=== PATIENT | male | born 1950 | race Caucasian/White ===

== ENCOUNTER 2019-02-22 19:27 | Inpatient (IN) | payer MEDICARE, OTHER ==
[~2019-02-22] VITALS: Ht 167.6 cm; Wt 60.1 kg
[2019-02-22] MEDS ORDERED: ASPIRIN 81 MG CHEW (CHILDREN'S ASA) PO ONE (20:00)
--- NOTE | 2019-02-22 20:14 | ED Chest Pain ---
General Chief Complaint: Chest Pain Stated Complaint: CHEST PAIN; SOB; NUMBNESS IN HANDS History of Present Illness Date Seen by Provider: Feb 22, 2019 Time Seen by Provider: 19:52 Initial Comments Patient is a 68 year old male who presents to the ED via niece with complaints of chest pain, cough and shortness of breath, varying in severity since last . He describes his chest pain as a deep pressure, as if, "someone is laying on my chest". Patient has history of "6-7 stents" and states that this pain feels similar to his last heart attack approximately 2 years prior. Patient has taken 2 nitroglycerin tablets in the past 24 hours. Last dose was during the ride to the ER. At its worst, he rates his pain at a 6. Following nitroglycerin, he continues to rate his pain at 6. His symptoms are exacerbated with exertion (lifting at work), deep inspiration, and when lying flat. He notes tenderness of the chest wall, most pronounced over the sternum, but denies a history of trauma to the area. Cough has been producing sputum, describes as thick and whitish in appearance. Patient is prescribed an albuterol inhaler, which provides little improvement in his symptoms. He denies a history of asthma and COPD. He denies bloody sputum, fever/chills, lightheadedness, diarrhea/constipation, dysuria/hematuria. He endorses some nausea due to pain and cough, but denies emesis. Patient states that he is prescribed medications for "blood pressure, blood thinners, and aspirin". He later states that he takes Lasix 40mg PO daily , and has an albuterol inhaler as mentioned previously. He endorses smoking 1 pack of cigarettes daily. (ISHMAEL MEJIA MEDICAL STUDENT) Allergies and Home Medications Allergies Coded Allergies: No Known Drug Allergies (Unverified , 02/22/19) Patient Home Medication List Home Medication List Reviewed: Yes (DAGOBERTO BERRY MD) Review of Systems Review of Systems Constitutional: see HPI Respiratory: See HPI Cardiovascular: See HPI Gastrointestinal: See HPI Genitourinary: See HPI Skin: No change in color, No lesions, No rash (ISHMAEL MEJIA MEDICAL STUDENT) Past Dasrpjt-Yrmfcq-Hprnid Hx Patient Social History Smoking Status: Current Everyday Smoker (1 ppd) Type Used: Cigarettes Recent Foreign Travel: No Contact w/Someone Who Travel: No (ISHMAEL MEJIA MEDICAL STUDENT) Past Medical History Cardiac: Yes Heart Attack (ISHMAEL MEJIA MEDICAL STUDENT) Physical Exam Vital Signs Vital Signs - First Documented 02/22/19 02/22/19 19:28 19:30 Temp 98.6 Pulse 80 Resp 24 B/P (MAP) 110/55 (73) Pulse Ox 93 O2 Delivery Nasal Cannula O2 Flow Rate 3.0 (DAGOBERTO BERRY MD) Vital Signs Capillary Refill : (ISHMAEL MEJIA MEDICAL STUDENT) Height, Weight, BMI Height: '" Weight: lbs. oz. kg; BMI Method: General Appearance: No Apparent Distress Neck: Full Range of Motion Respiratory: No Chest Non Tender (Anterior chest wall tender to palpation, most prominent over the sternum); No Accessory Muscle Use, Wheezing Cardiovascular: Regular Rate, Rhythm, No Murmur Gastrointestinal: Normal Bowel Sounds, Soft; No Distended Extremity: No Calf Tenderness Neurologic/Psychiatric: Alert (Alert/Grossly oriented) Skin: Normal Color, Warm/Dry (ISHMAEL MEJIA MEDICAL STUDENT) Progress/Results/Core Measures Results/Orders Lab Results Laboratory Tests Test 02/22/19 19:50 Range/Units White Blood Count 8.0 4.3-11.0 10^3/uL Red Blood Count 4.39 4.35-5.85 10^6/uL Hemoglobin 12.6 L 13.3-17.7 G/DL Hematocrit 39 L 40-54 % Mean Corpuscular Volume 90 80-99 FL Mean Corpuscular Hemoglobin 29 25-34 PG Mean Corpuscular Hemoglobin Concent 32 32-36 G/DL Red Cell Distribution Width 13.3 10.0-14.5 % Platelet Count 293 130-400 10^3/uL Mean Platelet Volume 11.2 H 7.4-10.4 FL Neutrophils (%) (Auto) 66 42-75 % Lymphocytes (%) (Auto) 24 12-44 % Monocytes (%) (Auto) 7 0-12 % Eosinophils (%) (Auto) 2 0-10 % Basophils (%) (Auto) 1 0-10 % Neutrophils # (Auto) 5.4 1.8-7.8 X 10^3 Lymphocytes # (Auto) 1.9 1.0-4.0 X 10^3 Monocytes # (Auto) 0.5 0.0-1.0 X 10^3 Eosinophils # (Auto) 0.1 0.0-0.3 10^3/uL Basophils # (Auto) 0.1 0.0-0.1 10^3/uL Prothrombin Time 13.4 12.2-14.7 SEC INR Comment 1.0 0.8-1.4 Activated Partial Thromboplast Time 32 24-35 SEC Sodium Level 142 135-145 MMOL/L Potassium Level 4.4 3.6-5.0 MMOL/L Chloride Level 102 98-107 MMOL/L Carbon Dioxide Level 26 21-32 MMOL/L Anion Gap 14 5-14 MMOL/L Blood Urea Nitrogen 14 7-18 MG/DL Creatinine 1.05 0.60-1.30 MG/DL Estimat Glomerular Filtration Rate > 60 BUN/Creatinine Ratio 13 Glucose Level 104 70-105 MG/DL Calcium Level 9.4 8.5-10.1 MG/DL Corrected Calcium 9.4 8.5-10.1 MG/DL Magnesium Level 1.9 1.8-2.4 MG/DL Total Bilirubin 0.4 0.1-1.0 MG/DL Aspartate Amino Transf (AST/SGOT) 16 5-34 U/L Alanine Aminotransferase (ALT/SGPT) 11 0-55 U/L Alkaline Phosphatase 78 40-136 U/L Myoglobin 35.0 10.0-92.0 NG/ML Pro-B-Type Natriuretic Peptide 4303.0 H <75.0 PG/ML Total Protein 7.0 6.4-8.2 GM/DL Albumin 4.0 3.2-4.5 GM/DL (DAGOBERTO BERRY MD) My Orders Orders - DAGOBERTO BERRY MD Cbc With Automated Diff (02/22/19:) Magnesium (02/22/19:) Ekg Tracing (02/22/19) Comprehensive Metabolic Panel (02/22/19) Myoglobin Serum (02/22/19) Protime With Inr (02/22/19) Partial Thromboplastin Time (02/22/19:) O2 (02/22/19:) Monitor-Rhythm Ecg Trace Only (02/22/19) Ed Iv/Invasive Line Start (4/10/19 19:52) Chest Pa/Lat (2 View) (02/22/19 19:54) Probnp Fs (02/22/19 19:54) Aspirin Chewable Tablet (Baby Aspirin Ch (02/22/19 20:00) Hs C Reactive Protein (02/22/19 20:01) Albuterol/Ipra Inhalation Soln (Duoneb I (02/22/19 20:15) Svn Small Volume Nebulizer (02/22/19 20:14) Furosemide Injection (Lasix Injection) (02/22/19 21:30) Methylprednisolone Sod Succ (Solu-Medrol (02/22/19 21:45) (DAGOBERTO BERRY MD) Medications Given in ED Current Medications Medications Dose Ordered Sig/Erick Route Start Time Stop Time Status Last Admin Dose Admin Albuterol/ Ipratropium 3 ml ONCE ONCE INH 02/22/19 20:15 02/22/19 20:16 DC 02/22/19 20:26 3 ML Aspirin 324 mg ONCE ONCE PO 02/22/19 20:00 02/22/19 20:01 DC 02/22/19 20:02 324 MG Furosemide 80 mg ONCE ONCE IVP 02/22/19 21:30 02/22/19 21:31 DC 02/22/19 21:35 80 MG (DAGOBERTO BERRY MD) Vital Signs/I&O 02/22/19 02/22/19 02/22/19 19:28 19:30 19:58 Temp 98.6 Pulse 80 Resp 24 B/P (MAP) 110/55 (73) Pulse Ox 93 96 O2 Delivery Nasal Cannula Nasal Cannula Nasal Cannula O2 Flow Rate 3.0 3.00 3.00 (DAGOBERTO BERRY MD) Progress Progress Note : Progress Note Patient was interviewed, seen, and examined along with Ishmael Mejia, 4. I agree with his history, exam, assessment, and plan. My exam is as follows: Gen.: Alert, oriented, no acute distress HEENT: Normocephalic and atraumatic, mucous membranes moist Heart: Regular rate and rhythm without murmur Lungs: Clear to auscultation but diminished in the bases, mild tachypnea Abdomen: Soft, nontender Extremities: Normal to inspection, no edema Skin: Warm and dry, no rashes Patient's BNP was significantly elevated. X-ray would suggest pulmonary edema and congestion that correlates well with the BNP. Case was discussed with Dr. Neumann who suggested a Lasix 80 mg IV now and admission. An echocardiogram is to be done in the morning. The Lasix dose was given in the ER. Patient did receive aspirin as part of the chest pain workup. Patient also received a DuoNeb treatment which very modestly improved his chest tightness and shortness of breath. I discussed CODE STATUS with the patient and he asserts a DO NOT RESUSCITATE status. Patient's primary care provider is Dr. Gilmore and his cardiology care is at [facility]. (DAGOBERTO BERRY MD) Initial ECG Impression Date: Feb 22, 2019 Initial ECG Impression Time: 19:28 Initial ECG Rate: 83 Initial ECG Rhythm: Normal Sinus Comment Normal sinus rhythm with no ischemic ST elevation or depression. Repolarization abnormality prominent in V3. Nonspecific ST changes. No abnormal intervals or axis deviation. PVC present. (DAGOBERTO BERRY MD) Diagnostic Imaging Diagonstic Imaging: Xray Plain Films/CT/US/NM/MRI: chest Comments Chest x-ray viewed by me and report reviewed. See report below: NAME: ISHMAEL DUDLEY [facility] REC#: [id number] PT STATUS: REG ER : 1950 PHYSICIAN: DAGOBERTO BERRY MD ADMIT DATE: 02/22/19/ER FS Signed Date of Exam: 02/22/19 CHEST PA/LAT (2 VIEW) INDICATION: Chest pain started last , it was worse today, left arm pain as well, took two nitroglycerin at home. FINDINGS: Frontal and lateral views of the chest demonstrate cardiomegaly. Timoteo B-lines are present with prominent interstitial markings. No effusions are present. IMPRESSION: There is cardiomegaly with pulmonary edema. Dictated by: Dictated on workstation # [id number] Dict: 02/22/192017 Trans: 02/22/192034 Interpreted by: TITO GAGE MD Electronically signed by: TITO GAGE MD 02/22/192034 (DAGOBERTO BERRY MD) Departure Communication (Admissions) Time/Spoke to Admitting Phy: 21:35 Dr. Shields Time/Spoke to Consulting Phy: 21:25 Dr. Neumann (DAGOBERTO BERRY MD) Impression Primary Impression: Chest pain Qualified Codes: R07.9 - Chest pain, unspecified Additional Impressions: CHF (congestive heart failure) Qualified Codes: I50.9 - Heart failure, unspecified COPD exacerbation Coronary artery disease Qualified Codes: I25.10 - Atherosclerotic heart disease of [place] coronary artery without angina pectoris Disposition: ADMITTED INPATIENT Condition: Improved Admissions Decision to Admit Reason: Admit from ER (General) Decision to Admit/Date: Feb 22, 2019 Time/Decision to Admit Time: 21:25 (DAGOBERTO BERRY MD) Departure-Patient Inst. Referrals: KATHERIN GILMORE MD (PCP) Primary Care Physician Copy Copies To 1: KATHERIN GILMORE MD, WILLIAM MEDICAL STUDENT Feb 22, 2019 20:14 DAGOBERTO BERRY MD Feb 22, 2019 21:56
[2019-02-22] MEDS ORDERED: RT-ALBUTEROL/IPRATROPIUM 3 ML (DUONEB) VIAL INH ONE (20:15)
[2019-02-22 20:20] LABS: BASOPHILS % (AUTO) 1 % (0-10); EOSINOPHILS % (AUTO) 2 % (0-10); HEMATOCRIT 39 % (40-54); HEMOGLOBIN 12.6 G/DL (13.3-17.7); LYMPHOCYTES % (AUTO) 24 % (12-44); MEAN CORPUSCULAR HEMOGLOBIN 29 PG (25-34); MEAN CORPUSCULAR HGB CONC 32 G/DL (32-36); MEAN CORPUSCULAR VOLUME 90 FL (80-99); MEAN PLATELET VOLUME 11.2 FL (7.4-10.4); MONOCYTES % (AUTO) 7 % (0-12); PLATELET COUNT 293 10^3/uL (130-400); RED CELL DISTRIBUTION WIDTH 13.3 % (10.0-14.5)
[2019-02-22 20:21] LABS: BASOPHILS # (AUTO) 0.1 10^3/uL (0.0-0.1); EOSINOPHILS # (AUTO) 0.1 10^3/uL (0.0-0.3); LYMPHOCYTES # (AUTO) 1.9 X 10^3 (1.0-4.0); MONOCYTES # (AUTO) 0.5 X 10^3 (0.0-1.0); NEUTROPHILS # (AUTO) 5.4 X 10^3 (1.8-7.8); NEUTROPHILS % (AUTO) 66 % (42-75)
[2019-02-22 20:22] LABS: PROTHROMBIN TIME PATIENT 13.4 SEC (12.2-14.7)
--- NOTE | 2019-02-22 20:23 | Diagnostic Imaging Report ---
INDICATION: Chest pain started last , it was worse today, left arm pain as well, took two nitroglycerin at home. FINDINGS: Frontal and lateral views of the chest demonstrate cardiomegaly. Timoteo B-lines are present with prominent interstitial markings. No effusions are present. IMPRESSION: There is cardiomegaly with pulmonary edema. Dictated by: Dictated on workstation # [id number]
[2019-02-22 20:32] LABS: BUN/CREATININE RATIO 13; CARBON DIOXIDE 26 MMOL/L (21-32); CHLORIDE 102 MMOL/L (98-107); CREATININE SERUM 1.05 MG/DL (0.60-1.30); GFR ESTIMATED > 60; POTASSIUM 4.4 MMOL/L (3.6-5.0); SODIUM 142 MMOL/L (135-145)
[2019-02-22 20:33] LABS: ALANINE AMINOTRANSFERASE 11 U/L (0-55); ALKALINE PHOSPHATASE 78 U/L (40-136); BILIRUBIN,TOTAL 0.4 MG/DL (0.1-1.0); CALCIUM 9.4 MG/DL (8.5-10.1); GLUCOSE 104 MG/DL (70-105); MAGNESIUM 1.9 MG/DL (1.8-2.4)
[2019-02-22] MEDS ORDERED: FUROSEMIDE 40 MG/4 ML INJ (LASIX) IVP ONE (21:30)
[2019-02-22] MEDS ORDERED: methylPREDNISolone 40 MG/ML (Solu-MEDROL) VIAL IV ONE (21:45)
[2019-02-22 23:55] VITALS: BP 130/65
[2019-02-23] VITALS (13 sets, daily range): BP systolic 104–133; BP diastolic 45–97
[2019-02-23] MEDS ORDERED: RT-ALBUTEROL SULF 2.5 MG/3 ML PRE-MIX VIAL IH PRN (01:30)
[2019-02-23 02:25] LABS: CREATINE KINASE 128 U/L (30-200)
[2019-02-23] MEDS: FUROSEMIDE 40 MG/4 ML INJ (LASIX) IVP SCH ×2 (06:00→15:42)
[2019-02-23 06:02] LABS: BASOPHILS % (AUTO) 0 % (0-10); EOSINOPHILS % (AUTO) 0 % (0-10); HEMATOCRIT 44 % (40-54); HEMOGLOBIN 14.5 G/DL (13.3-17.7); LYMPHOCYTES # (AUTO) 0.9 X 10^3 (1.0-4.0); LYMPHOCYTES % (AUTO) 12 % (12-44); MEAN CORPUSCULAR HEMOGLOBIN 29 PG (25-34); MEAN CORPUSCULAR HGB CONC 33 G/DL (32-36); MEAN CORPUSCULAR VOLUME 88 FL (80-99); MEAN PLATELET VOLUME 11.5 FL (7.4-10.4); MONOCYTES # (AUTO) 0.1 X 10^3 (0.0-1.0); MONOCYTES % (AUTO) 2 % (0-12); NEUTROPHILS # (AUTO) 6.1 X 10^3 (1.8-7.8); NEUTROPHILS % (AUTO) 86 % (42-75); PLATELET COUNT 295 10^3/uL (130-400); RED CELL DISTRIBUTION WIDTH 13.9 % (10.0-14.5); WHITE BLOOD COUNT 7.2 10^3/uL (4.3-11.0)
[2019-02-23 06:24] LABS: ALANINE AMINOTRANSFERASE 15 U/L (0-55); ALBUMIN 4.2 GM/DL (3.2-4.5); ALKALINE PHOSPHATASE 88 U/L (40-136); BILIRUBIN,TOTAL 0.6 MG/DL (0.1-1.0); BUN/CREATININE RATIO 17; CALCIUM 10.1 MG/DL (8.5-10.1); CARBON DIOXIDE 21 MMOL/L (21-32); CHLORIDE 101 MMOL/L (98-107); CHOLESTEROL 224 MG/DL (< 200); CREATININE SERUM 0.99 MG/DL (0.60-1.30); GFR ESTIMATED > 60; GLUCOSE 110 MG/DL (70-105); HDL CHOLESTEROL 52 MG/DL (40-60); POTASSIUM 4.5 MMOL/L (3.6-5.0); SODIUM 137 MMOL/L (135-145); TOTAL PROTEIN 7.8 GM/DL (6.4-8.2); TRIGLYCERIDES 79 MG/DL (<150); VLDL CHOLESTEROL 16 MG/DL (5-40)
[2019-02-23 06:26] LABS: BAND NEUTROPHILS 0 %; BASOPHILS % (MANUAL) 0 %; ELLIPT/OVALOCYTES SLIGHT; EOSINOPHILS % (MANUAL) 0 %; LYMPHOCYTES % (MANUAL) 11 %; MONOCYTES % (MANUAL) 2 %; NEUTROPHILS % (MANUAL) 85 %; PLATELET CLUMPS SLIGHT; REACTIVE LYMPHOCYTES 2 %; ROULEAUX SLIGHT
[2019-02-23] MEDS ORDERED: FUROSEMIDE 40 MG (LASIX) TAB PO SCH (07:00)
--- NOTE | 2019-02-23 07:29 | Consultation-Cardiology ---
HPI-Cardiology Cardiology Consultation Date of Consultation 02/23/19 Date of Admission Time Seen by Provider: 07:24 Indication: chest pain and shortness of breath HPI 68 years old gentleman with history of coronary artery disease and congestive heart failure, was following with a hairspring studder in [place], did not see any hairspring studder for over a year. Has been having some increasing shortness of breath for the past 2 weeks which has been worsening, reporting worsening orthopnea, cough, had some chest tightness. Denied any palpitation. Denied any syncope or near syncopal episode. Was given IV Lasix and reported some improvement, currently laying down in bed, still having some dyspnea at rest Home Medications & Allergies Allergies: Coded Allergies: No Known Drug Allergies (Unverified , 02/22/19) Home Medication List Reviewed: Yes HVV-Imuwrd-Sjmrls Hx Patient Social History Marital Status: Employed/Student: retired Smoking Status: Current Everyday Smoker (1 ppd) Type Used: Cigarettes Recent Foreign Travel: No Recent Infectious Disease Expo: No Immunizations Up To Date Date of Pneumonia Vaccine: Dec 26, 2018 Past Medical History past medical history as discussed below Family Medical History Family Medical Hx family history of heart disease and hypertension Review of Systems Constitutional: see HPI, malaise EENTM: see HPI, no symptoms reported Respiratory: see HPI, cough, dyspnea on exertion, orthopnea, phlegm Cardiovascular: see HPI, chest pain, edema; No Hx of Intervention, No palpitations, No syncope, No vascular heart diseas, No other Gastrointestinal: no symptoms reported, see HPI Genitourinary: no symptoms reported, see HPI Musculoskeletal: see HPI, joint pain Skin: no symptoms reported, see HPI Psychiatric/Neurological: No Symptoms Reported, See HPI Reviewed Test Results Reviewed Test Results Lab Laboratory Tests Test 02/22/19 19:50 02/23/19 02:00 02/23/19 05:15 Range/Units White Blood Count 8.0 7.2 4.3-11.0 10^3/uL Red Blood Count 4.39 5.00 4.35-5.85 10^6/uL Hemoglobin 12.6 L 14.5 13.3-17.7 G/DL Hematocrit 39 L 44 40-54 % Mean Corpuscular Volume 90 88 80-99 FL Mean Corpuscular Hemoglobin 29 29 25-34 PG Mean Corpuscular Hemoglobin Concent 32 33 32-36 G/DL Red Cell Distribution Width 13.3 13.9 10.0-14.5 % Platelet Count 293 295 130-400 10^3/uL Mean Platelet Volume 11.2 H 11.5 H 7.4-10.4 FL Neutrophils (%) (Auto) 66 86 H 42-75 % Lymphocytes (%) (Auto) 24 12 12-44 % Monocytes (%) (Auto) 7 2 0-12 % Eosinophils (%) (Auto) 2 0 0-10 % Basophils (%) (Auto) 1 0 0-10 % Neutrophils # (Auto) 5.4 6.1 1.8-7.8 X 10^3 Lymphocytes # (Auto) 1.9 0.9 L 1.0-4.0 X 10^3 Monocytes # (Auto) 0.5 0.1 0.0-1.0 X 10^3 Eosinophils # (Auto) 0.1 0.0 0.0-0.3 10^3/uL Basophils # (Auto) 0.1 0.0 0.0-0.1 10^3/uL Prothrombin Time 13.4 12.2-14.7 SEC INR Comment 1.0 0.8-1.4 Activated Partial Thromboplast Time 32 24-35 SEC Sodium Level 142 137 135-145 MMOL/L Potassium Level 4.4 4.5 3.6-5.0 MMOL/L Chloride Level 102 101 98-107 MMOL/L Carbon Dioxide Level 26 21 21-32 MMOL/L Anion Gap 14 15 H 5-14 MMOL/L Blood Urea Nitrogen 14 17 7-18 MG/DL Creatinine 1.05 0.99 0.60-1.30 MG/DL Estimat Glomerular Filtration Rate > 60 > 60 BUN/Creatinine Ratio 13 17 Glucose Level 104 110 H 70-105 MG/DL Calcium Level 9.4 10.1 8.5-10.1 MG/DL Corrected Calcium 9.4 9.9 8.5-10.1 MG/DL Magnesium Level 1.9 1.8-2.4 MG/DL Total Bilirubin 0.4 0.6 0.1-1.0 MG/DL Aspartate Amino Transf (AST/SGOT) 16 21 5-34 U/L Alanine Aminotransferase (ALT/SGPT) 11 15 0-55 U/L Alkaline Phosphatase 78 88 40-136 U/L Myoglobin 35.0 10.0-92.0 NG/ML Pro-B-Type Natriuretic Peptide 4303.0 H <75.0 PG/ML Total Protein 7.0 7.8 6.4-8.2 GM/DL Albumin 4.0 4.2 3.2-4.5 GM/DL Total Creatine Kinase 128 30-200 U/L Troponin I < 0.028 < 0.028 <0.028 NG/ML Neutrophils % (Manual) 85 % Lymphocytes % (Manual) 11 % Monocytes % (Manual) 2 % Eosinophils % (Manual) 0 % Basophils % (Manual) 0 % Band Neutrophils 0 % Reactive Lymphocytes 2 % Clumped Platelets SLIGHT Elliptocytes SLIGHT Rouleau SLIGHT Triglycerides Level 79 <150 MG/DL Cholesterol Level 224 H < 200 MG/DL LDL Cholesterol Direct 161 H 1-129 MG/DL VLDL Cholesterol 16 5-40 MG/DL HDL Cholesterol 52 40-60 MG/DL Physical Exam Vital Signs Vital Signs - First Documented 02/22/19 02/22/19 19:28 19:30 Temp 98.6 Pulse 80 Resp 24 B/P (MAP) 110/55 (73) Pulse Ox 93 O2 Delivery Nasal Cannula O2 Flow Rate 3.0 Capillary Refill : Less Than 3 Seconds Height, Weight, BMI Height: 5'6.00" Weight: 130lbs. 2.4oz. 59.937769sq; 21.0 BMI Method:Stated General Appearance: WD/WN, Mild Distress Eyes: Bilateral Eye Normal Inspection, Bilateral Eye PERRL, Bilateral Eye EOMI HEENT: PERRL/EOMI, TMs Normal, Normal ENT Inspection, Pharynx Normal Neck: Full Range of Motion, Normal Inspection, Non Tender, Supple, Carotid Bruit Respiratory: Chest Non Tender, Normal Breath Sounds, No Accessory Muscle Use, No Respiratory Distress, Crackles Cardiovascular: Regular Rate, Rhythm, No Edema, No Gallop, No JVD, Normal Peripheral Pulses, Systolic Murmur Gastrointestinal: Normal Bowel Sounds, No Organomegaly, No Pulsatile Mass, Non Tender, Soft Back: Normal Inspection, No CVA Tenderness, No Vertebral Tenderness Extremity: Normal Capillary Refill, Normal Inspection, Normal Range of Motion, Non Tender, No Calf Tenderness, No Pedal Edema Neurologic/Psychiatric: Alert, Oriented x3, No Motor/Sensory Deficits, Normal Mood/Affect Skin: Normal Color, Warm/Dry Lymphatic: No Adenopathy A/P-Cardiology Admission Diagnosis Chest pain Shortness of breath Coronary artery disease Congestive heart failure, acute on chronic left ventricular systolic dysfunction Assessment/Plan Chest pain nonspecific etiology, extensive cardiac history, no recent cardiac workup, EKG did not show any acute abnormality, cardiac enzymes were negative. Currently chest pain is better, planning to proceed with stress test Congestive heart failure, acute on chronic left ventricular systolic dysfunction , start on aggressive diuresis, continue on diuretics and monitor, planning to evaluate 2-D echocardiogram Coronary artery disease, history of total of 5 stents in the past, last stress test was done about a year and a half ago. Planning to repeat stress test Hypertension, restart home medication monitor blood pressure Hyperlipidemia, evaluate lipid profile. Family history of heart disease. Clinical Quality Measures AMI/AHF: ASA po Prior to arrival: No DVT/VTE Risk/Contraindication: Risk Factor Score Per Nursin RFS Level Per Nursing on Admit: 4+=Very High FRANKLIN FLORES MD Feb 23, 2019 07:29
[2019-02-23] MEDS ORDERED: REGADENOSON 0.4 MG/5 ML SYR (LEXISCAN) IV ONE (07:30)
[2019-02-23] MEDS: ASPIRIN E.C. 81 MG (ECOTRIN) TAB PO SCH (07:51)
[2019-02-23] MEDS ORDERED: CLOP75TA28 PO (09:35)
[2019-02-23] MEDS ORDERED: FURO40TA4 PO (09:35)
[2019-02-23] MEDS ORDERED: TRAM50TA2 PO (09:35)
[2019-02-23] MEDS ORDERED: ASPI325T32 PO (09:35)
[2019-02-23] MEDS ORDERED: LEVO50TA6 PO (09:35)
[2019-02-23] MEDS ORDERED: RT-ALBUINH INH (09:35)
[2019-02-23] MEDS ORDERED: CARV12.53 PO (09:35)
[2019-02-23] MEDS ORDERED: NITR0.4T42 SL (09:35)
--- NOTE | 2019-02-23 09:37 | NUR ---
WENT OVER THE EXT MED HX WITH THE PATIENT AND HE VERIFIED HOW HE TAKES THEM. HE ALSO TAKES ASPIRIN 325MG DAILY OTC.
--- NOTE | 2019-02-23 10:22 | History & Physical-Hospitalist ---
History of Present Illness HPI/Chief Complaint Chief complaint: Shortness of breath HPI: This is a 68yoWM clinic pt of Dr. Myers who presented with chest pain and SOB found to have exacerbation of COPD and he uses oxygen at night and continues to smoke one pack per day. He works at [employer]. He lives alone but his sister is involved in his care. Pt reports shortness of breath is about the same, but tolerating nebulizer treatments and IV steroids. Dr. Walker did initiate diuresis which has helped. Source: patient, family, RN/MD Exam Limitations: no limitations Date Seen 02/23/19 Time Seen by a Provider: 09:45 Attending Physician Lo Ivey DO PCP Bradley Myers MD Referring Physician Date of Admission Feb 22, 2019 at 21:43 Home Medications & Allergies Home Medications Reviewed patient Home Medication Reconciliation performed by pharmacy medication reconciliations gi technician and/or nursing. Patients Allergies have been reviewed. Allergies Allergies Coded Allergies No Known Drug Allergies (Unverified02/22/19) Past Zqpaijk-Tvhhls-Iuuszc Hx Past Med/Social Hx: Reviewed Nursing Past Med/Soc Hx, Reviewed and Corrections made Patient Social History Marrital Status: Employed/Student: employed ([employer]) Smoking Status: Current Everyday Smoker (1 ppd) Type Used: Cigarettes Recent Foreign Travel: No Contact w/other who traveled: No Recent Infectious Disease Expo: No Immunizations Up To Date Date of Pneumonia Vaccine: Dec 26, 2018 Past Medical History Respiratory: COPD Cardiac: Coronary Artery Disease, Heart Attack, High Cholesterol, Hypertension Review of Systems Constitutional: see HPI EENTM: no symptoms reported Respiratory: dyspnea on exertion, short of breath, wheezing Cardiovascular: chest pain Gastrointestinal: no symptoms reported Genitourinary: no symptoms reported Musculoskeletal: no symptoms reported Skin: no symptoms reported Psychiatric/Neurological: No Symptoms Reported All Other Systems Reviewed Negative Unless Noted: Yes Physical Exam Physical Exam Vital Signs Vital Signs - First Documented 02/22/19 02/22/19 19:28 19:30 Temp 98.6 Pulse 80 Resp 24 B/P (MAP) 110/55 (73) Pulse Ox 93 O2 Delivery Nasal Cannula O2 Flow Rate 3.0 Capillary Refill : Less Than 3 Seconds Height, Weight, BMI Height: 5'6.00" Weight: 130lbs. 2.4oz. 59.162012au; 21.0 BMI Method:Stated General Appearance: WD/WN, Chronically ill, Mild Distress, Thin Eyes: Right Eye Normal Inspection, Right Eye PERRL HEENT: PERRL/EOMI, TMs Normal, Normal ENT Inspection, Pharynx Normal, Moist Mucous Membranes Neck: Full Range of Motion, Normal Inspection, Non Tender Respiratory: Chest Non Tender, No Accessory Muscle Use, No Respiratory Distress , Decreased Breath Sounds, Wheezing Cardiovascular: Regular Rate, Rhythm, No Edema, No Gallop, No JVD, No Murmur, Normal Peripheral Pulses Gastrointestinal: Normal Bowel Sounds, No Organomegaly, No Pulsatile Mass, Non Tender, Soft Back: Normal Inspection, No CVA Tenderness, No Vertebral Tenderness Extremity: Normal Capillary Refill, Normal Inspection, Normal Range of Motion, Non Tender, No Calf Tenderness, No Pedal Edema Neurologic/Psychiatric: Alert, Oriented x3, No Motor/Sensory Deficits, Normal Mood/Affect Skin: Normal Color, Warm/Dry Lymphatic: No Adenopathy Results Results/Procedures Labs Laboratory Tests 02/22/19 19:50 02/23/19 05:15 Patient resulted labs reviewed. Assessment/Plan Admission Diagnosis Assessment: AECHF Pulmonary edema Elevated BNP CAD Smoker AECOPD Plan: IV Lasix Cardiology consultation O2 Nebs Admission Status: Inpatient Order (span 2 midnights) Reason for Inpatient Admission: AECHF will require 3 days since new onset Diagnosis/Problems Diagnosis/Problems (1) Chest pain Status: Acute Qualifiers: Chest pain type: unspecified Qualified Codes: R07.9 - Chest pain, unspecified (2) Elevated brain natriuretic peptide (BNP) level Status: Acute (3) Smoker Status: Chronic (4) PVD (peripheral vascular disease) Status: Chronic (5) Oxygen dependent Status: Chronic (6) CHF (congestive heart failure) Status: Acute Qualifiers: Heart failure type: unspecified Heart failure chronicity: unspecified Qualified Codes: I50.9 - Heart failure, unspecified (7) Coronary artery disease Status: Acute Qualifiers: Coronary Disease-Associated Artery/Lesion type: [place] artery [place] vs. transplanted heart: [place] heart Associated angina: angina presence unspecified Qualified Codes: I25.10 - Atherosclerotic heart disease of [place] coronary artery without angina pectoris (8) COPD exacerbation Status: Acute Clinical Quality Measures AMI/AHF: ASA po Prior to arrival: No DVT/VTE Risk/Contraindication: Risk Factor Score Per Nursin RFS Level Per Nursing on Admit: 4+=Very High LO IVEY DO Feb 23, 2019 10:22
[2019-02-23] MEDS: methylPREDNISolone 40 MG/ML (Solu-MEDROL) VIAL IV SCH (12:45)
[2019-02-24] VITALS (8 sets, daily range): BP systolic 109–144; BP diastolic 51–71
[2019-02-24] MEDS: methylPREDNISolone 40 MG/ML (Solu-MEDROL) VIAL IV SCH ×2 (00:22→11:22)
[2019-02-24 06:05] LABS: HEMOGLOBIN 13.9 G/DL (13.3-17.7); MEAN PLATELET VOLUME 11.5 FL (7.4-10.4); RED CELL DISTRIBUTION WIDTH 13.8 % (10.0-14.5); WHITE BLOOD COUNT 13.9 10^3/uL (4.3-11.0)
[2019-02-24 06:29] LABS: BUN/CREATININE RATIO 28; CALCIUM 9.7 MG/DL (8.5-10.1); CARBON DIOXIDE 21 MMOL/L (21-32); CHLORIDE 101 MMOL/L (98-107); CREATININE SERUM 0.96 MG/DL (0.60-1.30); GFR ESTIMATED > 60; GLUCOSE 111 MG/DL (70-105); MAGNESIUM 2.3 MG/DL (1.8-2.4); POTASSIUM 4.9 MMOL/L (3.6-5.0); SODIUM 137 MMOL/L (135-145)
[2019-02-24] MEDS: FUROSEMIDE 40 MG/4 ML INJ (LASIX) IVP SCH ×2 (06:35→16:47)
[2019-02-24] MEDS: LEVOTHYROXINE 50 MCG (LEVOTHROID) TAB PO SCH (06:35)
[2019-02-24] MEDS ORDERED: REGADENOSON 0.4 MG/5 ML SYR (LEXISCAN) IV ONE (08:15)
--- NOTE | 2019-02-24 09:12 | Progress Note-Hospitalist ---
Subjective HPI/CC On Admission Date Seen by Provider: Feb 24, 2019 Time Seen by Provider: 09:30 Chief complaint: Shortness of breath HPI: This is a 68yoWM clinic pt of Dr. Myers who presented with chest pain and SOB found to have exacerbation of COPD and he uses oxygen at night and continues to smoke one pack per day. He works at [employer]. He lives alone but his sister is involved in his care. Pt reports shortness of breath is about the same, but tolerating nebulizer treatments and IV steroids. Dr. Walker did initiate diuresis which has helped. Subjective/Events-last exam Patient feels much better Breathing better Stress test revealed an echo revealed ejection fraction 20 percent needs LifeVest Smoking cessation counseled Needs bowel movement Diuresis is helping a lot Updated patient and sister Review of Systems Pulmonary: Dyspnea Objective Exam Vital Signs Vital Signs Date Time Temp Pulse Resp B/P (MAP) Pulse Ox O2 Delivery O2 Flow Rate FiO2 02/24/19 12:57 88 02/24/19 12:00 97.2 20 144/70 (94) 98 Nasal Cannula 3.00 Capillary Refill : Less Than 3 Seconds General Appearance: WD/WN, Chronically ill, Mild Distress, Thin HEENT: PERRL/EOMI, TMs Normal, Normal ENT Inspection, Pharynx Normal, Moist Mucous Membranes Neck: Full Range of Motion, Normal Inspection, Non Tender Respiratory: Chest Non Tender, No Accessory Muscle Use, No Respiratory Distress , Decreased Breath Sounds, Wheezing Cardiovascular: Regular Rate, Rhythm, No Edema, No Gallop, No JVD, No Murmur, Normal Peripheral Pulses Gastrointestinal: Normal Bowel Sounds, No Organomegaly, No Pulsatile Mass, Non Tender, Soft Back: Normal Inspection, No CVA Tenderness, No Vertebral Tenderness Extremity: Normal Capillary Refill, Normal Inspection, Normal Range of Motion, Non Tender, No Calf Tenderness, No Pedal Edema Neurologic/Psychiatric: Alert, Oriented x3, No Motor/Sensory Deficits, Normal Mood/Affect Skin: Normal Color, Warm/Dry Lymphatic: No Adenopathy Results/Procedures Lab Laboratory Tests 02/24/19 05:40 Patient resulted labs reviewed. Assessment/Plan Assessment and Plan Assess & Plan/Chief Complaint Assessment: AECHF due to ischemic cardiomyopathy confirmed on EST Pulmonary edema responding to diuresis Elevated BNP CAD Smoker AECOPD Plan: IV Lasix Cardiology consultation is appreciated O2 Nebs Lifevest Diagnosis/Problems Diagnosis/Problems (1) Chest pain Status: Acute Qualifiers: Chest pain type: unspecified Qualified Codes: R07.9 - Chest pain, unspecified (2) Elevated brain natriuretic peptide (BNP) level Status: Acute (3) Smoker Status: Chronic (4) PVD (peripheral vascular disease) Status: Chronic (5) Oxygen dependent Status: Chronic (6) CHF (congestive heart failure) Status: Acute Qualifiers: Heart failure type: unspecified Heart failure chronicity: unspecified Qualified Codes: I50.9 - Heart failure, unspecified (7) Coronary artery disease Status: Acute Qualifiers: Coronary Disease-Associated Artery/Lesion type: [place] artery [place] vs. transplanted heart: [place] heart Associated angina: angina presence unspecified Qualified Codes: I25.10 - Atherosclerotic heart disease of [place] coronary artery without angina pectoris (8) COPD exacerbation Status: Acute (9) Ischemic cardiomyopathy Status: Acute Clinical Quality Measures AMI/AHF: ASA po Prior to arrival: No DVT/VTE Risk/Contraindication: Risk Factor Score Per Nursin RFS Level Per Nursing on Admit: 4+=Very High WENDY IVEY DO Feb 24, 2019 09:12
[2019-02-24] MEDS: CLOPIDOGREL 75 MG (PLAVIX) TABLET PO SCH (11:15)
[2019-02-24] MEDS: ASPIRIN E.C. 81 MG (ECOTRIN) TAB PO SCH (11:15)
--- NOTE | 2019-02-24 11:20 | Cardiology Progress Note ---
Subjective Date Seen by Provider: Feb 24, 2019 Time Seen by Provider: 11:15 Subjective/Events-last exam Patient is in bed, feeling better, no chest pain. Review of Systems General: No Chills, No Night Sweats, No Fatigue, No Malaise, No Appetite, No Other HEENT: No Head Aches, No Visual Changes, No Eye Pain, No Ear Pain, No Dysphasia , No Sinus Congestion, No Post Nasal Drip, No Sore Throat, No Other Pulmonary: Dyspnea; No Cough, No Pleuritic Chest Pain, No Other Cardiovascular: No: Chest Pain, Palpitations, Orthopnea, Paroxysmal Noc. Dyspnea, Edema, Lt Headedness, Other Objective-Cardiology Exam Last Set of Vital Signs Vital Signs 02/24/19 09:54 Temp 96.5 Pulse 70 Resp 20 B/P (MAP) 144/70 (94) Pulse Ox 99 O2 Delivery Nasal Cannula O2 Flow Rate 3.00 Capillary Refill : Less Than 3 Seconds I&O Intake and Output 02/23/19 23:59 Intake Total 1520 ml Output Total 1550 ml Balance -30 ml Intake Oral 1520 ml Output Urine Total 1550 ml # Bowel Movements 2 General: Alert, Oriented X3, Cooperative HEENT: Atraumatic, PERRLA Neck: Supple, No JVD, No Thyromegaly Lungs: Clear to Auscultation, Normal Air Movement Heart: Normal S1, Normal S2, No Murmurs, Other (S3 is present) Abdomen: Normal Bowel Sounds, Soft, No Tenderness, No Hepatosplenomegaly, No Masses Extremities: No Clubbing, No Cyanosis, No Edema, Normal Pulses, No Tenderness/ Swelling Skin: No Rashes, No Breakdown, No Significant Lesion Neuro: Normal Gait, Normal Speech, Strength at 5/5 X4 Ext, Normal Tone, Sensation Intact Psych/Mental Status: Mental Status NL, Mood NL Results Lab Laboratory Tests 02/24/19 05:40 A/P-Cardiology Admission Diagnosis Chest pain Shortness of breath Coronary artery disease Congestive heart failure, acute on chronic left ventricular systolic dysfunction Assessment/Plan Chest pain nonspecific etiology, extensive cardiac history, coronary artery disease. Congestive heart failure, acute on chronic left ventricular systolic dysfunction , ejection fraction 25 percent, planning to proceed with LifeVest, stress test showed total infarction of the true apex and anteroapical and inferior apical, anteroseptal and inferoseptal segment with no reversibility, will consider viability study as an outpatient. I will start on Entresto and coreg and monitor tolerance and response. Continue on Lasix Increased risk of sudden , will start on LifeVest Coronary artery disease, history of total of 5 stents in the past, last stress test was done about a year and a half ago. Planning to evaluate viability study as an outpatient Hypertension, monitor blood pressure response Hyperlipidemia, evaluate lipid profile. Family history of heart disease. Clinical Quality Measures AMI/AHF: ASA po Prior to arrival: No DVT/VTE Risk/Contraindication: Risk Factor Score Per Nursin RFS Level Per Nursing on Admit: 4+=Very High FRANKLIN FLORES MD Feb 24, 2019 11:20
--- NOTE | 2019-02-24 12:54 | STRESS TEST ---
DATE OF SERVICE: 02/24/2019 LEXISCAN MYOVIEW STRESS TEST REPORT REFERRING PHYSICIANS: Dr. Bradley Myers and Dr. Lo Shields. Baseline heart rate is 80 and baseline blood pressure 115/70. Baseline EKG is sinus rhythm with left bundle branch block. In summary, the patient was injected with 10.76 mCi of technetium-99 Myoview and the resting images were obtained. Then, the patient received 0.4 mg of Lexiscan followed by 30.4 mCi of technetium-99 Myoview. Throughout the test, there were no EKG changes. The resting and stress images were reviewed and compared in the short axis, horizontal long axis and vertical long axis views. Review of the images showed total infarction of the mid to apical anterior wall true apex, inferoapical segment, inferoseptum and anteroseptum with no significant reversibility. SSS is 32, SDS 2 and TID value 1.14. On the gated images, the left ventricle is dilated with severe diffuse left ventricular hypokinesia, akinesia of the apex and inferoapical segment, calculated ejection fraction is 21%. CONCLUSION: 1. The patient tolerated the Lexiscan well. 2. Extensive infarction involving the true apex, anteroapical, inferoapical inferoseptum and anteroseptum with no significant reversibility. 3. Dilated left ventricle with diffuse left ventricular hypokinesia with the akinesia of the apex. Calculated ejection fraction is 21%. Job ID: [id number] DocumentID: [id number] Dictated Date: 02/24/2019 10:34:51 Photographic Equipment Inspector Date: 02/24/2019 12:54:28 Dictated By: FRANKLIN FLORES MD
[2019-02-24] MEDS: SENNA W/DOCUSATE (SENOKOT S) TABLET PO SCH ×2 (13:01→21:29)
[2019-02-24] MEDS: LACTULOSE SYRUP 10GM/15ML (ENULOSE) 30ML UDC PO SCH ×2 (13:03→20:00)
--- NOTE | 2019-02-24 15:00 | NUR ---
Pastoral care visit.
[2019-02-24] MEDS: CARVEDILOL 3.125 MG (COREG) TABLET PO SCH (21:28)
[2019-02-24] MEDS: SACUBITRIL/VALSARTAN 24/26 MG (ENTRESTO) TABLET PO SCH (21:29)
[2019-02-25] MEDS: methylPREDNISolone 40 MG/ML (Solu-MEDROL) VIAL IV SCH (00:36)
[2019-02-25 04:00] VITALS: BP 107/44
[2019-02-25 06:11] LABS: HEMOGLOBIN 13.9 G/DL (13.3-17.7); MEAN PLATELET VOLUME 11.3 FL (7.4-10.4); RED CELL DISTRIBUTION WIDTH 13.7 % (10.0-14.5); WHITE BLOOD COUNT 13.6 10^3/uL (4.3-11.0)
[2019-02-25] MEDS: FUROSEMIDE 40 MG/4 ML INJ (LASIX) IVP SCH (06:28)
[2019-02-25] MEDS: LEVOTHYROXINE 50 MCG (LEVOTHROID) TAB PO SCH (06:28)
[2019-02-25 06:31] LABS: BUN/CREATININE RATIO 41; CALCIUM 9.5 MG/DL (8.5-10.1); CARBON DIOXIDE 24 MMOL/L (21-32); CHLORIDE 99 MMOL/L (98-107); CREATININE SERUM 0.99 MG/DL (0.60-1.30); GFR ESTIMATED > 60; GLUCOSE 117 MG/DL (70-105); MAGNESIUM 2.4 MG/DL (1.8-2.4); POTASSIUM 4.4 MMOL/L (3.6-5.0); SODIUM 135 MMOL/L (135-145)
[2019-02-25 07:37] VITALS: BP 112/56
[2019-02-25] MEDS: CLOPIDOGREL 75 MG (PLAVIX) TABLET PO SCH (08:24)
[2019-02-25] MEDS: ASPIRIN E.C. 81 MG (ECOTRIN) TAB PO SCH (08:24)
[2019-02-25] MEDS: CARVEDILOL 3.125 MG (COREG) TABLET PO SCH (08:24)
[2019-02-25] MEDS: SACUBITRIL/VALSARTAN 24/26 MG (ENTRESTO) TABLET PO SCH (08:24)
[2019-02-25] MEDS: LACTULOSE SYRUP 10GM/15ML (ENULOSE) 30ML UDC PO SCH (08:24)
[2019-02-25] MEDS: SENNA W/DOCUSATE (SENOKOT S) TABLET PO SCH (08:24)
--- NOTE | 2019-02-25 10:15 | Cardiology Progress Note ---
Subjective Date Seen by Provider: Feb 25, 2019 Time Seen by Provider: 10:14 Subjective/Events-last exam patient is feeling better, denied any chest pain. No palpitation. Breathing better Review of Systems General: No Chills, No Night Sweats, No Fatigue, No Malaise, No Appetite, No Other HEENT: No Head Aches, No Visual Changes, No Eye Pain, No Ear Pain, No Dysphasia , No Sinus Congestion, No Post Nasal Drip, No Sore Throat, No Other Pulmonary: No Dyspnea, No Cough, No Pleuritic Chest Pain, No Other Cardiovascular: No: Chest Pain, Palpitations, Orthopnea, Paroxysmal Noc. Dyspnea, Edema, Lt Headedness, Other Objective-Cardiology Exam Last Set of Vital Signs Vital Signs 02/25/19 02/25/19 07:37 07:57 Temp 97.6 Pulse 77 Resp 20 B/P (MAP) 112/56 (74) Pulse Ox 96 O2 Delivery Nasal Cannula O2 Flow Rate 3.00 Capillary Refill : Less Than 3 Seconds I&O Intake and Output 02/25/19 00:00 Intake Total 1490 ml Output Total 1000 ml Balance 490 ml Intake Oral 1490 ml Output Urine Total 1000 ml # Voids 6 # Bowel Movements 1 General: Alert, Oriented X3, Cooperative HEENT: Atraumatic, PERRLA Neck: Supple, No JVD, No Thyromegaly Lungs: Clear to Auscultation, Normal Air Movement Heart: Normal S1, Normal S2, No Murmurs, Other (S3 is present) Abdomen: Normal Bowel Sounds, Soft, No Tenderness, No Hepatosplenomegaly, No Masses Extremities: No Clubbing, No Cyanosis, No Edema, Normal Pulses, No Tenderness/ Swelling Skin: No Rashes, No Breakdown, No Significant Lesion Neuro: Normal Gait, Normal Speech, Strength at 5/5 X4 Ext, Normal Tone, Sensation Intact Psych/Mental Status: Mental Status NL, Mood NL Results Lab Laboratory Tests 02/25/19 05:49 A/P-Cardiology Admission Diagnosis Chest pain Shortness of breath Coronary artery disease Congestive heart failure, acute on chronic left ventricular systolic dysfunction Assessment/Plan Chest pain nonspecific etiology, extensive cardiac history, coronary artery disease. Congestive heart failure, acute on chronic left ventricular systolic dysfunction , ejection fraction 25 percent, stress test showed total infarction of the true apex and anteroapical and inferior apical, anteroseptal and inferoseptal segment with no reversibility, I will evaluate resting and redistribution study as an outpatient, arranged for LifeVest and will follow-up as an outpatient Increased risk of sudden , will start on LifeVest Coronary artery disease, history of total of 5 stents in the past, last stress test was done about a year and a half ago. Planning to evaluate viability study as an outpatient Hypertension, monitor blood pressure response Hyperlipidemia, evaluate lipid profile. Family history of heart disease. Clinical Quality Measures AMI/AHF: ASA po Prior to arrival: No DVT/VTE Risk/Contraindication: Risk Factor Score Per Nursin RFS Level Per Nursing on Admit: 4+=Very High FRANKLIN FLORES MD Feb 25, 2019 10:15
[2019-02-25] MEDS ORDERED: SACU1TAB PO (10:19)
[2019-02-25] MEDS ORDERED: ASPI-983 PO (10:19)
[2019-02-25] MEDS ORDERED: POTA20TA8 PO (10:23)
[2019-02-25] MEDS ORDERED: CARV3.12 PO (10:23)
[2019-02-25] MEDS ORDERED: predniSONE 20 MG TAB PO SCH (11:00)
[2019-02-25 11:44] VITALS: BP 102/54
--- NOTE | 2019-02-25 12:03 | Progress Note-Hospitalist ---
Progress Note Progress Notes/Assess & Plan Date Seen 02/25/19 Time Seen by Provider: 12:03 Assessment & Plan The patient is a 68-year-old white male who had presented in congestive heart failure. He had not been seen by cardiology in a year or more. He has responded to diuretics and a repeat echocardiogram showed an ejection fraction of 20 percent. He was recommended for defibrillator relative to risk for ventricular tachycardia. He has received his life vest today and it has been placed. Dr. Neumann has cleared him for discharge. He reports he is feeling better and is eager to leave. Physical exam: The patient is a slender white male in no apparent distress. Lungs are clear to auscultation. CV shows a grade 2 systolic murmur heard best at the left lower sternal border. Abdomen is soft. Ankles show no pedal edema. Impression: 1.congestive heart failure. 2.arteriosclerotic heart disease with multiple previous interventions. 3.systolic heart failure, ejection fraction 20 percent. Plan: Discharge. See discharge sequence for medications and routines. MONICA BRYANT MD Feb 25, 2019 12:03
--- NOTE | 2019-02-25 12:12 | Discharge Inst-Simple/Standard ---
Discharge Inst-Standard Patient Instructions/Follow Up Plan of Care/Instructions/FU: Medications as listed on the discharge sequence. Appointment with Dr. Neumann in one week. Activity as tolerated. Activity as Tolerated: Yes Discharge Diet: No Restrictions Return to The Hospital For: Recurring/increasing symptoms MONICA BRYANT MD Feb 25, 2019 12:12
[2019-02-25] MEDS ORDERED: PRD20T PO (12:41)
[2019-02-26] MEDS ORDERED: KCL 20 MEQ TAB (K-DUR) PO SCH (07:00)
[2019-02-26] MEDS ORDERED: FUROSEMIDE 40 MG (LASIX) TAB PO SCH (09:00)
== END 2019-02-25 14:40 | disposition home or self-care (01) | DRG 292 ==
LOC: EDUNIT# 19:27 → ER FS 19:29 → 4TH 21:43
PROVIDERS: ADMIT Internal Medicine; ATTEND Internal Medicine
DX: I11.0 Hypertensive heart disease with heart failure (principal); I50.23 Acute on chronic systolic (congestive) heart failure; J44.1 Chronic obstructive pulmonary disease with (acute) exacerbation; I25.5 Ischemic cardiomyopathy; I25.10 Atherosclerotic heart disease of native coronary artery without angina pectoris; I25.2 Old myocardial infarction; I49.3 Ventricular premature depolarization; Z66 Do not resuscitate; E78.5 Hyperlipidemia, unspecified; E78.00 Pure hypercholesterolemia, unspecified; F17.210 Nicotine dependence, cigarettes, uncomplicated; R20.0 Anesthesia of skin; I73.9 Peripheral vascular disease, unspecified; Z95.5 Presence of coronary angioplasty implant and graft; Z79.01 Long term (current) use of anticoagulants; Z79.82 Long term (current) use of aspirin; Z99.81 Dependence on supplemental oxygen; Z82.49 Family history of ischemic heart disease and other diseases of the circulatory system
CPT/HCPCS: 36415; 71046; 78452; 80048; 80053; 80061; 82550; 83735; 83874; 83880; 84484; 85007; 85025; 85027; 85610; 85730; 86141; 93017; 93041; 93306; 96374; 96375

== ENCOUNTER → 2019-03-09 | Outpatient (CLI) | payer MEDICARE ==
[~2019-03-09] MED LIST: ASPI-983 PO; ASPI325T32 PO; CARV12.53 PO; CARV3.12 PO; CATHETER FLUSH 10 ML SYR IV PRN; CLOP75TA28 PO; FURO40TA4 PO; LEVO50TA6 PO; NITR0.4T42 SL; POTA20TA8 PO; PRD20T PO; RT-ALBUINH INH; SACU1TAB PO; TRAM50TA2 PO
== END ==
LOC: CARD 12:43
PROVIDERS: ATTEND Physician Assistant
DX: I50.9 Heart failure, unspecified (principal); R07.89 Other chest pain; J44.9 Chronic obstructive pulmonary disease, unspecified; Z72.0 Tobacco use
CPT/HCPCS: 78452; 93017

== ENCOUNTER 2019-03-15 08:42 | Day surgery (SDC) | payer MEDICARE ==
[2019-03-15] VITALS (11 sets, daily range): BP systolic 108–128; BP diastolic 54–65
[~2019-03-15] VITALS: Ht 167.6 cm; Wt 65.3 kg
[~2019-03-15 08:42] MED LIST changes: -CATHETER FLUSH 10 ML SYR IV PRN
[2019-03-15] MEDS ORDERED: NS IV 1000 ML 1,000 ML ONE (08:47)
[2019-03-15] MEDS ORDERED: LIDOCAINE 1% INJ 20 ML 20 ML VIAL ONE (08:47)
[2019-03-15] MEDS ORDERED: HEParin (CATH LAB) 2,000 ML IV ONE (08:47)
[2019-03-15] MEDS ORDERED: NS IV 1000 ML 1,000 ML IV SCH ×2 (08:52→12:29)
--- NOTE | 2019-03-15 09:22 | Diagnostic Imaging Report ---
INDICATION: Heart disease. Comparison made with prior examination 02/22/2019. FINDINGS: There is cardiomegaly. There is mild venous congestion. There is no pleural effusion, pneumothorax or pneumonia. Mediastinum is unremarkable. IMPRESSION: Cardiomegaly and mild central pulmonary venous congestion. Dictated by: Dictated on workstation # [id number]
[2019-03-15 09:33] LABS: HEMOGLOBIN 13.2 G/DL (13.3-17.7); MEAN PLATELET VOLUME 10.9 FL (7.4-10.4); RED CELL DISTRIBUTION WIDTH 14.9 % (10.0-14.5); WHITE BLOOD COUNT 10.6 10^3/uL (4.3-11.0)
[2019-03-15 09:37] LABS: BILIRUBIN,URINE NEGATIVE (NEGATIVE); CLARITY,URINE CLEAR; COLOR,URINE YELLOW; GLUCOSE, URINE (UA) NEGATIVE (NEGATIVE); KETONES,URINE NEGATIVE (NEGATIVE); LEUKOCYTE ESTERASE ,URINE 1+ (NEGATIVE); NITRITE,URINE NEGATIVE (NEGATIVE); PH,URINE 6.5 (5-9); PROTEIN,URINE 1+ (NEGATIVE); UROBILINOGEN,URINE NORMAL (NORMAL)
[2019-03-15 09:43] LABS: INR 0.9 (0.8-1.4); PROTHROMBIN TIME PATIENT 12.2 SEC (12.2-14.7)
[2019-03-15] MEDS ORDERED: ATOR20TA66 PO (09:47)
[2019-03-15 09:48] LABS: BACTERIA,URINE NEGATIVE /HPF; SQUAMOUS EPITHELIAL CELL,UR RARE /HPF; WBC,URINE RARE /HPF
[2019-03-15 09:52] LABS: ALANINE AMINOTRANSFERASE 14 U/L (0-55); ALBUMIN 3.9 GM/DL (3.2-4.5); ALKALINE PHOSPHATASE 58 U/L (40-136); BILIRUBIN,TOTAL 0.3 MG/DL (0.1-1.0); BUN/CREATININE RATIO 23; CALCIUM 9.4 MG/DL (8.5-10.1); CARBON DIOXIDE 26 MMOL/L (21-32); CHLORIDE 105 MMOL/L (98-107); CHOLESTEROL 189 MG/DL (< 200); GFR ESTIMATED > 60; GLUCOSE 94 MG/DL (70-105); HDL CHOLESTEROL 66 MG/DL (40-60); POTASSIUM 4.4 MMOL/L (3.6-5.0); SODIUM 140 MMOL/L (135-145); TOTAL PROTEIN 6.5 GM/DL (6.4-8.2); TRIGLYCERIDES 73 MG/DL (<150); VLDL CHOLESTEROL 15 MG/DL (5-40)
--- OUTSIDE RECORDS SUMMARY | 2019-03-15 10:04 | XMS REPORT | Continuity of Care Document ---
Author Organization Unknown Address Unknown Allergies Active Description Code Type Severity Reaction Onset Reported/Identified Relationship to Patient Clinical Status Yes No Known Drug Allergies [id number] Drug Allergy Unknown N/A 02/22/2019 Medications There is no data. Problems Date Dx Coded Attending Type Code Diagnosis Diagnosed By 02/23/2019 WENDY IVEY DO Ot E78.5 HYPERLIPIDEMIA, UNSPECIFIED 02/23/2019 LONI ORDONEZ WENDY Ot F17.210 NICOTINE DEPENDENCE, CIGARETTES, UNCOMPL 02/23/2019 LONI ORDONEZ WENDY Ot I11.0 HYPERTENSIVE HEART DISEASE WITH HEART FA 02/23/2019 ELVIE IVEY DOI Ot I25.10 ATHSCL HEART DISEASE OF [place] CORONARY 02/23/2019 WENDY IVEY DO Ot I25.2 OLD MYOCARDIAL INFARCTION 02/23/2019 ELVIE IVEY DOI Ot I49.3 VENTRICULAR PREMATURE DEPOLARIZATION 02/23/2019 ELVIE IVEY DOI Ot I50.23 ACUTE ON CHRONIC SYSTOLIC (CONGESTIVE) H 02/23/2019 ELVIE IVEY DOI Ot J44.1 CHRONIC OBSTRUCTIVE PULMONARY DISEASE W 02/23/2019 ELVIE IVEY DOI Ot R07.9 CHEST PAIN, UNSPECIFIED 02/23/2019 ELVIE IVEY DOI Ot R20.0 ANESTHESIA OF SKIN 02/23/2019 ELVIE IVEY DOI Ot Z66 DO NOT RESUSCITATE 02/23/2019 WENDY IVEY DO Ot Z79.01 DETENTION (CURRENT) USE OF ANTICOAGULANT 02/23/2019 ELVIE IVEY DOI Ot Z79.82 SLIDE DEVELOPER (CURRENT) USE OF ASPIRIN 02/23/2019 ELVIE IVEY DOI Ot Z95.5 PRESENCE OF CORONARY ANGIOPLASTY IMPLANT 02/25/2019 ELVIE IVEY DOI Ot E78.5 HYPERLIPIDEMIA, UNSPECIFIED 02/25/2019 LONI ORDONEZ WENDY Ot F17.210 NICOTINE DEPENDENCE, CIGARETTES, UNCOMPL 02/25/2019 LONI ORDONEZ WENDY Ot I11.0 HYPERTENSIVE HEART DISEASE WITH HEART FA 02/25/2019 IVEY DO WENDY Ot I25.10 ATHSCL HEART DISEASE OF [place] CORONARY 02/25/2019 LONI ORDONEZ WENDY Ot I25.2 OLD MYOCARDIAL INFARCTION 02/25/2019 IVEY DO WENDY Ot I49.3 VENTRICULAR PREMATURE DEPOLARIZATION 02/25/2019 IVEY DO WENDY Ot I50.23 ACUTE ON CHRONIC SYSTOLIC (CONGESTIVE) H 02/25/2019 LONI ORDONEZ WENDY Ot J44.1 CHRONIC OBSTRUCTIVE PULMONARY DISEASE W 02/25/2019 LONI ORDONEZ WENDY Ot R07.9 CHEST PAIN, UNSPECIFIED 02/25/2019 LONI DO WENDY Ot R20.0 ANESTHESIA OF SKIN 02/25/2019 LONI ORDONEZ WENDY Ot Z66 DO NOT RESUSCITATE 02/25/2019 ELVIE IVEY DOI Ot Z79.01 DETENTION (CURRENT) USE OF ANTICOAGULANT 02/25/2019 LONI ORDONEZ WENDY Ot Z79.82 DETENTION (CURRENT) USE OF ASPIRIN 02/25/2019 ELVIE IVEY DOI Ot Z95.5 PRESENCE OF CORONARY ANGIOPLASTY IMPLANT 02/25/2019 LONI ORDONEZ WENDY Ot E78.00 PURE HYPERCHOLESTEROLEMIA, UNSPECIFIED 02/25/2019 LONI ORDONEZ WENDY Ot E78.5 HYPERLIPIDEMIA, UNSPECIFIED 02/25/2019 LONI ORDONEZ WENDY Ot F17.210 NICOTINE DEPENDENCE, CIGARETTES, UNCOMPL 02/25/2019 LONI DO WENDY Ot I11.0 HYPERTENSIVE HEART DISEASE WITH HEART FA 02/25/2019 LONI DO WENDY Ot I25.10 ATHSCL HEART DISEASE OF [place] CORONARY 02/25/2019 LONI ORDONEZ WENDY Ot I25.2 OLD MYOCARDIAL INFARCTION 02/25/2019 LONI DO WENDY Ot I25.5 ISCHEMIC CARDIOMYOPATHY 02/25/2019 LONI ORDONEZ WENDY Ot I49.3 VENTRICULAR PREMATURE DEPOLARIZATION 02/25/2019 LONI ORDONEZ WENDY Ot I50.23 ACUTE ON CHRONIC SYSTOLIC (CONGESTIVE) H 02/25/2019 LONI ORDONEZ WENDY Ot I73.9 PERIPHERAL VASCULAR DISEASE, UNSPECIFIED 02/25/2019 LONI ORDONEZ WENDY Ot J44.1 CHRONIC OBSTRUCTIVE PULMONARY DISEASE W 02/25/2019 LONI ORDONEZ WENDY Ot R20.0 ANESTHESIA OF SKIN 02/25/2019 LONI ORDONEZ WENDY Ot Z66 DO NOT RESUSCITATE 02/25/2019 WENDY IVEY DO Ot Z79.01 DETENTION (CURRENT) USE OF ANTICOAGULANT 02/25/2019 ELVIE IVEY DOI Ot Z79.82 SLIDE DEVELOPER (CURRENT) USE OF ASPIRIN 02/25/2019 LONI ORDONEZ WENDY Ot Z82.49 FAMILY HX OF ISCHEM HEART DIS AND OTH DI 02/25/2019 IVEY WENDY Ot Z95.5 PRESENCE OF CORONARY ANGIOPLASTY IMPLANT 02/25/2019 WENDY IVEY DO Ot Z99.81 DEPENDENCE ON SUPPLEMENTAL OXYGEN 03/10/2019 SAMM JORGENSEN Ot I50.9 HEART FAILURE, UNSPECIFIED 03/10/2019 SAMM JORGENSEN Ot J44.9 CHRONIC OBSTRUCTIVE PULMONARY DISEASE, U 03/10/2019 SAMM JORGENSEN Ot R07.89 OTHER CHEST PAIN 03/10/2019 SAMM JORGENSEN Ot Z72.0 TOBACCO USE Procedures There is no data. Results Test Result Range Complete blood count (CBC) with automated white blood cell (WBC) differential - 02/22/19 19:50 Blood leukocytes automated count (number/volume) 8.0 10*3/uL 4.3-11.0 Blood erythrocytes automated count (number/volume) 4.39 10*6/uL 4.35-5.85 Venous blood hemoglobin measurement (mass/volume) 12.6 g/dL 13.3-17.7 Blood hematocrit (volume fraction) 39 % 40-54 Automated erythrocyte mean corpuscular volume 90 [foz_us] 80-99 Automated erythrocyte mean corpuscular hemoglobin (mass per erythrocyte) 29 pg 25-34 Automated erythrocyte mean corpuscular hemoglobin concentration measurement ( mass/volume) 32 g/dL 32-36 Automated erythrocyte distribution width ratio 13.3 % 10.0-14.5 Automated blood platelet count (count/volume) 293 10*3/uL 130-400 Automated blood platelet mean volume measurement 11.2 [foz_us] 7.4-10.4 Automated blood neutrophils/100 leukocytes 66 % 42-75 Automated blood lymphocytes/100 leukocytes 24 % 12-44 Blood monocytes/100 leukocytes 7 % 0-12 Automated blood eosinophils/100 leukocytes 2 % 0-10 Automated blood basophils/100 leukocytes 1 % 0-10 Blood neutrophils automated count (number/volume) 5.4 10*3 1.8-7.8 Blood lymphocytes automated count (number/volume) 1.9 10*3 1.0-4.0 Blood monocytes automated count (number/volume) 0.5 10*3 0.0-1.0 Automated eosinophil count 0.1 10*3/uL 0.0-0.3 Automated blood basophil count (count/volume) 0.1 10*3/uL 0.0-0.1 PT panel in platelet poor plasma by coagulation assay - 02/22/19 19:50 Prothrombin time (PT) in platelet poor plasma by coagulation assay 13.4 s 12.2-14.7 INR in platelet poor plasma or blood by coagulation assay 1.0 0.8-1.4 Activated partial thromboplastin time (aPTT) in platelet poor plasma bycoagulation assay - 02/22/19 19:50 Activated partial thromboplastin time (aPTT) in platelet poor plasma bycoagulation assay 32 s 24-35 Comprehensive metabolic panel - 02/22/19 19:50 Serum or plasma sodium measurement (moles/volume) 142 mmol/L 135-145 Serum or plasma potassium measurement (moles/volume) 4.4 mmol/L 3.6-5.0 Serum or plasma chloride measurement (moles/volume) 102 mmol/L 98-107 Carbon dioxide 26 mmol/L 21-32 Serum or plasma anion gap determination (moles/volume) 14 mmol/L 5-14 Serum or plasma urea nitrogen measurement (mass/volume) 14 mg/dL 7-18 Serum or plasma creatinine measurement (mass/volume) 1.05 mg/dL 0.60-1.30 Serum or plasma urea nitrogen/creatinine mass ratio 13 NRG Serum or plasma creatinine measurement with calculation of estimated glomerular filtration rate > NRG Serum or plasma glucose measurement (mass/volume) 104 mg/dL 70-105 Serum or plasma calcium measurement (mass/volume) 9.4 mg/dL 8.5-10.1 Serum or plasma total bilirubin measurement (mass/volume) 0.4 mg/dL 0.1-1.0 Serum or plasma alkaline phosphatase measurement (enzymatic activity/volume) 78 U/L 40-136 Serum or plasma aspartate aminotransferase measurement (enzymatic activity/ volume) 16 U/L 5-34 Serum or plasma alanine aminotransferase measurement (enzymatic activity/volume ) 11 U/L 0-55 Serum or plasma protein measurement (mass/volume) 7.0 g/dL 6.4-8.2 Serum or plasma albumin measurement (mass/volume) 4.0 g/dL 3.2-4.5 CALCIUM CORRECTED 9.4 mg/dL 8.5-10.1 Magnesium - 02/22/19 19:50 Magnesium 1.9 mg/dL 1.8-2.4 Myoglobin, serum - 02/22/19 19:50 Myoglobin, serum 35.0 ng/mL 10.0-92.0 PROBNP FS - 02/22/19 19:50 PROBNP FS 4303.0 pg/mL <75.0 Serum or plasma C reactive protein measurement (mass/volume) - 02/22/19 19:50 Serum or plasma C reactive protein measurement (mass/volume) 0.36 mg /dL 0.00-0.50 Serum or plasma creatine kinase measurement (enzymatic activity/volume) - 02/23 02:00 Serum or plasma creatine kinase measurement (enzymatic activity/volume) 128 U/L 30-200 Serum or plasma troponin i.cardiac measurement (mass/volume) - 02/23/19 02:00 Serum or plasma troponin i.cardiac measurement (mass/volume) < ng/ mL <0.028 Complete blood count (CBC) with automated white blood cell (WBC) differential - 02/23/19 05:15 Blood leukocytes automated count (number/volume) 7.2 10*3/uL 4.3-11.0 Blood erythrocytes automated count (number/volume) 5.00 10*6/uL 4.35-5.85 Venous blood hemoglobin measurement (mass/volume) 14.5 g/dL 13.3-17.7 Blood hematocrit (volume fraction) 44 % 40-54 Automated erythrocyte mean corpuscular volume 88 [foz_us] 80-99 Automated erythrocyte mean corpuscular hemoglobin (mass per erythrocyte) 29 pg 25-34 Automated erythrocyte mean corpuscular hemoglobin concentration measurement ( mass/volume) 33 g/dL 32-36 Automated erythrocyte distribution width ratio 13.9 % 10.0-14.5 Automated blood platelet count (count/volume) 295 10*3/uL 130-400 Automated blood platelet mean volume measurement 11.5 [foz_us] 7.4-10.4 Automated blood neutrophils/100 leukocytes 86 % 42-75 Automated blood lymphocytes/100 leukocytes 12 % 12-44 Blood monocytes/100 leukocytes 2 % 0-12 Automated blood eosinophils/100 leukocytes 0 % 0-10 Automated blood basophils/100 leukocytes 0 % 0-10 Blood neutrophils automated count (number/volume) 6.1 10*3 1.8-7.8 Blood lymphocytes automated count (number/volume) 0.9 10*3 1.0-4.0 Blood monocytes automated count (number/volume) 0.1 10*3 0.0-1.0 Automated eosinophil count 0.0 10*3/uL 0.0-0.3 Automated blood basophil count (count/volume) 0.0 10*3/uL 0.0-0.1 Comprehensive metabolic panel - 02/23/19 05:15 Serum or plasma sodium measurement (moles/volume) 137 mmol/L 135-145 Serum or plasma potassium measurement (moles/volume) 4.5 mmol/L 3.6-5.0 Serum or plasma chloride measurement (moles/volume) 101 mmol/L 98-107 Carbon dioxide 21 mmol/L 21-32 Serum or plasma anion gap determination (moles/volume) 15 mmol/L 5-14 Serum or plasma urea nitrogen measurement (mass/volume) 17 mg/dL 7-18 Serum or plasma creatinine measurement (mass/volume) 0.99 mg/dL 0.60-1.30 Serum or plasma urea nitrogen/creatinine mass ratio 17 NRG Serum or plasma creatinine measurement with calculation of estimated glomerular filtration rate > NRG Serum or plasma glucose measurement (mass/volume) 110 mg/dL 70-105 Serum or plasma calcium measurement (mass/volume) 10.1 mg/dL 8.5-10.1 Serum or plasma total bilirubin measurement (mass/volume) 0.6 mg/dL 0.1-1.0 Serum or plasma alkaline phosphatase measurement (enzymatic activity/volume) 88 U/L 40-136 Serum or plasma aspartate aminotransferase measurement (enzymatic activity/ volume) 21 U/L 5-34 Serum or plasma alanine aminotransferase measurement (enzymatic activity/volume ) 15 U/L 0-55 Serum or plasma protein measurement (mass/volume) 7.8 g/dL 6.4-8.2 Serum or plasma albumin measurement (mass/volume) 4.2 g/dL 3.2-4.5 CALCIUM CORRECTED 9.9 mg/dL 8.5-10.1 Serum or plasma troponin i.cardiac measurement (mass/volume) - 02/23/19 05:15 Serum or plasma troponin i.cardiac measurement (mass/volume) < ng/ mL <0.028 Blood manual differential performed detection - 02/23/19 05:15 Blood monocytes/100 leukocytes 2 % NRG Manual blood segmented neutrophils/100 leukocytes 85 % NRG Blood band neutrophils/100 leukocytes 0 % NRG Manual blood lymphocytes/100 leukocytes 11 % NRG Manual eosinophils/100 leukocytes in nose 0 % NRG Manual blood basophils/100 leukocytes 0 % NRG Blood lymphocytes variant/100 leukocytes 2 % NRG Blood ovalocytes detection by light microscopy SLIGHT NRG Blood rouleaux detection by light microscopy SLIGHT NRG Blood platelet clump detection by light microscopy SLIGHT NRG Lipid 1996 panel - 02/23/19 05:15 Serum or plasma triglyceride measurement (mass/volume) 79 mg/dL <150 Serum or plasma cholesterol measurement (mass/volume) 224 mg/dL < 200 Serum or plasma cholesterol in HDL measurement (mass/volume) 52 mg/ dL 40-60 Cholesterol in LDL [mass/volume] in serum or plasma by direct assay 161 mg/dL 1-129 Serum or plasma cholesterol in VLDL measurement (mass/volume) 16 mg/ dL 5-40 Automated blood complete blood count (hemogram) panel - 02/24/19 05:40 Blood leukocytes automated count (number/volume) 13.9 10*3/uL 4.3-11.0 Blood erythrocytes automated count (number/volume) 4.81 10*6/uL 4.35-5.85 Venous blood hemoglobin measurement (mass/volume) 13.9 g/dL 13.3-17.7 Blood hematocrit (volume fraction) 43 % 40-54 Automated erythrocyte mean corpuscular volume 88 [foz_us] 80-99 Automated erythrocyte mean corpuscular hemoglobin (mass per erythrocyte) 29 pg 25-34 Automated erythrocyte mean corpuscular hemoglobin concentration measurement ( mass/volume) 33 g/dL 32-36 Automated erythrocyte distribution width ratio 13.8 % 10.0-14.5 Automated blood platelet count (count/volume) 305 10*3/uL 130-400 Automated blood platelet mean volume measurement 11.5 [foz_us] 7.4-10.4 Whole blood basic metabolic panel - 02/24/19 05:40 Serum or plasma sodium measurement (moles/volume) 137 mmol/L 135-145 Serum or plasma potassium measurement (moles/volume) 4.9 mmol/L 3.6-5.0 Serum or plasma chloride measurement (moles/volume) 101 mmol/L 98-107 Carbon dioxide 21 mmol/L 21-32 Serum or plasma anion gap determination (moles/volume) 15 mmol/L 5-14 Serum or plasma urea nitrogen measurement (mass/volume) 27 mg/dL 7-18 Serum or plasma creatinine measurement (mass/volume) 0.96 mg/dL 0.60-1.30 Serum or plasma urea nitrogen/creatinine mass ratio 28 NRG Serum or plasma creatinine measurement with calculation of estimated glomerular filtration rate > NRG Serum or plasma glucose measurement (mass/volume) 111 mg/dL 70-105 Serum or plasma calcium measurement (mass/volume) 9.7 mg/dL 8.5-10.1 Magnesium - 02/24/19 05:40 Magnesium 2.3 mg/dL 1.8-2.4 Automated blood complete blood count (hemogram) panel - 02/25/19 05:49 Blood leukocytes automated count (number/volume) 13.6 10*3/uL 4.3-11.0 Blood erythrocytes automated count (number/volume) 4.74 10*6/uL 4.35-5.85 Venous blood hemoglobin measurement (mass/volume) 13.9 g/dL 13.3-17.7 Blood hematocrit (volume fraction) 42 % 40-54 Automated erythrocyte mean corpuscular volume 89 [foz_us] 80-99 Automated erythrocyte mean corpuscular hemoglobin (mass per erythrocyte) 29 pg 25-34 Automated erythrocyte mean corpuscular hemoglobin concentration measurement ( mass/volume) 33 g/dL 32-36 Automated erythrocyte distribution width ratio 13.7 % 10.0-14.5 Automated blood platelet count (count/volume) 301 10*3/uL 130-400 Automated blood platelet mean volume measurement 11.3 [foz_us] 7.4-10.4 Whole blood basic metabolic panel - 02/25/19 05:49 Serum or plasma sodium measurement (moles/volume) 135 mmol/L 135-145 Serum or plasma potassium measurement (moles/volume) 4.4 mmol/L 3.6-5.0 Serum or plasma chloride measurement (moles/volume) 99 mmol/L 98-107 Carbon dioxide 24 mmol/L 21-32 Serum or plasma anion gap determination (moles/volume) 12 mmol/L 5-14 Serum or plasma urea nitrogen measurement (mass/volume) 41 mg/dL 7-18 Serum or plasma creatinine measurement (mass/volume) 0.99 mg/dL 0.60-1.30 Serum or plasma urea nitrogen/creatinine mass ratio 41 NRG Serum or plasma creatinine measurement with calculation of estimated glomerular filtration rate > NRG Serum or plasma glucose measurement (mass/volume) 117 mg/dL 70-105 Serum or plasma calcium measurement (mass/volume) 9.5 mg/dL 8.5-10.1 Magnesium - 02/25/19 05:49 Magnesium 2.4 mg/dL 1.8-2.4 Encounters ACCT No. Visit Date/Time Discharge Status Pt. Type Provider Facility Loc./Unit Complaint [id number] 02/27/2019 13:45:00 02/27/2019 23:59:59 CLS Outpatient FRANKLIN FLORES MD [facility] [id number] 03/09/2019 12:43:00 03/09/2019 23:59:59 CLS Outpatient SAMM JORGENSEN [facility] CARD ANTERIOR CHEST WALL PAIN [id number] 02/22/2019 21:43:00 02/25/2019 14:40:00 DIS Inpatient WENDY IVEY DO [facility] 4TH CHEST PAIN; CHF; COPD EXACERBATION [id number] 03/15/2019 11:00:00 PEN Preadmit FRANKLIN FLORES MD [facility] CATH ABN STRESS TEST,CAD,CHF,HTN
--- NOTE | 2019-03-15 11:43 | Cardiac Procedure Note-CS/ASA ---
Pre-Procedure Note Pre-Op Procedure Note H&P Reviewed The H&P was reviewed, patient examined and no changes noted. Date H&P Reviewed: March 15, 2019 Time H&P Reviewed: 11:42 Conscious Sedation Pre-Proced Time 11:42 ASA Score 3 For ASA 3 and 4: Consider anesthesia and medical clearance. Also, for patients with a history of failed moderate sedation consider anesthesia. Airway Lungs Heart ASA score ASA 1: a normal healthy patient ASA 2: a patient with a mild systemic disease (mid diabetes, controlled hypertension, obesity x ASA 3: a patient with a severe systemic disease that limits activity (angina , COPD, prior Myocardial infarction) ASA 4: a patient with an incapacitating disease that is a constant threat to life (CHF, renal failure) ASA 5: a moribund patient not expected to survive 24 hrs. (ruptured aneurysm) ASA 6: a declared brain- patient whose organs are being harvested. For emergent operations, add the letter E after the classification Mallampati Classification Grade 3 Sedation Plan Analgesia, Amnesia, Plan communicated to team members, Discussed options with patient/fam, Discussed risks with patient/fam The patient is an appropriate candidate to undergo the planned procedure, sedation, and anesthesia. The patient immediately re-assessed prior to indication. FRANKLIN FLORES MD March 15, 2019 11:42
[2019-03-15] MEDS ORDERED: fentaNYL INJECTION 100 MCG/2 ML AMP ONE (11:44)
[2019-03-15] MEDS ORDERED: MIDAZOLAM 5 MG/5 ML (VERSED) VIAL ONE (11:44)
[2019-03-15] MEDS ORDERED: PATIENT MAY USE OWN MEDS, ALL PO SCH (12:30)
--- NOTE | 2019-03-15 12:33 | Cardiac Cath Report ---
Cardiac Cath Report Physician (s)/Spray Drier (s) Physician FRANKLIN FLORES MD Pre-Procedure Diagnosis Pre-Procedure Diagnosis: coronary artery disease Post-Procedure Note Procedure Start Date: March 15, 2019 Name of Procedure: left heart catheterization Aortic arch angiogram Findings/Procedure Note PROCEDURE NOTE: After explaining the procedure to the patient, all pros and cons were explained , all questions were answered. The patient signed the consent and then he was placed on the cardiac catheterization laboratory. Groin was prepped SL fashion local anesthesia was used. Sheath placed in the right femoral artery. Saravanan right and left catheter were used to access the coronary system. Pigtail was used to access the left ventricular cavity. Left ventriculogram was done Aortic arch angiogram was done At the end of the procedure the sheath was removed. Closure device was used FINDINGS: Hemodynamics LV 124/23, end-diastolic pressure of 23 Aorta 104/50 mean of 71 ANATOMY: Left Main is free of obstructive disease Left Anterior Descending has patent stent with mild disease distally nonobstructive disease Left Circumflex has mild disease nonobstructive disease Right Coronory Artery has patent stent, dominant artery with mild disease nonobstructive disease LV Gram is dilated with apical aneurysm systolic function is reduced sensory ejection fraction 30 percent Aorta evaluation done with aortic arch angiogram which showed normal aortic arch , no dissection or aneurysm, normal great vessels of the neck including carotid , subclavian and innominate artery CONCLUSION: 1. Patent stent in the LAD and right coronary artery, mild disease in the coronaries nonobstructive disease 2. Congestive heart failure, probably secondary to old apical and anterior wall infarct, aneurysmal apex, systolic function is reduced this ejection fraction 30 percent 3. Normal aortic arch and great vessels of the neck DISCUSSION AND RECOMMENDATION: continue to maximize medical therapy Anesthesia Type: Conscious Sedation Estimated blood loss (mL): 15 ml Contrast Amount: 92 ml Total Radiation Dose: 234 mGy Post-Procedure Diagnosis Post-operative diagnosis: Congestive heart failure, chronic compensated left ventricular systolic dysfunction, ischemic cardiomyopathy Coronary artery disease Hypertension Hyperlipidemia FRANKLIN FLORES MD March 15, 2019 12:33
--- NOTE | 2019-03-15 12:35 | Discharge Inst-Post CATH ---
Discharge Inst-CATH/EP Post Cardiac Cath/EP D/C Inst Follow Up/Plan Appointment with Dr. Neumann's office in 4 weeks <b>CARDIAC CATH/EP PROCEDURE DISCHARGE INSTRUCTIONS</b> Cardiac Rehab Please be expecting a follow up call from Cardiac Rehab within in one week. ACTIVITY * Go Home directly and rest. * Limit activity of the leg (or wrist if it was used) for 7 days including aerobics, swimming, jogging, bicycling, etc. * Restrict stair-climbing for 7 days if possible, if not, climb up with your non -cath leg, then bring together on the same step. * Avoid lifting, pushing, pulling or excessive movement of the affected extremity for 7 days. * Customary sexual activity may be resumed after 2 days-use caution not to use a position that strains or causes pain to the affected extremity. * No driving for 24 hours. * NO SMOKING. * Avoid straining for bowel movements for 7 days. * Gentle walking on level ground is allowed. * Returning to work will depend on the type of procedure and the results. Your doctor will discuss this with you. CALL YOUR DOCTOR FOR ANY OF THE FOLLOWING: *If bleeding from the puncture site occurs- Apply gentle pressure to site with clean cloth and call your doctor or EMS. * If a knot or lump forms under the skin, increases in size, or causes pain. * If bruising appears to be worsening or moving further down your leg instead of disappearing. * Temperature above 101 F. CARE OF YOUR GROIN INCISION; * Bruising or purple discoloration of the skin near the puncture site is common. * You may shower only, no bathtub bathing for 5 days. Be careful to avoid slipping as your leg may feel stiff. * If a closure device was used on your femoral artery, please see the attached guide regarding care of the device and your leg. * Leave dressing on FOR 24 hours. CARE OF YOUR WRIST INCISION; * Bruising or purple discoloration of the skin near the puncture site is common. * You may shower. * DO NOT submerge wrist. * Leave dressing on FOR 24 hours. FRANKLIN NEUMANN MD March 15, 2019 12:35
== END 2019-03-15 17:08 | disposition home or self-care (01) ==
LOC: CATH 08:42 → SDC 12:48 → CATH 17:08
PROVIDERS: ATTEND Internal Medicine Cardiovascular Disease
DX: I25.10 Atherosclerotic heart disease of native coronary artery without angina pectoris (principal); I11.0 Hypertensive heart disease with heart failure; I50.23 Acute on chronic systolic (congestive) heart failure; E78.5 Hyperlipidemia, unspecified; J44.9 Chronic obstructive pulmonary disease, unspecified; I65.29 Occlusion and stenosis of unspecified carotid artery; F17.210 Nicotine dependence, cigarettes, uncomplicated; Z95.5 Presence of coronary angioplasty implant and graft; Z88.1 Allergy status to other antibiotic agents; Z79.899 Other long term (current) drug therapy; Z79.82 Long term (current) use of aspirin; Z79.02 Long term (current) use of antithrombotics/antiplatelets; Z82.49 Family history of ischemic heart disease and other diseases of the circulatory system
CPT/HCPCS: 36221; 36415; 71045; 80053; 80061; 81000; 85027; 85610; 85730; 87081; 93458

== ENCOUNTER → 2019-05-29 | Outpatient (CLI) | payer MEDICARE ==
[~2019-05-29] MED LIST changes: +ATOR20TA66 PO
== END ==
LOC: CARD 09:38
PROVIDERS: ATTEND Internal Medicine Cardiovascular Disease
DX: I08.0 Rheumatic disorders of both mitral and aortic valves (principal); I25.10 Atherosclerotic heart disease of native coronary artery without angina pectoris; I50.9 Heart failure, unspecified; J44.9 Chronic obstructive pulmonary disease, unspecified; Z72.0 Tobacco use
CPT/HCPCS: 93306

== ENCOUNTER 2019-06-28 10:34 | Day surgery (SDC) | payer MEDICARE ==
[~2019-06-28] VITALS: Ht 167.6 cm; Wt 65.3 kg
[2019-06-28] VITALS (10 sets, daily range): BP systolic 98–134; BP diastolic 53–66
[2019-06-28] MEDS ORDERED: NS IV 1000 ML 1,000 ML IV SCH ×2 (11:14→14:29)
[2019-06-28] MEDS ORDERED: HEParin (CATH LAB) 1,000 ML IV ONE (11:15)
[2019-06-28] MEDS ORDERED: LIDOCAINE 1% INJ 20 ML 20 ML VIAL ONE (11:15)
[2019-06-28] MEDS ORDERED: NS IV 1000 ML 1,000 ML ONE (11:15)
[2019-06-28] MEDS ORDERED: BACITRACIN INJECTION 50,000 UNIT, SODIUM CHLORIDE 0.9% IRRIGATIO 500 ML IR ONE ×2 (11:15)
[2019-06-28] MEDS ORDERED: ceFAZolin INJECTION 1,000 MG VIAL IV ONE (11:15)
[2019-06-28] MEDS ORDERED: ceFAZolin INJECTION 1,000 MG in WATER (STERILE) FOR INJECTION 10 ML IV ONE (11:45)
[2019-06-28 12:02] LABS: HEMOGLOBIN 14.6 G/DL (13.3-17.7); MEAN PLATELET VOLUME 11.6 FL (7.4-10.4); WHITE BLOOD COUNT 10.8 10^3/uL (4.3-11.0)
[2019-06-28 12:05] LABS: BILIRUBIN,URINE NEGATIVE (NEGATIVE); CLARITY,URINE CLEAR; COLOR,URINE YELLOW; GLUCOSE, URINE (UA) NEGATIVE (NEGATIVE); KETONES,URINE NEGATIVE (NEGATIVE); LEUKOCYTE ESTERASE ,URINE 1+ (NEGATIVE); NITRITE,URINE NEGATIVE (NEGATIVE); PH,URINE 5 (5-9); PROTEIN,URINE 2+ (NEGATIVE); UROBILINOGEN,URINE NORMAL (NORMAL)
[2019-06-28] MEDS ORDERED: ISOS30TA3 PO (12:15)
[2019-06-28] MEDS ORDERED: VANCOMYCIN INJECTION 1,000 MG in NS (IVPB) 250 ML IV SCH (12:15)
[2019-06-28 12:18] LABS: BACTERIA,URINE TRACE /HPF; HYALINE CASTS, URINE RARE /LPF; SQUAMOUS EPITHELIAL CELL,UR RARE /HPF; WBC,URINE 0-2 /HPF
[2019-06-28 12:18] LABS: ALANINE AMINOTRANSFERASE 14 U/L (0-55); ALBUMIN 4.3 GM/DL (3.2-4.5); ALKALINE PHOSPHATASE 67 U/L (40-136); BILIRUBIN,TOTAL 0.2 MG/DL (0.1-1.0); BUN/CREATININE RATIO 19; CALCIUM 9.4 MG/DL (8.5-10.1); CARBON DIOXIDE 23 MMOL/L (21-32); CHLORIDE 106 MMOL/L (98-107); GFR ESTIMATED > 60; GLUCOSE 99 MG/DL (70-105); POTASSIUM 4.3 MMOL/L (3.6-5.0); SODIUM 139 MMOL/L (135-145); TOTAL PROTEIN 7.4 GM/DL (6.4-8.2)
--- NOTE | 2019-06-28 12:34 | Diagnostic Imaging Report ---
INDICATION: Cardiomyopathy. Frontal chest obtained at 12:08 p.m. and compared to 03/15/2019. FINDINGS: The heart is enlarged. There is mild tortuosity of the aorta. There are chronic appearing increased interstitial markings. There is no pneumothorax or pleural fluid. There is increased density in the right upper lobe in the paratracheal region, this may represent mass or bony artifact. This appears increased in density compared to 03/15/2019. IMPRESSION: Cardiomegaly with chronic appearing increased interstitial markings. No consolidation or pleural fluid. Increased density in right upper lobe medially, this may be due to bony artifact although underlying mass is not excluded. Suggest short-term followup and/or chest CT as clinically warranted. Dictated by: Dictated on workstation # [id number]
[2019-06-28] MEDS ORDERED: MIDAZOLAM 5 MG/5 ML (VERSED) VIAL ONE ×2 (12:47→13:43)
[2019-06-28] MEDS ORDERED: fentaNYL INJECTION 100 MCG/2 ML AMP ONE (12:47)
[2019-06-28 12:54] LABS: INR 0.9 (0.8-1.4); PROTHROMBIN TIME PATIENT 12.7 SEC (12.2-14.7)
--- NOTE | 2019-06-28 13:02 | Cardiac Procedure Note-CS/ASA ---
Pre-Procedure Note Pre-Op Procedure Note H&P Reviewed The H&P was reviewed, patient examined and no changes noted. Date H&P Reviewed: Jun 28, 2019 Time H&P Reviewed: 13:02 Conscious Sedation Pre-Proced Time 13:02 ASA Score 3 For ASA 3 and 4: Consider anesthesia and medical clearance. Also, for patients with a history of failed moderate sedation consider anesthesia. Airway Lungs Heart ASA score ASA 1: a normal healthy patient ASA 2: a patient with a mild systemic disease (mid diabetes, controlled hypertension, obesity x ASA 3: a patient with a severe systemic disease that limits activity (angina, COPD, prior Myocardial infarction) ASA 4: a patient with an incapacitating disease that is a constant threat to life (CHF, renal failure) ASA 5: a moribund patient not expected to survive 24 hrs. (ruptured aneurysm) ASA 6: a declared brain- patient whose organs are being harvested. For emergent operations, add the letter E after the classification Mallampati Classification Grade 3 Sedation Plan Analgesia, Amnesia, Plan communicated to team members, Discussed options with patient/fam, Discussed risks with patient/fam The patient is an appropriate candidate to undergo the planned procedure, sedation, and anesthesia. The patient immediately re-assessed prior to indication. FRANKLIN FLORES MD Jun 28, 2019 13:02
[2019-06-28] MEDS ORDERED: NEO/POLY/BAC (NEOSPORIN) OINT 15 GM TUBE ONE (13:43)
[2019-06-28] MEDS ORDERED: proPOfol 200 MG/20 ML (DIPRIVAN) VIAL IV ONE (13:46)
--- NOTE | 2019-06-28 14:20 | Anesthesia-Procedure Note ---
Procedures/Interventions Procedure Start/Stop/Diagnosis Date of Procedure: Jun 28, 2019 Start Time: 14:00 Stop Time: 14:15 SARAH/Cardioversion Anesthesia Type: MAC ASA Class: 3 Monitors and Equipment: Continuous EKG, End Tidal CO2, IV, Pulse Oximeter, V Lead EKG Additional Procedures Procedures Sedation for defibrilator test LÁZARO MANNING CRNA Jun 28, 2019 14:20
[2019-06-28] MEDS ORDERED: PATIENT MAY USE OWN MEDS, ALL PO SCH (14:30)
[2019-06-28] MEDS ORDERED: RT-ALBUTEROL SULF 2.5 MG/3 ML PRE-MIX VIAL INH PRN (14:45)
[2019-06-28] MEDS ORDERED: NITROGLYCERIN 0.4 MG SL TABS BTL 25'S SL PRN (14:45)
--- NOTE | 2019-06-28 15:10 | ICD Implantation ---
Single Chamber ICD Implant DATE OF SERVICE: 69 male SINGLE CHAMBER ICD IMPLANTATION PRIMARY PHYSICIAN: REFERRING PHYSICIAN: ART EDITOR: Franklin Neumann INDICATION: Primary prevention for severe nonischemic cardiomyopathy PREOPERATIVE DIAGNOSES: severe nonischemic cardiomyopathy POSTOPERATIVE DIAGNOSES: severe nonischemic cardiomyopathy HISTORY: ICD implantation is recommended. PROCEDURE PERFORMED: 1. Single-chamber ICD implantation. 2. Implantable loop recorder explantation. 3. Venogram. 4. DFT testing. COMPLICATIONS: None. ESTIMATED BLOOD LOSS: 20 mL. SPECIMENS: None. ANESTHESIA: Conscious sedation. ORAL ANTICOAGULATION: None. FLUOROSCOPY TIME: 2.08 Sec FLUOROSCOPY DOSE: 8 mGy CONTRAST DOSE: 0 ml PROCEDURE DETAILS: After all the questions were answered, an informed consent was taken. All the risks and complication were explained in detail. The patient was brought to the EP lab. The patient's right and left chest was prepped and draped in the usual sterile fashion. A 2-inch horizontal incision was made 1 cm below the clavicle and dissection carried down to the pectoralis fascia. IV antibiotics were administered prior to first incision. Under fluoroscopic guidance, access was gained in the axillary vein and a regular J-wire was placed. We then introduced a sheath into the axillary vein. A ICD lead was inserted. This is a single- coiled ICD lead. The RV lead was inserted across the tricuspid valve to an apical septal portion of the RV. The lead position was checked in JEFFERY and HURST view. The screw was deployed and lead connected to the server programmer. Good sensing and pacing thresholds were obtained. Diaphragmatic pacing was ruled out. The lead was secured with 2-0 Vicryl nonabsorbable sutures. The lead was secured to the underlying muscle and fascia. We then took an ICD generator and the lead was connected to the device in a hermetic fashion. The device and it was placed in the pocket. Aggressive irrigation with normal saline solution was done. Interrogation of the device revealed good integrity of the leads and connection. The wound was closed using 2 layers. The first layer was an interrupted 2-0 Vicryl. The second layer was an uninterrupted 4-0 Vicryl suture. Half inch Steri-Strips and a small dressing was then applied to the wound. DFT testing was done with anesthesia support. The induction mechanism was a T- shock. T shock was delivered with the patient ventricular fibrillation, patient received single shock at 15 J with impedance of 60 Ohms and charge time 3.1 was successful in terminating ventricular fibrillation DEVICE INFORMATION: [employer] INVENTRA 7 VR DX Serial [id number] RV Lead [id number] INTRAOPERATIVE DEVICE TESTING: good sensing and capture activity Device was able to sense right atrium at 1.4 mV, right ventricle more than 20 mV, impedance 702, threshold 0.7 V at 0.4 ms DEVICE INTERROGATION IMMEDIATELY POSTOP: with sensing and capture activity Device was able to sense right atrium at 26.6 mV. Right ventricle 24.2 mV, impedance 652, threshold 0.6 V at 0.4 ms PLAN: The patient will be observed for 23 hours. We will continue with two more dosages of IV antibiotics. We will check a chest x-ray and interrogate the device in the morning. An EKG will be done as well. If everything checks out, the patient will be discharged tomorrow. CONCLUSION: 1. Successful implantation of single-chamber ICD device [employer] with inability to sense the atrium and sensed and paced the ventricle 2. Successful DFT testing in terminating ventricular fibrillation and 15 J 3. Pacemaker was set at VVI with a rate of 40 with VT 214 bpm, VF 188 bpm FINAL DIAGNOSIS: Congestive heart failure, nonischemic cardiomyopathy, chronic compensated left ventricular systolic dysfunction Hypertension Hyperlipidemia FRANKLIN NEUMANN MD Jun 28, 2019 15:10
--- NOTE | 2019-06-28 15:23 | Diagnostic Imaging Report ---
INDICATION: Arrhythmia Portable chest 2:45 p.m. FINDINGS: There is a left subclavian unipolar pacemaker with AICD. Heart size and pulmonary vascularity are normal. Lungs are clear. There are no effusions or pneumothoraces. IMPRESSION: No acute abnormalities in the chest. Dictated by: Dictated on workstation # [id number]
--- NOTE | 2019-06-28 15:57 | NUR ---
DC ANCEF DUE TO ALLERGY; START [facility] TO DOSE X 24 HR POST PROCEDURE RBTO DR FLORES [id number] 06-28-19
--- NOTE | 2019-06-28 16:59 | NUR ---
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 PT'S INCISION NOTED TO HAVE INCREASED SWELLING AND MODERATE AMOUNT OF SEROSANGUINEOUS DRAINAGE. ORDERS RECEIVED TO HOLD PRESSURE FOR [address] THEN [address] ICE PACK. AREA MARKED AND PRESSURE HELD. FRESH ICE PACK APPLIED. PT RATES PAIN AT 4 AFTER ADMINISTRATION OF ULTRAM. CALL LIGHT AND OTHER PERSONAL ITEMS WITHIN REACH. WILL CONTINUE TO MONITOR.
[2019-06-28] MEDS: SACUBITRIL/VALSARTAN 24/26 MG (ENTRESTO) TABLET PO SCH (20:15)
[2019-06-28] MEDS: CARVEDILOL 3.125 MG (COREG) TABLET PO SCH (20:15)
[2019-06-28] MEDS ORDERED: SACUBITRIL/VALSARTAN 24/26 MG (ENTRESTO) TABLET PO SCH (21:00)
[2019-06-28] MEDS ORDERED: NON-FORMULARY MEDICATION 1 EA EA (Carvedilol (Coreg) 3.125 MG) PO SCH (21:00)
[2019-06-28] MEDS ORDERED: ceFAZolin INJECTION 1,000 MG in WATER (STERILE) FOR INJECTION 10 ML IV SCH (22:00)
[2019-06-28] MEDS ORDERED: VANCOMYCIN 1 GM/NS 250 ML IVPB IV SCH ×2 (23:00)
[2019-06-29] VITALS: BP 113/60
[2019-06-29 01:00] VITALS: BP 115/59
[2019-06-29 02:00] VITALS: BP 114/52
[2019-06-29 03:29] LABS: HEMOGLOBIN 13.4 G/DL (13.3-17.7); RED CELL DISTRIBUTION WIDTH 14.2 % (10.0-14.5); WHITE BLOOD COUNT 12.2 10^3/uL (4.3-11.0)
[2019-06-29 03:52] LABS: ALANINE AMINOTRANSFERASE 14 U/L (0-55); ALBUMIN 3.8 GM/DL (3.2-4.5); ALKALINE PHOSPHATASE 65 U/L (40-136); BILIRUBIN,TOTAL 0.5 MG/DL (0.1-1.0); BUN/CREATININE RATIO 19; CALCIUM 8.7 MG/DL (8.5-10.1); CARBON DIOXIDE 19 MMOL/L (21-32); CHLORIDE 107 MMOL/L (98-107); CREATININE SERUM 0.79 MG/DL (0.60-1.30); GFR ESTIMATED > 60; GLUCOSE 102 MG/DL (70-105); POTASSIUM 4.5 MMOL/L (3.6-5.0); SODIUM 137 MMOL/L (135-145); TOTAL PROTEIN 6.4 GM/DL (6.4-8.2)
[2019-06-29 04:00] VITALS: BP 106/43
--- NOTE | 2019-06-29 06:20 | Cardiology Progress Note ---
Subjective Date Seen by Provider: Jun 29, 2019 Time Seen by Provider: 06:18 Subjective/Events-last exam patient is laying down in bed, feeling better. No new complaint. Mild oozing at the incision site Review of Systems General: No Chills, No Night Sweats, No Fatigue, No Malaise, No Appetite, No Other HEENT: No Head Aches, No Visual Changes, No Eye Pain, No Ear Pain, No Dysphasia, No Sinus Congestion, No Post Nasal Drip, No Sore Throat, No Other Pulmonary: No Dyspnea, No Cough, No Pleuritic Chest Pain, No Other Cardiovascular: No: Chest Pain, Palpitations, Orthopnea, Paroxysmal Noc. Dyspnea, Edema, Lt Headedness, Other Objective-Cardiology Exam Last Set of Vital Signs Vital Signs 06/29/19 06/29/19 00:20 04:00 Temp 97.2 Pulse 60 Resp 9 B/P (MAP) 106/43 (64) Pulse Ox 96 O2 Delivery Nasal Cannula O2 Flow Rate 2.00 Capillary Refill : I&O Intake and Output 06/29/19 00:00 Intake Total 1360 ml Output Total 1 ml Balance 1359 ml Intake Oral 360 ml IV Total 1000 ml Output Stool Total 1 ml # Voids 1 General: Alert, Oriented X3, Cooperative HEENT: Atraumatic, PERRLA Neck: Supple, No JVD, No Thyromegaly Lungs: Clear to Auscultation, Normal Air Movement Heart: Regular Rate, Normal S1, Normal S2, No Murmurs Abdomen: Normal Bowel Sounds, Soft, No Tenderness, No Hepatosplenomegaly, No Masses Extremities: No Clubbing, No Cyanosis, No Edema, Normal Pulses, No Tenderness/Swelling Skin: No Rashes, No Breakdown, No Significant Lesion Neuro: Normal Gait, Normal Speech, Strength at 5/5 X4 Ext, Normal Tone, Sensation Intact Psych/Mental Status: Mental Status NL, Mood NL Results Lab Laboratory Tests 06/28/19 11:53 06/29/19 02:55 A/P-Cardiology Admission Diagnosis Congestive heart failure, chronic compensated left ventricular systolic dysfunction, nonischemic cardiomyopathy Hypertension Hyperlipidemia Permanent pacemaker/ICD Assessment/Plan Congestive heart failure, chronic compensated left ventricular systolic dysfunction, nonischemic cardiomyopathy Status post single-chamber ICD implantation for primary prevention Hypertension, controlled, continue current medication Hyperlipidemia, continue to monitor FRANKLIN FLORES MD Jun 29, 2019 06:19
[2019-06-29] MEDS ORDERED: LEVO500T2 PO (06:21)
[2019-06-29] MEDS ORDERED: LEVOTHYROXINE 50 MCG (LEVOTHROID) TAB PO SCH (06:30)
[2019-06-29] MEDS ORDERED: ISOSORBIDE MONONITRATE 30 MG (IMDUR) TAB PO SCH ×2 (06:30→09:00)
[2019-06-29] MEDS: SACUBITRIL/VALSARTAN 24/26 MG (ENTRESTO) TABLET PO SCH (08:12)
[2019-06-29] MEDS: CARVEDILOL 3.125 MG (COREG) TABLET PO SCH (08:20)
[2019-06-29] MEDS ORDERED: CLOPIDOGREL 75 MG (PLAVIX) TABLET PO SCH ×2 (09:00)
[2019-06-29] MEDS ORDERED: ASPIRIN E.C. 81 MG (ECOTRIN) TAB PO SCH ×2 (09:00)
[2019-06-29] MEDS ORDERED: FUROSEMIDE 40 MG (LASIX) TAB PO SCH ×2 (09:00)
[2019-06-29] MEDS ORDERED: ATORVASTATIN 20 MG (LIPITOR) TABLET PO SCH ×2 (09:00)
[2019-06-29 09:51] VITALS: BP 106/43
== END 2019-06-29 09:45 | disposition home or self-care (01) ==
LOC: CATH 10:34 → ICU 15:15 → CATH 06-29 09:45
PROVIDERS: ATTEND Internal Medicine Cardiovascular Disease
DX: I11.0 Hypertensive heart disease with heart failure (principal); I50.22 Chronic systolic (congestive) heart failure; I42.9 Cardiomyopathy, unspecified; E78.5 Hyperlipidemia, unspecified; Z95.810 Presence of automatic (implantable) cardiac defibrillator; J44.9 Chronic obstructive pulmonary disease, unspecified; I25.10 Atherosclerotic heart disease of native coronary artery without angina pectoris; R07.89 Other chest pain; I65.23 Occlusion and stenosis of bilateral carotid arteries; F17.210 Nicotine dependence, cigarettes, uncomplicated; Z79.899 Other long term (current) drug therapy; Z79.82 Long term (current) use of aspirin; Z95.5 Presence of coronary angioplasty implant and graft; Z82.49 Family history of ischemic heart disease and other diseases of the circulatory system
CPT/HCPCS: 33249; 36415; 71045; 80053; 81000; 85027; 85610; 85730; 87081; 93005; 93641; 94640; 94664; 94760

== ENCOUNTER 2019-08-20 13:53 | Emergency (ER) | payer MEDICARE ==
[~2019-08-20] VITALS: Ht 167.7 cm; Wt 63.6 kg
[~2019-08-20 13:53] MED LIST changes: +ISOS30TA3 PO; +LEVO500T2 PO
--- NOTE | 2019-08-20 14:19 | ED Upper Extremity ---
General Chief Complaint: Upper Extremity Stated Complaint: RT HAND IS SWOLLEN - FALL/POSS W/C Source: patient History of Present Illness Date Seen by Provider: Aug 20, 2019 Time Seen by Provider: 14:15 Initial Comments The patient is a 69-year-old white male. He presents with complaints of pain and swelling in the right hand and wrist. He reports that on Wednesday he fell in [facility] and believes he extended his hands to cushion the blow. Since that time there has been successive swelling and some discoloration to the dorsum of the hand. He does not believe that he passed out but cannot explain why he fel l. Onset: last week Pain/Injury Location: right wrist, right hand Method of Injury: fell Allergies and Home Medications Allergies Coded Allergies: cephalexin (Verified Allergy, Intermediate, Rash, 06/28/19) Home Medications Albuterol Sulfate 1 Puff Puff, 2 PUFF INH Q6H PRN for SHORTNESS OF BREATH, (Reported) Aspirin 81 Mg Tablet.dr, 81 MG PO DAILY Prescribed by: FRANKLIN FLORES on 02/25/19 1019 Atorvastatin Calcium 20 Mg Tablet, 20 MG PO DAILY, (Reported) Carvedilol 3.125 Mg Tablet, 3.125 MG PO BID Prescribed by: FRANKLIN FLORES on 02/25/19 1023 Clopidogrel Bisulfate 75 Mg Tablet, 75 MG PO DAILY, (Reported) Furosemide 40 Mg Tablet, 40 MG PO DAILY, (Reported) Isosorbide Mononitrate 30 Mg Tab.er.24h, 30 MG PO DAILY, (Reported) Levofloxacin 500 Mg Tablet, 500 MG PO DAILY Prescribed by: FRANKLIN FLORES on 06/29/19 0621 Levothyroxine Sodium 50 Mcg Tablet, 50 MCG PO DAILY, (Reported) Nitroglycerin 0.4 Mg Tab.subl, 0.4 MG SL UD PRN for CHEST PAIN, (Reported) Sacubitril/Valsartan 1 Each Tablet, 1 TAB PO BID Prescribed by: FRANKLIN FLORES on 02/25/19 1019 Tramadol HCl 50 Mg Tablet, 50-100 MG PO Q6H PRN for PAIN-MODERATE, (Reported) Patient Home Medication List Home Medication List Reviewed: Yes Review of Systems Constitutional: see HPI EENTM: no symptoms reported Respiratory: no symptoms reported Cardiovascular: no symptoms reported Gastrointestinal: no symptoms reported Genitourinary: no symptoms reported Musculoskeletal: see HPI Skin: no symptoms reported Psychiatric/Neurological: No Symptoms Reported Past Iobnqxa-Jgfeun-Bxefsc Hx Patient Social History Type Used: Cigarettes Recent Hopitalizations: No Immunizations Up To Date Date of Pneumonia Vaccine: Dec 26, 2018 Past Medical History Coronary Stent Respiratory: Yes COPD Currently Using CPAP: No Cardiac: Yes Coronary Artery Disease, Heart Attack, High Cholesterol, Hypertension Neurological: No Genitourinary: No Gastrointestinal: No Cancer: No Blood Disorders: No Physical Exam Vital Signs Vital Signs - First Documented 08/20/19 14:10 Temp 36.2 Pulse 63 Resp 16 B/P (MAP) 134/45 (74) Pulse Ox 100 O2 Delivery Room Air Capillary Refill : Height, Weight, BMI Height: 5'6.00" Weight: 144lbs. 0.0oz. 65.085202ob; 23.2 BMI Method:Stated General Appearance: WD/WN, no apparent distress HEENT: normal ENT inspection Neck: full range of motion Cardiovascular: normal peripheral pulses, regular rate, rhythm, no edema, no gallop, no JVD, no murmur Respiratory: chest non-tender, lungs clear, normal breath sounds, no respiratory distress, no accessory muscle use Back: normal inspection Shoulder: normal inspection Elbow/Forearm: normal inspection Neurologic/Psychiatric: no motor/sensory deficits There is apparent swelling to the right hand both on the palm are aspect and the dorsal aspect. The hands are cool but not cold. The right hand exhibits a pinkish red discoloration. There is no specific point of pain to palpation of the wrist or hand. Progress/Results/Core Measures Results/Orders My Orders Orders - MONICA BRYANT MD Hand 2 View Right (08/20/19 14:12) Wrist 3 View Right (08/20/19 14:12) Vital Signs/I&O 08/20/19 14:10 Temp 36.2 Pulse 63 Resp 16 B/P (MAP) 134/45 (74) Pulse Ox 100 O2 Delivery Room Air Departure Communication (Admissions) 1425 x-rays were reviewed by me and appeared to show no fractures 1455 radiology report available and also reports no fractures. The wrist was examined again radial pulse was able grooming 2-3+. It was noted that there were 2 areas over the thumb which suggested small ecchymoses. Impression Primary Impression: right wrist sprain Disposition: 01 HOME, SELF-CARE Condition: Stable/Unchanged Departure-Patient Inst. Decision time for Depature: 14:57 Referrals: KATHERIN GILMORE MD (PCP/Family) Primary Care Physician Add. Discharge Instructions: All discharge instructions reviewed with patient and/or family. Voiced understanding. Elevate hand above elbow when practical. Expect the swelling to resolve over the next week. MONICA BRYANT MD Aug 20, 2019 14:19
--- NOTE | 2019-08-20 14:42 | Diagnostic Imaging Report ---
INDICATION: Fall. Pain. FINDINGS: There are arthritic changes to the wrist and interphalangeal joints. No erosive component. No fracture or dislocation. No soft tissue gas. No suspicious foreign body. IMPRESSION: No acute appearing bony abnormality. Dictated by: Dictated on workstation # [id number]
--- NOTE | 2019-08-20 14:44 | Diagnostic Imaging Report ---
INDICATION: Fall, pain. FINDINGS: No fracture, dislocation, radiopaque foreign body or acute articular incongruity. There are some old healed deformities to the shaft of the 5th metacarpal. No acute bony abnormality. IMPRESSION: No acute appearing abnormality. Dictated by: Dictated on workstation # [id number]
[2019-08-20 15:16] VITALS: BP 152/78
== END 2019-08-20 15:15 | disposition home or self-care (01) ==
LOC: EDUNIT# 13:53 → ER FS 13:54
DX: S63.501A Unspecified sprain of right wrist, initial encounter (principal); J44.9 Chronic obstructive pulmonary disease, unspecified; I10 Essential (primary) hypertension; E78.00 Pure hypercholesterolemia, unspecified; I25.2 Old myocardial infarction; I25.10 Atherosclerotic heart disease of native coronary artery without angina pectoris; Z95.5 Presence of coronary angioplasty implant and graft; Z88.1 Allergy status to other antibiotic agents; Z79.82 Long term (current) use of aspirin; Z79.02 Long term (current) use of antithrombotics/antiplatelets; W19.XXXA Unspecified fall, initial encounter; Y92.59 Other trade areas as the place of occurrence of the external cause
CPT/HCPCS: 73110; 73120

== ENCOUNTER → 2020-09-16 | Outpatient (CLI) | payer MEDICARE, OTHER ==
[~2020-09-16] VITALS: Ht 167 cm; Wt 63.0 kg
[~2020-09-16] MED LIST changes: +ASPI-1238 PO; -ASPI-983 PO; +CATHETER FLUSH 10 ML SYR IV PRN; +REGADENOSON 0.4 MG/5 ML SYR (LEXISCAN) IV ONE; -SACU1TAB PO; +SACU1TAB2 PO; -TRAM50TA2 PO; +TRM50T PO
[2020-09-16 09:25] VITALS: BP 121/52
[2020-09-16 11:36] LABS: ALANINE AMINOTRANSFERASE 16 U/L (0-55); ALBUMIN 4.1 GM/DL (3.2-4.5); ALKALINE PHOSPHATASE 63 U/L (40-136); BILIRUBIN,TOTAL 0.6 MG/DL (0.1-1.0); BUN/CREATININE RATIO 16; CALCIUM 9.3 MG/DL (8.5-10.1); CARBON DIOXIDE 25 MMOL/L (21-32); CHLORIDE 104 MMOL/L (98-107); CHOLESTEROL 152 MG/DL (< 200); CREATININE SERUM 0.89 MG/DL (0.60-1.30); GFR ESTIMATED > 60; GLUCOSE 80 MG/DL (70-105); HDL CHOLESTEROL 46 MG/DL (40-60); POTASSIUM 4.2 MMOL/L (3.6-5.0); SODIUM 138 MMOL/L (135-145); TRIGLYCERIDES 91 MG/DL (<150); VLDL CHOLESTEROL 18 MG/DL (5-40)
--- NOTE | 2020-09-16 11:51 | Cardiology Stress Test Report ---
Stress Test Report Date of Procedure/Referring: Date of Procedure: Sep 16, 2020 PCP Lita Fu Admitting Physician Bradley Myers MD Indications: Chest pain Baseline Heart Rate: 68 Baseline Blood Pressure: Blood Pressure Systolic: 121 Blood Pressure Diastolic: 52 Baseline Vitals Vital Signs Date Time Temp Pulse Resp B/P (MAP) Pulse Ox O2 Delivery O2 Flow Rate FiO2 09/16/20 09:25 64 18 121/52 (75) 97 Room Air Baseline EKG: Baseline EKG: normal sinus rhythm Summary After explaining the procedure to the patient, he signed a consent and then brought to the stress nuclear laboratory. Patient received 0.4 mg Lexiscan for stress test, ECG, heart rate and blood pressure were monitored continuously. Resting and stress dose of radio tracer were injected, imaging was acquired and reviewed in short axis, horizontal long axis and vertical long axis views. TID: 1.05 SSS: 25 SDS: 0 EF: 27 1. Patient tolerated Lexiscan well 2. Baseline EKG with poor R-wave progression in the anterior leads persisted during test, occasional PVCs with Lexiscan 3. Large area of infarction with no significant reversibility noted involving the mid to apical inferior wall true apex, anteroapical area and the apical portion of the anterior septum and inferoseptum 4. Dilated left ventricle with diffuse hypokinesia, akinesia to dyskinesia of the apex and inferior wall, EF 27 percent FRANKLIN FLORES MD Sep 16, 2020 11:51
== END ==
LOC: CARD 08:15
PROVIDERS: ATTEND Physician Assistant
DX: I25.10 Atherosclerotic heart disease of native coronary artery without angina pectoris (principal); I50.9 Heart failure, unspecified; I51.7 Cardiomegaly; I35.0 Nonrheumatic aortic (valve) stenosis; I35.1 Nonrheumatic aortic (valve) insufficiency; Z72.0 Tobacco use
CPT/HCPCS: 78452; 80053; 80061; 93017; 93306; A9502; 36415

== ENCOUNTER 2021-07-22 23:27 | Emergency (ER) | payer MEDICARE ==
[~2021-07-22] VITALS: Ht 167.7 cm; Wt 59.0 kg
[~2021-07-22 23:27] MED LIST changes: -CATHETER FLUSH 10 ML SYR IV PRN; -ISOS30TA3 PO; +ISOS30TA82 PO; -REGADENOSON 0.4 MG/5 ML SYR (LEXISCAN) IV ONE
--- OUTSIDE RECORDS SUMMARY | 2021-07-22 23:34 | XMS REPORT | Clinical Summary ---
Author Author [facility] Address Unknown Phone Unavailable Care Team Providers Care Cooker Syrup Name Role Phone PCP Unavailable Allergies Not on File Medications Not on file Active Problems Not on file Family History Medical History Relation Name Comments Other Brother Diagnosed with Dysl ipidemia,HTN, Other Brother Diagnosed with HTN, Other Father Diagnosed with HTN, Other Mother Diagnosed with CAD, Other Sister Diagnosed with Dysl ipidemia,HTN, Other Sister Diagnosed with HTN, Relation Name Status Comments Brother Brother Father Cause of was GSW at age 70. (Age 70) Mother Cause of was Breast Cancer at age 83. (Age 83) Sister Sister Social History Date Tobacco Use Types Packs/Day Years Used Never Assessed Sex Assigned at Date Recorded Not on file Last Filed Vital Signs Reading Time Taken Comments Vital Sign 118/76 07/09/2010 2:12 PM CDT Blood Pressure 72 07/09/2010 2:12 PM CDT Pulse - - Temperature - - Respiratory Rate - - Oxygen Saturation - - Inhaled Oxygen Concentration 64.3 kg (141 lb 12.8 oz) 07/09/2010 2:12 PM CDT normal Weight 170.2 cm (5' 7") 07/09/2010 2:12 PM CDT Height 22.21 07/09/2010 2:12 PM CDT Body Mass Index Plan of Treatment Not on file Results Not on filefrom Last 3 Months Advance Directives For more information, please contact: [phone] 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
--- OUTSIDE RECORDS SUMMARY | 2021-07-22 23:34 | XMS REPORT | Clinical Summary ---
Author Author [facility] Organization [facility] Address Unknown Phone Unavailable Care Team Providers Care Revenue Cycle Manager Name Role Phone Gt Baugh MD Unavailable Unavailable Gt Baugh MD Unavailable Bradley Myers MD PCP Source Comments Some departments are not documenting in the electronic medical record. If you d o not see the information that you expected, contact Release of Information in [facility] [employer] Information Management department at [phone] for further assistan ce in locating additional records.[facility] Allergies Comments Active Allergy Reactions Severity Noted Date Cephalexin EDEMA 12/19/2012 Penicillins RASH 12/19/2012 Medications End Date Status Medication Sig Dispensed Refills Start Date Active lithium carbonate 300 mg Take 300 mg 0 capsule by mouth daily. Active rosuvastatin (CRESTOR) 20 Take 20 mg by 0 mg tablet mouth daily. Active albuterol (VENTOLIN HFA, Inhale 2 0 PROAIR HFA) 90 Puffs by mcg/actuation inhaler mouth every 6 hours as needed. Active clopiDOGrel (PLAVIX) 75 Take 75 mg by 0 mg tablet mouth daily. Active buPROPion SR(+) Take 150 mg 0 (WELLBUTRIN-SR) 150 mg by mouth tablet twice daily. Active levothyroxine (SYNTHROID) Take 50 mcg 0 50 mcg tablet by mouth daily. Active traMADol (ULTRAM) 50 mg Take 50 mg by 0 tablet mouth every 6 hours as needed. Active carvedilol (COREG) 6.25 Take 6.25 mg 0 mg tablet by mouth twice daily with meals. Active furosemide (LASIX) 40 mg Take 40 mg by 0 tablet mouth daily. Active benazepril (LOTENSIN) 40 Take 40 mg by 0 mg tablet mouth daily. Active griseofulvin (GRIFULVIN Take 500 mg 0 V) 500 mg tablet by mouth daily. Active fluticasone (FLONASE) 50 Apply 2 0 mcg/actuation nasal spray Sprays to each nostril as directed daily. Active nitroglycerin (NITROSTAT) Place 0.4 mg 0 0.4 mg tablet under tongue every 5 minutes as needed. Active naproxen (NAPROSYN) 500 Take 500 mg 0 mg tablet by mouth twice daily with meals. Active FOLIC ACID/VITAMIN B COMP Take 1 mg by 0 W-C (NEPHRO-COREY PO) mouth daily. Active tadalafil(+) (CIALIS, Take 20 mg by 0 ADCIRCA) 20 mg tablet mouth as Needed. Active amitriptyline (ELAVIL) 25 Take 25 mg by 0 mg tablet mouth at bedtime daily. Active FLAXSEED OIL (OMEGA 3 PO) Take 500 mg 0 by mouth twice daily. Active Potassium 99 mg Tab Take 1 Tab by 0 mouth daily. Active aspirin 325 mg tablet Take 325 mg 0 by mouth daily. 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 No t asked How many drinks containing alcohol do you have on No t asked a typical day when you are drinking? How often do you have six or more drinks on one Not asked occasion? Comment: none in 10 yrs 12/29/2012 Sex Assigned at Date Recorded Not on file Last Filed Vital Signs Reading Time Taken Comments Vital Sign 132/72 01/12/2013 11:48 AM DROP FORGER Blood Pressure 91 01/12/2013 11:48 AM DROP FORGER Pulse 36.7 C (98 F) 01/12/2013 11:48 AM DROP FORGER Temperature 18 01/12/2013 11:48 AM DROP FORGER Respiratory Rate 91% 12/30/2012 11:00 AM DROP FORGER Oxygen Saturation - - Inhaled Oxygen Concentration 67.1 kg (148 lb) 01/12/2013 11:48 AM DROP FORGER Weight 167.6 cm (5' 6") 01/12/2013 11:48 AM DROP FORGER Height 23.89 01/12/2013 11:48 AM DROP FORGER Body Mass Index Plan of Treatment Health Maintenance Due Date Last Done Comments DTAP/TDAP VACCINES (1 - 1967 Tdap) HEPATITIS C SCREENING 1967 PHYSICAL (COMPREHENSIVE) 1967 EXAM COLORECTAL CANCER 1999 SCREENING SHINGLES RECOMBINANT 1999 VACCINE (1 of 2) ABDOMINAL AORTIC ANEURYSM 2014 SCREENING PNEUMONIA (PPSV23) 2014 VACCINE (1 of 1 - PPSV23) INFLUENZA VACCINE 08/15/2021 Results Not on filefrom Last 3 Months
[2021-07-22] MEDS ORDERED: ASPIRIN 81 MG CHEW (CHILDREN'S ASA) PO ONE (23:45)
[2021-07-22] MEDS: NITROGLYCERIN 0.4 MG SL TABS BTL 25'S SL PRN (23:48)
[2021-07-22 23:58] LABS: BASOPHILS # (AUTO) 0.1 10^3/uL (0.0-0.1); BASOPHILS % (AUTO) 1 % (0-10); EOSINOPHILS # (AUTO) 0.1 10^3/uL (0.0-0.3); EOSINOPHILS % (AUTO) 1 % (0-10); HEMATOCRIT 41 % (40-54); HEMOGLOBIN 13.6 g/dL (13.3-17.7); LYMPHOCYTES # (AUTO) 3.1 X 10^3 (1.0-4.0); LYMPHOCYTES % (AUTO) 26 % (12-44); MEAN CORPUSCULAR HEMOGLOBIN 30 pg (25-34); MEAN CORPUSCULAR HGB CONC 33 g/dL (32-36); MEAN CORPUSCULAR VOLUME 90 fL (80-99); MONOCYTES # (AUTO) 0.8 X 10^3 (0.0-1.0); MONOCYTES % (AUTO) 6 % (0-12); NEUTROPHILS # (AUTO) 7.9 X 10^3 (1.8-7.8); NEUTROPHILS % (AUTO) 66 % (42-75); PLATELET COUNT 329 10^3/uL (130-400); WHITE BLOOD COUNT 12.1 10^3/uL (4.3-11.0)
--- NOTE | 2021-07-22 23:59 | Diagnostic Imaging Report ---
CHEST 1 VIEW AP/PA ONLY Indication: Chest pain. Comparison: 06/28/2019 Findings: Stable left pectoral transvenous single-chamber pacemaker/ICD. Tortuous ascending aorta is unchanged. Stable cardiomegaly. No pulmonary consolidation, pneumothorax or pleural effusion. Posterior lower lobes are poorly evaluated by portable radiography. Impression: 1. No acute cardiopulmonary process by portable radiography. Dictated by: Dictated on workstation # [id number]
[2021-07-23 00:21] LABS: ALBUMIN 4.3 GM/DL (3.2-4.5); BILIRUBIN,TOTAL 0.3 MG/DL (0.1-1.0); CALCIUM 9.7 MG/DL (8.5-10.1); CREATININE SERUM 0.98 MG/DL (0.60-1.30); POTASSIUM 4.5 MMOL/L (3.6-5.0); TOTAL PROTEIN 7.7 GM/DL (6.4-8.2)
[2021-07-23] MEDS ORDERED: FUROSEMIDE 40 MG/4 ML INJ (LASIX) IVP ONE (00:30)
--- NOTE | 2021-07-23 00:38 | ED Cardiac General ---
History of Present Illness General Chief Complaint: Chest Pain Stated Complaint: CHEST TIGHTNESS Nursing Triage Note: Pt awake, alert, oriented. Ambulated from waiting room to ER 1 without difficulty. 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 Pain is to the left chest, just below breast. Pain is worse with activity, better with rest. Denies any recent fever or sick contacts. Airway intact. Respirations even et unlabored, but crackles can be heard from across room. Skin warm, dry, pale. Source: patient Exam Limitations: no limitations History of Present Illness Date Seen by Provider: Jul 23, 2021 Time Seen by Provider: 23:30 Initial Comments Patient is a 71-year-old male with history of CAD and cardiomyopathy who presents with shortness of breath and chest tightness starting 20 minutes prior to ED arrival. 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 Chest tightness over left sharp with deep breaths. Pain is worse with activity and better with rest. No aspirin nitroglycerin prior to ED arrival. Patient had similar episode of chest tightness 1 week ago while resting. Denies nausea vomiting, sweats, dizziness lightheadedness or abdominal pain. Denies leg pain or swelling. No other acute symptoms or complaints. Timing/Duration: 1/2 hour Severity: moderate Location: substernal Activities at Onset: other Prior CP/Workup: cardiac cath (aicd), other Modifying Factors: improves with rest, improves with other NTG SL MULTIPLE DRUM SANDER: No ASA po MULTIPLE DRUM SANDER: No Associated Systoms: Shortness of Air Allergies and Home Medications Allergies Coded Allergies: cephalexin (Verified Allergy, Intermediate, Rash, 06/28/19) Patient Home Medication List Home Medication List Reviewed: Yes Albuterol Sulfate (Proair Hfa) 1 Puff Puff, 2 PUFF INH Q6H PRN for SHORTNESS OF BREATH, (Reported) Entered as Reported by: MICA FAIRCHILD on 02/23/19 0935 Aspirin (Aspirin EC) 81 Mg Tablet.dr, 81 MG PO DAILY Prescribed by: FRANKLIN NEUMANN on 02/25/19 1019 Atorvastatin Calcium (Atorvastatin Calcium) 20 Mg Tablet, 20 MG PO DAILY, (Reported) Entered as Reported by: ROB CORBIN on 03/15/19 0947 Carvedilol (Coreg) 3.125 Mg Tablet, 3.125 MG PO BID Prescribed by: FRANKLIN NEUMANN on 02/25/19 1023 Clopidogrel Bisulfate (Clopidogrel) 75 Mg Tablet, 75 MG PO DAILY, (Reported) Entered as Reported by: MICA FAIRCHILD on 02/23/19 0935 Furosemide (Furosemide) 40 Mg Tablet, 40 MG PO DAILY, (Reported) Entered as Reported by: MICA FAIRCHILD on 02/23/19 0935 Isosorbide Mononitrate (Isosorbide Mononitrate ER) 30 Mg Tab.er.24h, 30 MG PO DAILY, (Reported) Entered as Reported by: JAYSON PHOENIX on 06/28/19 1215 Levofloxacin (Levaquin) 500 Mg Tablet, 500 MG PO DAILY Prescribed by: FRANKLIN NEUMANN on 06/29/19 0621 Levothyroxine Sodium (Levothyroxine Sodium) 50 Mcg Tablet, 50 MCG PO DAILY, (Reported) Entered as Reported by: MICA FAIRCHILD on 02/23/19 0935 Nitroglycerin (Nitroglycerin) 0.4 Mg Tab.subl, 0.4 MG SL UD PRN for CHEST PAIN, (Reported) Entered as Reported by: MICA FAIRCHILD on 02/23/19 0935 Sacubitril/Valsartan (Entresto 24 mg-26 mg Tablet) 1 Each Tablet, 1 TAB PO BID Prescribed by: FRANKLIN NEUMANN on 02/25/19 1019 Tramadol HCl (Tramadol HCl) 50 Mg Tablet, 50-100 MG PO Q6H PRN for PAIN- MODERATE, (Reported) Entered as Reported by: MICA FAIRCHILD on 02/23/19 0935 Review of Systems Review of Systems Constitutional: see HPI EENTM: See HPI Respiratory: See HPI Cardiovascular: See HPI Gastrointestinal: See HPI Genitourinary: See HPI Musculoskeletal: see HPI Skin: see HPI Psychiatric/Neurological: See HPI Endocrine: See HPI Hematologic/Lymphatic: See HPI All Other Systems Reviewed Negative Unless Noted: Yes Past Mvktajw-Rqwhbi-Weepvm Hx Patient Social History Tobacco Use?: Yes Tobacco type used: Cigarettes Smoking Status: Current Everyday Smoker Use of E-Cig and/or Vaping dev: No Substance use?: No Alcohol Use?: No Pt feels they are or have been: No Immunizations Up To Date Influenza Vaccine Up-to-Date: Yes; Up-to-Date First/Initial COVID19 Vaccinat: APRIL 08, 2021 Second COVID19 Vaccination Terence: may 06, 2021 COVID19 Vaccine Trade Mark Examiner: [email or web address] Seasonal Allergies Seasonal Allergies: No Past Medical History Surgeries: Yes (HEMORRHOIDS) Coronary Stent, Defibrillator, Pacemaker Respiratory: Yes COPD Currently Using CPAP: No Cardiac: Yes Coronary Artery Disease, Heart Attack, High Cholesterol, Hypertension Neurological: No Genitourinary: No Gastrointestinal: No Musculoskeletal: No Endocrine: Yes Hypothyroidsim HEENT: No Cancer: No Psychosocial: No Integumentary: No Blood Disorders: No Physical Exam Vital Signs Vital Signs - First Documented 07/22/21 23:30 Temp 36.9 Pulse 97 Resp 22 B/P (MAP) 125/59 (81) Pulse Ox 96 O2 Delivery Room Air Capillary Refill : Less Than 3 Seconds Height, Weight, BMI Height: 5'6.00" Weight: 144lbs. 0.0oz. [id number]; 20.00 BMI Method:Stated General Appearance: No Apparent Distress, WD/WN, Anxious HEENT: PERRL/EOMI, Normal ENT Inspection, Pharynx Normal Neck: Full Range of Motion, Normal Inspection, Non Tender, Supple Respiratory: Chest Non Tender, No Respiratory Distress, Decreased Breath Sounds Cardiovascular: Regular Rate, Rhythm, No Edema Gastrointestinal: Normal Bowel Sounds, Non Tender, Soft Neurologic/Psychiatric: Alert, Normal Mood/Affect, silvering applicator II-XII Norm as Tested Skin: Normal Color, Warm/Dry Focused Exam Sepsis Stage: Ruled Out Progress/Results/Core Measures Results/Orders Lab Results Laboratory Tests Test 07/22/21 23:38 07/23/21 01:38 Range/Units White Blood Count 12.1 H 4.3-11.0 10^3/uL Red Blood Count 4.53 4.30-5.52 10^6/uL Hemoglobin 13.6 13.3-17.7 g/dL Hematocrit 41 40-54 % Mean Corpuscular Volume 90 80-99 fL Mean Corpuscular Hemoglobin 30 25-34 pg Mean Corpuscular Hemoglobin Concent 33 32-36 g/dL Red Cell Distribution Width 13.0 10.0-14.5 % Platelet Count 329 130-400 10^3/uL Mean Platelet Volume 11.0 9.0-12.2 fL Immature Granulocyte % (Auto) 0 % Neutrophils (%) (Auto) 66 42-75 % Lymphocytes (%) (Auto) 26 12-44 % Monocytes (%) (Auto) 6 0-12 % Eosinophils (%) (Auto) 1 0-10 % Basophils (%) (Auto) 1 0-10 % Neutrophils # (Auto) 7.9 H 1.8-7.8 X 10^3 Lymphocytes # (Auto) 3.1 1.0-4.0 X 10^3 Monocytes # (Auto) 0.8 0.0-1.0 X 10^3 Eosinophils # (Auto) 0.1 0.0-0.3 10^3/uL Basophils # (Auto) 0.1 0.0-0.1 10^3/uL Immature Granulocyte # (Auto) 0.1 0.0-0.1 10^3/uL Sodium Level 136 135-145 MMOL/L Potassium Level 4.5 3.6-5.0 MMOL/L Chloride Level 99 98-107 MMOL/L Carbon Dioxide Level 25 21-32 MMOL/L Anion Gap 12 5-14 MMOL/L Blood Urea Nitrogen 17 7-18 MG/DL Creatinine 0.98 0.60-1.30 MG/DL Estimat Glomerular Filtration Rate 75 BUN/Creatinine Ratio 17 Glucose Level 104 70-105 MG/DL Calcium Level 9.7 8.5-10.1 MG/DL Corrected Calcium 9.5 8.5-10.1 MG/DL Total Bilirubin 0.3 0.1-1.0 MG/DL Aspartate Amino Transf (AST/SGOT) 18 5-34 U/L Alanine Aminotransferase (ALT/SGPT) 11 0-55 U/L Alkaline Phosphatase 101 40-136 U/L Troponin I 0.30 0.30 <0.30 NG/ML Pro-B-Type Natriuretic Peptide 3317.0 H <75.0 PG/ML Total Protein 7.7 6.4-8.2 GM/DL Albumin 4.3 3.2-4.5 GM/DL My Orders Orders - DHARA GRACE DO Cbc With Automated Diff (07/22/21 23:39) Comprehensive Metabolic Panel (07/22/21 23:39) Troponin I Fs (07/22/21 23:39) Ekg-Prn For Chest Pain Or Rhyt (07/22/21 23:39) Chest 1 View Ap/Pa Only (07/22/21 23:39) Probnp Fs (07/22/21 23:42) Nitroglycerin 0.4 Mg Btl 25's (Nitrostat (07/22/21 23:45) Aspirin Chewable Tablet (Baby Aspirin Ch (07/22/21 23:45) Furosemide Injection (Lasix Injection) (07/23/21 00:30) Troponin I Fs (07/23/21 01:27) Medications Given in ED Current Medications Medications Dose Ordered Sig/Erick Route Start Time Stop Time Status Last Admin Dose Admin Aspirin 324 mg ONCE ONCE PO 07/22/21 23:45 07/22/21 23:46 DC 07/22/21 23:47 324 MG Furosemide 40 mg ONCE ONCE IVP 07/23/21 00:30 07/23/21 00:31 DC 07/23/21 00:29 40 MG Nitroglycerin 1 TAB Q 5 MIN X 3 NEEDED PRN SL 07/22/21 23:45 07/23/21 02:04 0.4 MG Vital Signs/I&O 07/22/21 23:30 Temp 36.9 Pulse 97 Resp 22 B/P (MAP) 125/59 (81) Pulse Ox 96 O2 Delivery Room Air Blood Pressure Mean: 81 Departure Communication (Admissions) EKG: Sinus rhythm, rate 93, PVCs, left atrial enlargement, left ventricular hypertrophy, nonspecific T wave abnormalities in lateral leads. Chest x-ray: Cardiomegaly with poisble pulmonary vascular congestion. EKG and repeat troponin nonacute. Patient primarily short of breath with mild chest tightness. Presentation most consistent with angina with component of congestive heart failure. Symptoms resolved with aspirin, nitroglycerin and Lasix. Patient resting breathing comfortably and symptom-free. Admission offered to [facility] for cardiac monitoring and consult. Patient declines transfer states he is feeling better and wishes discharge home. 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 Neumann within the next week. Return precautions reviewed. Patient verbalizes understanding agreement discharge instructions prior to departure. Impression Primary Impression: Congestive heart failure Additional Impression: Angina pectoris syndrome Disposition: HOME, SELF-CARE Condition: Stable Departure-Patient Inst. Decision time for Depature: 02:10 Referrals: KATHERIN GILMORE MD (PCP/Family) Primary Care Physician Patient Instructions: Angina (DC), Heart Failure, Adult Add. Discharge Instructions: You were evaluated in the emergency department for chest tightness and shortnessofbreath. Your symptoms are consistent with an showing with congestive heart failure. Please increase Lasix to 80 mg daily for the next 2 days starting tomorrow and take short acting nitroglycerin as needed. Contact your stamp machine servicer office and schedule a follow-up appointment within the next week. Limit all exertional activities that cause shortness of breath and chest tightness. Return to the ED if new or worsening symptoms. All discharge instructions reviewed with patient and/or family. Voiced understanding. Work/School Note: Work Release Form Date Seen in the Emergency Department: Jul 22, 2021 Return to Work: Jul 24, 2021 DHARA GRACE DO Jul 23, 2021 00:38
[2021-07-23] MEDS: NITROGLYCERIN 0.4 MG SL TABS BTL 25'S SL PRN (02:04)
[2021-07-23 02:25] VITALS: BP 125/59
== END 2021-07-23 02:25 | disposition home or self-care (01) ==
LOC: EDUNIT# 23:27 → ER FS 23:31
DX: I50.9 Heart failure, unspecified (principal); I25.119 Atherosclerotic heart disease of native coronary artery with unspecified angina pectoris; J44.9 Chronic obstructive pulmonary disease, unspecified; I10 Essential (primary) hypertension; I25.2 Old myocardial infarction; I25.10 Atherosclerotic heart disease of native coronary artery without angina pectoris; I42.9 Cardiomyopathy, unspecified; E78.00 Pure hypercholesterolemia, unspecified; E03.9 Hypothyroidism, unspecified; F17.210 Nicotine dependence, cigarettes, uncomplicated; Z95.810 Presence of automatic (implantable) cardiac defibrillator; Z79.82 Long term (current) use of aspirin; Z79.890 Hormone replacement therapy; Z79.899 Other long term (current) drug therapy
CPT/HCPCS: 36415; 71045; 80053; 83880; 84484; 85025; 93005

== ENCOUNTER → 2021-07-28 | Outpatient (CLI) | payer MEDICARE | LOC: CARD 09:01 | PROVIDERS: ATTEND Internal Medicine Cardiovascular Disease | DX: I10 Essential (primary) hypertension (principal); I25.10 Atherosclerotic heart disease of native coronary artery without angina pectoris; R07.2 Precordial pain; I08.2 Rheumatic disorders of both aortic and tricuspid valves | CPT/HCPCS: 93306 ==

== ENCOUNTER → 2021-09-01 | Outpatient (CLI) | payer MEDICARE ==
[~2021-09-01] VITALS: Ht 167 cm; Wt 60.0 kg
[~2021-09-01] MED LIST changes: +CATHETER FLUSH 10 ML SYR IV PRN; +REGADENOSON 0.4 MG/5 ML SYR (LEXISCAN) IV ONE
[2021-09-01 09:15] VITALS: BP 124/54
--- NOTE | 2021-09-03 08:35 | Cardiology Stress Test Report ---
Stress Test Report Date of Procedure/Referring: Date of Procedure: Sep 01, 2021 PCP Melvin Neumann MD Admitting Physician Katherin Myers MD Indications: CAD Baseline Heart Rate: 58 Baseline Blood Pressure: Blood Pressure Systolic: 124 Blood Pressure Diastolic: 54 Baseline Vitals Vital Signs Date Time Temp Pulse Resp B/P (MAP) Pulse Ox O2 Delivery O2 Flow Rate FiO2 09/01/21 09:15 58 124/54 (77) 96 Baseline EKG: Baseline EKG: NSR Summary After explaining the procedure to the patient, he signed a consent and then brought to the stress nuclear laboratory. Patient received 0.4 mg Lexiscan for stress test, ECG, heart rate and blood pressure were monitored continuously. Resting and stress dose of radio tracer were injected, imaging was acquired and reviewed in short axis, horizontal long axis and vertical long axis views. TID: 1.13 SSS: 27 SDS: 0 EF: 31 1. Patient tolerated Lexiscan well 2. Baseline T wave inversion in leads II, 3, aVF, no EKG changes with Lexiscan injection 3. Fixed defect involving the apex, anteroapical and inferoapical segment, no significant reversibility 4. 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
== END ==
LOC: CARD 07:45
PROVIDERS: ATTEND Internal Medicine Cardiovascular Disease
DX: I10 Essential (primary) hypertension (principal); I25.10 Atherosclerotic heart disease of native coronary artery without angina pectoris
CPT/HCPCS: 78452; 93017; A9502

== ENCOUNTER 2021-11-18 13:36 | Emergency (ER) | payer MEDICARE ==
[~2021-11-18] VITALS: Ht 167.7 cm; Wt 60.0 kg
[~2021-11-18 13:36] MED LIST changes: -CATHETER FLUSH 10 ML SYR IV PRN; +POTA-169 PO; -POTA20TA8 PO; -REGADENOSON 0.4 MG/5 ML SYR (LEXISCAN) IV ONE
[2021-11-18] MEDS ORDERED: RT-ALBUTEROL/IPRATROPIUM 3 ML (DUONEB) VIAL INH ONE (14:00)
[2021-11-18] MEDS ORDERED: predniSONE 20 MG TAB PO ONE (14:00)
[2021-11-18] MEDS ORDERED: ASPIRIN 81 MG CHEW (CHILDREN'S ASA) PO ONE (14:00)
--- NOTE | 2021-11-18 14:02 | ED Chest Pain ---
General Stated Complaint: CHEST PAIN; SOB Source: patient Exam Limitations: no limitations History of Present Illness Date Seen by Provider: Nov 18, 2021 Time Seen by Provider: 13:41 Initial Comments 71-year-old male with past medical history of CAD with stenting, COPD (uses O2 at night), pacemaker defibrillator coming in due to chest pain. Is been constan t, moderate, pressure-like pain in the center of his chest with associated dyspnea. Says the last time this happened he was told it was heart failure. He says that he has been taking his water pill and feels like he is actually down on his weight and does not feel like he is holding onto fluid at this time. Does feel like he has been wheezing, and he normally uses his nebulizer daily, but it has been broken for the past week or so. Has has normal chronic cough without change. Denies any fever, abdominal pain, nausea, vomiting, diarrhea, weakness, numbness, or any other concerns. Did take all of his regular medications today including his baby aspirin and Plavix. Allergies and Home Medications Allergies Coded Allergies: cephalexin (Verified Allergy, Intermediate, Rash, 06/28/19) Patient Home Medication List Home Medication List Reviewed: Yes Albuterol Sulfate (Proair Hfa) 1 Puff Puff, 2 PUFF INH Q6H PRN for SHORTNESS OF BREATH, (Reported) Entered as Reported by: MICA FAIRCHILD on 02/23/19 0935 Aspirin (Aspirin EC) 81 Mg Tablet.dr, 81 MG PO DAILY Prescribed by: FRANKLIN FLORES on 02/25/19 1019 Atorvastatin Calcium (Atorvastatin Calcium) 20 Mg Tablet, 20 MG PO DAILY, (Reported) Entered as Reported by: ROB CORBIN on 03/15/19 0947 Carvedilol (Coreg) 3.125 Mg Tablet, 3.125 MG PO BID Prescribed by: FRANKLIN FLORES on 02/25/19 1023 Clopidogrel Bisulfate (Clopidogrel) 75 Mg Tablet, 75 MG PO DAILY, (Reported) Entered as Reported by: MICA FAIRCHILD on 02/23/19 0935 Furosemide (Furosemide) 40 Mg Tablet, 40 MG PO DAILY, (Reported) Entered as Reported by: MICA FAIRCHILD on 02/23/19 0935 Hydrocodone Bit/Acetaminophen (HYDROcodone/APAP 5 MG/325 MG TAB) 1 Tab Tab, 1 TAB PO Q6H Prescribed by: MIL ELY on 11/18/21 1548 Isosorbide Mononitrate (Isosorbide Mononitrate ER) 30 Mg Tab.er.24h, 30 MG PO DA JUDY, (Reported) Entered as Reported by: JAYSON PHOENIX on 06/28/19 1215 Levofloxacin (Levaquin) 500 Mg Tablet, 500 MG PO DAILY Prescribed by: FRANKLIN FLORES on 06/29/19 0621 Levothyroxine Sodium (Levothyroxine Sodium) 50 Mcg Tablet, 50 MCG PO DAILY, (Reported) Entered as Reported by: MICA FAIRCHILD on 02/23/19 0935 Nitroglycerin (Nitroglycerin) 0.4 Mg Tab.subl, 0.4 MG SL UD PRN for CHEST PAIN, (Reported) Entered as Reported by: MICA FAIRCHILD on 02/23/19 0935 Sacubitril/Valsartan (Entresto 24 mg-26 mg Tablet) 1 Each Tablet, 1 TAB PO BID Prescribed by: FRANKLIN FLORES on 02/25/19 1019 Tramadol HCl (Tramadol HCl) 50 Mg Tablet, 50-100 MG PO Q6H PRN for PAIN- MODERATE, (Reported) Entered as Reported by: MICA FAIRCHILD on 02/23/19 0935 Review of Systems Review of Systems Constitutional: No chills, No fever EENTM: No Blurred Vision Respiratory: Cough, SOA at Rest Gastrointestinal: Denies Abdominal Pain Genitourinary: No Symptoms Reported Musculoskeletal: no symptoms reported Psychiatric/Neurological: No Symptoms Reported Endocrine: No Symptoms Reported All Other Systems Reviewed Negative Unless Noted: Yes Past Xsczrtd-Iatiqk-Ckuhow Hx Patient Social History Tobacco Use?: Yes Immunizations Up To Date First/Initial COVID19 Vaccinat: APRIL 08, 2021 Second COVID19 Vaccination Terence: may 06, 2021 Seasonal Allergies Seasonal Allergies: No Past Medical History Surgeries: Yes (HEMORRHOIDS) Coronary Stent, Defibrillator, Pacemaker Respiratory: Yes COPD Currently Using CPAP: No Cardiac: Yes Coronary Artery Disease, Heart Attack, High Cholesterol, Hypertension Neurological: No Genitourinary: No Gastrointestinal: No Musculoskeletal: No Endocrine: Yes Hypothyroidsim HEENT: No Cancer: No Psychosocial: No Integumentary: No Blood Disorders: No Physical Exam Vital Signs Vital Signs - First Documented 1/4/22 13:45 Temp 37.4 Pulse 92 Resp 21 B/P (MAP) 129/51 (77) Pulse Ox 96 O2 Delivery Room Air Capillary Refill : Height, Weight, BMI Height: 5'6.00" Weight: 144lbs. 0.0oz. 65.058753xi; 21.51 BMI Method:Stated General Appearance: No Apparent Distress, WD/WN HEENT: PERRL/EOMI, Normal ENT Inspection, Pharynx Normal Neck: Full Range of Motion, Normal Inspection, Non Tender, Supple Respiratory: Chest Non Tender, Accessory Muscle Use (mild) Cardiovascular: Regular Rate, Rhythm, Normal Peripheral Pulses Gastrointestinal: Normal Bowel Sounds, Non Tender, Soft; No Distended, No Guarding Extremity: Normal Capillary Refill, Normal Inspection, Normal Range of Motion, Non Tender, No Calf Tenderness, No Pedal Edema Neurologic/Psychiatric: Alert, No Motor/Sensory Deficits, Normal Mood/Affect Skin: Normal Color, Warm/Dry Lymphatic: No Adenopathy Progress/Results/Core Measures Results/Orders Lab Results Laboratory Tests Test 11/18/21 13:53 Range/Units White Blood Count 16.0 H 4.3-11.0 10^3/uL Red Blood Count 4.06 L 4.30-5.52 10^6/uL Hemoglobin 12.2 L 13.3-17.7 g/dL Hematocrit 36 L 40-54 % Mean Corpuscular Volume 90 80-99 fL Mean Corpuscular Hemoglobin 30 25-34 pg Mean Corpuscular Hemoglobin Concent 34 32-36 g/dL Red Cell Distribution Width 13.1 10.0-14.5 % Platelet Count 347 130-400 10^3/uL Mean Platelet Volume 10.6 9.0-12.2 fL Immature Granulocyte % (Auto) 0 % Neutrophils (%) (Auto) 79 H 42-75 % Lymphocytes (%) (Auto) 11 L 12-44 % Monocytes (%) (Auto) 9 0-12 % Eosinophils (%) (Auto) 0 0-10 % Basophils (%) (Auto) 0 0-10 % Neutrophils # (Auto) 12.6 H 1.8-7.8 X 10^3 Lymphocytes # (Auto) 1.8 1.0-4.0 X 10^3 Monocytes # (Auto) 1.5 H 0.0-1.0 X 10^3 Eosinophils # (Auto) 0.1 0.0-0.3 10^3/uL Basophils # (Auto) 0.0 0.0-0.1 10^3/uL Immature Granulocyte # (Auto) 0.1 0.0-0.1 10^3/uL Neutrophils % (Manual) 71 % Lymphocytes % (Manual) 19 % Monocytes % (Manual) 9 % Eosinophils % (Manual) 0 % Basophils % (Manual) 0 % Band Neutrophils 1 % Prothrombin Time 13.5 12.2-14.7 SEC INR Comment 1.0 0.8-1.4 Activated Partial Thromboplast Time 36 H 24-35 SEC Sodium Level 136 135-145 MMOL/L Potassium Level 4.2 3.6-5.0 MMOL/L Chloride Level 100 98-107 MMOL/L Carbon Dioxide Level 23 21-32 MMOL/L Anion Gap 13 5-14 MMOL/L Blood Urea Nitrogen 13 7-18 MG/DL Creatinine 0.84 0.60-1.30 MG/DL Estimat Glomerular Filtration Rate 90 BUN/Creatinine Ratio 15 Glucose Level 112 H 70-105 MG/DL Calcium Level 9.2 8.5-10.1 MG/DL Corrected Calcium 9.4 8.5-10.1 MG/DL Total Bilirubin 0.5 0.1-1.0 MG/DL Aspartate Amino Transf (AST/SGOT) 16 5-34 U/L Alanine Aminotransferase (ALT/SGPT) 10 0-55 U/L Alkaline Phosphatase 92 40-136 U/L Troponin I < 0.30 <0.30 NG/ML Pro-B-Type Natriuretic Peptide 3091.0 H <75.0 PG/ML Total Protein 7.2 6.4-8.2 GM/DL Albumin 3.8 3.2-4.5 GM/DL My Orders Orders - MIL ELY MD Cbc With Automated Diff (11/18/21 13:49) Chest 1 View Ap/Pa Only (11/18/21 13:49) Ekg Tracing (11/18/21 13:49) Comprehensive Metabolic Panel (11/18/21 13:49) Protime With Inr (11/18/21 13:49) Partial Thromboplastin Time (11/18/21 13:49) O2 (11/18/21 13:49) Monitor-Rhythm Ecg Trace Only (11/18/21 13:49) Aspirin Chewable Tablet (Baby Aspirin Ch (11/18/21 14:00) Ed Iv/Invasive Line Start (11/18/21 13:49) Troponin I Fs (11/18/21 13:49) Probnp Fs (11/18/21 13:49) Albuterol/Ipra Inhalation Soln (Duoneb I (11/18/21 14:00) Prednisone Tablet (Deltasone Tablet) (11/18/21 14:00) Manual Differential (11/18/21 13:53) Ct Angio Chest W (11/18/21 14:21) Iohexol Injection (Omnipaque 350 Mg/Ml 1 (11/18/21 15:15) Received Contrast (Hold Metformin- Contr (11/18/21 15:15) Ns (Ivpb) (Sodium Chloride 0.9% Ivpb Bag (11/18/21 15:15) Medications Given in ED Current Medications Medications Dose Ordered Sig/Erick Route Start Time Stop Time Status Last Admin Dose Admin Albuterol/ Ipratropium 3 ml ONCE ONCE INH 11/18/21 14:00 11/18/21 14:01 DC 11/18/21 14:03 3 ML Aspirin 243 mg ONCE ONCE PO 11/18/21 14:00 11/18/21 14:01 DC 11/18/21 14:02 243 MG Iohexol 100 ml ONCE ONCE IV 11/18/21 15:15 11/18/21 15:16 DC 11/18/21 15:08 85 ML Prednisone 40 mg ONCE ONCE PO 11/18/21 14:00 11/18/21 14:01 DC 11/18/21 14:03 40 MG Sodium Chloride 100 ml ONCE ONCE IV 11/18/21 15:15 11/18/21 15:16 DC 11/18/21 15:08 100 ML Vital Signs/I&O 11/18/21 11/18/21 13:45 15:55 Temp 37.4 37.4 Pulse 92 88 Resp 21 21 B/P (MAP) 129/51 (77) 131/55 Pulse Ox 96 96 O2 Delivery Room Air Room Air Progress Progress Note : Progress Note 71-year-old male with above history coming in due to chest pain. ABCs were intact and vitals were stable on presentation. Physical exam with wheezing bilaterally, and he has been not able to use his nebulizers at home because the machine is broken. Give him a DuoNeb here with significant improvement in his symptoms and wheezing is now gone. Was also given full dose aspirin. EKG appears similar to prior without any acute ischemic changes. Troponin negative, BNP is the lowest its been here, and creatinine is normal. Chest x-ray unfortunately shows concerns for TANIA lungs. CTA chest with contrast ordered and is negative for PE but does show a likely primary lung cancer with multiple mets to the ribs and spine. Also appears to be mediastinal spread. This likely is accounting for his discomfort he has been feeling. On further questioning after he knew this information, he says a lot of the pain is very positional and more tender to touch which fits his chest pain clinically. I will refer him to oncology. Given his vitals are normal and pain is decently controlled, I believe he is stable for outpatient follow-up. He was sent home with strict r eturn precautions. Initial ECG Impression Date: Nov 18, 2021 Initial ECG Impression Time: 13:44 Initial ECG Rate: 84 Initial ECG Rhythm: Normal Sinus Comment Narrow QRS, normal axis, T wave flattening in the inferior leads, significant motion artifact from his breathing in the anterior leads, lateral leads with T wave flattening and inversions, appears similar to prior EKG Diagnostic Imaging Diagonstic Imaging: CT Plain Films/CT/US/NM/MRI: chest Comments NAME: FARRAH DUDLEY [facility] REC#: [id number] PT STATUS: REG ER : 1950 PHYSICIAN: MIL ELY MD ADMIT DATE: 11/18/21/ER FS Draft Date of Exam:11/18/21 CT ANGIO CHEST W PROCEDURE: CT angiography Chest. TECHNIQUE: After intravenous administration of contrast, thin section axial CT angiography of the chest was performed. 3D MIP reconstructions were made. All CT scans use one or more of the following dose optimizing techniques: Automated exposure control, MA and/or KvP adjustment based on a patient size and exam type, or iterative reconstruction. INDICATION: Chest pain, shortness of breath, and mass seen on radiography. COMPARISON: Portable chest of 11/18/2021. FINDINGS: Vasculature: No pulmonary emboli. No CT evidence of pulmonary hypertension or right ventricular strain. Thoracic aorta is normal in caliber. No aortic dissection or rupture. Moderate atherosclerotic plaquing is present throughout the aorta. Heart and mediastinum: No axillary lymphadenopathy. No enlarged mediastinal lymph nodes by size criteria. Heart is enlarged with left ventricular hypertrophy. Moderate coronary artery calcifications. No pericardial effusion. Pleura: No pleural effusion or pneumothorax. Lungs and airway: There is an infiltrative mass centered in the right infrahilar region and measures 6.6 x 5.7 cm. This encases the right lower lobe pulmonary vasculature and occludes the right lower lobe basilar segmental bronchi. Irregular septal thickening in the right lung base raises the possibility of lymphangitic carcinomatosis. The mass invades the right hilum and broadly abuts the visceral pleura in the right lower hemithorax. Severe emphysema is present. Right upper lobe architectural distortion and band-like atelectasis is likely present. Upper abdomen: A splenule is noted along the medial aspect of the spleen. This exam is limited in assessment for upper abdominal metastatic disease due to the phase of contrast timing. Musculoskeletal: There are multiple destructive metastases within the ribs. The largest is in the posterior left fourth rib and measures approximately 5 x 3 cm. There are also lytic destructive metastases involving the right fourth and seventh ribs. A pathologic fracture is present within the right seventh rib. Scattered lucent lesions are also present throughout the spine and indicative of additional skeletal metastases. IMPRESSION: 1. Imaging features are most compatible with primary lung cancer with an infiltrative mass located in the right lower lobe infrahilar region. 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 2. Skeletal metastatic disease is present with multiple destructive soft tissue masses within the bilateral ribs. The largest is in the posterior aspect of the left fourth rib and accounts for the radiographic abnormality. 3. No pulmonary emboli. Dictated on workstation # [id number] Dict: 11/18/21 1520 Trans: 11/18/21 1535 [id number] Interpreted by: SANTI PEDERSEN MD Electronically signed by: Departure Impression Primary Impression: Chest pain Qualified Codes: R07.9 - Chest pain, unspecified Additional Impressions: Lung mass Bone metastases Disposition: HOME, SELF-CARE Condition: Stable Departure-Patient Inst. Decision time for Depature: 15:50 Referrals: KATHERIN GILMORE MD (PCP/Family) Primary Care Physician DEBI MOELLER Patient Instructions: Lung Cancer Add. Discharge Instructions: You were seen in the emergency department for chest pain. Unfortunately we did a CT of your chest and it does appear that you have a lung cancer with spread to your ribs and spine. I recommend you schedule an appointment with an oncologist either in [place], Dr. Moeller is a good one, or you can find one that you would prefer in a different hospital system. This likely is accounting for a large portion of your pain. Scripts Hydrocodone Bit/Acetaminophen (HYDROcodone/APAP 5 MG/325 MG TAB) 1 Tab Tab 1 TAB PO Q6H for Pain for 5 Days, #20 TAB 0 Refills Prov: MIL ELY MD 11/18/21 MIL ELY MD Nov 18, 2021 14:02
[2021-11-18 14:09] LABS: HEMATOCRIT 36 % (40-54); HEMOGLOBIN 12.2 g/dL (13.3-17.7); LYMPHOCYTES % (AUTO) 11 % (12-44); MEAN CORPUSCULAR HEMOGLOBIN 30 pg (25-34); MEAN CORPUSCULAR HGB CONC 34 g/dL (32-36); MEAN CORPUSCULAR VOLUME 90 fL (80-99); MEAN PLATELET VOLUME 10.6 fL (9.0-12.2); NEUTROPHILS % (AUTO) 79 % (42-75); PLATELET COUNT 347 10^3/uL (130-400)
[2021-11-18 14:10] LABS: BASOPHILS % (AUTO) 0 % (0-10); EOSINOPHILS # (AUTO) 0.1 10^3/uL (0.0-0.3); EOSINOPHILS % (AUTO) 0 % (0-10); LYMPHOCYTES # (AUTO) 1.8 X 10^3 (1.0-4.0); MONOCYTES # (AUTO) 1.5 X 10^3 (0.0-1.0); MONOCYTES % (AUTO) 9 % (0-12); NEUTROPHILS # (AUTO) 12.6 X 10^3 (1.8-7.8)
[2021-11-18 14:13] LABS: PROTHROMBIN TIME PATIENT 13.5 SEC (12.2-14.7)
--- NOTE | 2021-11-18 14:19 | Diagnostic Imaging Report ---
Indication: Chest pain Portable chest 2 4:00 PM There is a single-lead pacemaker. Heart size and pulmonary vascularity are normal. There is fullness of the right paratracheal space of the mediastinum. There is a 5 cm opacity in the left upper lobe posterior to the pacemaker generator. IMPRESSION: Suspected left upper lobe mass with mediastinal lymphadenopathy. Further evaluation with CT chest recommended. Dictated by: Dictated on workstation # [id number]
[2021-11-18 14:29] LABS: ALBUMIN 3.8 GM/DL (3.2-4.5); BILIRUBIN,TOTAL 0.5 MG/DL (0.1-1.0); CALCIUM 9.2 MG/DL (8.5-10.1); CREATININE SERUM 0.84 MG/DL (0.60-1.30); POTASSIUM 4.2 MMOL/L (3.6-5.0); TOTAL PROTEIN 7.2 GM/DL (6.4-8.2)
[2021-11-18 15:03] LABS: BAND NEUTROPHILS 1 %; BASOPHILS % (MANUAL) 0 %; EOSINOPHILS % (MANUAL) 0 %; LYMPHOCYTES % (MANUAL) 19 %; MONOCYTES % (MANUAL) 9 %; NEUTROPHILS % (MANUAL) 71 %
[2021-11-18] MEDS ORDERED: IOHEXOL 350 MG/ML 100 ML (OMNIPAQUE 350) VIAL IV ONE (15:15)
[2021-11-18] MEDS ORDERED: HOLD METFORMIN - RECEIVED CONTRAST 20 ML VIAL IV SCH (15:15)
[2021-11-18] MEDS ORDERED: NS 100 ML (IVPB) BAG IV ONE (15:15)
--- NOTE | 2021-11-18 15:35 | Diagnostic Imaging Report ---
PROCEDURE: CT angiography Chest. TECHNIQUE: After intravenous administration of contrast, thin section axial CT angiography of the chest was performed. 3D MIP reconstructions were made. All CT scans use one or more of the following dose optimizing techniques: Automated exposure control, MA and/or KvP adjustment based on a patient size and exam type, or iterative reconstruction. INDICATION: Chest pain, shortness of breath, and mass seen on radiography. COMPARISON: Portable chest of 11/18/2021. FINDINGS: Vasculature: No pulmonary emboli. No CT evidence of pulmonary hypertension or right ventricular strain. Thoracic aorta is normal in caliber. No aortic dissection or rupture. Moderate atherosclerotic plaquing is present throughout the aorta. Heart and mediastinum: No axillary lymphadenopathy. No enlarged mediastinal lymph nodes by size criteria. Heart is enlarged with left ventricular hypertrophy. Moderate coronary artery calcifications. No pericardial effusion. Pleura: No pleural effusion or pneumothorax. Lungs and airway: There is an infiltrative mass centered in the right infrahilar region and measures 6.6 x 5.7 cm. This encases the right lower lobe pulmonary vasculature and occludes the right lower lobe basilar segmental bronchi. Irregular septal thickening in the right lung base raises the possibility of lymphangitic carcinomatosis. The mass invades the right hilum and broadly abuts the visceral pleura in the right lower hemithorax. Severe emphysema is present. Right upper lobe architectural distortion and band-like atelectasis is likely present. Upper abdomen: A splenule is noted along the medial aspect of the spleen. This exam is limited in assessment for upper abdominal metastatic disease due to the phase of contrast timing. Musculoskeletal: There are multiple destructive metastases within the ribs. The largest is in the posterior left fourth rib and measures approximately 5 x 3 cm. There are also lytic destructive metastases involving the right fourth and seventh ribs. A pathologic fracture is present within the right seventh rib. Scattered lucent lesions are also present throughout the spine and indicative of additional skeletal metastases. IMPRESSION: 1. Imaging features are most compatible with primary lung cancer with an infiltrative mass located in the right lower lobe infrahilar region. 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 2. Skeletal metastatic disease is present with multiple destructive soft tissue masses within the bilateral ribs. The largest is in the posterior aspect of the left fourth rib and accounts for the radiographic abnormality. 3. No pulmonary emboli. Dictated by: Dictated on workstation # [id number]
[2021-11-18] MEDS ORDERED: ACHD5005 PO ×2 (15:47→17:09)
[2021-11-18 15:55] VITALS: BP 131/55
== END 2021-11-18 15:55 | disposition home or self-care (01) ==
LOC: EDUNIT# 13:36 → ER FS 13:38
DX: C79.51 Secondary malignant neoplasm of bone (principal); R91.8 Other nonspecific abnormal finding of lung field; R07.9 Chest pain, unspecified; J44.9 Chronic obstructive pulmonary disease, unspecified; I25.2 Old myocardial infarction; I25.10 Atherosclerotic heart disease of native coronary artery without angina pectoris; E78.00 Pure hypercholesterolemia, unspecified; I10 Essential (primary) hypertension; E03.9 Hypothyroidism, unspecified; Z79.890 Hormone replacement therapy; Z79.899 Other long term (current) drug therapy; Z79.82 Long term (current) use of aspirin; Z79.01 Long term (current) use of anticoagulants
CPT/HCPCS: 36415; 71045; 71275; 80053; 83880; 84484; 85007; 85027; 85610; 85730; 93005; 93041

== ENCOUNTER 2021-12-01 12:56 | Outpatient (RCR) | payer MEDICARE ==
[~2021-12-01 12:56] MED LIST changes: +ACHD5005 PO
[2021-12-01 14:42] LABS: BASOPHILS # (AUTO) 0.1 10^3/uL (0.0-0.1); BASOPHILS % (AUTO) 0 % (0-10); EOSINOPHILS # (AUTO) 0.1 10^3/uL (0.0-0.3); EOSINOPHILS % (AUTO) 1 % (0-10); HEMATOCRIT 36 % (40-54); HEMOGLOBIN 11.4 g/dL (13.3-17.7); LYMPHOCYTES # (AUTO) 2.6 X 10^3 (1.0-4.0); LYMPHOCYTES % (AUTO) 15 % (12-44); MEAN CORPUSCULAR HEMOGLOBIN 29 pg (25-34); MEAN CORPUSCULAR HGB CONC 32 g/dL (32-36); MEAN CORPUSCULAR VOLUME 92 fL (80-99); MEAN PLATELET VOLUME 9.7 fL (9.0-12.2); MONOCYTES # (AUTO) 1.1 X 10^3 (0.0-1.0); MONOCYTES % (AUTO) 6 % (0-12); NEUTROPHILS # (AUTO) 13.4 X 10^3 (1.8-7.8); NEUTROPHILS % (AUTO) 78 % (42-75); PLATELET COUNT 546 10^3/uL (130-400); WHITE BLOOD COUNT 17.3 10^3/uL (4.3-11.0)
[2021-12-01 15:01] LABS: ALBUMIN 3.6 GM/DL (3.2-4.5); BILIRUBIN,TOTAL 0.3 MG/DL (0.1-1.0); CALCIUM 9.8 MG/DL (8.5-10.1); CREATININE SERUM 0.83 MG/DL (0.60-1.30); POTASSIUM 4.6 MMOL/L (3.6-5.0); TOTAL PROTEIN 7.1 GM/DL (6.4-8.2)
== END 2021-12-15 | disposition home or self-care (01) ==
LOC: ONC 12:56
PROVIDERS: ATTEND Internal Medicine
DX: C34.90 Malignant neoplasm of unspecified part of unspecified bronchus or lung (principal); C79.51 Secondary malignant neoplasm of bone; J44.9 Chronic obstructive pulmonary disease, unspecified; I25.10 Atherosclerotic heart disease of native coronary artery without angina pectoris; I50.9 Heart failure, unspecified; Z72.0 Tobacco use
CPT/HCPCS: 80053; 85025; G0463; 99214

== ENCOUNTER → 2021-12-08 | Outpatient (CLI) | payer MEDICARE ==
[~2021-12-08] MED LIST changes: +CATHETER FLUSH 10 ML SYR IV PRN; +HOLD METFORMIN - RECEIVED CONTRAST 20 ML VIAL IV SCH; +IOHEXOL 350 MG/ML 100 ML (OMNIPAQUE 350) VIAL IV ONE; +NS 100 ML (IVPB) BAG IV ONE
--- NOTE | 2021-12-08 11:17 | Diagnostic Imaging Report ---
PROCEDURE: CT head with and without contrast. TECHNIQUE: Multiple contiguous axial images were obtained through the brain before and after the administration of intravenous contrast. Auto Exposure Controls were utilized during the CT exam to meet ALARA standards for radiation dose reduction. DATE: December 08, 2021. COMPARISON: None. INDICATION: 71-year-old male, history of lung cancer. Evaluation for metastatic disease to brain. FINDINGS: There is a round lesion of the right frontal bone with internal soft tissue attenuation which appears to enhance. There is no additional identified bone lesion. The ventricles and cerebral spinal fluid spaces are of normal size and configuration for the patient's age. There is no mass effect or midline shift. There is no acute intracranial hemorrhage. There is no abnormal extra-axial fluid collection. There is no identified abnormal intracranial enhancement. IMPRESSION: 1. Nonspecific bone lesion of the right frontal bone. Metastatic disease, myeloma, and benign etiologies are in the differential diagnosis. Particularly given presence of metastatic disease to bone on CT chest exam on November 18, 2021, this is particularly concerning for an additional site of bone metastasis although this lesion does not have a specific imaging appearance. 2. No evidence of intraparenchymal metastatic disease to brain. Dictated by: Dictated on workstation # [id number]
== END ==
LOC: RAD 09:01
PROVIDERS: ATTEND Internal Medicine
DX: C34.90 Malignant neoplasm of unspecified part of unspecified bronchus or lung (principal); C79.51 Secondary malignant neoplasm of bone
CPT/HCPCS: 70470

== ENCOUNTER → 2021-12-09 | Outpatient (CLI) | payer MEDICARE ==
[~2021-12-09] MED LIST changes: -CATHETER FLUSH 10 ML SYR IV PRN; -HOLD METFORMIN - RECEIVED CONTRAST 20 ML VIAL IV SCH; -IOHEXOL 350 MG/ML 100 ML (OMNIPAQUE 350) VIAL IV ONE; -NS 100 ML (IVPB) BAG IV ONE
--- NOTE | 2021-12-09 14:33 | Diagnostic Imaging Report ---
INDICATION: Malignant neoplasm of unspecified part, initial staging. TECHNIQUE: Serum blood glucose level at the time of injection is 93 mg/dL. Patient was administered 13.1 mCi F-18 FDG intravenously in the left hand and PET imaging was performed from the top of the skull to mid thighs. Noncontrast CT was also performed for attenuation correction and anatomic correlation. COMPARISON: No prior PET/CT studies available for comparison. Comparison is made with a recent CT angiogram of the chest performed on 11/18/2021. FINDINGS: There is symmetric activity throughout the brain. Soft tissues of the neck are unremarkable. There are numerous hypermetabolic rib lesions, largest involving the left posterolateral fourth rib with an SUV max of 16.7. This measures approximately 5.6 x 4.0 cm. Hypermetabolic lesions involving right-sided fourth and seventh ribs are also seen. Irregular mass in the right lower lobe infrahilar location is hypermetabolic with an SUV max of 10.4. The most hypermetabolic portion of this is the more centrally located opacity. The opacity along the medial right lower lobe is much less hypermetabolic and may represent postobstructive inflammatory changes. No other pulmonary parenchymal hypermetabolism is seen. There are hypermetabolic lytic lesions in the bony pelvis, specifically bilateral iliac bones, largest in the region of the left iliac crest with SUV max of 9.0. There appears to be hypermetabolic lesion in the left L5 pedicle and left sacrum. There is a soft tissue hypermetabolic mass in the soft tissues superficial to the left aspect of the sacrum with SUV max of 15.8. Physiologic activity throughout the GI and tracts is seen. There is some activity in the region of the sigmoid colon which is indeterminate between normal GI excretion versus a potential lesion. This activity shows an SUV max of 6.6. IMPRESSION: Abnormal hypermetabolism in the right lower lobe in infrahilar location with probable postobstructive pneumonia. Features are suggestive of primary lung malignancy. There are numerous osseous lytic lesions demonstrating hypermetabolism, as described. There is also soft tissue lesion in the tissues superficial to the sacrum, as described. Dictated by: Dictated on workstation # [id number]
== END ==
LOC: RAD 08:15
PROVIDERS: ATTEND Internal Medicine
DX: C34.90 Malignant neoplasm of unspecified part of unspecified bronchus or lung (principal); M89.9 Disorder of bone, unspecified
CPT/HCPCS: 78815; A9552

== ENCOUNTER 2021-12-12 08:41 | Outpatient (CLI) | payer MEDICARE ==
[~2021-12-12] VITALS: Wt 60.0 kg
[2021-12-12] VITALS (11 sets, daily range): BP systolic 110–163; BP diastolic 49–76
[2021-12-12 09:33] LABS: BASOPHILS # (AUTO) 0.1 10^3/uL (0.0-0.1); BASOPHILS % (AUTO) 1 % (0-10); EOSINOPHILS # (AUTO) 0.3 10^3/uL (0.0-0.3); EOSINOPHILS % (AUTO) 3 % (0-10); HEMATOCRIT 35 % (40-54); HEMOGLOBIN 11.3 g/dL (13.3-17.7); LYMPHOCYTES # (AUTO) 2.7 10^3/uL (1.0-4.0); LYMPHOCYTES % (AUTO) 25 % (12-44); MEAN CORPUSCULAR HEMOGLOBIN 29 pg (25-34); MEAN CORPUSCULAR HGB CONC 32 g/dL (32-36); MEAN CORPUSCULAR VOLUME 90 fL (80-99); MEAN PLATELET VOLUME 10.2 fL (9.0-12.2); MONOCYTES # (AUTO) 0.8 10^3/uL (0.0-1.0); MONOCYTES % (AUTO) 8 % (0-12); NEUTROPHILS # (AUTO) 7.1 10^3/uL (1.8-7.8); NEUTROPHILS % (AUTO) 64 % (42-75); PLATELET COUNT 348 10^3/uL (130-400)
[2021-12-12 10:02] LABS: PROTHROMBIN TIME PATIENT 13.2 SEC (12.2-14.7)
[2021-12-12] MEDS ORDERED: LIDOCAINE 1% INJ 20 ML VIAL INJ ONE (10:15)
[2021-12-12] MEDS ORDERED: fentaNYL INJ 100 MCG/2 ML AMP INJ ONE (10:15)
[2021-12-12] MEDS ORDERED: NS IV 1000 ML 1,000 ML IV SCH (10:15)
[2021-12-12] MEDS ORDERED: MIDAZOLAM 2 MG/2 ML (VERSED) VIAL INJ ONE (10:15)
[2021-12-12] MEDS ORDERED: fentaNYL INJ 100 MCG/2 ML AMP ONE (10:17)
[2021-12-12] MEDS ORDERED: NS IV 1000 ML 1,000 ML ONE (10:17)
[2021-12-12] MEDS ORDERED: MIDAZOLAM 2 MG/2 ML (VERSED) VIAL ONE (10:18)
[2021-12-12] MEDS ORDERED: LIDOCAINE 1% INJ 20 ML VIAL ONE (10:18)
[2021-12-12] MEDS ORDERED: HYDROcodone/APAP 5 MG/325 MG (LORTAB) TAB PO PRN (11:45)
[2021-12-12] MEDS ORDERED: HYDROcodone/APAP 5 MG/325 MG (LORTAB) TAB ONE (11:45)
--- NOTE | 2021-12-12 12:06 | Pre-Op Note & Conscious Sedat ---
Pre-Operative Progress Note H&P Reviewed The H&P was reviewed, patient examined and no changes noted. Date H&P Reviewed: Dec 12, 2021 Time H&P Reviewed: 10:00 Pre-Op Diagnosis: lung mass Conscious Sedation Pre-Proced Time 10:00 ASA Score 2 For ASA 3 and 4: Consider anesthesia and medical clearance. Also, for patients with a history of failed moderate sedation consider anesthesia. Airway Lungs Heart ASA score ASA 1: a normal healthy patient ASA 2: a patient with a mild systemic disease (mid diabetes, controlled hypertension, obesity ASA 3: a patient with a severe systemic disease that limits activity (angina, COPD, prior Myocardial infarction) ASA 4: a patient with an incapacitating disease that is a constant threat to life (CHF, renal failure) ASA 5: a moribund patient not expected to survive 24 hrs. (ruptured aneurysm) ASA 6: a declared brain- patient whose organs are being harvested. For emergent operations, add the letter E after the classification Mallampati Classification Grade 2 Sedation Plan Analgesia, Amnesia, Plan communicated to team members, Discussed options with patient/fam, Discussed risks with patient/fam The patient is an appropriate candidate to undergo the planned procedure, sedation, and anesthesia. The patient immediately re-assessed prior to indication. JAN MELVIN MD Dec 12, 2021 12:06
--- NOTE | 2021-12-12 13:07 | Diagnostic Imaging Report ---
INDICATION: Lung masses and rib masses. Patient presents for CT-guided biopsy. Patient brought to the CT suite placed on table in the left side down decubitus position. Axial imaging through the chest was performed to evaluate appropriate entry site. The procedure was performed utilizing conscious sedation with radiology nursing and constipation monitoring. Patient was given a total of 50 mg of fentanyl intravenously and 1 mg of Versed intravenously. Total procedure time was approximately 8 minutes. The left posterior thorax was prepped and draped in usual sterile fashion. Small amount 1% lidocaine was utilized for local anesthesia. 18-gauge coaxial Temno needle was advanced into the mass involving the left posterior 4th rib. Multiple core biopsies were obtained. Blood patch was administered during needle removal. Hemostasis was obtained using manual compression. Patient tolerated procedure well left the department in stable condition. IMPRESSION: Successful CT-guided biopsy of left 4th rib mass, utilizing conscious sedation. Pathology results are currently pending. TECHNIQUE: All CT scans use one or more of the following dose optimizing techniques: automated exposure control, MA and/or KvP adjustment based on patient size and exam type or iterative reconstruction. Dictated by: Dictated on workstation # [id number]
== END 2021-12-12 13:00 ==
LOC: SDC 08:41
PROVIDERS: ATTEND Internal Medicine
DX: C34.90 Malignant neoplasm of unspecified part of unspecified bronchus or lung (principal)
CPT/HCPCS: 36415; 77012; 85025; 85610; 85730; 99156

== ENCOUNTER → 2022-01-12 | Outpatient (RCR) | payer MEDICARE ==
[~2022-01-12] VITALS: Ht 167.6 cm; Wt 56.7 kg
[~2022-01-12] MED LIST changes: +IPILIMUMAB IV SCH; +LEVO500T81 PO; +NIVOLUMAB IV SCH; +NS IV 500 ML (CANCER CENTER) IV SCH; +NS IV SCH
== END | disposition home or self-care (01) ==
LOC: ONC 12-22 08:44
PROVIDERS: ATTEND Internal Medicine
DX: Z51.0 Encounter for antineoplastic radiation therapy (principal); C34.91 Malignant neoplasm of unspecified part of right bronchus or lung; C79.51 Secondary malignant neoplasm of bone; J44.9 Chronic obstructive pulmonary disease, unspecified; I25.10 Atherosclerotic heart disease of native coronary artery without angina pectoris; I50.22 Chronic systolic (congestive) heart failure; Z72.0 Tobacco use
CPT/HCPCS: 77280; 77290; 77295; 77300; 77307; 77334; 77336; 77417; 99204; 99213

== ENCOUNTER 2022-01-13 05:38 | Outpatient (CLI) | payer MEDICARE ==
[~2022-01-13] VITALS: Ht 167.6 cm; Wt 62.0 kg
[~2022-01-13 05:38] MED LIST changes: -IPILIMUMAB IV SCH; -LEVO500T81 PO; -NIVOLUMAB IV SCH; -NS IV 500 ML (CANCER CENTER) IV SCH; -NS IV SCH
[2022-01-13] MEDS ORDERED: LEVO500T81 PO (14:29)
== END 2022-01-13 14:33 | disposition home or self-care (01) ==
LOC: PREOP 05:38
PROVIDERS: ATTEND Surgery
DX: Z01.818 Encounter for other preprocedural examination (principal)

== ENCOUNTER 2022-01-14 06:42 | Day surgery (SDC) | payer MEDICARE ==
[~2022-01-14] VITALS: Ht 167 cm; Wt 62.0 kg
[2022-01-14] VITALS (7 sets, daily range): BP systolic 83–122; BP diastolic 52–74
[~2022-01-14 06:42] MED LIST changes: +LEVO500T81 PO
[2022-01-14] MEDS ORDERED: PROPOFOL INJECTION 50 ML IV ONE (07:06)
[2022-01-14] MEDS ORDERED: MIDAZOLAM 2 MG/2 ML (VERSED) VIAL ONE (07:06)
[2022-01-14] MEDS ORDERED: WATER (STERILE) FOR INJECTION 20 ML ONE (07:09)
[2022-01-14] MEDS ORDERED: HEParin (CENTRAL IV FLUSH) 500 UNIT/5 ML SYR ONE (07:09)
[2022-01-14] MEDS ORDERED: LIDOCAINE/EPI 1%-1:200,000 (XYLOCAINE) 30 ML VIAL ONE (07:09)
[2022-01-14] MEDS ORDERED: 0.9% SODIUM CHLORIDE PF INJ 20 ML VIAL ONE (07:30)
[2022-01-14] MEDS ORDERED: CLINDAMYCIN 600 MG/50 ML IVPB 50 ML IV ONE (07:45)
--- NOTE | 2022-01-14 07:52 | Progress Note-Pre Operative ---
Pre-Operative Progress Note H&P Reviewed The H&P was reviewed, patient examined and no changes noted. Date Seen by Provider: Jan 14, 2022 Time Seen by Provider: 07:51 Date H&P Reviewed: Jan 14, 2022 Time H&P Reviewed: 07:41 Pre-Operative Diagnosis: metastatic lung cancer JIMMIE BURCH DO Jan 14, 2022 07:51
[2022-01-14] MEDS ORDERED: LACTATED RINGERS 1,000 ML IV PRN (08:00)
[2022-01-14] MEDS ORDERED: ONDANSETRON 4 MG/2 ML (SDV) Z0FRAN ONE (08:26)
--- NOTE | 2022-01-14 08:41 | Anesthesia-General Post-Op ---
MAC Patient Condition Mental Status/LOC: Same as Preop Cardiovascular: Satisfactory Nausea/Vomiting: Absent Respiratory: Satisfactory Pain: Controlled Complications: Absent Post Op Complications Complications None Follow Up Care/Instructions Patient Instructions None needed. Anesthesiology Discharge Order Discharge Order Patient is doing well, no complaints, stable vital signs, no apparent adverse anesthesia problems. No complications reported per nursing. CRISTO MACEDO CRNA Jan 14, 2022 08:40
[2022-01-14] MEDS ORDERED: morphine INJ 10 MG/ML 1ML (SYR OR VIAL) IVP ONE (08:45)
[2022-01-14] MEDS ORDERED: MEPERIDINE (DEMEROL) INJ 50 MG/ML IVP ONE (08:45)
[2022-01-14] MEDS ORDERED: ONDANSETRON 4 MG/2 ML (SDV) Z0FRAN IVP PRN (08:45)
[2022-01-14] MEDS ORDERED: fentaNYL INJ 100 MCG/2 ML AMP IVP ONE (08:45)
--- NOTE | 2022-01-14 08:54 | Discharge Inst-Simple/Standard ---
Discharge Inst-Standard Patient Instructions/Follow Up Plan of Care/Instructions/FU: 2 weeks Emely Activity as Tolerated: No Discharge Diet: Regular Diet Other Inst to Patient Follow up Appt: Make appointment for 2 week. Instructions: No lifting greater than 10 pounds. No strenuous activity. May shower in 24 hours, no tub bath or soaking. Use incentive spirometer at home as directed. No Smoking Skin/Wound Care: You have special glue over your incision that will fall off on it's own. Symptoms to Report: Appetite Changes, Extremity Discoloration, Numbness/Tingling, Swelling Increased, Bleeding Excessive, Eyesight Changes, Pain Increased, Urine Color Change, Constipation(Persistent), Fever over 101 degree F, Pain/Pressure in chest, Urinating Difficulty, Cough Up/Vomit Blood, Heart Beat Irreg/Pounding, Pain/Pressure in jaw, Vaginal Bleeding Increase, Cramps in feet or legs, Lightheadedness, Pain/Pressure in shoulder, Diarrhea(Persistent), Memory Changes Suddenly, Questions/Concerns, Weight gain consecutive days, Dizziness/Fainting, Nausea/Vomiting, Shortness of Breath, Weight gain over 2 pounds If questions or concerns contact your physician Or seek help at emergency department. JIMMIE BURCH DO Jan 14, 2022 08:53
--- NOTE | 2022-01-14 08:55 | Progress Note-Post Operative ---
Post-Operative Progess Note Surgeon (s)/Air Traffic Instructor (s) Surgeon JIMMIE BURCH DO Air Traffic Instructor: na Pre-Operative Diagnosis metastatic lung cancer Post-Operative Diagnosis same Procedure & Operative Findings Date of Procedure 01/14/22 Procedure Performed/Findings PROCEDURE: Right internal jugular port placement using ultrasound guidance. COMPLICATIONS: None. INDICATIONS: The patient is a 71 year old male with metastatic lung cancer. Patient understands the risks and benefits of port placement and wished to proceed with the procedure. Consent was signed on the chart. PROCEDURE: The patient was taken to the operating suite, was prepped and draped in the sterile fashion. A surgical pause was performed. Ultrasound was used to locate the internal jugular vein. Once located anesthetic was infiltrated above it. Using micro-access kit, the right internal vein was accessed. Dark nonpulsatile blood was withdrawn. The wire was inserted. Fluoroscopy assured proper placement. The needle was removed. The micro-access dilator was advanced over the wire and the wire was removed. The regular wire was inserted and fluoroscopy assured proper placement. The wire was then secured. Local anesthetic was used to anesthetize from the neck for tunneling down to the right chest and for pocket creation. A 15 blade scalpel was used to make an incision over the right chest. Cautery was used to dissect down to the pectoral fascia. A pocket was created with blunt dissection. The dilator sheath was then advanced over the wire under fluoroscopy and the dilator and wire were removed. The Groshong catheter was inserted through the sheath and the sheath was then removed. The Groshong wire was removed. The catheter was then tunneled to the right chest pocket. Fluoroscopy was used to cut to length and this was then attached to the port which was then placed within the pocket. The port was then accessed without difficulty. It was then flushed with saline and then heparin. The subcutaneous tissues were then reapproximated using 3-0 Vicryl. The areas were then washed and dried. Skin Affix was placed over incision. The insertion point of the neck Skin Affix was placed over the incision. The patient tolerated the procedure well without complication and was taken to recovery room in stable condition. Chest x-ray is pending. Anesthesia Type mac c local Estimated Blood Loss Estimated blood loss (mL): minimal Specimens/Packing Specimens Removed JIMMIE Davis DO Jan 14, 2022 08:55
--- NOTE | 2022-01-14 09:16 | Diagnostic Imaging Report ---
INDICATION: Fluoroscopy for port placement. Fluoroscopy was provided in the OR during port placement. 25 seconds of fluoroscopic time was utilized. A single image was obtained demonstrating a right chest wall port with tip overlying SVC. IMPRESSION: Fluoroscopy for port placement. Dictated by: Dictated on workstation # [id number]
--- NOTE | 2022-01-14 09:19 | Diagnostic Imaging Report ---
INDICATION: Port placement. TIME OF EXAM: 9:07 AM Correlation is made with prior chest 11/18/2021. FINDINGS: Right chest wall port has tip in good position overlying SVC. There is a left sided cardiac defibrillator. A masslike density left upper lobe is again noted. A masslike density in the infrahilar right lung is also again noted. There is no effusion or pneumothorax. IMPRESSION: Port placement, as described. No complicating features are identified. Dictated by: Dictated on workstation # [id number]
== END 2022-01-14 09:55 | disposition home or self-care (01) ==
LOC: SDC 06:42
PROVIDERS: ATTEND Surgery
DX: C34.90 Malignant neoplasm of unspecified part of unspecified bronchus or lung (principal); I87.2 Venous insufficiency (chronic) (peripheral); C79.9 Secondary malignant neoplasm of unspecified site; F17.210 Nicotine dependence, cigarettes, uncomplicated
CPT/HCPCS: 36561; 71045; 76000; 87081; C1788

== ENCOUNTER 2022-02-11 08:57 | Outpatient (RCR) | payer MEDICARE ==
[2022-01-14 10:57] LABS: BASOPHILS % (AUTO) 0 % (0-10); EOSINOPHILS # (AUTO) 0.3 10^3/uL (0.0-0.3); EOSINOPHILS % (AUTO) 3 % (0-10); HEMATOCRIT 37 % (40-54); HEMOGLOBIN 11.5 g/dL (13.3-17.7); LYMPHOCYTES # (AUTO) 1.3 10^3/uL (1.0-4.0); LYMPHOCYTES % (AUTO) 16 % (12-44); MEAN CORPUSCULAR HEMOGLOBIN 29 pg (25-34); MEAN CORPUSCULAR HGB CONC 32 g/dL (32-36); MEAN CORPUSCULAR VOLUME 92 fL (80-99); MEAN PLATELET VOLUME 10.4 fL (9.0-12.2); MONOCYTES # (AUTO) 0.6 10^3/uL (0.0-1.0); MONOCYTES % (AUTO) 8 % (0-12); NEUTROPHILS # (AUTO) 5.8 10^3/uL (1.8-7.8); NEUTROPHILS % (AUTO) 72 % (42-75); PLATELET COUNT 299 10^3/uL (130-400)
[2022-01-14 11:23] LABS: ALBUMIN 3.8 GM/DL (3.2-4.5); BILIRUBIN,TOTAL 0.3 MG/DL (0.1-1.0); CALCIUM 9.2 MG/DL (8.5-10.1); CREATININE SERUM 0.77 MG/DL (0.60-1.30); TOTAL PROTEIN 6.8 GM/DL (6.4-8.2)
[2022-01-19 09:13] LABS: BASOPHILS # (AUTO) 0.1 10^3/uL (0.0-0.1); BASOPHILS % (AUTO) 1 % (0-10); EOSINOPHILS # (AUTO) 0.3 10^3/uL (0.0-0.3); EOSINOPHILS % (AUTO) 3 % (0-10); HEMATOCRIT 40 % (40-54); HEMOGLOBIN 12.6 g/dL (13.3-17.7); LYMPHOCYTES # (AUTO) 1.5 10^3/uL (1.0-4.0); LYMPHOCYTES % (AUTO) 16 % (12-44); MEAN CORPUSCULAR HEMOGLOBIN 29 pg (25-34); MEAN CORPUSCULAR HGB CONC 32 g/dL (32-36); MEAN CORPUSCULAR VOLUME 91 fL (80-99); MEAN PLATELET VOLUME 10.3 fL (9.0-12.2); MONOCYTES # (AUTO) 0.8 10^3/uL (0.0-1.0); MONOCYTES % (AUTO) 8 % (0-12); NEUTROPHILS # (AUTO) 6.7 10^3/uL (1.8-7.8); NEUTROPHILS % (AUTO) 72 % (42-75); PLATELET COUNT 295 10^3/uL (130-400); WHITE BLOOD COUNT 9.4 10^3/uL (4.3-11.0)
[2022-01-19 09:41] LABS: ALBUMIN 3.9 GM/DL (3.2-4.5); BILIRUBIN,TOTAL 0.3 MG/DL (0.1-1.0); CALCIUM 9.6 MG/DL (8.5-10.1); CREATININE SERUM 0.89 MG/DL (0.60-1.30); POTASSIUM 4.4 MMOL/L (3.6-5.0); TOTAL PROTEIN 7.1 GM/DL (6.4-8.2)
[2022-01-19 10:04] LABS: FREE T4 (FREE THYROXINE) 0.91 NG/DL (0.70-1.48)
[2022-01-28 11:09] LABS: BASOPHILS # (AUTO) 0.1 10^3/uL (0.0-0.1); BASOPHILS % (AUTO) 1 % (0-10); EOSINOPHILS # (AUTO) 0.3 10^3/uL (0.0-0.3); EOSINOPHILS % (AUTO) 3 % (0-10); HEMATOCRIT 38 % (40-54); HEMOGLOBIN 11.9 g/dL (13.3-17.7); LYMPHOCYTES # (AUTO) 1.8 10^3/uL (1.0-4.0); LYMPHOCYTES % (AUTO) 18 % (12-44); MEAN CORPUSCULAR HEMOGLOBIN 29 pg (25-34); MEAN CORPUSCULAR HGB CONC 32 g/dL (32-36); MEAN CORPUSCULAR VOLUME 91 fL (80-99); MEAN PLATELET VOLUME 10.4 fL (9.0-12.2); MONOCYTES # (AUTO) 0.9 10^3/uL (0.0-1.0); MONOCYTES % (AUTO) 9 % (0-12); NEUTROPHILS # (AUTO) 6.6 10^3/uL (1.8-7.8); NEUTROPHILS % (AUTO) 68 % (42-75); PLATELET COUNT 284 10^3/uL (130-400); WHITE BLOOD COUNT 9.7 10^3/uL (4.3-11.0)
[2022-01-28 11:29] LABS: BILIRUBIN,TOTAL 0.3 MG/DL (0.1-1.0); CALCIUM 9.7 MG/DL (8.5-10.1); CREATININE SERUM 1.27 MG/DL (0.60-1.30); POTASSIUM 4.4 MMOL/L (3.6-5.0); TOTAL PROTEIN 7.1 GM/DL (6.4-8.2)
[2022-01-28 11:51] LABS: FREE T4 (FREE THYROXINE) 1.06 NG/DL (0.70-1.48)
[2022-02-02 10:25] LABS: BASOPHILS % (AUTO) 0 % (0-10); EOSINOPHILS # (AUTO) 0.2 10^3/uL (0.0-0.3); EOSINOPHILS % (AUTO) 2 % (0-10); HEMATOCRIT 35 % (40-54); HEMOGLOBIN 11.1 g/dL (13.3-17.7); LYMPHOCYTES # (AUTO) 1.6 10^3/uL (1.0-4.0); LYMPHOCYTES % (AUTO) 15 % (12-44); MEAN CORPUSCULAR HEMOGLOBIN 29 pg (25-34); MEAN CORPUSCULAR HGB CONC 32 g/dL (32-36); MEAN CORPUSCULAR VOLUME 91 fL (80-99); MEAN PLATELET VOLUME 10.4 fL (9.0-12.2); MONOCYTES # (AUTO) 1.1 10^3/uL (0.0-1.0); MONOCYTES % (AUTO) 10 % (0-12); NEUTROPHILS # (AUTO) 7.8 10^3/uL (1.8-7.8); NEUTROPHILS % (AUTO) 73 % (42-75); PLATELET COUNT 253 10^3/uL (130-400); WHITE BLOOD COUNT 10.8 10^3/uL (4.3-11.0)
[2022-02-02 10:46] LABS: ALBUMIN 3.7 GM/DL (3.2-4.5); BILIRUBIN,TOTAL 0.5 MG/DL (0.1-1.0); CALCIUM 9.3 MG/DL (8.5-10.1); CREATININE SERUM 0.91 MG/DL (0.60-1.30); POTASSIUM 4.3 MMOL/L (3.6-5.0)
[2022-02-02 11:09] LABS: FREE T4 (FREE THYROXINE) 0.97 NG/DL (0.70-1.48)
[~2022-02-11 08:57] MED LIST changes: +IPILIMUMAB IV SCH; +NIVOLUMAB IV SCH; +NS IV 500 ML (CANCER CENTER) IV SCH; +NS IV SCH; +ZOLEDRONIC ACID (CANCER CTR) 4 MG in NS (IVPB) CANCER CENTER 100 ML IV SCH
[2022-02-11 09:21] LABS: BASOPHILS # (AUTO) 0.1 10^3/uL (0.0-0.1); BASOPHILS % (AUTO) 0 % (0-10); EOSINOPHILS # (AUTO) 0.4 10^3/uL (0.0-0.3); EOSINOPHILS % (AUTO) 3 % (0-10); HEMATOCRIT 33 % (40-54); HEMOGLOBIN 10.6 g/dL (13.3-17.7); LYMPHOCYTES # (AUTO) 1.7 10^3/uL (1.0-4.0); LYMPHOCYTES % (AUTO) 15 % (12-44); MEAN CORPUSCULAR HEMOGLOBIN 29 pg (25-34); MEAN CORPUSCULAR HGB CONC 32 g/dL (32-36); MEAN CORPUSCULAR VOLUME 90 fL (80-99); MEAN PLATELET VOLUME 9.5 fL (9.0-12.2); MONOCYTES # (AUTO) 0.9 10^3/uL (0.0-1.0); MONOCYTES % (AUTO) 8 % (0-12); NEUTROPHILS # (AUTO) 8.1 10^3/uL (1.8-7.8); NEUTROPHILS % (AUTO) 73 % (42-75); PLATELET COUNT 391 10^3/uL (130-400); WHITE BLOOD COUNT 11.2 10^3/uL (4.3-11.0)
[2022-02-11 09:41] LABS: ALBUMIN 3.7 GM/DL (3.2-4.5); BILIRUBIN,TOTAL 0.2 MG/DL (0.1-1.0); CALCIUM 9.4 MG/DL (8.5-10.1); CREATININE SERUM 1.37 MG/DL (0.60-1.30); POTASSIUM 4.4 MMOL/L (3.6-5.0); TOTAL PROTEIN 6.9 GM/DL (6.4-8.2)
[2022-02-11] MEDS ORDERED: HEParin (CENTRAL IV FLUSH) 500 UNIT/5 ML SYR IV PRN ×2 (10:00→10:45)
[2022-02-11] MEDS ORDERED: NS IV 500 ML (CANCER CENTER) IV SCH ×2 (10:00→10:45)
[2022-02-11 10:02] LABS: FREE T4 (FREE THYROXINE) 1.03 NG/DL (0.70-1.48)
[2022-02-11] MEDS ORDERED: NS IV SCH (10:45)
[2022-02-11] MEDS ORDERED: ZOLEDRONIC ACID IV SCH (10:45)
[2022-02-11 15:12] LABS: BILIRUBIN,URINE NEGATIVE (NEGATIVE); CLARITY,URINE CLEAR; COLOR,URINE YELLOW; GLUCOSE, URINE (UA) NEGATIVE (NEGATIVE); KETONES,URINE NEGATIVE (NEGATIVE); LEUKOCYTE ESTERASE ,URINE NEGATIVE (NEGATIVE); NITRITE,URINE NEGATIVE (NEGATIVE); PH,URINE 5.5 (5-9); PROTEIN,URINE TRACE (NEGATIVE)
[2022-02-11 15:24] LABS: BACTERIA,URINE MODERATE /HPF; SQUAMOUS EPITHELIAL CELL,UR 0-2 /HPF; WBC,URINE 0-2 /HPF
== END 2022-02-12 | disposition home or self-care (01) ==
LOC: ONC 08:57
PROVIDERS: ATTEND Internal Medicine
DX: Z51.0 Encounter for antineoplastic radiation therapy (principal); Z51.11 Encounter for antineoplastic chemotherapy; C34.91 Malignant neoplasm of unspecified part of right bronchus or lung; I87.2 Venous insufficiency (chronic) (peripheral); J44.9 Chronic obstructive pulmonary disease, unspecified; I25.10 Atherosclerotic heart disease of native coronary artery without angina pectoris; Z72.0 Tobacco use
CPT/HCPCS: 77412; G0463; 36415; 36591; 77336; 77417; 80053; 81000; 84439; 84443; 85025; 87088; 96360; 96367; 96413; 96417

== ENCOUNTER 2022-03-11 09:17 | Outpatient (RCR) | payer MEDICARE ==
[2022-02-25 10:07] LABS: BASOPHILS # (AUTO) 0.1 10^3/uL (0.0-0.1); BASOPHILS % (AUTO) 1 % (0-10); EOSINOPHILS # (AUTO) 0.4 10^3/uL (0.0-0.3); EOSINOPHILS % (AUTO) 4 % (0-10); HEMATOCRIT 34 % (40-54); LYMPHOCYTES # (AUTO) 2.1 10^3/uL (1.0-4.0); LYMPHOCYTES % (AUTO) 20 % (12-44); MEAN CORPUSCULAR HEMOGLOBIN 29 pg (25-34); MEAN CORPUSCULAR HGB CONC 32 g/dL (32-36); MEAN CORPUSCULAR VOLUME 91 fL (80-99); MEAN PLATELET VOLUME 9.8 fL (9.0-12.2); MONOCYTES % (AUTO) 9 % (0-12); NEUTROPHILS # (AUTO) 6.9 10^3/uL (1.8-7.8); NEUTROPHILS % (AUTO) 66 % (42-75); PLATELET COUNT 350 10^3/uL (130-400); WHITE BLOOD COUNT 10.5 10^3/uL (4.3-11.0)
[2022-02-25 10:29] LABS: ALBUMIN 3.7 GM/DL (3.2-4.5); BILIRUBIN,TOTAL 0.2 MG/DL (0.1-1.0); CREATININE SERUM 1.16 MG/DL (0.60-1.30); POTASSIUM 4.4 MMOL/L (3.6-5.0); TOTAL PROTEIN 6.8 GM/DL (6.4-8.2)
[2022-02-25 10:50] LABS: FREE T4 (FREE THYROXINE) 1.01 NG/DL (0.70-1.48)
[~2022-03-11] VITALS: Ht 167.6 cm; Wt 57.2 kg
[~2022-03-11 09:17] MED LIST changes: +NS IV 1000 ML 1,000 ML ONE; -NS IV 500 ML (CANCER CENTER) IV SCH; +NS IV 500 ML 500 ML IV SCH; -ZOLEDRONIC ACID (CANCER CTR) 4 MG in NS (IVPB) CANCER CENTER 100 ML IV SCH; +ZOLEDRONIC ACID IV SCH
[2022-03-11 09:45] LABS: BASOPHILS # (AUTO) 0.1 10^3/uL (0.0-0.1); BASOPHILS % (AUTO) 1 % (0-10); EOSINOPHILS # (AUTO) 0.9 10^3/uL (0.0-0.3); EOSINOPHILS % (AUTO) 9 % (0-10); HEMATOCRIT 36 % (40-54); HEMOGLOBIN 11.4 g/dL (13.3-17.7); LYMPHOCYTES # (AUTO) 1.9 10^3/uL (1.0-4.0); LYMPHOCYTES % (AUTO) 19 % (12-44); MEAN CORPUSCULAR HEMOGLOBIN 29 pg (25-34); MEAN CORPUSCULAR HGB CONC 32 g/dL (32-36); MEAN CORPUSCULAR VOLUME 91 fL (80-99); MEAN PLATELET VOLUME 10.3 fL (9.0-12.2); MONOCYTES # (AUTO) 0.9 10^3/uL (0.0-1.0); MONOCYTES % (AUTO) 9 % (0-12); NEUTROPHILS # (AUTO) 6.1 10^3/uL (1.8-7.8); NEUTROPHILS % (AUTO) 62 % (42-75); PLATELET COUNT 259 10^3/uL (130-400); WHITE BLOOD COUNT 9.9 10^3/uL (4.3-11.0)
[2022-03-11 10:41] LABS: ALBUMIN 3.9 GM/DL (3.2-4.5); BILIRUBIN,TOTAL 0.2 MG/DL (0.1-1.0); CALCIUM 8.8 MG/DL (8.5-10.1); CREATININE SERUM 1.08 MG/DL (0.60-1.30); POTASSIUM 4.5 MMOL/L (3.6-5.0); TOTAL PROTEIN 6.7 GM/DL (6.4-8.2)
[2022-03-11] MEDS ORDERED: NS (IVPB) 250 ML ONE (10:49)
== END 2022-03-14 | disposition home or self-care (01) ==
LOC: ONC 09:17
PROVIDERS: ATTEND Internal Medicine
DX: Z51.11 Encounter for antineoplastic chemotherapy (principal); C34.91 Malignant neoplasm of unspecified part of right bronchus or lung; C79.51 Secondary malignant neoplasm of bone; I87.2 Venous insufficiency (chronic) (peripheral); J44.9 Chronic obstructive pulmonary disease, unspecified; I25.10 Atherosclerotic heart disease of native coronary artery without angina pectoris; Z72.0 Tobacco use
CPT/HCPCS: 36591; 80053; 84439; 84443; 85025; 96360; 96413; 96417; 99213

== ENCOUNTER → 2022-03-24 | Outpatient (CLI) | payer MEDICARE ==
[~2022-03-24] MED LIST changes: +CATHETER FLUSH 10 ML SYR IV PRN; +HOLD METFORMIN - RECEIVED CONTRAST 20 ML VIAL IV SCH; +IOHEXOL 350 MG/ML 100 ML (OMNIPAQUE 350) VIAL IV ONE; -IPILIMUMAB IV SCH; -NIVOLUMAB IV SCH; +NS 100 ML (IVPB) BAG IV ONE; -NS IV 1000 ML 1,000 ML ONE; -NS IV 500 ML 500 ML IV SCH; -NS IV SCH; -ZOLEDRONIC ACID IV SCH
--- NOTE | 2022-03-24 12:04 | Diagnostic Imaging Report ---
PROCEDURE: CT chest, abdomen, and pelvis with contrast. TECHNIQUE: Multiple contiguous axial images were obtained through the chest, abdomen, and pelvis after the administration of intravenous contrast. Auto Exposure Controls were utilized during the CT exam to meet ALARA standards for radiation dose reduction. INDICATION: Lung cancer. Compared with metabolic CT fusion PET dated 12/09/2021. CHEST: Pleural-based chest wall mass in the left hemithorax today measures 4.8 x 3.7 cm, previously 5.6 x 4.0 cm. There are associated destructive changes of the left 4th rib unchanged. This was previously intensely metabolically active. Severe bullous emphysema and paraseptal cyst formation chronic. A somewhat linear configured irregular parenchymal opacity in the right upper lobe posteriorly has some central calcifications. This is increased from prior but was previously showing low levels of metabolic activity, this may merely reflect progressive scarring but given increased size warrants followup. Today it measures 4.6 x 1.6 cm, previously 4.2 x 1.5 cm. Lytic lesion to the right 7th rib previously metabolically active shows reduction in size of its soft tissue component now barely perceptible. Right hilar mass decreased 4.6 x 3.2 cm today, previously 6.8 x 4.1 cm. A new somewhat irregular parenchymal opacity in the right middle lobe reflects a development from prior is uncertain if this is inflammatory versus neoplastic this measures 2.5 x 1.7 cm. Lytic lesion to the distal right 4th rib unchanged, no new bony lesion, no adverse development, no pneumothorax. ABDOMEN AND PELVIS: There is no liver mass or biliary dilatation. The adrenals negative. The spleen and pancreas unremarkable. There is no hydroureteronephrosis. No bowel obstruction. There is no ascites. No abdominal pelvic lymphadenopathy. Lytic lesions to the left greater than right iliac bones and left sacral ala unchanged. No new suspicious bony abnormality. IMPRESSION: CHEST: Dominant left chest wall lesion and right hilar mass is smaller than prior, new indeterminate opacity in the right middle lobe inflammatory versus neoplastic given the otherwise favorable changes, likely benign but followup CT recommended. Lytic bone lesions are unchanged with associated reduction in soft tissue masses. ABDOMEN AND PELVIS: Stable pelvic bony metastases, no findings of abdominal pelvic soft tissue metastatic disease, obstruction, hemorrhage or acute inflammatory process. Dictated by: Dictated on workstation # [id number]
== END ==
LOC: RAD 10:15
PROVIDERS: ATTEND Internal Medicine
DX: C34.91 Malignant neoplasm of unspecified part of right bronchus or lung (principal); C79.51 Secondary malignant neoplasm of bone
CPT/HCPCS: 71260; 74177

== ENCOUNTER → 2022-03-31 | Outpatient (CLI) | payer MEDICARE ==
[~2022-03-31] MED LIST changes: -CATHETER FLUSH 10 ML SYR IV PRN; -HOLD METFORMIN - RECEIVED CONTRAST 20 ML VIAL IV SCH; -IOHEXOL 350 MG/ML 100 ML (OMNIPAQUE 350) VIAL IV ONE; -NS 100 ML (IVPB) BAG IV ONE
--- NOTE | 2022-03-31 11:57 | Diagnostic Imaging Report ---
PROCEDURE: US venous upper extremity left. TECHNIQUE: Multiple realtime grayscale images were obtained of left upper extremity in various projections. Additional spectral analysis and color Doppler duplex images were also obtained. INDICATION: Lung cancer. Pain to left upper extremity. FINDINGS: Color Doppler imaging shows normal flow throughout the left upper extremity venous system from the jugular vein to the wrist. There is compressibility. There is normal augmentation with compression. IMPRESSION: No evidence of venous thrombosis left upper extremity. Dictated by: Dictated on workstation # [id number]
== END ==
LOC: RAD 09:19
PROVIDERS: ATTEND Internal Medicine
DX: C34.90 Malignant neoplasm of unspecified part of unspecified bronchus or lung (principal); M79.602 Pain in left arm

== ENCOUNTER 2022-04-08 08:16 | Outpatient (RCR) | payer MEDICARE ==
[2022-03-25 10:11] LABS: BASOPHILS # (AUTO) 0.1 10^3/uL (0.0-0.1); BASOPHILS % (AUTO) 1 % (0-10); EOSINOPHILS # (AUTO) 0.6 10^3/uL (0.0-0.3); EOSINOPHILS % (AUTO) 7 % (0-10); HEMATOCRIT 35 % (40-54); HEMOGLOBIN 11.3 g/dL (13.3-17.7); LYMPHOCYTES # (AUTO) 1.6 10^3/uL (1.0-4.0); LYMPHOCYTES % (AUTO) 18 % (12-44); MEAN CORPUSCULAR HEMOGLOBIN 29 pg (25-34); MEAN CORPUSCULAR HGB CONC 32 g/dL (32-36); MEAN CORPUSCULAR VOLUME 91 fL (80-99); MEAN PLATELET VOLUME 10.3 fL (9.0-12.2); MONOCYTES # (AUTO) 0.8 10^3/uL (0.0-1.0); MONOCYTES % (AUTO) 9 % (0-12); NEUTROPHILS # (AUTO) 5.5 10^3/uL (1.8-7.8); NEUTROPHILS % (AUTO) 65 % (42-75); PLATELET COUNT 283 10^3/uL (130-400); WHITE BLOOD COUNT 8.5 10^3/uL (4.3-11.0)
[2022-03-25 10:15] LABS: ALBUMIN 3.9 GM/DL (3.2-4.5); POTASSIUM 4.1 MMOL/L (3.6-5.0)
[2022-03-25 10:16] LABS: CALCIUM 8.9 MG/DL (8.5-10.1)
[2022-03-25 10:18] LABS: TOTAL PROTEIN 6.7 GM/DL (6.4-8.2)
[2022-03-25 10:20] LABS: BILIRUBIN,TOTAL 0.3 MG/DL (0.1-1.0)
[2022-03-25 10:21] LABS: CREATININE SERUM 0.92 MG/DL (0.60-1.30)
[2022-03-25 10:46] LABS: FREE T4 (FREE THYROXINE) 1.06 NG/DL (0.70-1.48)
[~2022-04-08 08:16] MED LIST changes: +IPILIMUMAB IV SCH; +NIVOLUMAB IV SCH; +NS IV 500 ML 500 ML IV SCH; +NS IV SCH; +ZOLEDRONIC ACID IV SCH
[2022-04-08 08:49] LABS: BASOPHILS # (AUTO) 0.1 10^3/uL (0.0-0.1); BASOPHILS % (AUTO) 1 % (0-10); EOSINOPHILS # (AUTO) 0.5 10^3/uL (0.0-0.3); EOSINOPHILS % (AUTO) 5 % (0-10); HEMATOCRIT 36 % (40-54); HEMOGLOBIN 11.7 g/dL (13.3-17.7); LYMPHOCYTES % (AUTO) 24 % (12-44); MEAN CORPUSCULAR HEMOGLOBIN 29 pg (25-34); MEAN CORPUSCULAR HGB CONC 33 g/dL (32-36); MEAN CORPUSCULAR VOLUME 90 fL (80-99); MEAN PLATELET VOLUME 10.1 fL (9.0-12.2); MONOCYTES # (AUTO) 0.8 10^3/uL (0.0-1.0); MONOCYTES % (AUTO) 9 % (0-12); NEUTROPHILS # (AUTO) 5.2 10^3/uL (1.8-7.8); NEUTROPHILS % (AUTO) 61 % (42-75); PLATELET COUNT 286 10^3/uL (130-400); WHITE BLOOD COUNT 8.6 10^3/uL (4.3-11.0)
[2022-04-08 08:59] LABS: ALBUMIN 3.8 GM/DL (3.2-4.5)
[2022-04-08 09:00] LABS: POTASSIUM 4.3 MMOL/L (3.6-5.0)
[2022-04-08 09:02] LABS: TOTAL PROTEIN 6.7 GM/DL (6.4-8.2)
[2022-04-08 09:04] LABS: BILIRUBIN,TOTAL 0.2 MG/DL (0.1-1.0)
[2022-04-08 09:06] LABS: CREATININE SERUM 1.05 MG/DL (0.60-1.30)
[2022-04-08 09:30] LABS: FREE T4 (FREE THYROXINE) 1.02 NG/DL (0.70-1.48)
== END 2022-04-14 | disposition home or self-care (01) ==
LOC: ONC 08:16
PROVIDERS: ATTEND Internal Medicine
DX: Z51.11 Encounter for antineoplastic chemotherapy (principal); C34.91 Malignant neoplasm of unspecified part of right bronchus or lung; C79.51 Secondary malignant neoplasm of bone; I50.22 Chronic systolic (congestive) heart failure; J44.9 Chronic obstructive pulmonary disease, unspecified; I25.10 Atherosclerotic heart disease of native coronary artery without angina pectoris; Z72.0 Tobacco use
CPT/HCPCS: 36591; 80053; 84439; 84443; 85025; 96413; 96417; 99213

== ENCOUNTER 2022-05-06 07:59 | Outpatient (RCR) | payer MEDICARE ==
[2022-04-22 09:03] LABS: ALBUMIN 3.9 GM/DL (3.2-4.5)
[2022-04-22 09:04] LABS: POTASSIUM 4.6 MMOL/L (3.6-5.0)
[2022-04-22 09:05] LABS: CALCIUM 9.3 MG/DL (8.5-10.1)
[2022-04-22 09:06] LABS: TOTAL PROTEIN 6.8 GM/DL (6.4-8.2)
[2022-04-22 09:08] LABS: BILIRUBIN,TOTAL 0.2 MG/DL (0.1-1.0)
[2022-04-22 09:10] LABS: CREATININE SERUM 1.35 MG/DL (0.60-1.30)
[2022-04-22 09:20] LABS: BASOPHILS # (AUTO) 0.1 10^3/uL (0.0-0.1); BASOPHILS % (AUTO) 1 % (0-10); EOSINOPHILS # (AUTO) 0.3 10^3/uL (0.0-0.3); EOSINOPHILS % (AUTO) 4 % (0-10); HEMATOCRIT 36 % (40-54); HEMOGLOBIN 11.7 g/dL (13.3-17.7); LYMPHOCYTES # (AUTO) 2.3 10^3/uL (1.0-4.0); LYMPHOCYTES % (AUTO) 29 % (12-44); MEAN CORPUSCULAR HEMOGLOBIN 29 pg (25-34); MEAN CORPUSCULAR HGB CONC 32 g/dL (32-36); MEAN CORPUSCULAR VOLUME 91 fL (80-99); MONOCYTES # (AUTO) 0.9 10^3/uL (0.0-1.0); MONOCYTES % (AUTO) 12 % (0-12); NEUTROPHILS # (AUTO) 4.3 10^3/uL (1.8-7.8); NEUTROPHILS % (AUTO) 54 % (42-75); PLATELET COUNT 260 10^3/uL (130-400)
[2022-04-22 09:33] LABS: FREE T4 (FREE THYROXINE) 1.07 NG/DL (0.70-1.48)
[~2022-05-06] VITALS: Ht 167.6 cm; Wt 56.2 kg
[~2022-05-06 07:59] MED LIST changes: -IPILIMUMAB IV SCH
[2022-05-06 08:42] LABS: BASOPHILS # (AUTO) 0.1 10^3/uL (0.0-0.1); BASOPHILS % (AUTO) 1 % (0-10); EOSINOPHILS # (AUTO) 0.5 10^3/uL (0.0-0.3); EOSINOPHILS % (AUTO) 6 % (0-10); HEMATOCRIT 36 % (40-54); HEMOGLOBIN 11.6 g/dL (13.3-17.7); LYMPHOCYTES # (AUTO) 2.4 10^3/uL (1.0-4.0); LYMPHOCYTES % (AUTO) 26 % (12-44); MEAN CORPUSCULAR HEMOGLOBIN 29 pg (25-34); MEAN CORPUSCULAR HGB CONC 33 g/dL (32-36); MEAN CORPUSCULAR VOLUME 90 fL (80-99); MEAN PLATELET VOLUME 10.6 fL (9.0-12.2); MONOCYTES # (AUTO) 0.9 10^3/uL (0.0-1.0); MONOCYTES % (AUTO) 10 % (0-12); NEUTROPHILS # (AUTO) 5.4 10^3/uL (1.8-7.8); NEUTROPHILS % (AUTO) 58 % (42-75); PLATELET COUNT 272 10^3/uL (130-400); WHITE BLOOD COUNT 9.3 10^3/uL (4.3-11.0)
[2022-05-06 09:00] LABS: BILIRUBIN,TOTAL 0.3 MG/DL (0.1-1.0); CALCIUM 9.2 MG/DL (8.5-10.1); CREATININE SERUM 1.36 MG/DL (0.60-1.30); POTASSIUM 4.6 MMOL/L (3.6-5.0); TOTAL PROTEIN 6.8 GM/DL (6.4-8.2)
[2022-05-06 09:22] LABS: FREE T4 (FREE THYROXINE) 1.12 NG/DL (0.70-1.48)
== END 2022-05-14 | disposition home or self-care (01) ==
LOC: ONC 07:59
PROVIDERS: ATTEND Internal Medicine
DX: Z51.11 Encounter for antineoplastic chemotherapy (principal); Z45.2 Encounter for adjustment and management of vascular access device; C34.91 Malignant neoplasm of unspecified part of right bronchus or lung; C79.51 Secondary malignant neoplasm of bone; I50.22 Chronic systolic (congestive) heart failure; J44.9 Chronic obstructive pulmonary disease, unspecified; I25.10 Atherosclerotic heart disease of native coronary artery without angina pectoris; Z72.0 Tobacco use; J96.10 Chronic respiratory failure, unspecified whether with hypoxia or hypercapnia
CPT/HCPCS: 36591; 80053; 84439; 84443; 85025; 96413; 96417; 99213

== ENCOUNTER → 2022-05-20 | Outpatient (CLI) | payer MEDICARE ==
[~2022-05-20] MED LIST changes: +CATHETER FLUSH 10 ML SYR IV PRN; +HOLD METFORMIN - RECEIVED CONTRAST 20 ML VIAL IV SCH; +IOHEXOL 350 MG/ML 100 ML (OMNIPAQUE 350) VIAL IV ONE; -NIVOLUMAB IV SCH; +NS 100 ML (IVPB) BAG IV ONE; -NS IV 500 ML 500 ML IV SCH; -NS IV SCH; -ZOLEDRONIC ACID IV SCH
--- NOTE | 2022-05-20 16:42 | Diagnostic Imaging Report ---
EXAMINATION: CT chest, abdomen and pelvis with and without intravenous contrast. TECHNIQUE: Multiple contiguous axial images were obtained through the chest, abdomen and pelvis before and after the uneventful administration of intravenous contrast. All CT scans use one or more of the following dose optimizing techniques: automated exposure control, MA and/or KvP adjustment based on patient size and exam type or iterative reconstruction. HISTORY: Metastatic lung cancer COMPARISON: 03/24/2022 FINDINGS: Thyroid: The visualized thyroid gland is normal. Mediastinum: Heart size is normal without significant pericardial effusion. Calcifications of the aorta and coronary vessels. Thoracic aorta is normal in caliber. No suspicious lymphadenopathy. Lungs and airways: There are background emphysematous changes in the lungs. Stable right upper lobe nodular consolidation measuring up to 1.4 x 3.2 cm. Scattered areas of scarring within the right lung. A redemonstrated right perihilar mass appears similar to 03/24/2022. No new suspicious pulmonary lesion. No pleural effusion or pneumothorax. Obstruction of the right lower lobe bronchi. Solid organs: The liver is normal without focal lesion. The gallbladder is normal. There is no biliary ductal dilation. Pancreas is normal. Spleen is normal. Adrenal glands are normal. The kidneys are normal without hydronephrosis. Bowel: The stomach and small bowel are normal without obstruction. Scattered colonic diverticulosis. The appendix is normal. Peritoneum: There is no intraperitoneal free fluid or free air. No suspicious lymphadenopathy. Vasculature: Calcification of the aorta without aneurysm. Musculoskeletal: No suspicious osseous lesion or compression fracture. A right-sided [id number]-[id number] is present. Left-sided cardiac device is present. Chronic appearing right rib fractures. Multifocal lytic lesions in the ribs with the largest involving the lateral left 4th rib. Multiple redemonstrated lytic lesions within the pelvis. Pelvis: Prostate gland is enlarged. The urinary bladder is normal. IMPRESSION: 1. Stable right hilar mass. 2. Stable osseous metastatic disease involving the chest and pelvis. 3. Stable nodular consolidation within the right upper lobe is indeterminate and attention on follow-up imaging is recommended. Dictated by: Dictated on workstation # [id number]
== END ==
LOC: RAD 12:45
PROVIDERS: ATTEND Internal Medicine
DX: C79.51 Secondary malignant neoplasm of bone (principal); C34.90 Malignant neoplasm of unspecified part of unspecified bronchus or lung; J18.1 Lobar pneumonia, unspecified organism
CPT/HCPCS: 71260; 74178

== ENCOUNTER 2022-06-10 08:46 | Outpatient (RCR) | payer MEDICARE ==
[2022-05-20 09:07] LABS: BASOPHILS # (AUTO) 0.1 10^3/uL (0.0-0.1); BASOPHILS % (AUTO) 1 % (0-10); EOSINOPHILS # (AUTO) 0.5 10^3/uL (0.0-0.3); EOSINOPHILS % (AUTO) 5 % (0-10); HEMATOCRIT 38 % (40-54); HEMOGLOBIN 12.1 g/dL (13.3-17.7); LYMPHOCYTES # (AUTO) 2.5 10^3/uL (1.0-4.0); LYMPHOCYTES % (AUTO) 24 % (12-44); MEAN CORPUSCULAR HEMOGLOBIN 29 pg (25-34); MEAN CORPUSCULAR HGB CONC 32 g/dL (32-36); MEAN CORPUSCULAR VOLUME 91 fL (80-99); MEAN PLATELET VOLUME 10.3 fL (9.0-12.2); MONOCYTES # (AUTO) 0.9 10^3/uL (0.0-1.0); MONOCYTES % (AUTO) 8 % (0-12); NEUTROPHILS # (AUTO) 6.4 10^3/uL (1.8-7.8); NEUTROPHILS % (AUTO) 62 % (42-75); PLATELET COUNT 275 10^3/uL (130-400); WHITE BLOOD COUNT 10.3 10^3/uL (4.3-11.0)
[2022-05-20 09:24] LABS: ALBUMIN 4.1 GM/DL (3.2-4.5); BILIRUBIN,TOTAL 0.3 MG/DL (0.1-1.0); CREATININE SERUM 1.22 MG/DL (0.60-1.30); POTASSIUM 5.1 MMOL/L (3.6-5.0); TOTAL PROTEIN 7.1 GM/DL (6.4-8.2)
[2022-05-20 09:44] LABS: FREE T4 (FREE THYROXINE) 1.14 NG/DL (0.70-1.48)
[2022-06-03 09:31] LABS: BASOPHILS # (AUTO) 0.1 10^3/uL (0.0-0.1); BASOPHILS % (AUTO) 1 % (0-10); EOSINOPHILS # (AUTO) 0.6 10^3/uL (0.0-0.3); EOSINOPHILS % (AUTO) 8 % (0-10); HEMATOCRIT 36 % (40-54); HEMOGLOBIN 11.8 g/dL (13.3-17.7); LYMPHOCYTES # (AUTO) 1.4 10^3/uL (1.0-4.0); LYMPHOCYTES % (AUTO) 19 % (12-44); MEAN CORPUSCULAR HEMOGLOBIN 30 pg (25-34); MEAN CORPUSCULAR HGB CONC 33 g/dL (32-36); MEAN CORPUSCULAR VOLUME 91 fL (80-99); MEAN PLATELET VOLUME 10.3 fL (9.0-12.2); MONOCYTES # (AUTO) 0.6 10^3/uL (0.0-1.0); MONOCYTES % (AUTO) 8 % (0-12); NEUTROPHILS # (AUTO) 4.8 10^3/uL (1.8-7.8); NEUTROPHILS % (AUTO) 64 % (42-75); PLATELET COUNT 275 10^3/uL (130-400); WHITE BLOOD COUNT 7.5 10^3/uL (4.3-11.0)
[2022-06-03 09:52] LABS: ALBUMIN 3.9 GM/DL (3.2-4.5); BILIRUBIN,TOTAL 0.3 MG/DL (0.1-1.0); CALCIUM 9.1 MG/DL (8.5-10.1); CREATININE SERUM 1.21 MG/DL (0.60-1.30); POTASSIUM 4.6 MMOL/L (3.6-5.0); TOTAL PROTEIN 6.7 GM/DL (6.4-8.2)
[2022-06-03 10:12] LABS: FREE T4 (FREE THYROXINE) 1.07 NG/DL (0.70-1.48)
[~2022-06-10 08:46] MED LIST changes: -CATHETER FLUSH 10 ML SYR IV PRN; +HEParin (CENTRAL IV FLUSH) 500 UNIT/5 ML SYR ONE; -HOLD METFORMIN - RECEIVED CONTRAST 20 ML VIAL IV SCH; -IOHEXOL 350 MG/ML 100 ML (OMNIPAQUE 350) VIAL IV ONE; +IPILIMUMAB IV SCH; +NIVOLUMAB IV SCH; -NS 100 ML (IVPB) BAG IV ONE; +NS IV 500 ML 500 ML IV SCH; +NS IV SCH; +ZOLEDRONIC ACID IV SCH
== END 2022-06-14 | disposition home or self-care (01) ==
LOC: ONC 08:46
PROVIDERS: ATTEND Internal Medicine
DX: Z51.11 Encounter for antineoplastic chemotherapy (principal); Z51.0 Encounter for antineoplastic radiation therapy; Z45.2 Encounter for adjustment and management of vascular access device; C34.91 Malignant neoplasm of unspecified part of right bronchus or lung; C79.51 Secondary malignant neoplasm of bone; I50.22 Chronic systolic (congestive) heart failure; J44.9 Chronic obstructive pulmonary disease, unspecified; I25.10 Atherosclerotic heart disease of native coronary artery without angina pectoris
CPT/HCPCS: 36591; 77290; 77307; 77334; 77336; 77417; 77470; 80053; 84439; 84443; 85025; 96413; 96417; 99213; 99214

== ENCOUNTER → 2022-07-02 | Outpatient (CLI) | payer MEDICARE ==
[~2022-07-02] MED LIST changes: +CATHETER FLUSH 10 ML SYR IV PRN; -HEParin (CENTRAL IV FLUSH) 500 UNIT/5 ML SYR ONE; +HOLD METFORMIN - RECEIVED CONTRAST 20 ML VIAL IV SCH; +IOHEXOL 350 MG/ML 100 ML (OMNIPAQUE 350) VIAL IV ONE; -IPILIMUMAB IV SCH; -NIVOLUMAB IV SCH; +NS 100 ML (IVPB) BAG IV ONE; -NS IV 500 ML 500 ML IV SCH; -NS IV SCH; -ZOLEDRONIC ACID IV SCH
--- NOTE | 2022-07-02 11:30 | Diagnostic Imaging Report ---
PROCEDURE: CT chest, abdomen, and pelvis with contrast. TECHNIQUE: Multiple contiguous axial images were obtained through the chest, abdomen, and pelvis after the administration of intravenous contrast. Auto Exposure Controls were utilized during the CT exam to meet ALARA standards for radiation dose reduction. INDICATION: Follow-up malignant neoplasm of the right lung. COMPARISON: Correlation is made with prior CT from 03/24/2022. FINDINGS: CT CHEST: Right chest wall port and left chest wall cardiac pacemaker are noted. No axillary lymphadenopathy is seen. No mediastinal lymphadenopathy is detected. A right infrahilar mass measures 4.4 cm transverse x 2.8 cm AP compared with 4.6 x 3.1 cm when measured by the same technique. A left posterior chest wall mass measures approximately 5.4 x 3.0 cm compared with 5.8 x 3.5 cm. Underlying destructive changes of left fourth rib are again noted. The irregular linear based opacity in the posterior right upper lobe is similar and approximately 4.1 x 1.6 cm compared with 4.0 x 1.5 cm. Irregular opacity in the right middle lobe is approximately 1.9 x 1.1 cm compared with 1.7 x 2.4 cm. No new pulmonary opacities are identified. Destructive changes of right seventh rib are again noted, but again there continues to be overall decreased soft tissue component since the prior CT. No pericardial or pleural fluid is detected. CT ABDOMEN AND PELVIS: No discrete liver mass is identified. The gallbladder is unremarkable. Pancreas and spleen are unremarkable. No adrenal mass is seen. Kidneys are unremarkable. Aorta and iliac vessels are heavily calcified but nonaneurysmal. Bowel loops are normal in caliber. There is moderate stool in the colon. There is diverticulosis of the sigmoid. Bladder is decompressed. Prostate is enlarged. No definite abdominal or pelvic lymphadenopathy is seen. Bony structures are nonacute. IMPRESSION: 1. Overall stable to slight decrease in size of multiple pulmonary and chest wall masses when compared with CT from 03/24/2022. No new thoracic abnormality is seen. 2. Continued unremarkable CT abdomen and pelvis study without evidence of abdominal or pelvic lymphadenopathy or metastatic disease. Dictated by: Dictated on workstation # [id number]
== END ==
LOC: RAD FS 09:44
PROVIDERS: ATTEND Internal Medicine
DX: C34.91 Malignant neoplasm of unspecified part of right bronchus or lung (principal)
CPT/HCPCS: 71260; 74177; Q9967

== ENCOUNTER → 2022-07-15 | Outpatient (RCR) | payer MEDICARE ==
[2022-06-17 09:19] LABS: BASOPHILS # (AUTO) 0.1 10^3/uL (0.0-0.1); BASOPHILS % (AUTO) 1 % (0-10); EOSINOPHILS # (AUTO) 0.7 10^3/uL (0.0-0.3); EOSINOPHILS % (AUTO) 9 % (0-10); HEMATOCRIT 34 % (40-54); HEMOGLOBIN 11.3 g/dL (13.3-17.7); LYMPHOCYTES # (AUTO) 1.5 10^3/uL (1.0-4.0); LYMPHOCYTES % (AUTO) 18 % (12-44); MEAN CORPUSCULAR HEMOGLOBIN 30 pg (25-34); MEAN CORPUSCULAR HGB CONC 33 g/dL (32-36); MEAN CORPUSCULAR VOLUME 91 fL (80-99); MEAN PLATELET VOLUME 10.3 fL (9.0-12.2); MONOCYTES # (AUTO) 0.8 10^3/uL (0.0-1.0); MONOCYTES % (AUTO) 10 % (0-12); NEUTROPHILS # (AUTO) 5.3 10^3/uL (1.8-7.8); NEUTROPHILS % (AUTO) 63 % (42-75); PLATELET COUNT 209 10^3/uL (130-400); WHITE BLOOD COUNT 8.5 10^3/uL (4.3-11.0)
[2022-06-17 09:47] LABS: ALBUMIN 3.7 GM/DL (3.2-4.5); BILIRUBIN,TOTAL 0.3 MG/DL (0.1-1.0); CREATININE SERUM 1.12 MG/DL (0.60-1.30); POTASSIUM 4.4 MMOL/L (3.6-5.0); TOTAL PROTEIN 6.3 GM/DL (6.4-8.2)
[2022-06-17 10:08] LABS: FREE T4 (FREE THYROXINE) 1.01 NG/DL (0.70-1.48)
[~2022-07-15] MED LIST changes: -CATHETER FLUSH 10 ML SYR IV PRN; +HEParin (CENTRAL IV FLUSH) 500 UNIT/5 ML SYR IV PRN; -HOLD METFORMIN - RECEIVED CONTRAST 20 ML VIAL IV SCH; -IOHEXOL 350 MG/ML 100 ML (OMNIPAQUE 350) VIAL IV ONE; +LEVO-55 PO; -LEVO500T81 PO; +NIVOLUMAB 480 MG in NS (IVPB) 100 ML IV SCH; +NIVOLUMAB IV SCH; -NS 100 ML (IVPB) BAG IV ONE; +NS IV 500 ML 500 ML IV SCH; +NS IV SCH; +ZOLEDRONIC ACID IV SCH
[2022-07-15 09:14] LABS: BASOPHILS % (AUTO) 1 % (0-10); EOSINOPHILS # (AUTO) 0.4 10^3/uL (0.0-0.3); EOSINOPHILS % (AUTO) 6 % (0-10); HEMATOCRIT 35 % (40-54); HEMOGLOBIN 11.5 g/dL (13.3-17.7); LYMPHOCYTES # (AUTO) 1.5 10^3/uL (1.0-4.0); LYMPHOCYTES % (AUTO) 21 % (12-44); MEAN CORPUSCULAR HEMOGLOBIN 30 pg (25-34); MEAN CORPUSCULAR HGB CONC 33 g/dL (32-36); MEAN CORPUSCULAR VOLUME 91 fL (80-99); MEAN PLATELET VOLUME 10.3 fL (9.0-12.2); MONOCYTES # (AUTO) 0.7 10^3/uL (0.0-1.0); MONOCYTES % (AUTO) 11 % (0-12); NEUTROPHILS # (AUTO) 4.2 10^3/uL (1.8-7.8); NEUTROPHILS % (AUTO) 61 % (42-75); PLATELET COUNT 253 10^3/uL (130-400); WHITE BLOOD COUNT 6.9 10^3/uL (4.3-11.0)
[2022-07-15 09:54] LABS: ALBUMIN 3.9 GM/DL (3.2-4.5); BILIRUBIN,TOTAL 0.3 MG/DL (0.1-1.0); CALCIUM 9.3 MG/DL (8.5-10.1); CREATININE SERUM 1.08 MG/DL (0.60-1.30); POTASSIUM 4.1 MMOL/L (3.6-5.0); TOTAL PROTEIN 6.8 GM/DL (6.4-8.2)
== END | disposition home or self-care (01) ==
LOC: ONC 06-17 08:46
PROVIDERS: ATTEND Internal Medicine
DX: Z51.11 Encounter for antineoplastic chemotherapy (principal); Z45.2 Encounter for adjustment and management of vascular access device; C34.91 Malignant neoplasm of unspecified part of right bronchus or lung; C79.51 Secondary malignant neoplasm of bone; I50.22 Chronic systolic (congestive) heart failure; J44.9 Chronic obstructive pulmonary disease, unspecified; I25.10 Atherosclerotic heart disease of native coronary artery without angina pectoris; Z72.0 Tobacco use
CPT/HCPCS: 36591; 80053; 84439; 84443; 85025; 96413; 99213

== ENCOUNTER 2022-08-12 08:50 | Outpatient (RCR) | payer MEDICARE ==
[~2022-08-12 08:50] MED LIST changes: -CATHETER FLUSH 10 ML SYR IV PRN; +HEParin (CENTRAL IV FLUSH) 500 UNIT/5 ML SYR IV PRN; -HOLD METFORMIN - RECEIVED CONTRAST 20 ML VIAL IV SCH; -IOHEXOL 350 MG/ML 100 ML (OMNIPAQUE 350) VIAL IV ONE; +NIVOLUMAB 480 MG in NS (IVPB) 100 ML IV SCH; +NIVOLUMAB IV SCH; -NS 100 ML (IVPB) BAG IV ONE; +NS IV 500 ML 500 ML IV SCH; +NS IV SCH; +ZOLEDRONIC ACID IV SCH
[2022-08-12 09:18] LABS: BASOPHILS # (AUTO) 0.1 10^3/uL (0.0-0.1); BASOPHILS % (AUTO) 1 % (0-10); EOSINOPHILS # (AUTO) 0.3 10^3/uL (0.0-0.3); EOSINOPHILS % (AUTO) 3 % (0-10); HEMATOCRIT 34 % (40-54); LYMPHOCYTES # (AUTO) 1.7 10^3/uL (1.0-4.0); LYMPHOCYTES % (AUTO) 21 % (12-44); MEAN CORPUSCULAR HEMOGLOBIN 30 pg (25-34); MEAN CORPUSCULAR HGB CONC 33 g/dL (32-36); MEAN CORPUSCULAR VOLUME 91 fL (80-99); MEAN PLATELET VOLUME 10.7 fL (9.0-12.2); MONOCYTES # (AUTO) 0.7 10^3/uL (0.0-1.0); MONOCYTES % (AUTO) 9 % (0-12); NEUTROPHILS # (AUTO) 5.3 10^3/uL (1.8-7.8); NEUTROPHILS % (AUTO) 65 % (42-75); PLATELET COUNT 232 10^3/uL (130-400)
[2022-08-12 09:34] LABS: ALBUMIN 3.9 GM/DL (3.2-4.5); BILIRUBIN,TOTAL 0.3 MG/DL (0.1-1.0); CALCIUM 9.4 MG/DL (8.5-10.1); CREATININE SERUM 1.19 MG/DL (0.60-1.30); POTASSIUM 4.5 MMOL/L (3.6-5.0); TOTAL PROTEIN 6.9 GM/DL (6.4-8.2)
[2022-08-12 09:56] LABS: FREE T4 (FREE THYROXINE) 1.07 NG/DL (0.70-1.48)
[2022-08-12] MEDS ORDERED: NS IV SCH (10:00)
[2022-08-12] MEDS ORDERED: ZOLEDRONIC ACID IV SCH (10:00)
== END 2022-08-14 | disposition home or self-care (01) ==
LOC: ONC 08:50
PROVIDERS: ATTEND Internal Medicine
DX: C34.91 Malignant neoplasm of unspecified part of right bronchus or lung (principal); C79.51 Secondary malignant neoplasm of bone; I50.22 Chronic systolic (congestive) heart failure; J44.9 Chronic obstructive pulmonary disease, unspecified; I25.10 Atherosclerotic heart disease of native coronary artery without angina pectoris; Z72.0 Tobacco use
CPT/HCPCS: 36591; 80053; 84439; 84443; 85025; 96365; 96413; 99213

== ENCOUNTER → 2022-08-12 | Outpatient (CLI) | payer MEDICARE ==
[~2022-08-12] MED LIST changes: +CATHETER FLUSH 10 ML SYR IV PRN; -HEParin (CENTRAL IV FLUSH) 500 UNIT/5 ML SYR IV PRN; +HOLD METFORMIN - RECEIVED CONTRAST 20 ML VIAL IV SCH; +IOHEXOL 350 MG/ML 100 ML (OMNIPAQUE 350) VIAL IV ONE; -NIVOLUMAB 480 MG in NS (IVPB) 100 ML IV SCH; -NIVOLUMAB IV SCH; +NS 100 ML (IVPB) BAG IV ONE; -NS IV 500 ML 500 ML IV SCH; -NS IV SCH; -ZOLEDRONIC ACID IV SCH
--- NOTE | 2022-08-12 12:12 | Diagnostic Imaging Report ---
EXAMINATION: CT chest, abdomen and pelvis with intravenous contrast. TECHNIQUE: Multiple contiguous axial images were obtained through the chest, abdomen and pelvis after the uneventful administration of intravenous contrast. All CT scans use one or more of the following dose optimizing techniques: automated exposure control, MA and/or KvP adjustment based on patient size and exam type or iterative reconstruction. HISTORY: Metastatic lung cancer follow-up COMPARISON: 07/02/2022 FINDINGS: Thyroid: The visualized thyroid gland is normal. Mediastinum: Heart size is normal without significant pericardial effusion. Calcifications of the aorta and coronary vessels. Thoracic aorta is normal in caliber. There are multiple stable nonenlarged mediastinal lymph nodes measuring up to 1.0 cm short axis. There are scattered calcified lymph nodes. Lungs and airways: There are background emphysematous changes of the lungs. No pleural effusion or pneumothorax. There is right upper lobe masslike consolidation measuring up to 4.2 x 1.8 cm. Stable appearance of a right perihilar mass measuring approximately 3.0 x 2.7 cm. No new suspicious pulmonary lesion. There is occlusion of the right lower lobe bronchus. Solid organs: The liver is normal without focal lesion. The gallbladder is normal. There is no biliary ductal dilation. Pancreas is normal. Spleen is normal. Adrenal glands are normal. The kidneys are normal without hydronephrosis. Bowel: The stomach and small bowel are normal without obstruction. Colon is unremarkable. No findings of acute appendicitis. Peritoneum: There is no intraperitoneal free fluid or free air. No suspicious lymphadenopathy. Vasculature: Calcification of the aorta without aneurysm. Musculoskeletal: There are multilevel degenerative changes of the spine. Stable sclerotic lesion seen within the thoracic and lumbar spine. Stable appearance of the expansile lytic mass within the posterior left 4th rib. Stable sclerotic lesion within the lateral right 5th rib. Lytic appearance and likely pathologic fracture of the posterior right 7th rib. Lytic lesions within the pelvis are unchanged. Pelvis: The prostate gland is normal. The urinary bladder is normal. IMPRESSION: 1. Overall stable appearance of the right perihilar mass and right upper lobe masslike consolidation compared to prior exams. 2. Stable osseous metastatic disease. 3. Stable mildly enlarged mediastinal lymph nodes. 4. No new findings of metastatic disease within the abdomen or pelvis. Dictated by: Dictated on workstation # [id number]
== END ==
LOC: RAD 10:55
PROVIDERS: ATTEND Internal Medicine
DX: C34.90 Malignant neoplasm of unspecified part of unspecified bronchus or lung (principal); C79.51 Secondary malignant neoplasm of bone
CPT/HCPCS: 71260; 74177

== ENCOUNTER 2022-09-09 08:52 | Outpatient (RCR) | payer MEDICARE ==
[~2022-09-09 08:52] MED LIST changes: +ALBU8.5H6 INH; -NIVOLUMAB IV SCH; -RT-ALBUINH INH
[2022-09-09 09:22] LABS: BASOPHILS # (AUTO) 0.1 10^3/uL (0.0-0.1); BASOPHILS % (AUTO) 1 % (0-10); EOSINOPHILS # (AUTO) 0.4 10^3/uL (0.0-0.3); EOSINOPHILS % (AUTO) 6 % (0-10); HEMATOCRIT 34 % (40-54); LYMPHOCYTES # (AUTO) 1.6 10^3/uL (1.0-4.0); LYMPHOCYTES % (AUTO) 22 % (12-44); MEAN CORPUSCULAR HEMOGLOBIN 30 pg (25-34); MEAN CORPUSCULAR HGB CONC 32 g/dL (32-36); MEAN CORPUSCULAR VOLUME 92 fL (80-99); MEAN PLATELET VOLUME 10.9 fL (9.0-12.2); MONOCYTES # (AUTO) 0.8 10^3/uL (0.0-1.0); MONOCYTES % (AUTO) 11 % (0-12); NEUTROPHILS # (AUTO) 4.2 10^3/uL (1.8-7.8); NEUTROPHILS % (AUTO) 60 % (42-75); PLATELET COUNT 236 10^3/uL (130-400); WHITE BLOOD COUNT 7.1 10^3/uL (4.3-11.0)
[2022-09-09 09:40] LABS: ALBUMIN 3.8 GM/DL (3.2-4.5); BILIRUBIN,TOTAL 0.2 MG/DL (0.1-1.0); CALCIUM 9.2 MG/DL (8.5-10.1); CREATININE SERUM 1.11 MG/DL (0.60-1.30); POTASSIUM 4.6 MMOL/L (3.6-5.0); TOTAL PROTEIN 6.9 GM/DL (6.4-8.2)
[2022-09-09 10:06] LABS: FREE T4 (FREE THYROXINE) 1.03 NG/DL (0.70-1.48)
== END 2022-09-14 | disposition home or self-care (01) ==
LOC: ONC 08:52
PROVIDERS: ATTEND Internal Medicine
DX: Z51.11 Encounter for antineoplastic chemotherapy (principal); C34.91 Malignant neoplasm of unspecified part of right bronchus or lung; C79.51 Secondary malignant neoplasm of bone; I50.22 Chronic systolic (congestive) heart failure; J44.9 Chronic obstructive pulmonary disease, unspecified; I25.10 Atherosclerotic heart disease of native coronary artery without angina pectoris; Z72.0 Tobacco use
CPT/HCPCS: 36591; 80053; 84439; 84443; 85025; 96413; 99213

== ENCOUNTER 2022-10-07 08:41 | Outpatient (RCR) | payer MEDICARE ==
[2022-10-07 09:07] LABS: BASOPHILS # (AUTO) 0.1 10^3/uL (0.0-0.1); BASOPHILS % (AUTO) 1 % (0-10); EOSINOPHILS # (AUTO) 0.4 10^3/uL (0.0-0.3); EOSINOPHILS % (AUTO) 3 % (0-10); HEMATOCRIT 34 % (40-54); HEMOGLOBIN 11.2 g/dL (13.3-17.7); LYMPHOCYTES % (AUTO) 18 % (12-44); MEAN CORPUSCULAR HEMOGLOBIN 30 pg (25-34); MEAN CORPUSCULAR HGB CONC 33 g/dL (32-36); MEAN CORPUSCULAR VOLUME 91 fL (80-99); MEAN PLATELET VOLUME 9.8 fL (9.0-12.2); MONOCYTES % (AUTO) 9 % (0-12); NEUTROPHILS # (AUTO) 7.3 10^3/uL (1.8-7.8); NEUTROPHILS % (AUTO) 68 % (42-75); PLATELET COUNT 265 10^3/uL (130-400); WHITE BLOOD COUNT 10.7 10^3/uL (4.3-11.0)
[2022-10-07] MEDS ORDERED: NS IV SCH (09:45)
[2022-10-07] MEDS ORDERED: ZOLEDRONIC ACID IV SCH (09:45)
[2022-10-07] MEDS ORDERED: NIVOLUMAB 480 MG in NS (IVPB) 100 ML IV SCH (09:45)
[2022-10-07] MEDS ORDERED: NS IV 500 ML 500 ML IV SCH (09:45)
[2022-10-07] MEDS ORDERED: HEParin (CENTRAL IV FLUSH) 500 UNIT/5 ML SYR IV PRN (09:45)
[2022-10-07 09:47] LABS: ALBUMIN 3.6 GM/DL (3.2-4.5); BILIRUBIN,TOTAL 0.2 MG/DL (0.1-1.0); CALCIUM 8.8 MG/DL (8.5-10.1); CREATININE SERUM 1.27 MG/DL (0.60-1.30); POTASSIUM 4.5 MMOL/L (3.6-5.0); TOTAL PROTEIN 6.3 GM/DL (6.4-8.2)
[2022-10-07 10:08] LABS: FREE T4 (FREE THYROXINE) 1.22 NG/DL (0.70-1.48)
== END 2022-10-14 | disposition home or self-care (01) ==
LOC: ONC 08:41
PROVIDERS: ATTEND Internal Medicine
DX: Z51.11 Encounter for antineoplastic chemotherapy (principal); C34.91 Malignant neoplasm of unspecified part of right bronchus or lung; C79.51 Secondary malignant neoplasm of bone; I50.22 Chronic systolic (congestive) heart failure; J44.9 Chronic obstructive pulmonary disease, unspecified; I25.10 Atherosclerotic heart disease of native coronary artery without angina pectoris; Z72.0 Tobacco use
CPT/HCPCS: 36591; 80053; 84439; 84443; 85025; 96413; 99213

== ENCOUNTER → 2022-10-16 | Outpatient (CLI) | payer MEDICARE ==
[~2022-10-16] MED LIST changes: +CATHETER FLUSH 10 ML SYR IV PRN; -HEParin (CENTRAL IV FLUSH) 500 UNIT/5 ML SYR IV PRN; +HOLD METFORMIN - RECEIVED CONTRAST 20 ML VIAL IV SCH; +IOHEXOL 350 MG/ML 100 ML (OMNIPAQUE 350) VIAL IV ONE; -NIVOLUMAB 480 MG in NS (IVPB) 100 ML IV SCH; +NS 100 ML (IVPB) BAG IV ONE; -NS IV 500 ML 500 ML IV SCH; -NS IV SCH; -ZOLEDRONIC ACID IV SCH
--- NOTE | 2022-10-16 12:11 | Diagnostic Imaging Report ---
PROCEDURE: CT chest, abdomen, and pelvis with contrast. TECHNIQUE: Multiple contiguous axial images were obtained through the chest, abdomen, and pelvis after the administration of intravenous contrast. Auto Exposure Controls were utilized during the CT exam to meet ALARA standards for radiation dose reduction. INDICATION: Lung cancer. COMPARED with study 08/12/2022 CHEST: Left posterior chest wall lesion with bony destructive changes at the level of the 4th rib, unchanged. Severe bullous emphysematous disease greatest in the pulmonary apices, right more so than left, chronic. Within the right upper lobe posteriorly is an ovoid masslike zone of irregular parenchymal consolidation, unchanged from prior measuring 4.1 x 1.7 cm. There is right posterior hilar tissue encasing and occluding the proximal right lower lobe bronchus where a mass measuring 2.8 x 2.7 cm is unchanged. No substantial atelectasis to the right lower lobe. No new focal pulmonary parenchymal abnormality. No mediastinal adenopathy. The axilla appeared stable. The atherosclerotic aorta nonaneurysmal and stable. Coronary artery atherosclerotic vascular calcifications, chronic. ABDOMEN PELVIS: Liver, gallbladder, bile ducts, spleen, adrenals and pancreas appeared unremarkable. There are a few renal cysts and renal hilar atherosclerotic vascular calcifications, unchanged. No hydronephrosis. No enhancing or solid renal mass. There is no small or large bowel obstruction. There is a small volume of pelvic free fluid, nonloculated. There is volume loss and irregular lucencies in the left iliac bone unchanged. There is degenerative spinal disease, unchanged. No abdominal pelvic mesenteric or retroperitoneal lymphadenopathy. IMPRESSION: CHEST: 1. Right hilar mass, discoid lesion, right upper lobe with left chest wall bony destructive process, all unchanged. Severe COPD chronic. Atherosclerotic vascular disease, chronic. No new chest lesion. ABDOMEN PELVIS: 1. Irregularities and lytic changes to the left iliac bone, unchanged. No findings of abdominal pelvic soft tissue metastatic disease. 2. Trace free fluid without loculated collection. Dictated by: Dictated on workstation # [id number]
== END ==
LOC: RAD FS 10:20
PROVIDERS: ATTEND Internal Medicine
DX: C34.90 Malignant neoplasm of unspecified part of unspecified bronchus or lung (principal); J44.9 Chronic obstructive pulmonary disease, unspecified; I25.10 Atherosclerotic heart disease of native coronary artery without angina pectoris
CPT/HCPCS: 71260; 74177; Q9967

== ENCOUNTER 2022-11-04 08:43 | Outpatient (RCR) | payer MEDICARE ==
[~2022-11-04 08:43] MED LIST changes: -CATHETER FLUSH 10 ML SYR IV PRN; +HEParin (CENTRAL IV FLUSH) 500 UNIT/5 ML SYR IV PRN; -HOLD METFORMIN - RECEIVED CONTRAST 20 ML VIAL IV SCH; -IOHEXOL 350 MG/ML 100 ML (OMNIPAQUE 350) VIAL IV ONE; +NIVOLUMAB 480 MG in NS (IVPB) 100 ML IV SCH; -NS 100 ML (IVPB) BAG IV ONE; +NS IV 500 ML 500 ML IV SCH; +NS IV SCH; +ZOLEDRONIC ACID IV SCH
[2022-11-04 08:59] LABS: BASOPHILS # (AUTO) 0.1 10^3/uL (0.0-0.1); BASOPHILS % (AUTO) 1 % (0-10); EOSINOPHILS # (AUTO) 0.4 10^3/uL (0.0-0.3); EOSINOPHILS % (AUTO) 3 % (0-10); HEMATOCRIT 35 % (40-54); HEMOGLOBIN 11.3 g/dL (13.3-17.7); LYMPHOCYTES # (AUTO) 1.6 10^3/uL (1.0-4.0); LYMPHOCYTES % (AUTO) 15 % (12-44); MEAN CORPUSCULAR HEMOGLOBIN 30 pg (25-34); MEAN CORPUSCULAR HGB CONC 33 g/dL (32-36); MEAN CORPUSCULAR VOLUME 91 fL (80-99); MEAN PLATELET VOLUME 9.8 fL (9.0-12.2); MONOCYTES # (AUTO) 0.8 10^3/uL (0.0-1.0); MONOCYTES % (AUTO) 8 % (0-12); NEUTROPHILS # (AUTO) 7.7 10^3/uL (1.8-7.8); NEUTROPHILS % (AUTO) 73 % (42-75); PLATELET COUNT 287 10^3/uL (130-400); WHITE BLOOD COUNT 10.6 10^3/uL (4.3-11.0)
[2022-11-04 09:16] LABS: POTASSIUM 4.4 MMOL/L (3.6-5.0)
[2022-11-04 09:17] LABS: CALCIUM 9.3 MG/DL (8.5-10.1)
[2022-11-04 09:18] LABS: TOTAL PROTEIN 6.9 GM/DL (6.4-8.2)
[2022-11-04 09:20] LABS: BILIRUBIN,TOTAL 0.3 MG/DL (0.1-1.0)
[2022-11-04 09:22] LABS: CREATININE SERUM 0.86 MG/DL (0.60-1.30)
[2022-11-04 09:46] LABS: FREE T4 (FREE THYROXINE) 1.15 NG/DL (0.70-1.48)
== END 2022-11-14 | disposition home or self-care (01) ==
LOC: ONC 08:43
PROVIDERS: ATTEND Internal Medicine
DX: Z51.11 Encounter for antineoplastic chemotherapy (principal); C34.91 Malignant neoplasm of unspecified part of right bronchus or lung; C79.51 Secondary malignant neoplasm of bone; I50.22 Chronic systolic (congestive) heart failure; J44.9 Chronic obstructive pulmonary disease, unspecified; I25.10 Atherosclerotic heart disease of native coronary artery without angina pectoris; Z72.0 Tobacco use
CPT/HCPCS: 36591; 80053; 84439; 84443; 85025; 96413; 96417; 99213

== ENCOUNTER 2022-12-02 08:52 | Outpatient (RCR) | payer MEDICARE ==
[2022-12-02 09:26] LABS: BASOPHILS % (AUTO) 1 % (0-10); EOSINOPHILS # (AUTO) 0.5 10^3/uL (0.0-0.3); EOSINOPHILS % (AUTO) 6 % (0-10); HEMATOCRIT 34 % (40-54); LYMPHOCYTES # (AUTO) 1.5 10^3/uL (1.0-4.0); LYMPHOCYTES % (AUTO) 20 % (12-44); MEAN CORPUSCULAR HEMOGLOBIN 29 pg (25-34); MEAN CORPUSCULAR HGB CONC 32 g/dL (32-36); MEAN CORPUSCULAR VOLUME 90 fL (80-99); MEAN PLATELET VOLUME 10.3 fL (9.0-12.2); MONOCYTES # (AUTO) 0.8 10^3/uL (0.0-1.0); MONOCYTES % (AUTO) 10 % (0-12); NEUTROPHILS % (AUTO) 64 % (42-75); PLATELET COUNT 286 10^3/uL (130-400); WHITE BLOOD COUNT 7.9 10^3/uL (4.3-11.0)
[2022-12-02 09:49] LABS: ALBUMIN 3.9 GM/DL (3.2-4.5); BILIRUBIN,TOTAL 0.4 MG/DL (0.1-1.0); CALCIUM 8.8 MG/DL (8.5-10.1); CREATININE SERUM 1.14 MG/DL (0.60-1.30); POTASSIUM 4.4 MMOL/L (3.6-5.0); TOTAL PROTEIN 6.8 GM/DL (6.4-8.2)
[2022-12-02 10:10] LABS: FREE T4 (FREE THYROXINE) 1.05 NG/DL (0.70-1.48)
== END 2022-12-15 | disposition home or self-care (01) ==
LOC: ONC 08:52
PROVIDERS: ATTEND Internal Medicine
DX: C34.91 Malignant neoplasm of unspecified part of right bronchus or lung (principal); C79.51 Secondary malignant neoplasm of bone; I50.22 Chronic systolic (congestive) heart failure; J44.9 Chronic obstructive pulmonary disease, unspecified; I25.10 Atherosclerotic heart disease of native coronary artery without angina pectoris; Z72.0 Tobacco use
CPT/HCPCS: 36591; 80053; 84439; 84443; 85025; 96413; 99213

== ENCOUNTER 2022-12-21 10:22 | Outpatient (RCR) | payer MEDICARE ==
[~2022-12-21 10:22] MED LIST changes: -HEParin (CENTRAL IV FLUSH) 500 UNIT/5 ML SYR IV PRN; -NIVOLUMAB 480 MG in NS (IVPB) 100 ML IV SCH; -NS IV 500 ML 500 ML IV SCH; -NS IV SCH; -ZOLEDRONIC ACID IV SCH
== END 2022-12-22 11:48 | disposition home or self-care (01) ==
LOC: ONC 10:22
PROVIDERS: ATTEND Internal Medicine
DX: C34.91 Malignant neoplasm of unspecified part of right bronchus or lung (principal); C79.51 Secondary malignant neoplasm of bone; I50.22 Chronic systolic (congestive) heart failure; J44.9 Chronic obstructive pulmonary disease, unspecified; I25.10 Atherosclerotic heart disease of native coronary artery without angina pectoris; Z72.0 Tobacco use

== ENCOUNTER → 2022-12-25 | Outpatient (CLI) | payer MEDICARE ==
[~2022-12-25] MED LIST changes: +CATHETER FLUSH 10 ML SYR IV PRN; +HOLD METFORMIN - RECEIVED CONTRAST 20 ML VIAL IV SCH; +IOHEXOL 350 MG/ML 100 ML (OMNIPAQUE 350) VIAL IV ONE; +NS 100 ML (IVPB) BAG IV ONE
--- NOTE | 2022-12-25 12:02 | Diagnostic Imaging Report ---
PROCEDURE: CT chest, abdomen, and pelvis with contrast. TECHNIQUE: Multiple contiguous axial images were obtained through the chest, abdomen, and pelvis after the administration of intravenous contrast. Auto Exposure Controls were utilized during the CT exam to meet ALARA standards for radiation dose reduction. INDICATION: Lung cancer. COMPARISON: Correlation is made with prior CT from 10/16/2022. CHEST: FINDINGS: The destructive left posterior chest wall mass at the level of the left posterior fourth rib is again noted. This appears similar to prior exam. The ovoid soft tissue mass in the posterior right upper lobe is unchanged in size when measured by the same technique. A previously noted soft tissue mass in the right infrahilar region, encasing the right lower lobe bronchus is stable. Left hilum is unremarkable. No mediastinal lymphadenopathy is seen. Severe bullous emphysematous changes persist. No new pulmonary parenchymal abnormalities are seen. IMPRESSION: No significant change in the destructive left posterior chest wall mass as well as the right hilar mass and the right apical discoid lesion when compared with prior study from 10/16/2022. There are severe bullous emphysematous changes in both lungs. CT ABDOMEN AND PELVIS: FINDINGS: No focal liver mass is identified. Gallbladder is contracted. Pancreas and spleen are unremarkable. No adrenal mass is detected. Kidneys are unremarkable. Aorta is heavily calcified but nonaneurysmal. Bowel loops are nonobstructed. There is moderate stool in the colon. There is diverticulosis of the sigmoid. No ascites is seen. The lytic destructive lesion in the left iliac bone appears stable. No new osseous destructive lesions are seen. IMPRESSION: Stable lytic destructive lesion of the left iliac bone when compared with exam from 10/16/2022. No additional findings of abdominal or pelvic metastatic disease are identified. Dictated by: Dictated on workstation # [id number]
== END ==
LOC: RAD 10:53
PROVIDERS: ATTEND Internal Medicine Hematology & Oncology
DX: C34.91 Malignant neoplasm of unspecified part of right bronchus or lung (principal); M89.9 Disorder of bone, unspecified
CPT/HCPCS: 71260; 74177

== ENCOUNTER 2023-01-04 08:48 | Outpatient (RCR) | payer MEDICARE ==
[2022-12-30 09:13] LABS: BASOPHILS # (AUTO) 0.1 10^3/uL (0.0-0.1); BASOPHILS % (AUTO) 1 % (0-10); EOSINOPHILS # (AUTO) 0.6 10^3/uL (0.0-0.3); EOSINOPHILS % (AUTO) 8 % (0-10); HEMATOCRIT 33 % (40-54); HEMOGLOBIN 10.7 g/dL (13.3-17.7); LYMPHOCYTES # (AUTO) 1.6 10^3/uL (1.0-4.0); LYMPHOCYTES % (AUTO) 20 % (12-44); MEAN CORPUSCULAR HEMOGLOBIN 30 pg (25-34); MEAN CORPUSCULAR HGB CONC 33 g/dL (32-36); MEAN CORPUSCULAR VOLUME 91 fL (80-99); MONOCYTES # (AUTO) 0.7 10^3/uL (0.0-1.0); MONOCYTES % (AUTO) 10 % (0-12); NEUTROPHILS # (AUTO) 4.8 10^3/uL (1.8-7.8); NEUTROPHILS % (AUTO) 62 % (42-75); PLATELET COUNT 264 10^3/uL (130-400); WHITE BLOOD COUNT 7.8 10^3/uL (4.3-11.0)
[2022-12-30 09:48] LABS: ALBUMIN 3.7 GM/DL (3.2-4.5); BILIRUBIN,TOTAL 0.3 MG/DL (0.1-1.0); CALCIUM 8.9 MG/DL (8.5-10.1); CREATININE SERUM 1.01 MG/DL (0.60-1.30); POTASSIUM 4.5 MMOL/L (3.6-5.0); TOTAL PROTEIN 6.5 GM/DL (6.4-8.2)
[~2023-01-04 08:48] MED LIST changes: -CATHETER FLUSH 10 ML SYR IV PRN; +HEParin (CENTRAL IV FLUSH) 500 UNIT/5 ML SYR IV PRN; -HOLD METFORMIN - RECEIVED CONTRAST 20 ML VIAL IV SCH; -IOHEXOL 350 MG/ML 100 ML (OMNIPAQUE 350) VIAL IV ONE; +NIVOLUMAB 480 MG in NS (IVPB) 100 ML IV SCH; -NS 100 ML (IVPB) BAG IV ONE; +NS IV 500 ML 500 ML IV SCH; +NS IV SCH; +ZOLEDRONIC ACID IV SCH
== END 2023-01-12 | disposition home or self-care (01) ==
LOC: ONC 08:48
PROVIDERS: ATTEND Internal Medicine Hematology & Oncology
DX: Z51.11 Encounter for antineoplastic chemotherapy (principal); C34.91 Malignant neoplasm of unspecified part of right bronchus or lung; C79.51 Secondary malignant neoplasm of bone; I50.22 Chronic systolic (congestive) heart failure; J44.9 Chronic obstructive pulmonary disease, unspecified; I25.10 Atherosclerotic heart disease of native coronary artery without angina pectoris; Z72.0 Tobacco use
CPT/HCPCS: 36591; 80053; 84436; 84443; 85025; 96413

== ENCOUNTER 2023-01-27 08:55 | Outpatient (RCR) | payer MEDICARE ==
[2023-01-27 09:11] LABS: BASOPHILS # (AUTO) 0.1 10^3/uL (0.0-0.1); BASOPHILS % (AUTO) 1 % (0-10); EOSINOPHILS # (AUTO) 0.4 10^3/uL (0.0-0.3); EOSINOPHILS % (AUTO) 5 % (0-10); HEMATOCRIT 34 % (40-54); LYMPHOCYTES # (AUTO) 1.6 10^3/uL (1.0-4.0); LYMPHOCYTES % (AUTO) 19 % (12-44); MEAN CORPUSCULAR HEMOGLOBIN 29 pg (25-34); MEAN CORPUSCULAR HGB CONC 32 g/dL (32-36); MEAN CORPUSCULAR VOLUME 91 fL (80-99); MEAN PLATELET VOLUME 10.1 fL (9.0-12.2); MONOCYTES # (AUTO) 0.8 10^3/uL (0.0-1.0); MONOCYTES % (AUTO) 9 % (0-12); NEUTROPHILS # (AUTO) 5.8 10^3/uL (1.8-7.8); NEUTROPHILS % (AUTO) 67 % (42-75); PLATELET COUNT 278 10^3/uL (130-400); WHITE BLOOD COUNT 8.6 10^3/uL (4.3-11.0)
[2023-01-27 09:28] LABS: ALBUMIN 3.9 GM/DL (3.2-4.5); BILIRUBIN,TOTAL 0.4 MG/DL (0.1-1.0); CALCIUM 9.3 MG/DL (8.5-10.1); CREATININE SERUM 0.96 MG/DL (0.60-1.30); POTASSIUM 4.4 MMOL/L (3.6-5.0); TOTAL PROTEIN 6.8 GM/DL (6.4-8.2)
[2023-01-27 09:49] LABS: FREE T4 (FREE THYROXINE) 1.1 NG/DL (0.70-1.48)
== END 2023-02-12 | disposition home or self-care (01) ==
LOC: ONC 08:55
PROVIDERS: ATTEND Internal Medicine Hematology & Oncology
DX: Z51.11 Encounter for antineoplastic chemotherapy (principal); C34.91 Malignant neoplasm of unspecified part of right bronchus or lung; C79.51 Secondary malignant neoplasm of bone; I50.22 Chronic systolic (congestive) heart failure; J44.9 Chronic obstructive pulmonary disease, unspecified; I25.10 Atherosclerotic heart disease of native coronary artery without angina pectoris; Z72.0 Tobacco use
CPT/HCPCS: 36591; 80053; 84439; 84443; 85025; 96413; 96417

== ENCOUNTER 2023-02-24 08:47 | Outpatient (RCR) | payer MEDICARE ==
[2023-02-24 09:26] LABS: BASOPHILS # (AUTO) 0.1 10^3/uL (0.0-0.1); BASOPHILS % (AUTO) 1 % (0-10); EOSINOPHILS # (AUTO) 0.4 10^3/uL (0.0-0.3); EOSINOPHILS % (AUTO) 4 % (0-10); HEMATOCRIT 33 % (40-54); LYMPHOCYTES # (AUTO) 1.8 10^3/uL (1.0-4.0); LYMPHOCYTES % (AUTO) 21 % (12-44); MEAN CORPUSCULAR HEMOGLOBIN 30 pg (25-34); MEAN CORPUSCULAR HGB CONC 33 g/dL (32-36); MEAN CORPUSCULAR VOLUME 90 fL (80-99); MONOCYTES # (AUTO) 0.8 10^3/uL (0.0-1.0); MONOCYTES % (AUTO) 10 % (0-12); NEUTROPHILS # (AUTO) 5.6 10^3/uL (1.8-7.8); NEUTROPHILS % (AUTO) 64 % (42-75); PLATELET COUNT 268 10^3/uL (130-400); WHITE BLOOD COUNT 8.7 10^3/uL (4.3-11.0)
[2023-02-24 09:41] LABS: ALBUMIN 3.7 GM/DL (3.2-4.5); BILIRUBIN,TOTAL 0.3 MG/DL (0.1-1.0); CALCIUM 8.9 MG/DL (8.5-10.1); CREATININE SERUM 1.09 MG/DL (0.60-1.30); POTASSIUM 4.7 MMOL/L (3.6-5.0); TOTAL PROTEIN 6.5 GM/DL (6.4-8.2)
[2023-02-24 10:02] LABS: FREE T4 (FREE THYROXINE) 1.01 NG/DL (0.70-1.48)
[2023-03-11] MEDS ORDERED: LEVO750T PO (11:48)
[2023-03-15] MEDS ORDERED: NIVO240V IV (12:00)
[2023-03-15] MEDS ORDERED: CARV12.53 PO (12:00)
[2023-03-15] MEDS ORDERED: MORP15TA PO (12:00)
[2023-03-15] MEDS ORDERED: MIRT-47 PO (12:00)
[2023-03-15] MEDS ORDERED: MORP-69 PO (12:00)
[2023-03-15] MEDS ORDERED: POTA-179 PO (12:00)
[2023-03-15] MEDS ORDERED: ASPI-1238 PO (12:00)
[2023-03-15] MEDS ORDERED: ATOR20TA66 PO (12:00)
[2023-03-15] MEDS ORDERED: ZOLE4VIA5 IV (12:00)
[2023-03-15] MEDS ORDERED: LEVO750T PO (12:00)
[2023-03-15] MEDS ORDERED: IPRA3AMP31 NEB (12:00)
[2023-03-15] MEDS ORDERED: SACU1TAB7 PO (12:00)
== END 2023-03-14 | disposition home or self-care (01) ==
LOC: ONC 08:47
PROVIDERS: ATTEND Internal Medicine Hematology & Oncology
DX: Z51.11 Encounter for antineoplastic chemotherapy (principal); Z45.2 Encounter for adjustment and management of vascular access device; C34.91 Malignant neoplasm of unspecified part of right bronchus or lung; C79.51 Secondary malignant neoplasm of bone; J44.9 Chronic obstructive pulmonary disease, unspecified; I25.10 Atherosclerotic heart disease of native coronary artery without angina pectoris; J96.10 Chronic respiratory failure, unspecified whether with hypoxia or hypercapnia; I50.9 Heart failure, unspecified; Z72.0 Tobacco use
CPT/HCPCS: 36591; 80053; 84439; 84443; 85025; 96413

== ENCOUNTER 2023-03-11 08:57 | Emergency (ER) | payer MEDICARE ==
[~2023-03-11 08:57] MED LIST changes: -HEParin (CENTRAL IV FLUSH) 500 UNIT/5 ML SYR IV PRN; -NIVOLUMAB 480 MG in NS (IVPB) 100 ML IV SCH; -NS IV 500 ML 500 ML IV SCH; -NS IV SCH; -ZOLEDRONIC ACID IV SCH
--- NOTE | 2023-03-11 09:14 | ED General ---
General Stated Complaint: SOA Source of Information: Patient History of Present Illness Date Seen by Provider: Mar 11, 2023 Time Seen by Provider: 08:58 Initial Comments 72-year-old male presenting by EMS from home with complaints of increased shortness of breath and weakness. He has a history of stage IV metastatic lung cancer and is undergoing chemotherapy. He did have chemotherapy this month but they are giving him the month of March off. He has felt that he has had increased shortness of breath and coughing more in the last 3 days. He reports bringing up thick colored sputum. He denies fever but has had chills. He has chronic pain all over from his metastatic cancer but has felt like he had increased pain to the right ribs. He denies any recent fall or injury. He has still gone to work at [employer] in the last few days. Today was feeling worse so he called EMS to be transported to the emergency department. He has not talked with his primary care provider, Dr. Gilmore, or with oncology. EMS reported increased wheezing and shortness of breath when they transported him. He did walk to the cot on his own then met the EMS crew when they arrived. He was given a DuoNeb breathing treatment in route to the emergency department but reports he was not feeling any better with receiving the breathing treatment. He does use chronic oxygen at home. Timing/Duration: 3-4 Days Severity: Moderate Modifying Factors: worse with Movement (Activity makes him feel more out of breath and weak) Associated Systoms: Chest Pain (right lateral ribs), Cough; No Diaphoresis, No Headaches; Malaise; No Nausea/Vomiting, No Rash, No Seizure; Shortness of Air; No Syncope; Weakness (generalized) Allergies and Home Medications Allergies Coded Allergies: cephalexin (Verified Allergy, Intermediate, Rash, 12/12/21) Patient Home Medication List Home Medication List Reviewed: Yes Albuterol Sulfate (Ventolin Hfa) 1 Puff Puff, 2 PUFF INH Q6H PRN for SHORTNESS OF BREATH, (Reported) Entered as Reported by: MICA FAIRCHILD on 02/23/19 0935 Aspirin (Aspirin EC) 81 Mg Tablet., 81 MG PO DAILY Prescribed by: FRANKLIN FLORES on 02/25/19 1019 Carvedilol (Coreg) 3.125 Mg Tablet, 3.125 MG PO BID Prescribed by: FRANKLIN FLORES on 02/25/19 1023 Clopidogrel Bisulfate (Clopidogrel) 75 Mg Tablet, 75 MG PO DAILY, (Reported) Entered as Reported by: MICA FAIRCHILD on 02/23/19 09 Furosemide (Furosemide) 40 Mg Tablet, 40 MG PO DAILY, (Reported) Entered as Reported by: MICA FAIRCHILD on 02/23/19 09 Hydrocodone Bit/Acetaminophen (HYDROcodone/APAP 5 MG/325 MG TAB) 1 Tab Tab, 1 TAB PO Q6H Prescribed by: MIL ELY on 11/18/21 1709 Isosorbide Mononitrate (Isosorbide Mononitrate ER) 30 Mg Tab.er.24h, 30 MG PO DAILY, (Reported) Entered as Reported by: JAYSON PHOENIX on 06/28/19 1215 Levofloxacin (Levofloxacin) 500 Mg Tablet, 500 MG PO DAILY, (Reported) Entered as Reported by: GRAYSON SANDHU on 01/13/22 1429 Levofloxacin (Levofloxacin) 750 Mg Tablet, 750 MG PO DAILY Prescribed by: TRAVIS HENRY on 03/11/23 1148 Levothyroxine Sodium (Levothyroxine Sodium) 50 Mcg Tablet, 50 MCG PO DAILY, (Reported) Entered as Reported by: MICA FAIRCHILD on 02/23/19 09 Nitroglycerin (Nitroglycerin) 0.4 Mg Tab.subl, 0.4 MG SL UD PRN for CHEST PAIN, (Reported) Entered as Reported by: MICA FAIRCHILD on 02/23/19 09 Sacubitril/Valsartan (Entresto 24 mg-26 mg Tablet) 1 Each Tablet, 1 TAB PO BID Prescribed by: FRANKLIN FLORES on 02/25/19 1019 Tramadol HCl (Tramadol HCl) 50 Mg Tablet, 50-100 MG PO Q6H PRN for PAIN- MODERATE, (Reported) Entered as Reported by: MICA FAIRCHILD on 02/23/19 09 Review of Systems Review of Systems Constitutional: chills; No fever; malaise, weakness EENTM: No nose congestion, No throat pain Respiratory: see HPI Cardiovascular: see HPI Gastrointestinal: no symptoms reported Genitourinary: no symptoms reported Musculoskeletal: see HPI, other (complaint of generalized body aches and pains that are chronic from his metastatic lung cancer and he takes Morphine 30 mg every 8 hours for that) Skin: no symptoms reported Psychiatric/Neurological: See HPI, Weakness (generalized) Past [id number]-[id number] Hx Immunizations Up To Date Tetanus Booster (TDap): Unknown First/Initial COVID19 Vaccinat: APRIL 08, 2021 Second COVID19 Vaccination Terence: may 06, 2021 Third COVID19 Vaccination Date: APRIL 08, 2021 Seasonal Allergies Seasonal Allergies: No Past Medical History Surgery/Hospitalization HX: Pacemaker/Defibrillator; Cardiac stents; GA; Heart failure; COPD; HTN; High Cholesterol. Surgeries: Yes (HEMORRHOIDS, DEFIB/PACEMAKER PLACEMENT, CARDIAC STENTS) Coronary Stent, Defibrillator, Pacemaker Respiratory: Yes COPD Currently Using CPAP: No Currently Using BIPAP: No Cardiac: Yes Coronary Artery Disease, Heart Attack, High Cholesterol, Hypertension Neurological: No Genitourinary: No Gastrointestinal: No Musculoskeletal: No Endocrine: Yes Hypothyroidsim HEENT: No Cancer: Yes (LUNG) What Type of Treatment Did You: Chemotherapy, Radiation Psychosocial: No Integumentary: No Blood Disorders: No Physical Exam Vital Signs Vital Signs - First Documented 03/11/23 08:59 Temp 37.1 Pulse 81 Resp 24 B/P (MAP) 110/34 (59) Pulse Ox 97 O2 Delivery Nasal Cannula O2 Flow Rate 2.00 Capillary Refill : Height, Weight, BMI Height: 5'6.00" Weight: 144lbs. 0.0oz. [id number]; 22.23 BMI Method:Stated General Appearance: No Apparent Distress, Chronically ill HEENT: PERRL/EOMI, Pharynx Normal Neck: Full Range of Motion, Normal Inspection, Non Tender, Supple Respiratory: No Chest Non Tender (tender to palpation right side of chest wall without crepitus or step off); No Accessory Muscle Use, No Respiratory Distress, Decreased Breath Sounds Cardiovascular: Regular Rate, Rhythm, Normal Peripheral Pulses Gastrointestinal: Normal Bowel Sounds, No Pulsatile Mass, Non Tender, Soft Extremity: Normal Capillary Refill, Normal Inspection, No Pedal Edema Neurologic/Psychiatric: Alert, Oriented x3 Skin: Warm/Dry Focused Exam Lactate Level 03/11/23 09:19: Lactic Acid Level 1.03 Lactic Acid Level Laboratory Tests Test 03/11/23 09:19 Lactic Acid Level 1.03 MMOL/L (0.50-2.00) Progress/Results/Core Measures Suspected Sepsis SIRS Temperature: Pulse: Respiratory Rate: Laboratory Tests 03/11/23 09:19: White Blood Count 15.8H Blood Pressure / Mean: 03/11/23 09:19: Lactic Acid Level 1.03 Laboratory Tests 03/11/23 09:19: Creatinine 0.89, Platelet Count 254, Total Bilirubin 0.6 Results/Orders Lab Results Laboratory Tests Test 03/11/23 09:19 Range/Units White Blood Count 15.8 H 4.3-11.0 10^3/uL Red Blood Count 3.79 L 4.30-5.52 10^6/uL Hemoglobin 11.1 L 13.3-17.7 g/dL Hematocrit 34 L 40-54 % Mean Corpuscular Volume 90 80-99 fL Mean Corpuscular Hemoglobin 29 25-34 pg Mean Corpuscular Hemoglobin Concent 33 32-36 g/dL Red Cell Distribution Width 14.2 10.0-14.5 % Platelet Count 254 130-400 10^3/uL Mean Platelet Volume 10.7 9.0-12.2 fL Immature Granulocyte % (Auto) 0 % Neutrophils (%) (Auto) 86 H 42-75 % Lymphocytes (%) (Auto) 7 L 12-44 % Monocytes (%) (Auto) 6 0-12 % Eosinophils (%) (Auto) 0 0-10 % Basophils (%) (Auto) 0 0-10 % Neutrophils # (Auto) 13.7 H 1.8-7.8 10^3/uL Lymphocytes # (Auto) 1.1 1.0-4.0 10^3/uL Monocytes # (Auto) 1.0 0.0-1.0 10^3/uL Eosinophils # (Auto) 0.0 0.0-0.3 10^3/uL Basophils # (Auto) 0.0 0.0-0.1 10^3/uL Immature Granulocyte # (Auto) 0.1 0.0-0.1 10^3/uL Neutrophils % (Manual) 71 % Lymphocytes % (Manual) 8 % Monocytes % (Manual) 3 % Band Neutrophils 18 % Platelet Estimate NORMAL Hypochromasia 1+ Elliptocytes SLIGHT Sodium Level 139 135-145 MMOL/L Potassium Level 4.0 3.6-5.0 MMOL/L Chloride Level 103 98-107 MMOL/L Carbon Dioxide Level 27 21-32 MMOL/L Anion Gap 9 5-14 MMOL/L Blood Urea Nitrogen 22 H 7-18 MG/DL Creatinine 0.89 0.60-1.30 MG/DL Estimat Glomerular Filtration Rate 90 BUN/Creatinine Ratio 25 Glucose Level 122 H 70-105 MG/DL Lactic Acid Level 1.03 0.50-2.00 MMOL/L Calcium Level 8.5 8.5-10.1 MG/DL Corrected Calcium 9.1 8.5-10.1 MG/DL Total Bilirubin 0.6 0.1-1.0 MG/DL Aspartate Amino Transf (AST/SGOT) 13 5-34 U/L Alanine Aminotransferase (ALT/SGPT) 8 0-55 U/L Alkaline Phosphatase 62 40-136 U/L C-Reactive Protein 20.19 H <0.50 MG/DL Pro-B-Type Natriuretic Peptide 3457.0 H <125.0 PG/ML Total Protein 6.5 6.4-8.2 GM/DL Albumin 3.3 3.2-4.5 GM/DL My Orders Orders - TRAVIS HENRY MD Cbc With Automated Diff (03/11/23 09:06) Comprehensive Metabolic Panel (03/11/23 09:06) Blood Culture (03/11/23 09:06) Chest 1 View Ap/Pa Only (03/11/23 09:06) Ekg Tracing (03/11/23 09:06) O2 (03/11/23 09:06) Ed Iv/Invasive Line Start (03/11/23 09:06) Sputum Culture (03/11/23 09:06) Monitor-Rhythm Ecg Trace Only (03/11/23 09:06) Crp Fs (03/11/23 09:06) Lactic Acid Analyzer (03/11/23 09:06) Manual Differential (03/11/23 09:19) Probnp Fs (03/11/23 10:09) Ns Iv 500 Ml (Sodium Chloride 0.9%) (03/11/23 09:15) Piperacillin Sodium/Tazobactam (Zosyn Vi (03/11/23 11:37) Levofloxacin Tablet (Levaquin Tablet) (03/11/23 11:37) Hydromorphone Injection (Dilaudid Inject (03/11/23 11:41) Heparin (Central Iv Flush) (Heparin (Brenda (03/11/23 12:15) Medications Given in ED Current Medications Medications Dose Ordered Sig/Erick Route Start Time Stop Time Status Last Admin Dose Admin Sodium Chloride 500 ml @ 999 mls/hr Q31M ONCE IV 03/11/23 09:15 03/11/23 10:19 DC 03/11/23 10:00 999 MLS/HR Vital Signs/I&O 03/11/23 03/11/23 08:59 08:59 Temp 37.1 Pulse 81 Resp 24 B/P (MAP) 110/34 (59) Pulse Ox 97 O2 Delivery Nasal Cannula Nasal Cannula O2 Flow Rate 2.00 2.00 Capillary Refill : Progress Note #1: Progress Note Potential diagnosis of pneumonia, COPD exacerbation, hyponatremia, electrolyte imbalance, renal failure, hepatic failure, sepsis. Obtain access of his port and send labs for complete blood count, comprehensive metabolic profile, cardiac markers troponin and proBNP, CRP. Sputum culture if he is able to cough anything up. 1 view chest x-ray looking for signs of acute infiltrate or abnormality in the chest. Electrocardiogram to look for acute arrhythmia or ischemic changes. Administer normal saline 500 mL IV bolus for hydration. Progress Note #2: Progress Note Labs show elevated white blood cell count of 15.8 with a left shift of 71% neutrophils and 18% bands. Hemoglobin shows anemia at 11.1. Platelets are normal at 254. Comprehensive metabolic profile does not show any acute significant abnormality to contribute to his symptoms. He had a normal lactic acid of 1.03. CRP is elevated to 20.19. His proBNP is elevated to 3,457, which is similar to prior tests in the system. On my review of his 1 view Chest xray he has right lower lobe pneumonia. Patient continues to maintain Oxygen saturation on home O2. Will treat with antibiotics with broader coverage since he has increased risk of resistant organisms and Healthcare acquired pneumonia from going to cancer center and getting chemotherapy monthly. From review of online medical reference [employer] will cover with Zosyn 4.5 gm IV and Levaquin 750 mg po. Since patient is not septic and is maintaining his O2 saturation on home supplemental oxygen will check to see how he is feeling. He could try treatment at home and if not improving then return or seek care at [place] where his PCP is located. He could qualify for inpatient treatment as well if he was feeling worse or not maintaining his oxygen levels due to his metastatic lung cancer, chemotherapy and now having right sided pneumonia. Progress Note #3: Progress Note After review with the patient he wanted to try treatment at home rather than being admitted to the hospital. Counseled on follow-up and return precautions. Stressed importance of increasing fluid intake and using Mucinex to help loosen and thin out his congestion and cough. Take the full course of antibiotics. Check back with Dr. Gilmore or return if having worsening symptoms or not improving. We will continue with Levaquin by mouth daily for 7 days home after the initial dose here in the ED along with the Zosyn 4.5 g IV dose. ECG Initial ECG Impression Date: Mar 11, 2023 Initial ECG Impression Time: 10:05 Initial ECG Rate: 70 Initial ECG Rhythm: Normal Sinus Initial ECG Comparisson: Unchanged (11/18/2021) Comment My personal interpretation and review of the electrocardiogram shows a sinus rhythm with heart rate of 70 bpm. ID interval [address] elevation. Left atrial enlargement. Anterior Q waves. QT interval 364 ms with a QTc interval 384 ms. Overall appears similar to tracing from November 18, 2021. Diagnostic Imaging Diagonstic Imaging: Xray Plain Films/CT/US/NM/MRI: chest Comments NAME: [facility] REC#: [id number] PT STATUS: REG ER : 1950 PHYSICIAN: TRAVIS HENRY MD ADMIT DATE: 03/11/23/ER FS Signed Date of Exam:03/11/23 CHEST 1 VIEW AP/PA ONLY INDICATION: Cough and shortness of breath. Frontal chest obtained at 9:26 a.m. and compared to 01/14/2022. There is cardiomegaly with unchanged Port-A-Cath and unchanged pacemaker device. There are COPD changes. There is new infiltrate in the right midlung and base suspicious for pneumonia. Left apical opacity has resolved compared to the prior study. There is no pneumothorax or significant pleural fluid. IMPRESSION: Cardiomegaly with postoperative changes, underlying COPD changes. New infiltrate in the right mid to lower lung field suspicious for pneumonia. Dictated by: Dictated on workstation # [id number] Dict: 03/11/23 0935 Trans: 03/11/23 1039 CV [id number] Interpreted by: SONAL HERNANDEZ MD Electronically signed by: SONAL HERNANDEZ MD 03/11/23 1039 Reviewed: Reviewed by Me Departure Impression Primary Impression: Pneumonia of right lower lobe due to infectious organism Additional Impressions: Dyspnea Qualified Codes: R06.02 - Shortness of breath Generalized weakness Stage 4 lung cancer Qualified Codes: C34.90 - Malignant neoplasm of unspecified part of unspecified bronchus or lung Bone metastases Disposition: HOME, SELF-CARE Condition: Stable Departure-Patient Inst. Decision time for Depature: 11:54 Referrals: KATHERIN GILMORE MD (PCP/Family) Primary Care Physician Patient Instructions: Weakness ED, Pneumonia, Adult ED Add. Discharge Instructions: Take the full course of antibiotics to help treat for pneumonia. Since she received IV antibiotics here in the emergency department your next dose would be due tomorrow. Consider taking Mucinex or guaifenesin product to help loosen and thin out your mucus and secretions so they are not so thick. Continue to drink plenty of water to make this work effectively. Make sure that you are doing your breathing treatments every 4-6 hours to help with cough and congestion. If your symptoms are worsening or you are not improving return or seek care with Dr. Gilmore to see if you need to be admitted to the hospital for IV antibiotics Scripts Levofloxacin (Levofloxacin) 750 Mg Tablet 750 MG PO DAILY for Pneumonia for 7 Days, #7 TAB 0 Refills Prov: TRAVIS HENRY MD 03/11/23 Work/School Note: Work Release Form Date Seen in the Emergency Department: Mar 11, 2023 Return to Work: March 20, 2023 Restrictions: No Restrictions TRAVIS HENRY MD Mar 11, 2023 09:14
[2023-03-11] MEDS ORDERED: NS IV 500 ML 500 ML IV ONE (09:15)
[2023-03-11] MEDS ORDERED: NS IV 500 ML 500 ML IV SCH (09:15)
[2023-03-11 09:31] LABS: BASOPHILS % (AUTO) 0 % (0-10); EOSINOPHILS % (AUTO) 0 % (0-10); HEMATOCRIT 34 % (40-54); HEMOGLOBIN 11.1 g/dL (13.3-17.7); LYMPHOCYTES # (AUTO) 1.1 10^3/uL (1.0-4.0); LYMPHOCYTES % (AUTO) 7 % (12-44); MEAN CORPUSCULAR HEMOGLOBIN 29 pg (25-34); MEAN CORPUSCULAR HGB CONC 33 g/dL (32-36); MEAN CORPUSCULAR VOLUME 90 fL (80-99); MEAN PLATELET VOLUME 10.7 fL (9.0-12.2); MONOCYTES % (AUTO) 6 % (0-12); NEUTROPHILS # (AUTO) 13.7 10^3/uL (1.8-7.8); NEUTROPHILS % (AUTO) 86 % (42-75); PLATELET COUNT 254 10^3/uL (130-400); WHITE BLOOD COUNT 15.8 10^3/uL (4.3-11.0)
--- NOTE | 2023-03-11 09:37 | Diagnostic Imaging Report ---
INDICATION: Cough and shortness of breath. Frontal chest obtained at 9:26 a.m. and compared to 01/14/2022. There is cardiomegaly with unchanged Port-A-Cath and unchanged pacemaker device. There are COPD changes. There is new infiltrate in the right midlung and base suspicious for pneumonia. Left apical opacity has resolved compared to the prior study. There is no pneumothorax or significant pleural fluid. IMPRESSION: Cardiomegaly with postoperative changes, underlying COPD changes. New infiltrate in the right mid to lower lung field suspicious for pneumonia. Dictated by: Dictated on workstation # [id number]
[2023-03-11 09:49] LABS: BILIRUBIN,TOTAL 0.6 MG/DL (0.1-1.0); CALCIUM 8.5 MG/DL (8.5-10.1); CREATININE SERUM 0.89 MG/DL (0.60-1.30)
[2023-03-11 09:50] LABS: ALBUMIN 3.3 GM/DL (3.2-4.5); TOTAL PROTEIN 6.5 GM/DL (6.4-8.2)
[2023-03-11 10:01] LABS: BAND NEUTROPHILS 18 %; NEUTROPHILS % (MANUAL) 71 %
[2023-03-11 10:02] LABS: ELLIPT/OVALOCYTES SLIGHT; HYPOCHROMASIA 1+; LYMPHOCYTES % (MANUAL) 8 %; MONOCYTES % (MANUAL) 3 %; PLATELET ESTIMATE NORMAL
[2023-03-11] MEDS ORDERED: PIPERACILLIN SODIUM/TAZOBACTAM 4.5 GM in NS (IVPB) 100 ML IV STA (11:37)
[2023-03-11] MEDS ORDERED: HYDROmorphone 2 MG/ML VIAL (DILAUDID) IV STA (11:41)
[2023-03-11] MEDS ORDERED: LEVO750T PO (11:48)
[2023-03-11] MEDS ORDERED: HEParin (CENTRAL IV FLUSH) 500 UNIT/5 ML SYR IV ONE (12:15)
[2023-03-11 12:40] VITALS: BP 114/44
== END 2023-03-11 12:40 | disposition home or self-care (01) ==
LOC: EDUNIT# 08:57 → ER FS 08:59
DX: J18.9 Pneumonia, unspecified organism (principal); C34.90 Malignant neoplasm of unspecified part of unspecified bronchus or lung; C79.51 Secondary malignant neoplasm of bone; D64.9 Anemia, unspecified; R53.1 Weakness; Z88.1 Allergy status to other antibiotic agents; Z79.899 Other long term (current) drug therapy
CPT/HCPCS: 36415; 71045; 80053; 83605; 83880; 85007; 85027; 86141; 87040; 87070; 87077; 87185; 87205; 93005; 93041

== ENCOUNTER 2023-03-14 12:44 | Inpatient (IN) | payer MEDICARE ==
[~2023-03-14] VITALS: Ht 167.7 cm; Wt 58.5 kg
[~2023-03-14 12:44] MED LIST changes: +LEVO750T PO
[2023-03-14 13:25] LABS: BASOPHILS % (AUTO) 0 % (0-10); EOSINOPHILS % (AUTO) 0 % (0-10); HEMATOCRIT 35 % (40-54); HEMOGLOBIN 11.1 g/dL (13.3-17.7); LYMPHOCYTES # (AUTO) 1.2 10^3/uL (1.0-4.0); LYMPHOCYTES % (AUTO) 11 % (12-44); MEAN CORPUSCULAR HEMOGLOBIN 29 pg (25-34); MEAN CORPUSCULAR HGB CONC 32 g/dL (32-36); MEAN CORPUSCULAR VOLUME 91 fL (80-99); MEAN PLATELET VOLUME 10.1 fL (9.0-12.2); MONOCYTES # (AUTO) 0.9 10^3/uL (0.0-1.0); MONOCYTES % (AUTO) 8 % (0-12); NEUTROPHILS # (AUTO) 8.7 10^3/uL (1.8-7.8); NEUTROPHILS % (AUTO) 80 % (42-75); PLATELET COUNT 305 10^3/uL (130-400); WHITE BLOOD COUNT 10.9 10^3/uL (4.3-11.0)
[2023-03-14 13:29] LABS: ALBUMIN 3.3 GM/DL (3.2-4.5); POTASSIUM 4.2 MMOL/L (3.6-5.0)
[2023-03-14 13:31] LABS: CALCIUM 8.9 MG/DL (8.5-10.1)
[2023-03-14 13:32] LABS: PROTHROMBIN TIME PATIENT 13.3 SEC (12.2-14.7); TOTAL PROTEIN 6.5 GM/DL (6.4-8.2)
[2023-03-14 13:34] LABS: BILIRUBIN,TOTAL 0.4 MG/DL (0.1-1.0)
[2023-03-14 13:36] LABS: CREATININE SERUM 0.67 MG/DL (0.60-1.30)
[2023-03-14 13:46] LABS: BILIRUBIN,URINE NEGATIVE (NEGATIVE); CLARITY,URINE CLEAR; COLOR,URINE YELLOW; GLUCOSE, URINE (UA) NEGATIVE (NEGATIVE); KETONES,URINE NEGATIVE (NEGATIVE); LEUKOCYTE ESTERASE ,URINE NEGATIVE (NEGATIVE); NITRITE,URINE NEGATIVE (NEGATIVE); PROTEIN,URINE 1+ (NEGATIVE)
[2023-03-14 13:53] LABS: BACTERIA,URINE TRACE /HPF; SQUAMOUS EPITHELIAL CELL,UR RARE /HPF; WBC,URINE RARE /HPF
--- NOTE | 2023-03-14 13:54 | Diagnostic Imaging Report ---
EXAMINATION: Chest, 1 view. HISTORY: Pneumonia, SOA. COMPARISON: 03/11/2023. FINDINGS: Heart size and pulmonary vasculature are normal. There are patchy airspace opacities throughout the lungs, greatest within the right mid and lower lung. Right-sided port catheter and cardiac device are unchanged. No pleural effusion or pneumothorax. The osseous structures are intact. IMPRESSION: Mildly increased patchy airspace opacities within the lungs, greatest within the right mid and lower lung, concerning for pneumonia. Dictated by: Dictated on workstation # [id number]
[2023-03-14] MEDS ORDERED: cefTRIAXone IV/IM 1,000 MG in NS (IVPB) 50 ML IV STA (14:28)
--- NOTE | 2023-03-14 14:33 | ED General ---
General Chief Complaint: Respiratory Problems Stated Complaint: LETHARGIC/SOA Nursing Triage Note: PT AMB TO ED BY POV WITH C/O INCREASED SOB. PT REPORTS HE HAS PNEUMONIA AND WAS CALLED AND TOLD YESTERDAY THAT HIS BLOOD CULTURES GREW OUT AND TO COME BACK TO ED IF HE WAS NOT FEELING BETTER. PT REPORTS HE IS STILL HAVING PRODUCTIVE COUGH, WORSE SOB TODAY. PT HAS STAGE 4 LUNG CA AND WEARS 2 L NC AT ALL TIMES. C/O CHEST WALL PAIN 6/10 AND FEELS "TIGHT." Source of Information: Patient Exam Limitations: No Limitations History of Present Illness Date Seen by Provider: Mar 14, 2023 Time Seen by Provider: 13:13 Initial Comments This 72-year-old gentleman presents to the emergency room with complaints of worsening weakness and debility with pneumonia. He is presently being treated for stage IV lung cancer and is between rounds of chemotherapy. He has also received 1 full round of radiation therapy and a partial round of radiation therapy. He was seen in the [facility] emergency room on March 11 and started on antibiotics. Blood cultures were drawn at that time. Sputum culture was also collected. He grew haemophilus influenza from the blood collected from the port and also from his sputum culture. Levaquin is an appropriate antibiotic for haemophilus influenza, and he has been taking Levaquin at home. His most recent dose was this morning. Patient reports a persistent tightness in his chest. He does have a history of coronary artery disease with multiple stents. Patient was notified of his positive blood culture result. This notification along with his general worsening of debility prompted him to present to the emergency room. He is presently stable on his usual 2 L nasal cannula. He is not in respiratory distress. He has mild wheezing on exam. He additionally complains of some mild upper abdominal pain that has been present for about 3 weeks. His oncologist is Dr. Conrado Mckeon. His clinic supervisor is Dr. Neumann. His primary care provider is Dr. Gilmore. He requests a DNR status. Allergies and Home Medications Allergies Coded Allergies: cephalexin (Verified Allergy, Intermediate, Rash, 12/12/21) Patient Home Medication List Home Medication List Reviewed: Yes Albuterol Sulfate (Ventolin Hfa) 1 Puff Puff, 2 PUFF INH Q6H PRN for SHORTNESS OF BREATH, (Reported) Entered as Reported by: MICA FAIRCHILD on 4/10/03 935 Last Action: Continued Aspirin (Aspirin EC) 81 Mg Tablet.dr, 81 MG PO DAILY, (Reported) Entered as Reported by: JERILYN LISA on 03/15/231199 Last Action: Continued Atorvastatin Calcium (Atorvastatin Calcium) 20 Mg Tablet, 20 MG PO DAILY, (Reported) Entered as Reported by: JERILYN LISA on 03/15/231199 Last Action: Continued Carvedilol (Carvedilol) 12.5 Mg Tablet, 12.5 MG PO BID, (Reported) Entered as Reported by: JERILYN LISA on 03/15/231199 Last Action: Held Clopidogrel Bisulfate (Clopidogrel) 75 Mg Tablet, 75 MG PO DAILY, (Reported) Entered as Reported by: MICA FAIRCHILD on 02/23/19934 Last Action: Continued Furosemide (Furosemide) 40 Mg Tablet, 40 MG PO DAILY, (Reported) Entered as Reported by: MICA FAIRCHILD on 02/23/19934 Last Action: Continued Ipratropium/Albuterol Sulfate (Iprat-Albut 0.5-3(2.5) mg/3 ml) 0.5 Mg-3 Mg (2.5 Mg Base)/3 Ml Ampul.neb, 3 ML NEB Q8H PRN for SHORTNESS OF BREATH, (Reported) Entered as Reported by: JERILYN LISA on 03/15/231199 Last Action: Continued Isosorbide Mononitrate (Isosorbide Mononitrate ER) 30 Mg Tab.er.24h, 30 MG PO DAILY, (Reported) Entered as Reported by: JAYSON PHOENIX on 06/28/19 1215 Last Action: Reviewed Levofloxacin (Levofloxacin) 750 Mg Tablet, 750 MG PO DAILY, (Reported) Entered as Reported by: JERILYN LISA on 03/15/231199 Last Action: Held Levothyroxine Sodium (Levothyroxine Sodium) 50 Mcg Tablet, 50 MCG PO DAILY, (Reported) Entered as Reported by: MICA FAIRCHILD on 02/23/19934 Last Action: Continued Mirtazapine (Mirtazapine) 15 Mg Tab.rapdis, 15 MG PO HS PRN for SLEEP, (Rep orted) Entered as Reported by: JERILYN LISA on 03/15/231199 Last Action: Reviewed Morphine Sulfate (Morphine Sulfate IR Tablet) 15 Mg Tablet, 15 MG PO Q6H PRN for PAIN-SEVERE (8-10), (Reported) Entered as Reported by: JERILYN LISA on 03/15/231199 Last Action: Continued Morphine Sulfate (Morphine Sulfate ER) 30 Mg Tablet.er, 30 MG PO Q8H, (Reported) Entered as Reported by: JERILYN LISA on 03/15/231199 Last Action: Continued Nitroglycerin (Nitroglycerin) 0.4 Mg Tab.subl, 0.4 MG SL UD PRN for CHEST PAIN (ANGINA), (Reported) Entered as Reported by: MICA FAIRCHILD on 02/23/19 0947 Last Action: Held Nivolumab (Opdivo) 240 Mg/24 Ml Vial, 480 MG IV EVERY 4 WEEKS, (Reported) Entered as Reported by: JERILYN LISA on 03/15/231199 Last Action: Held Potassium Chloride (Potassium Chloride) 20 Meq Tab.er.prt, 20 MEQ PO DAILY, (Reported) Entered as Reported by: JERILYN LISA on 03/15/231199 Last Action: Continued Sacubitril/Valsartan (Entresto 49 mg-51 mg Tablet) 49 Mg-51 Mg Tablet, 1 EA PO BID, (Reported) Entered as Reported by: JERILYN LISA on 03/15/231199 Last Action: Converted Zoledronic Acid (Zoledronic Acid) 4 Mg Vial, 3.3 MG IV EVERY 12 WEEKS, (Reported) Entered as Reported by: JERILYN LISA on 03/15/231199 Last Action: Held Discontinued Medications Aspirin (Aspirin EC) 81 Mg Tablet.dr, 81 MG PO DAILY Discontinued Reason: No Longer Taking Prescribed by: FRANKLIN NEUMANN on 02/25/19 1019 Last Action: Discontinued Carvedilol (Coreg) 3.125 Mg Tablet, 3.125 MG PO BID Discontinued Reason: No Longer Taking Prescribed by: FRANKLIN NEUMANN on 02/25/19 1023 Last Action: Discontinued Hydrocodone Bit/Acetaminophen (HYDROcodone/APAP 5 MG/325 MG TAB) 1 Tab Tab, 1 TAB PO Q6H Discontinued Reason: No Longer Taking Prescribed by: MIL ELY on 11/18/21 1709 Last Action: Discontinued Levofloxacin (Levofloxacin) 500 Mg Tablet, 500 MG PO DAILY, (Reported) Discontinued Reason: No Longer Taking Entered as Reported by: GRAYSON SANDHU on 01/13/22 1429 Last Action: Discontinued Levofloxacin (Levofloxacin) 750 Mg Tablet, 750 MG PO DAILY Discontinued Reason: No Longer Taking Prescribed by: TRAVIS HENRY on 03/11/23 1148 Last Action: Discontinued Sacubitril/Valsartan (Entresto 24 mg-26 mg Tablet) 1 Each Tablet, 1 TAB PO BID Discontinued Reason: No Longer Taking Prescribed by: FRANKLIN NEUMANN on 02/25/19 1019 Last Action: Discontinued Tramadol HCl (Tramadol HCl) 50 Mg Tablet, 50-100 MG PO Q6H PRN for PAIN-MOD ERATE, (Reported) Discontinued Reason: No Longer Taking Entered as Reported by: MICA FAIRCHILD on 02/23/19 0935 Last Action: Discontinued Review of Systems Review of Systems Constitutional: see HPI EENTM: no symptoms reported Respiratory: see HPI Cardiovascular: see HPI Gastrointestinal: see HPI Genitourinary: no symptoms reported Musculoskeletal: no symptoms reported Skin: no symptoms reported Psychiatric/Neurological: No Symptoms Reported Hematologic/Lymphatic: See HPI Immunological/Allergic: see HPI Past Tbqdpkc-Cflowm-Iajvvn Hx Patient Social History Tobacco Use?: Yes Tobacco type used: Cigarettes Smoking Status: Current Everyday Smoker Use of E-Cig and/or Vaping dev: No Substance use?: No Alcohol Use?: No Pt feels they are or have been: No Immunizations Up To Date Tetanus Booster (TDap): Unknown Influenza Vaccine Up-to-Date: No; Not Current First/Initial COVID19 Vaccinat: APRIL 08, 2021 Second COVID19 Vaccination Terence: MAY 06, 2021 Third COVID19 Vaccination Date: APRIL 08, 2021 Seasonal Allergies Seasonal Allergies: No Past Medical History Surgery/Hospitalization HX: Pacemaker/Defibrillator; Cardiac stents; [place]; Heart failure; COPD; HTN; High Cholesterol; Stage 4 lung cancer with mets;CABG Surgeries: Yes (HEMORRHOIDS, DEFIB/PACEMAKER PLACEMENT, CARDIAC STENTS) Coronary Stent, Defibrillator, Pacemaker Respiratory: Yes (Lung cancer) COPD Currently Using CPAP: No Currently Using BIPAP: No Cardiac: Yes Coronary Artery Disease, Heart Attack, High Cholesterol, Hypertension Neurological: No Genitourinary: No Gastrointestinal: No Musculoskeletal: No Endocrine: Yes Hypothyroidsim HEENT: No Cancer: Yes (LUNG) What Type of Treatment Did You: Chemotherapy, Radiation Psychosocial: No Integumentary: No Blood Disorders: No Physical Exam-Suspected Sepsis Physical Exam Vital Signs Vital Signs - First Documented 03/14/23 03/14/23 12:49 16:00 Temp 36.7 Pulse 102 Resp 21 B/P (MAP) 122/59 (80) Pulse Ox 94 O2 Delivery Nasal Cannula O2 Flow Rate 2.00 Capillary Refill : Less Than 3 Seconds Blood Pressure Mean: 80 Height, Weight, BMI Height: 5'6.00" Weight: 144lbs. 0.0oz. 65.175085ks; 20.00 BMI Method:Stated General Appearance: No Apparent Distress, WD/WN, Thin HEENT: PERRL/EOMI, Normal ENT Inspection Neck: Normal Inspection; No JVD Respiratory: No Accessory Muscle Use, Wheezing, Other (Mildly increased work of breathing) Cardiovascular: No Edema, No Murmur, Tachycardia (Mild) Gastrointestinal: Soft; No Distended; Tenderness (Mild in the upper abdomen) Extremity: Normal Inspection, No Pedal Edema Neurologic/Psychiatric: Alert, Oriented x3, No Motor/Sensory Deficits, Normal Mood/Affect Skin: normal color, warm/dry Focused Exam Lactate Level 03/14/23 13:10: Lactic Acid Level 0.74 Lactic Acid Level Progress/Results/Core Measures Suspected Sepsis SIRS Temperature: Pulse: 102 Respiratory Rate: 21 Laboratory Tests 03/14/23 13:10: White Blood Count 10.9 03/15/23 05:31: White Blood Count 12.4H Blood Pressure 122 /59 Mean: 80 03/14/23 13:10: Lactic Acid Level 0.74 Laboratory Tests 03/14/23 13:10: Creatinine 0.67, INR Comment 1.0, Platelet Count 305, Total Bilirubin 0.4 03/15/23 05:31: Platelet Count 285 Results/Orders Lab Results Laboratory Tests Test 03/14/23 13:10 03/14/23 13:16 03/14/23 13:26 03/14/23 13:40 Range/Units White Blood Count 10.9 4.3-11.0 10^3/uL Red Blood Count 3.84 L 4.30-5.52 10^6/uL Hemoglobin 11.1 L 13.3-17.7 g/dL Hematocrit 35 L 40-54 % Mean Corpuscular Volume 91 80-99 fL Mean Corpuscular Hemoglobin 29 25-34 pg Mean Corpuscular Hemoglobin Concent 32 32-36 g/dL Red Cell Distribution Width 13.9 10.0-14.5 % Platelet Count 305 130-400 10^3/uL Mean Platelet Volume 10.1 9.0-12.2 fL Immature Granulocyte % (Auto) 1 % Neutrophils (%) (Auto) 80 H 42-75 % Lymphocytes (%) (Auto) 11 L 12-44 % Monocytes (%) (Auto) 8 0-12 % Eosinophils (%) (Auto) 0 0-10 % Basophils (%) (Auto) 0 0-10 % Neutrophils # (Auto) 8.7 H 1.8-7.8 10^3/uL Lymphocytes # (Auto) 1.2 1.0-4.0 10^3/uL Monocytes # (Auto) 0.9 0.0-1.0 10^3/uL Eosinophils # (Auto) 0.0 0.0-0.3 10^3/uL Basophils # (Auto) 0.0 0.0-0.1 10^3/uL Immature Granulocyte # (Auto) 0.1 0.0-0.1 10^3/uL Prothrombin Time 13.3 12.2-14.7 SEC INR Comment 1.0 0.8-1.4 Activated Partial Thromboplast Time 38 H 24-35 SEC Sodium Level 139 135-145 MMOL/L Potassium Level 4.2 3.6-5.0 MMOL/L Chloride Level 106 98-107 MMOL/L Carbon Dioxide Level 23 21-32 MMOL/L Anion Gap 10 5-14 MMOL/L Blood Urea Nitrogen 12 7-18 MG/DL Creatinine 0.67 0.60-1.30 MG/DL Estimat Glomerular Filtration Rate 99 BUN/Creatinine Ratio 18 Glucose Level 109 H 70-105 MG/DL Lactic Acid Level 0.74 0.50-2.00 MMOL/L Calcium Level 8.9 8.5-10.1 MG/DL Corrected Calcium 9.5 8.5-10.1 MG/DL Total Bilirubin 0.4 0.1-1.0 MG/DL Aspartate Amino Transf (AST/SGOT) 18 5-34 U/L Alanine Aminotransferase (ALT/SGPT) 14 0-55 U/L Alkaline Phosphatase 52 40-136 U/L Troponin I < 0.028 <0.028 NG/ML C-Reactive Protein High Sensitivity 9.99 H 0.00-0.50 MG/DL Total Protein 6.5 6.4-8.2 GM/DL Albumin 3.3 3.2-4.5 GM/DL B-Type Natriuretic Peptide 1361.6 H <100.0 PG/ML Influenza Type A (RT-PCR) Not Detected Not Detecte Influenza Type B (RT-PCR) Not Detected Not Detecte SARS-CoV-2 RNA (RT-PCR) Not Detected Not Detecte Urine Color YELLOW Urine Clarity CLEAR Urine pH 7.0 5-[address] [place] 1.025 H 1.016-1.022 Urine Protein 1+ H NEGATIVE Urine Glucose (UA) NEGATIVE NEGATIVE Urine Ketones NEGATIVE NEGATIVE Urine Nitrite NEGATIVE NEGATIVE Urine Bilirubin NEGATIVE NEGATIVE Urine Urobilinogen 1.0 < = 1.0 MG/DL Urine Leukocyte Esterase NEGATIVE NEGATIVE Urine RBC (Auto) NEGATIVE NEGATIVE Urine RBC NONE /HPF Urine WBC RARE /HPF Urine Squamous Epithelial Cells RARE /HPF Urine Crystals NONE /LPF Urine Bacteria TRACE /HPF Urine Casts NONE /LPF Urine Mucus NEGATIVE /LPF Urine Culture Indicated CULTURE PENDING Test 03/15/23 05:31 Range/Units White Blood Count 12.4 H 4.3-11.0 10^3/uL Red Blood Count 3.49 L 4.30-5.52 10^6/uL Hemoglobin 10.1 L 13.3-17.7 g/dL Hematocrit 32 L 40-54 % Mean Corpuscular Volume 91 80-99 fL Mean Corpuscular Hemoglobin 29 25-34 pg Mean Corpuscular Hemoglobin Concent 32 32-36 g/dL Red Cell Distribution Width 13.8 10.0-14.5 % Platelet Count 285 130-400 10^3/uL Mean Platelet Volume 9.7 9.0-12.2 fL Immature Granulocyte % (Auto) 1 % Neutrophils (%) (Auto) 75 42-75 % Lymphocytes (%) (Auto) 13 12-44 % Monocytes (%) (Auto) 10 0-12 % Eosinophils (%) (Auto) 1 0-10 % Basophils (%) (Auto) 0 0-10 % Neutrophils # (Auto) 9.3 H 1.8-7.8 10^3/uL Lymphocytes # (Auto) 1.6 1.0-4.0 10^3/uL Monocytes # (Auto) 1.2 H 0.0-1.0 10^3/uL Eosinophils # (Auto) 0.1 0.0-0.3 10^3/uL Basophils # (Auto) 0.0 0.0-0.1 10^3/uL Immature Granulocyte # (Auto) 0.2 H 0.0-0.1 10^3/uL My Orders Orders - DAGOBERTO BERRY MD Ekg Tracing (03/14/23 13:04) Covid 19 Inhouse Test (03/14/23 13:13) Influenza A And B By Pcr (03/14/23 13:13) Cbc With Automated Diff (03/14/23 13:17) Comprehensive Metabolic Panel (03/14/23 13:17) Blood Culture (03/14/23 13:17) Sputum Culture (03/14/23 13:17) Urinalysis (03/14/23 13:17) Urine Culture (03/14/23 13:17) Protime With Inr (03/14/23 13:17) Partial Thromboplastin Time (03/14/23 13:17) Chest 1 View, Ap/Pa Only (03/14/23 13:17) Ed Iv/Invasive Line Start (03/14/23 13:17) Vital Signs Adult Sepsis Patie Q15M (03/14/23 13:17) O2 (03/14/23 13:17) Remove Rings In Anticipation O (03/14/23 13:17) Lactic Acid Analyzer (03/14/23 13:17) Hs C Reactive Protein (03/14/23 13:17) Bnp Carlos (03/14/23 14:18) Troponin I Mathews (03/14/23 14:18) Ceftriaxone Iv/Im (Rocephin Iv/Im) (03/14/23 14:28) Ed Admission (Communication) (03/14/23 14:40) Code/Resuscitation (03/14/23 14:40) Vital Signs/I&O 03/15/23 03/15/23 03/15/23 03/15/23 02:24 03:41 07:31 07:33 Temp 37.0 36.7 Pulse 86 78 Resp 16 18 B/P (MAP) 123/60 (81) 121/60 (80) Pulse Ox 98 93 92 O2 Delivery Nasal Cannula Nasal Cannula Nasal Cannula Nasal Cannula O2 Flow Rate 2.00 3.00 3.00 2.00 03/15/23 03/15/23 08:00 11:57 Temp 36.8 Pulse 86 Resp 18 B/P (MAP) 120/56 (77) Pulse Ox 93 O2 Delivery Room Air Nasal Cannula O2 Flow Rate 4.00 Capillary Refill : Less Than 3 Seconds Blood Pressure Mean: 80 Progress Note : Progress Note Patient was interviewed and examined. He is essentially not improving on outpatient therapy for pneumonia. He was thoroughly evaluated with labs and chest x-ray. X-ray showed progression of right lower lobe infiltrates based on my interpretation and review of radiologist report. CBC demonstrated slight anemia but was otherwise unremarkable. CMP was unremarkable. CRP was moderately elevated. COVID and influenza swabs were negative. Lactic acid was normal. Urinalysis was unremarkable. Prior blood and sputum cultures were reviewed and were positive for haemophilus influenza. He has not had satisfactory improvement on Levaquin outpatient. Rocephin was added based on culture results. Troponin was negative and EKG showed no acute ischemic changes. I discussed CODE STATUS with the patient and he requested a DNR. Case was reviewed with Dr. Young who agrees to admission. Labs and x-rays were reviewed in their entirety and interpreted by me. ECG Initial ECG Impression Date: Mar 14, 2023 Initial ECG Impression Time: 13:10 Initial ECG Rate: 95 Initial ECG Rhythm: Normal Sinus Comment Sinus rhythm bordering on tachycardia. Subtle ST changes are similar to prior and not interpreted as acute ischemia. No significant abnormal intervals. ECG interpreted by me and compared with prior. Diagnostic Imaging Diagonstic Imaging: Xray Plain Films/CT/US/NM/MRI: chest Comments Chest x-ray was viewed and interpreted by me and compared with prior. I did a ppreciate increased opacity in the right lower lobe with concern for worsening pneumonia. Radiologist report was also reviewed as below: NAME: FARRAH DUDLEY [facility] REC#: [id number] PT STATUS: REG ER : 1950 PHYSICIAN: DAGOBERTO BERRY MD ADMIT DATE: 03/14/23/ER Signed Date of Exam:03/14/23 CHEST 1 VIEW, AP/PA ONLY EXAMINATION: Chest, 1 view. HISTORY: Pneumonia, SOA. COMPARISON: 03/11/2023. FINDINGS: Heart size and pulmonary vasculature are normal. There are patchy airspace opacities throughout the lungs, greatest within the right mid and lower lung. Right-sided port catheter and cardiac device are unchanged. No pleural effusion or pneumothorax. The osseous structures are intact. IMPRESSION: Mildly increased patchy airspace opacities within the lungs, greatest within the right mid and lower lung, concerning for pneumonia. Dictated by: Dictated on workstation # [id number] Dict: 03/14/23 1346 Trans: 03/14/23 1409 [id number] Interpreted by: JARVIS JAMISON DO Electronically signed by: JARVIS JAMISON DO 03/14/23 1409 Departure Communication (Admissions) Time/Spoke to Admitting Phy: 14:25 Dr. Young Impression Primary Impression: Sepsis Qualified Codes: A41.3 - Sepsis due to hemophilus influenzae Additional Impressions: Pneumonia of right lower lobe due to infectious organism Lung cancer Qualified Codes: C34.90 - Malignant neoplasm of unspecified part of unspecified bronchus or lung Generalized weakness Chest tightness Disposition: ADMITTED INPATIENT Condition: Stable Admissions Decision to Admit Reason: Admit from ER (General) Decision to Admit/Date: Mar 14, 2023 Time/Decision to Admit Time: 14:25 Departure-Patient Inst. Referrals: KATHERIN GILMORE MD (PCP/Family) Primary Care Physician Copy Copies To 1: SONA MCKEON MD Copies To 2: KATHERIN GILMORE MD, JOSHUA T MD Mar 14, 2023 14:33
[2023-03-14] MEDS ORDERED: CALCIUM CARBONATE 500 MG (TUMS) TAB.CHEW PO PRN (15:45)
[2023-03-14] MEDS ORDERED: LACTULOSE SYRUP 10GM/15ML (ENULOSE) 30ML UDC PO PRN (15:45)
[2023-03-14] MEDS ORDERED: ANTACID SUSP 30 ML UDC (MYLANTA) PO PRN (15:45)
[2023-03-14] MEDS ORDERED: ONDANSETRON 4 MG/2 ML (SDV) Z0FRAN IV PRN (15:45)
[2023-03-14] MEDS ORDERED: ACETAMINOPHEN 325 MG TABLET PO PRN (15:45)
[2023-03-14] MEDS ORDERED: polyethylene glycoL POWDER 17 GM (MIRALAX) PACK PO PRN (15:45)
[2023-03-14] MEDS ORDERED: MILK OF MAGNESIA 400 MG/5 ML 30 ML UDC PO PRN (15:45)
[2023-03-14] MEDS ORDERED: ONDANSETRON 4 MG (ZOFRAN) ORAL DISSOLVE TAB PO PRN (15:45)
[2023-03-14] MEDS ORDERED: BISACODYL 10 MG SUPP (DULCOLAX) PR PRN (15:45)
[2023-03-14 15:49] VITALS: BP 104/56
[2023-03-14 16:00] VITALS: BP 116/56
[2023-03-14] MEDS ORDERED: RT-ALBUTEROL/IPRATROPIUM 3 ML (DUONEB) VIAL INH PRN (16:00)
[2023-03-14] MEDS: ENOXAPARIN 40 MG/0.4 ML (LOVENOX) SYR SC SCH (16:51)
[2023-03-14] MEDS: NICOTINE 14 MG (NICODERM) PATCH TD SCH (16:51)
[2023-03-14] MEDS: RT-ALBUTEROL/IPRATROPIUM 3 ML (DUONEB) VIAL INH SCH ×2 (19:15→22:16)
[2023-03-14] MEDS: SENNOSIDES 8.6 MG (SENOKOT) TAB PO SCH (19:35)
[2023-03-14] MEDS: DOCUSATE SODIUM 100 MG (COLACE) CAP PO SCH (19:35)
[2023-03-14 19:56] VITALS: BP 117/53
[2023-03-14 23:32] VITALS: BP 136/59
[2023-03-15] MEDS: morphine ER 30 MG (MS CONTIN) TAB PO PRN ×2 (00:22→08:01)
[2023-03-15] MEDS: RT-ALBUTEROL/IPRATROPIUM 3 ML (DUONEB) VIAL INH SCH ×6 (02:24→22:42)
[2023-03-15 03:41] VITALS: BP 123/60
[2023-03-15 05:37] LABS: BASOPHILS % (AUTO) 0 % (0-10); EOSINOPHILS # (AUTO) 0.1 10^3/uL (0.0-0.3); EOSINOPHILS % (AUTO) 1 % (0-10); HEMATOCRIT 32 % (40-54); HEMOGLOBIN 10.1 g/dL (13.3-17.7); LYMPHOCYTES # (AUTO) 1.6 10^3/uL (1.0-4.0); LYMPHOCYTES % (AUTO) 13 % (12-44); MEAN CORPUSCULAR HEMOGLOBIN 29 pg (25-34); MEAN CORPUSCULAR HGB CONC 32 g/dL (32-36); MEAN CORPUSCULAR VOLUME 91 fL (80-99); MEAN PLATELET VOLUME 9.7 fL (9.0-12.2); MONOCYTES # (AUTO) 1.2 10^3/uL (0.0-1.0); MONOCYTES % (AUTO) 10 % (0-12); NEUTROPHILS # (AUTO) 9.3 10^3/uL (1.8-7.8); NEUTROPHILS % (AUTO) 75 % (42-75); PLATELET COUNT 285 10^3/uL (130-400); WHITE BLOOD COUNT 12.4 10^3/uL (4.3-11.0)
[2023-03-15] MEDS ORDERED: morphine ER 30 MG (MS CONTIN) TAB PO SCH (06:00)
[2023-03-15 07:31] VITALS: BP 121/60
[2023-03-15] MEDS: NICOTINE 14 MG (NICODERM) PATCH TD SCH (08:01)
[2023-03-15] MEDS: SENNOSIDES 8.6 MG (SENOKOT) TAB PO SCH ×2 (08:01→21:10)
[2023-03-15] MEDS: DOCUSATE SODIUM 100 MG (COLACE) CAP PO SCH ×2 (08:01→21:10)
[2023-03-15] MEDS: PATCH REMOVAL TP SCH (08:05)
[2023-03-15 11:57] VITALS: BP 120/56
[2023-03-15] MEDS ORDERED: NIVO240V IV (12:00)
[2023-03-15] MEDS ORDERED: SACU1TAB7 PO (12:00)
[2023-03-15] MEDS ORDERED: LEVO750T PO (12:00)
[2023-03-15] MEDS ORDERED: ASPI-1238 PO (12:00)
[2023-03-15] MEDS ORDERED: MORP15TA PO (12:00)
[2023-03-15] MEDS ORDERED: CARV12.53 PO (12:00)
[2023-03-15] MEDS ORDERED: ATOR20TA66 PO (12:00)
[2023-03-15] MEDS ORDERED: IPRA3AMP31 NEB (12:00)
[2023-03-15] MEDS ORDERED: POTA-179 PO (12:00)
[2023-03-15] MEDS ORDERED: ZOLE4VIA5 IV (12:00)
[2023-03-15] MEDS ORDERED: MORP-69 PO (12:00)
[2023-03-15] MEDS ORDERED: MIRT-47 PO (12:00)
--- NOTE | 2023-03-15 13:10 | History & Physical-Hospitalist ---
History of Present Illness HPI/Chief Complaint Pt is a 72yoCM with a PMH of lung cancer who presented to the ER due malaise. He has been feeling sick for a week. 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 He was seen in the ER a couple of days ago and sent home with oral antibiotics. Despite this he continued to feel poorly so presented back to the ER. His blood cultures from the previous visit were noted to be postivie so he was admitted for IV abx. He reports feeling better this morning though not yet back to normal. He reports he is currently receiving chemo but he is unsure when his last dose was but [facility] [place]. Source: patient Date Seen 03/15/23 Time Seen by a Provider: 13:05 Attending Physician Bradley Myers MD PCP Admitting Physician: Arlene Young MD Attending Physician: Arlene Young MD Referring Physician Date of Admission Mar 14, 2023 at 15:28 Home Medications & Allergies Home Medications Reviewed patient Home Medication Reconciliation performed by pharmacy medication reconciliations wiring technician and/or nursing. Patients Allergies have been reviewed. Allergies Allergies Coded Allergies cephalexin (Verified Allergy, Intermediate, Rash, 12/12/21) Past Ctfpfro-Gwdrcw-Ytjtre Hx Patient Social History Tobacco Use?: Yes Tobacco type used: Cigarettes Smoking Status: Current Everyday Smoker Smokeless Tobacco Frequency: Current Everyday User Use of E-Cig and/or Vaping dev: No Substance use?: No Alcohol Use?: No Pt feels they are or have been: No Immunizations Up To Date First/Initial COVID19 Vaccinat: APRIL 08, 2021 Second COVID19 Vaccination Terence: MAY 06, 2021 Tetanus Booster (TDap): Unknown Hepatitis A: No Hepatitis B: No Date of Pneumonia Vaccine: Dec 26, 2018 Seasonal Allergies Seasonal Allergies: No Current Status Advance Directives: No Communicates: Verbally Primary Language: Yemeni Preferred Spoken Language: Yemeni Is interpretation needed?: No Sensory deficits: Vision impairment Implanted or Applied Medical D: Pacemaker, Port-a-cath Past Medical History Surgeries: Coronary Stent, Defibrillator, Pacemaker COPD Currently Using CPAP: No Currently Using BIPAP: No Coronary Artery Disease, Heart Attack, High Cholesterol, Hypertension Hypothyroidsim What Type of Treatment Did You: Chemotherapy, Radiation Blood Disorders: No Review of Systems Constitutional: see HPI Physical Exam Physical Exam Vital Signs Vital Signs - First Documented 03/14/23 03/14/23 12:49 16:00 Temp 36.7 Pulse 102 Resp 21 B/P (MAP) 122/59 (80) Pulse Ox 94 O2 Delivery Nasal Cannula O2 Flow Rate 2.00 Capillary Refill : Less Than 3 Seconds Height, Weight, BMI Height: 5'6.00" Weight: 144lbs. 0.0oz. 65.299271av; 20.80 BMI Method:Stated General Appearance: No Apparent Distress, Thin Respiratory: Lungs Clear, No Respiratory Distress, Other (on 3lpm) Cardiovascular: Regular Rate, Rhythm, No Murmur Gastrointestinal: Normal Bowel Sounds, Non Tender, Soft Neurologic/Psychiatric: Alert, Oriented x3 Results Results/Procedures Labs Laboratory Tests 03/14/23 13:10 03/15/23 05:31 03/16/23 05:43 Patient resulted labs reviewed. Imaging: Reviewed Imaging Report Imaging [facility] [place] NAME: FARRAH DUDLEY [facility] REC#: [id number] PT STATUS: REG ER : 1950 PHYSICIAN: DAGOBERTO BERRY MD ADMIT DATE: 03/14/23/ER Signed Date of Exam:03/14/23 CHEST 1 VIEW, AP/PA ONLY EXAMINATION: Chest, 1 view. HISTORY: Pneumonia, SOA. COMPARISON: 03/11/2023. FINDINGS: Heart size and pulmonary vasculature are normal. There are patchy airspace opacities throughout the lungs, greatest within the right mid and lower lung. Right-sided port catheter and cardiac device are unchanged. No pleural effusion or pneumothorax. The osseous structures are intact. IMPRESSION: Mildly increased patchy airspace opacities within the lungs, greatest within the right mid and lower lung, concerning for pneumonia. Dictated by: Dictated on workstation # [id number] Dict: 03/14/23 1346 Trans: 03/14/23 1409 [id number] Interpreted by: JARVIS JAMISON DO Electronically signed by: JARVIS JAMISON DO 03/14/23 1409 Assessment/Plan Admission Diagnosis Sepsis Admission Status: Inpatient Order (span 2 midnights) Reason for Inpatient Admission: see below Assessment and Plan Sepsis due to Pneumonia with bacteremia Lung cancer Cancer related pain Chronic Respiratory failure on 2lpm Continue on IV abx Blood culture from 03/11 shows h.flu Repeat cultures today after 24 hours on abx Cancer Center notified by RN Continue home pain meds HTN CHF BP well controlled, continue entresto but hold BB and Imdur Continue ASA and Plavix Has AICD in place Hypothyroidism Continue synthroid Advance care planning Discussed code status with him, he requests to be a DNR/DNI and asks for his youngest brother to be his DPOA Offered Charcoal Unloader to see patient regarding Advance directive and he was agreeable to filling one out DVT ppx: Lovenox Diagnosis/Problems Diagnosis/Problems (1) Hypothyroidism Qualifiers: Hypothyroidism type: unspecified Qualified Codes: E03.9 - Hypothyroidism, unspecified (2) Bacteremia Status: Acute (3) Haemophilus influenzae pneumonia Status: Acute (4) Pneumonia of right lower lobe due to infectious organism Status: Acute (5) Lung cancer Status: Acute Qualifiers: Laterality: unspecified laterality Lung location: unspecified part of lung Qualified Codes: C34.90 - Malignant neoplasm of unspecified part of unspecified bronchus or lung (6) Sepsis Status: Acute Qualifiers: Sepsis type: Haemophilus influenzae Sepsis acute organ dysfunction status: without acute organ dysfunction Qualified Codes: A41.3 - Sepsis due to hemophilus influenzae (7) Generalized weakness Status: Acute (8) Bone metastases Status: Acute (9) Stage 4 lung cancer (10) PVD (peripheral vascular disease) Status: Chronic (11) Ischemic cardiomyopathy Status: Acute (12) Congestive heart failure Status: Acute CAROLINE MELÉNDEZ MD March 15, 2023 13:10
[2023-03-15] MEDS ORDERED: RT-ALBUTEROL/IPRATROPIUM 3 ML (DUONEB) VIAL INH PRN (13:30)
[2023-03-15] MEDS ORDERED: morphine IMMEDIATE RELEASE 15 MG TABLET PO PRN (13:30)
[2023-03-15] MEDS ORDERED: RT-ALBUTEROL SULF 2.5 MG/3 ML PRE-MIX VIAL INH PRN (13:30)
[2023-03-15] MEDS: cefTRIAXone INJ 2,000 MG in NS (IVPB) 50 ML IV SCH (14:12)
[2023-03-15] MEDS: ENOXAPARIN 40 MG/0.4 ML (LOVENOX) SYR SC SCH (14:12)
[2023-03-15] MEDS: morphine ER 30 MG (MS CONTIN) TAB PO SCH ×2 (14:12→21:11)
[2023-03-15 15:45] VITALS: BP 118/57
[2023-03-15 19:09] VITALS: BP 117/59
[2023-03-15] MEDS ORDERED: SACUBITRIL PO SCH (21:00)
[2023-03-15] MEDS ORDERED: [UNRECOGNIZED DRUG - OTHER] PO SCH (21:00)
[2023-03-15] MEDS ORDERED: VALSARTAN PO SCH (21:00)
[2023-03-15] MEDS: SACUBITRIL/VALSARTAN 24/26 MG (ENTRESTO) TABLET PO SCH (21:10)
[2023-03-15] MEDS: MELATONIN 3 MG TABLET PO PRN (21:15)
[2023-03-15 23:16] VITALS: BP 121/60
[2023-03-16] MEDS: RT-ALBUTEROL/IPRATROPIUM 3 ML (DUONEB) VIAL INH SCH ×6 (02:23→22:34)
[2023-03-16 03:44] VITALS: BP 119/56
[2023-03-16] MEDS: KCL 20 MEQ TAB (K-DUR) PO SCH (05:38)
[2023-03-16] MEDS: morphine ER 30 MG (MS CONTIN) TAB PO SCH ×3 (05:38→22:36)
[2023-03-16] MEDS: LEVOTHYROXINE 50 MCG (LEVOTHROID) TAB PO SCH (05:38)
[2023-03-16 06:06] LABS: BASOPHILS % (AUTO) 0 % (0-10); EOSINOPHILS # (AUTO) 0.2 10^3/uL (0.0-0.3); EOSINOPHILS % (AUTO) 2 % (0-10); HEMATOCRIT 33 % (40-54); HEMOGLOBIN 10.4 g/dL (13.3-17.7); LYMPHOCYTES # (AUTO) 1.1 10^3/uL (1.0-4.0); LYMPHOCYTES % (AUTO) 10 % (12-44); MEAN CORPUSCULAR HEMOGLOBIN 29 pg (25-34); MEAN CORPUSCULAR HGB CONC 32 g/dL (32-36); MEAN CORPUSCULAR VOLUME 92 fL (80-99); MEAN PLATELET VOLUME 10.1 fL (9.0-12.2); MONOCYTES # (AUTO) 0.9 10^3/uL (0.0-1.0); MONOCYTES % (AUTO) 9 % (0-12); NEUTROPHILS # (AUTO) 8.3 10^3/uL (1.8-7.8); NEUTROPHILS % (AUTO) 78 % (42-75); PLATELET COUNT 331 10^3/uL (130-400); WHITE BLOOD COUNT 10.6 10^3/uL (4.3-11.0)
[2023-03-16 06:12] LABS: CALCIUM 8.7 MG/DL (8.5-10.1); CREATININE SERUM 0.66 MG/DL (0.60-1.30); POTASSIUM 4.2 MMOL/L (3.6-5.0)
[2023-03-16] MEDS: SENNOSIDES 8.6 MG (SENOKOT) TAB PO SCH ×2 (09:00→19:49)
[2023-03-16] MEDS: SACUBITRIL/VALSARTAN 24/26 MG (ENTRESTO) TABLET PO SCH ×2 (09:00→19:50)
[2023-03-16] MEDS: FUROSEMIDE 40 MG (LASIX) TAB PO SCH (09:00)
[2023-03-16] MEDS: DOCUSATE SODIUM 100 MG (COLACE) CAP PO SCH ×2 (09:00→19:49)
[2023-03-16] MEDS: ASPIRIN E.C. 81 MG (ECOTRIN) TAB PO SCH (09:00)
[2023-03-16] MEDS: CLOPIDOGREL 75 MG (PLAVIX) TABLET PO SCH (09:00)
[2023-03-16] MEDS: NICOTINE 14 MG (NICODERM) PATCH TD SCH (09:00)
[2023-03-16] MEDS: PATCH REMOVAL TP SCH (09:00)
--- NOTE | 2023-03-16 11:33 | Progress Note - Hospitalist ---
Subjective HPI/CC On Admission Date Seen by Provider: March 16, 2023 Pt is a 72yoCM with a PMH of lung cancer who presented to the ER due malaise. He has been feeling sick for a week. 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 He was seen in the ER a couple of days ago and sent home with oral antibiotics. Despite this he continued to feel poorly so presented back to the ER. His blood cultures from the previous visit were noted to be postivie so he was admitted for IV abx. He reports feeling better this morning though not yet back to normal. He reports he is currently receiving chemo but he is unsure when his last dose was but he follows [facility] Dr Loving. Subjective/Events-last exam Pt reports doing much better today. No complaints. Focused Exam Lactate Level 03/14/23 13:10: Lactic Acid Level 0.74 Objective Exam Vital Signs Vital Signs Date Time Temp Pulse Resp B/P (MAP) Pulse Ox O2 Delivery O2 Flow Rate FiO2 03/16/23 03:44 36.9 78 18 119/56 (77) 97 Nasal Cannula 4.00 Capillary Refill : Less Than 3 Seconds General Appearance: No Apparent Distress Respiratory: Lungs Clear, No Respiratory Distress Cardiovascular: Regular Rate, Rhythm, No Murmur Neurologic/Psychiatric: Alert, Oriented x3 Results/Procedures Lab Laboratory Tests 03/16/23 05:43 Patient resulted labs reviewed. Imaging: Reviewed Imaging Report Assessment/Plan Assessment and Plan Assess & Plan/Chief Complaint Sepsis due to Pneumonia with bacteremia Lung cancer Cancer related pain Chronic Respiratory failure on 2lpm Continue on IV abx Blood culture from 03/11 shows h.flu Repeat cultures with NGTD but preliminary Cancer Center notified by RN Continue home pain meds Home tomorrow if cultures stay negative HTN CHF BP well controlled, continue entresto but hold BB and Imdur Continue ASA and Plavix Has AICD in place Hypothyroidism Continue synthroid Advance care planning Community Manager consulted for advance directive DVT ppx: Lovenox Diagnosis/Problems Diagnosis/Problems (1) Hypothyroidism Qualifiers: Hypothyroidism type: unspecified Qualified Codes: E03.9 - Hypothyroidism, unspecified (2) Bacteremia Status: Acute (3) Haemophilus influenzae pneumonia Status: Acute (4) Pneumonia of right lower lobe due to infectious organism Status: Acute (5) Lung cancer Status: Acute Qualifiers: Laterality: unspecified laterality Lung location: unspecified part of lung Qualified Codes: C34.90 - Malignant neoplasm of unspecified part of unspecified bronchus or lung (6) Sepsis Status: Acute Qualifiers: Sepsis type: Haemophilus influenzae Sepsis acute organ dysfunction status: without acute organ dysfunction Qualified Codes: A41.3 - Sepsis due to hemophilus influenzae (7) Generalized weakness Status: Acute (8) Bone metastases Status: Acute (9) Stage 4 lung cancer (10) PVD (peripheral vascular disease) Status: Chronic (11) Ischemic cardiomyopathy Status: Acute (12) Congestive heart failure Status: Acute CAROLINE MELÉNDEZ MD March 16, 2023 11:33
[2023-03-16] MEDS: cefTRIAXone INJ 2,000 MG in NS (IVPB) 50 ML IV SCH (14:00)
[2023-03-16] MEDS: ENOXAPARIN 40 MG/0.4 ML (LOVENOX) SYR SC SCH (16:00)
[2023-03-16 16:04] VITALS: BP 91/50
[2023-03-16 18:25] VITALS: BP 115/54
[2023-03-16] MEDS: MELATONIN 3 MG TABLET PO PRN (19:49)
[2023-03-16 20:55] VITALS: BP 91/55
[2023-03-16 23:05] VITALS: BP 100/51
[2023-03-17] MEDS: RT-ALBUTEROL/IPRATROPIUM 3 ML (DUONEB) VIAL INH SCH ×3 (02:35→10:00)
[2023-03-17 03:39] VITALS: BP 95/52
[2023-03-17 04:28] LABS: BASOPHILS % (AUTO) 0 % (0-10); EOSINOPHILS # (AUTO) 0.3 10^3/uL (0.0-0.3); EOSINOPHILS % (AUTO) 3 % (0-10); HEMATOCRIT 32 % (40-54); HEMOGLOBIN 10.2 g/dL (13.3-17.7); LYMPHOCYTES # (AUTO) 1.1 10^3/uL (1.0-4.0); LYMPHOCYTES % (AUTO) 9 % (12-44); MEAN CORPUSCULAR HEMOGLOBIN 29 pg (25-34); MEAN CORPUSCULAR HGB CONC 32 g/dL (32-36); MEAN CORPUSCULAR VOLUME 91 fL (80-99); MEAN PLATELET VOLUME 9.7 fL (9.0-12.2); MONOCYTES # (AUTO) 0.8 10^3/uL (0.0-1.0); MONOCYTES % (AUTO) 7 % (0-12); NEUTROPHILS # (AUTO) 9.4 10^3/uL (1.8-7.8); NEUTROPHILS % (AUTO) 80 % (42-75); PLATELET COUNT 336 10^3/uL (130-400); WHITE BLOOD COUNT 11.7 10^3/uL (4.3-11.0)
[2023-03-17 04:42] LABS: CREATININE SERUM 0.71 MG/DL (0.60-1.30); POTASSIUM 4.4 MMOL/L (3.6-5.0)
[2023-03-17] MEDS: LEVOTHYROXINE 50 MCG (LEVOTHROID) TAB PO SCH (05:23)
[2023-03-17] MEDS: KCL 20 MEQ TAB (K-DUR) PO SCH (05:23)
[2023-03-17] MEDS: morphine ER 30 MG (MS CONTIN) TAB PO SCH ×2 (05:23→14:24)
[2023-03-17 07:55] VITALS: BP 99/58
[2023-03-17] MEDS: SENNOSIDES 8.6 MG (SENOKOT) TAB PO SCH (09:00)
[2023-03-17] MEDS: FUROSEMIDE 40 MG (LASIX) TAB PO SCH (09:00)
[2023-03-17] MEDS: NICOTINE 14 MG (NICODERM) PATCH TD SCH (09:00)
[2023-03-17] MEDS: ASPIRIN E.C. 81 MG (ECOTRIN) TAB PO SCH (09:00)
[2023-03-17] MEDS: PATCH REMOVAL TP SCH (09:00)
[2023-03-17] MEDS: SACUBITRIL/VALSARTAN 24/26 MG (ENTRESTO) TABLET PO SCH (09:00)
[2023-03-17] MEDS: CLOPIDOGREL 75 MG (PLAVIX) TABLET PO SCH (09:00)
[2023-03-17] MEDS: DOCUSATE SODIUM 100 MG (COLACE) CAP PO SCH (09:00)
--- NOTE | 2023-03-17 11:05 | Discharge Summary ---
Diagnosis/Chief Complaint Date of Admission Mar 14, 2023 at 15:28 Date of Discharge Admission Diagnosis Sepsis Primary Care Bradley Myers MD Discharge Diagnosis (1) Hypothyroidism (2) Bacteremia Status: Acute (3) Haemophilus influenzae pneumonia Status: Acute (4) Pneumonia of right lower lobe due to infectious organism Status: Acute (5) Lung cancer Status: Acute (6) Sepsis Status: Acute (7) Generalized weakness Status: Acute (8) Bone metastases Status: Acute (9) Stage 4 lung cancer (10) PVD (peripheral vascular disease) Status: Chronic (11) Ischemic cardiomyopathy Status: Acute (12) Congestive heart failure Status: Acute Discharge Summary Discharge Physical Exam Allergies: Coded Allergies: cephalexin (Verified Allergy, Intermediate, Rash, 12/12/21) Vitals & I&Os Vital Signs Date Time Temp Pulse Resp B/P (MAP) Pulse Ox O2 Delivery O2 Flow Rate FiO2 03/17/23 16:38 36.6 91 20 107/53 97 Room Air 2.00 General Appearance: No Apparent Distress, Thin Respiratory: Lungs Clear, No Respiratory Distress Cardiovascular: Regular Rate, Rhythm Neurologic/Psychiatric: Alert, Oriented x3 Hospital Course Patient was admitted to the hospital secondary to sepsis due to pneumonia and haemophilus influenza bacteremia. He was treated with Levaquin as an outpatient but failed outpatient management. He was treated with IV antibiotics and improved. Repeat blood cultures were drawn as he has a port to ensure clearance of bacteremia. Repeat blood cultures were negative x2 days upon discharge. He was discharged in stable and improved condition to follow-up with his primary care provider, Dr. Myers and with his primary oncologist Dr. Loving. Handwritten prescription for Augmentin was sent due to downtime. Labs (last 24 hrs) Microbiology 03/15/23 Blood Culture - Preliminary, Resulted No growth 03/14/23 Urine Culture - Final, Complete NO GROWTH Patient resulted labs reviewed. Pending Labs Imaging: Reviewed Imaging Report Discussion & Recommendations Discharge Planning: >30 minutes discharge planning Discharge Home Medications: Active Scripts Active Reported Zoledronic Acid 4 Mg Vial 3.3 Mg IV EVERY 12 WEEKS Opdivo (Nivolumab) 240 Mg/24 Ml Vial 480 Mg IV EVERY 4 WEEKS Aspirin EC (Aspirin) 81 Mg Tablet.dr 81 Mg PO DAILY Mirtazapine 15 Mg Tab.rapdis 15 Mg PO HS PRN Carvedilol 12.5 Mg Tablet 12.5 Mg PO BID Potassium Chloride 20 Meq Tab.er.prt 20 Meq PO DAILY Entresto 49 mg-51 mg Tablet (Sacubitril/Valsartan) 49 Mg-51 Mg Tablet 1 Ea PO BID Morphine Sulfate ER (Morphine Sulfate) 30 Mg Tablet.er 30 Mg PO Q8H Morphine Sulfate IR Tablet (Morphine Sulfate) 15 Mg Tablet 15 Mg PO Q6H PRN Atorvastatin Calcium 20 Mg Tablet 20 Mg PO DAILY Levofloxacin 750 Mg Tablet 750 Mg PO DAILY FILLED 03-11-2023 #7/ DAY SUPPLY Iprat-Albut 0.5-3(2.5) mg/3 ml (Ipratropium/Albuterol Sulfate) 0.5 Mg-3 Mg (2.5 Mg Base)/3 Ml Ampul.neb 3 Ml NEB Q8H PRN Isosorbide Mononitrate ER (Isosorbide Mononitrate) 30 Mg Tab.er.24h 30 Mg PO DAILY Clopidogrel (Clopidogrel Bisulfate) 75 Mg Tablet 75 Mg PO DAILY Levothyroxine Sodium 50 Mcg Tablet 50 Mcg PO DAILY Ventolin Hfa (Albuterol Sulfate) 1 Puff Puff 2 Puff INH Q6H PRN Furosemide 40 Mg Tablet 40 Mg PO DAILY Nitroglycerin 0.4 Mg Tab.subl 0.4 Mg SL UD PRN Instructions to patient/family Please see electronic discharge instructions given to patient. Problem Qualifiers (1) Hypothyroidism: Hypothyroidism type: unspecified Qualified Codes: E03.9 - Hypothyroidism, unspecified (2) Lung cancer: Laterality: unspecified laterality Lung location: unspecified part of lung Qualified Codes: C34.90 - Malignant neoplasm of unspecified part of unspecified bronchus or lung (3) Sepsis: Sepsis type: Haemophilus influenzae Sepsis acute organ dysfunction status: without acute organ dysfunction Qualified Codes: A41.3 - Sepsis due to hemoph ilus influenzae CAROLINE MELÉNDEZ MD March 17, 2023 11:05
[2023-03-17 12:31] VITALS: BP 107/53
[2023-03-17] MEDS: cefTRIAXone INJ 2,000 MG in NS (IVPB) 50 ML IV SCH (14:14)
[2023-03-17 16:38] VITALS: BP 107/53
--- NOTE | 2023-03-17 18:06 | Physician Query Clarification ---
Physician Query-General Query to Physician: The medical record reflects the following clinical evidence: Clinical Indicators: Admitted with sepsis due to pneumonia, Hx Lung cancer on chemo, No documentation of home 02 use Risk Factor(s): Has been on oxygen for the most part since admission maximum of 4 L, lowest O2 sat recorded was 92% this was on 2 L (P/F = 232), and 94% on 4L (P/F=203) Respiratory rate 21 on admission has been 18-20 consistently, no documentation of respiratory symptoms but has Malaise, weakness and fatigue on admission Treatment: Supplemental 02, Nebs: Duoneb, and IV ABX, Respiratory monitoring, Acute respiratory failure, present on admission Other explanation of clinical findings Unable to determine (no explanation for clinical findings) Please clarify and document your clinical opinion in the progress notes and discharge summary including the definitive and/or presumptive diagnosis, (suspected or probable), related to the above clinical findings. Please include clinical findings supporting your diagnosis. Tayla Paul MSN, RN Clinical Senior Materials Scientist [phone] [email or web address] PHYSICIAN RESPONSE: Based on the clinical findings in the record, please respond to the query above on this document as an addendum. Physician Response: Physician Response Chronic respiratory failure with 2lpm baseline oxygen requirement If you have questions please contact: Line Builder: Ext: Thank you for your time and cooperation. Clinical Senior Materials Scientist/Line Builder This is a permanent part of the medical record TAYLA PAUL March 17, 2023 18:06 CAROLINE MELÉNDEZ MD March 18, 2023 13:04
== END 2023-03-17 16:30 | disposition home or self-care (01) | DRG 871 ==
LOC: EDUNIT# 12:44 → ER 12:47 → 4TH 15:28
PROVIDERS: ADMIT Internal Medicine; ATTEND Internal Medicine
DX: A41.3 Sepsis due to Hemophilus influenzae (principal); J14 Pneumonia due to Hemophilus influenzae; C34.90 Malignant neoplasm of unspecified part of unspecified bronchus or lung; J96.10 Chronic respiratory failure, unspecified whether with hypoxia or hypercapnia; C79.51 Secondary malignant neoplasm of bone; I42.9 Cardiomyopathy, unspecified; Z66 Do not resuscitate; I11.0 Hypertensive heart disease with heart failure; I50.9 Heart failure, unspecified; E78.00 Pure hypercholesterolemia, unspecified; I25.10 Atherosclerotic heart disease of native coronary artery without angina pectoris; E03.9 Hypothyroidism, unspecified; F17.210 Nicotine dependence, cigarettes, uncomplicated; G89.3 Neoplasm related pain (acute) (chronic); I49.3 Ventricular premature depolarization; Z20.822 Contact with and (suspected) exposure to COVID-19; I25.2 Old myocardial infarction; Z95.810 Presence of automatic (implantable) cardiac defibrillator; Z95.5 Presence of coronary angioplasty implant and graft; Z79.890 Hormone replacement therapy; Z79.82 Long term (current) use of aspirin; Z79.02 Long term (current) use of antithrombotics/antiplatelets; Z99.81 Dependence on supplemental oxygen; Z95.1 Presence of aortocoronary bypass graft; Z79.899 Other long term (current) drug therapy
CPT/HCPCS: 36415; 71045; 80048; 80053; 81000; 83605; 83880; 84484; 85025; 85610; 85730; 86141; 87040; 87088; 87636; 93005; 94640; 94664; 94760; 96374

== ENCOUNTER → 2023-03-24 | Outpatient (CLI) | payer MEDICARE ==
[~2023-03-24] MED LIST changes: +CEFD300C3 PO; +IPRA3AMP31 NEB; +MIRT-47 PO; +MORP-69 PO; +MORP15TA PO; +MORP60TA69 PO; +NIVO240V IV; +POTA-179 PO; +SACU1TAB7 PO; +ZOLE4VIA5 IV
== END ==
LOC: LAB 10:06
PROVIDERS: ATTEND Internal Medicine Cardiovascular Disease
DX: Z53.9 Procedure and treatment not carried out, unspecified reason (principal)

== ENCOUNTER 2023-03-29 08:53 | Outpatient (RCR) | payer MEDICARE ==
[2023-03-24 09:44] LABS: BASOPHILS # (AUTO) 0.1 10^3/uL (0.0-0.1); BASOPHILS % (AUTO) 1 % (0-10); EOSINOPHILS # (AUTO) 0.3 10^3/uL (0.0-0.3); EOSINOPHILS % (AUTO) 2 % (0-10); HEMATOCRIT 36 % (40-54); HEMOGLOBIN 11.6 g/dL (13.3-17.7); LYMPHOCYTES # (AUTO) 1.9 10^3/uL (1.0-4.0); LYMPHOCYTES % (AUTO) 15 % (12-44); MEAN CORPUSCULAR HEMOGLOBIN 29 pg (25-34); MEAN CORPUSCULAR HGB CONC 32 g/dL (32-36); MEAN CORPUSCULAR VOLUME 90 fL (80-99); MEAN PLATELET VOLUME 9.5 fL (9.0-12.2); MONOCYTES # (AUTO) 0.8 10^3/uL (0.0-1.0); MONOCYTES % (AUTO) 6 % (0-12); NEUTROPHILS # (AUTO) 9.6 10^3/uL (1.8-7.8); NEUTROPHILS % (AUTO) 76 % (42-75); PLATELET COUNT 541 10^3/uL (130-400); WHITE BLOOD COUNT 12.6 10^3/uL (4.3-11.0)
[2023-03-24 10:01] LABS: ALBUMIN 3.5 GM/DL (3.2-4.5); BILIRUBIN,TOTAL 0.2 MG/DL (0.1-1.0); CALCIUM 8.8 MG/DL (8.5-10.1); CREATININE SERUM 0.85 MG/DL (0.60-1.30); TOTAL PROTEIN 6.7 GM/DL (6.4-8.2)
[~2023-03-29 08:53] MED LIST changes: -CEFD300C3 PO; +HEParin (CENTRAL IV FLUSH) 500 UNIT/5 ML SYR IV PRN; -MORP60TA69 PO; +NIVOLUMAB 480 MG in NS (IVPB) 100 ML IV SCH; +NS IV 500 ML 500 ML IV SCH; +NS IV SCH; +ZOLEDRONIC ACID IV SCH
[2023-03-29 09:10] LABS: BASOPHILS # (AUTO) 0.1 10^3/uL (0.0-0.1); BASOPHILS % (AUTO) 1 % (0-10); EOSINOPHILS # (AUTO) 0.3 10^3/uL (0.0-0.3); EOSINOPHILS % (AUTO) 3 % (0-10); HEMATOCRIT 33 % (40-54); HEMOGLOBIN 10.5 g/dL (13.3-17.7); LYMPHOCYTES % (AUTO) 18 % (12-44); MEAN CORPUSCULAR HEMOGLOBIN 29 pg (25-34); MEAN CORPUSCULAR HGB CONC 32 g/dL (32-36); MEAN CORPUSCULAR VOLUME 91 fL (80-99); MEAN PLATELET VOLUME 9.5 fL (9.0-12.2); MONOCYTES % (AUTO) 9 % (0-12); NEUTROPHILS # (AUTO) 7.7 10^3/uL (1.8-7.8); NEUTROPHILS % (AUTO) 69 % (42-75); PLATELET COUNT 403 10^3/uL (130-400); WHITE BLOOD COUNT 11.1 10^3/uL (4.3-11.0)
[2023-03-29 09:28] LABS: ALBUMIN 3.7 GM/DL (3.2-4.5); BILIRUBIN,TOTAL 0.3 MG/DL (0.1-1.0); CALCIUM 9.3 MG/DL (8.5-10.1); CREATININE SERUM 1.67 MG/DL (0.60-1.30); POTASSIUM 4.8 MMOL/L (3.6-5.0); TOTAL PROTEIN 6.7 GM/DL (6.4-8.2)
[2023-03-29] MEDS ORDERED: NS IV 1000 ML 1,000 ML ONE (09:55)
[2023-04-07] MEDS ORDERED: MORP60TA69 PO (10:01)
[2023-04-08] MEDS ORDERED: CEFD300C3 PO (11:23)
== END 2023-04-14 | disposition home or self-care (01) ==
LOC: ONC 08:53
PROVIDERS: ATTEND Internal Medicine Hematology & Oncology
DX: C34.91 Malignant neoplasm of unspecified part of right bronchus or lung (principal); C79.51 Secondary malignant neoplasm of bone; J44.9 Chronic obstructive pulmonary disease, unspecified; I25.10 Atherosclerotic heart disease of native coronary artery without angina pectoris; J96.10 Chronic respiratory failure, unspecified whether with hypoxia or hypercapnia; I50.9 Heart failure, unspecified; Z72.0 Tobacco use
CPT/HCPCS: 36415; 36591; 80053; 80061; 85025; 96360; 96361

== ENCOUNTER 2023-04-06 14:33 | Inpatient (IN) | payer MEDICARE ==
[2023-04-06] VITALS (14 sets, daily range): BP systolic 91–132; BP diastolic 41–79
[~2023-04-06] VITALS: Ht 170 cm; Wt 56.8 kg
[~2023-04-06 14:33] MED LIST changes: -HEParin (CENTRAL IV FLUSH) 500 UNIT/5 ML SYR IV PRN; -NIVOLUMAB 480 MG in NS (IVPB) 100 ML IV SCH; -NS IV 500 ML 500 ML IV SCH; -NS IV SCH; -ZOLEDRONIC ACID IV SCH
[2023-04-06] MEDS ORDERED: CLOPIDOGREL 75 MG (PLAVIX) TABLET PO ONE (14:45)
[2023-04-06] MEDS ORDERED: ASPIRIN 81 MG CHEW (CHILDREN'S ASA) PO ONE (14:45)
--- NOTE | 2023-04-06 14:50 | ED Chest Pain ---
General Chief Complaint: Chest Pain Stated Complaint: CHEST PAIN; SOB Source: patient, family, old records Exam Limitations: no limitations History of Present Illness Date Seen by Provider: April 06, 2023 Time Seen by Provider: 14:34 Initial Comments 72-year-old male with past medical history of chronic hypoxic respiratory failure on baseline 2 L oxygen, CAD with stenting, COPD, CHF, lung cancer coming in due to chest pain and shortness of breath. Started roughly 30 minutes prior to arrival, constant, center of his chest, sharp. He states it feels similar to when he had a heart attack before, but he is unsure. He has not had his aspirin or Plavix yet today. Denies any prior history of DVT or PE, no lower extremity swelling or pain, no recent surgery. Last had chemo about a month ago. Otherwise denying any other acute complaints. Allergies and Home Medications Allergies Coded Allergies: cephalexin (Verified Allergy, Intermediate, Rash, 12/12/21) Patient Home Medication List Home Medication List Reviewed: Yes Albuterol Sulfate (Ventolin Hfa) 1 Puff Puff, 2 PUFF INH Q6H PRN for SHORTNESS OF BREATH, (Reported) Entered as Reported by: MICA FAIRCHILD on 02/23/19934 Aspirin (Aspirin EC) 81 Mg Tablet.dr, 81 MG PO DAILY, (Reported) Entered as Reported by: JERILYN LISA on 03/15/23 1200 Atorvastatin Calcium (Atorvastatin Calcium) 20 Mg Tablet, 20 MG PO DAILY, (Reported) Entered as Reported by: JERILYN LISA on 03/15/23 1200 Carvedilol (Carvedilol) 12.5 Mg Tablet, 12.5 MG PO BID, (Reported) Entered as Reported by: JERILYN LISA on 03/15/23 1200 Clopidogrel Bisulfate (Clopidogrel) 75 Mg Tablet, 75 MG PO DAILY, (Reported) Entered as Reported by: MICA FAIRCHILD on 02/23/19934 Furosemide (Furosemide) 40 Mg Tablet, 40 MG PO DAILY, (Reported) Entered as Reported by: MICA FAIRCHILD on 02/23/19934 Ipratropium/Albuterol Sulfate (Iprat-Albut 0.5-3(2.5) mg/3 ml) 0.5 Mg-3 Mg (2.5 Mg Base)/3 Ml Ampul.neb, 3 ML NEB Q8H PRN for SHORTNESS OF BREATH, (Reported) Entered as Reported by: JERILYN LISA on 03/15/23 1200 Isosorbide Mononitrate (Isosorbide Mononitrate ER) 30 Mg Tab.er.24h, 30 MG PO DAILY, (Reported) Entered as Reported by: JAYSON PHOENIX on 06/28/19 1215 Levofloxacin (Levofloxacin) 750 Mg Tablet, 750 MG PO DAILY, (Reported) Entered as Reported by: JERILYN LISA on 03/15/23 1200 Levothyroxine Sodium (Levothyroxine Sodium) 50 Mcg Tablet, 50 MCG PO DAILY, (Reported) Entered as Reported by: MICA FAIRCHILD on 02/23/19 0935 Mirtazapine (Mirtazapine) 15 Mg Tab.rapdis, 15 MG PO HS PRN for SLEEP, (Reported) Entered as Reported by: JERILYN LISA on 03/15/23 1200 Morphine Sulfate (Morphine Sulfate IR Tablet) 15 Mg Tablet, 15 MG PO Q6H PRN for PAIN-SEVERE (8-10), (Reported) Entered as Reported by: JERILYN LISA on 03/15/23 1200 Morphine Sulfate (Morphine Sulfate ER) 30 Mg Tablet.er, 30 MG PO Q8H, (Reported) Entered as Reported by: JERILYN LISA on 03/15/23 1200 Nitroglycerin (Nitroglycerin) 0.4 Mg Tab.subl, 0.4 MG SL UD PRN for CHEST PAIN (ANGINA), (Reported) Entered as Reported by: MICA FAIRCHILD on 02/23/19 0935 Nivolumab (Opdivo) 240 Mg/24 Ml Vial, 480 MG IV EVERY 4 WEEKS, (Reported) Entered as Reported by: JERILYN LISA on 03/15/23 1200 Potassium Chloride (Potassium Chloride) 20 Meq Tab.er.prt, 20 MEQ PO DAILY, (Reported) Entered as Reported by: JERILYN LISA on 03/15/23 1200 Sacubitril/Valsartan (Entresto 49 mg-51 mg Tablet) 49 Mg-51 Mg Tablet, 1 EA PO BID, (Reported) Entered as Reported by: JERILYN LISA on 03/15/23 1200 Zoledronic Acid (Zoledronic Acid) 4 Mg Vial, 3.3 MG IV EVERY 12 WEEKS, (Reported) Entered as Reported by: JERILYN LISA on 03/15/23 1200 Review of Systems Review of Systems Constitutional: No fever Respiratory: Cough (chronic), Shortness of Air Cardiovascular: Chest Pain Gastrointestinal: No Symptoms Reported Genitourinary: No Symptoms Reported Musculoskeletal: no symptoms reported Skin: no symptoms reported Psychiatric/Neurological: No Symptoms Reported Endocrine: No Symptoms Reported Hematologic/Lymphatic: No Symptoms Reported Past Rolejow-Vpwmhi-Xyaspr Hx Patient Social History Tobacco Use?: Yes Tobacco type used: Cigarettes Smoking Status: Current Everyday Smoker Use of E-Cig and/or Vaping dev: No Substance use?: No Alcohol Use?: No Pt feels they are or have been: No Immunizations Up To Date Tetanus Booster (TDap): Unknown First/Initial COVID19 Vaccinat: APRIL 08, 2021 Second COVID19 Vaccination Terence: MAY 06, 2021 Third COVID19 Vaccination Date: APRIL 08, 2021 Seasonal Allergies Seasonal Allergies: No Past Medical History Surgery/Hospitalization HX: Pacemaker/Defibrillator; Cardiac stents; AL; Heart failure; COPD; HTN; High Cholesterol; Stage 4 lung cancer with mets;CABG Surgeries: Yes (HEMORRHOIDS, DEFIB/PACEMAKER PLACEMENT, CARDIAC STENTS) Coronary Stent, Defibrillator, Pacemaker Respiratory: Yes (Lung cancer) COPD Currently Using CPAP: No Currently Using BIPAP: No Cardiac: Yes Coronary Artery Disease, Heart Attack, High Cholesterol, Hypertension Neurological: No Genitourinary: No Gastrointestinal: No Musculoskeletal: No Endocrine: Yes Hypothyroidsim HEENT: No Cancer: Yes (LUNG) What Type of Treatment Did You: Chemotherapy, Radiation Psychosocial: No Integumentary: No Blood Disorders: No Physical Exam Vital Signs Vital Signs - First Documented 04/06/23 14:33 Temp 36.7 Pulse 81 Resp 16 B/P (MAP) 127/56 (79) Pulse Ox 94 O2 Delivery Nasal Cannula O2 Flow Rate 2.50 Capillary Refill : Less Than 3 Seconds Height, Weight, BMI Height: 5'6.00" Weight: 144lbs. 0.0oz. 65.809153tf; 20.80 BMI Method:Stated General Appearance: WD/WN, Anxious HEENT: PERRL/EOMI, Normal ENT Inspection, Pharynx Normal Neck: Full Range of Motion, Normal Inspection, Non Tender, Supple Respiratory: Chest Non Tender, No Accessory Muscle Use, No Respiratory Distress, Wheezing Cardiovascular: Regular Rate, Rhythm, No Edema, Normal Peripheral Pulses Gastrointestinal: Normal Bowel Sounds, Non Tender, Soft; No Distended, No Guarding Extremity: Normal Capillary Refill, Normal Inspection, Normal Range of Motion, Non Tender, No Calf Tenderness, No Pedal Edema Neurologic/Psychiatric: Alert, No Motor/Sensory Deficits, Normal Mood/Affect Skin: Normal Color, Warm/Dry Focused Exam Lactate Level 04/06/23 14:45: Lactic Acid Level 0.83 Lactic Acid Level Laboratory Tests Test 04/06/23 14:45 Lactic Acid Level 0.83 MMOL/L (0.50-2.00) Progress/Results/Core Measures Results/Orders Lab Results Laboratory Tests Test 04/06/23 14:45 Range/Units White Blood Count 7.9 4.3-11.0 10^3/uL Red Blood Count 3.61 L 4.30-5.52 10^6/uL Hemoglobin 10.2 L 13.3-17.7 g/dL Hematocrit 33 L 40-54 % Mean Corpuscular Volume 91 80-99 fL Mean Corpuscular Hemoglobin 28 25-34 pg Mean Corpuscular Hemoglobin Concent 31 L 32-36 g/dL Red Cell Distribution Width 14.6 H 10.0-14.5 % Platelet Count 251 130-400 10^3/uL Mean Platelet Volume 9.7 9.0-12.2 fL Immature Granulocyte % (Auto) 1 % Neutrophils (%) (Auto) 60 42-75 % Lymphocytes (%) (Auto) 22 12-44 % Monocytes (%) (Auto) 9 0-12 % Eosinophils (%) (Auto) 8 0-10 % Basophils (%) (Auto) 1 0-10 % Neutrophils # (Auto) 4.8 1.8-7.8 10^3/uL Lymphocytes # (Auto) 1.7 1.0-4.0 10^3/uL Monocytes # (Auto) 0.7 0.0-1.0 10^3/uL Eosinophils # (Auto) 0.6 H 0.0-0.3 10^3/uL Basophils # (Auto) 0.1 0.0-0.1 10^3/uL Immature Granulocyte # (Auto) 0.0 0.0-0.1 10^3/uL Prothrombin Time 12.6 12.2-14.7 SEC INR Comment 0.9 0.8-1.4 Activated Partial Thromboplast Time 32 24-35 SEC Sodium Level 139 135-145 MMOL/L Potassium Level 4.8 3.6-5.0 MMOL/L Chloride Level 104 98-107 MMOL/L Carbon Dioxide Level 26 21-32 MMOL/L Anion Gap 9 5-14 MMOL/L Blood Urea Nitrogen 25 H 7-18 MG/DL Creatinine 1.14 0.60-1.30 MG/DL Estimat Glomerular Filtration Rate 68 BUN/Creatinine Ratio 22 Glucose Level 121 H 70-105 MG/DL Lactic Acid Level 0.83 0.50-2.00 MMOL/L Calcium Level 8.5 8.5-10.1 MG/DL Corrected Calcium 9.2 8.5-10.1 MG/DL Total Bilirubin 0.2 0.1-1.0 MG/DL Aspartate Amino Transf (AST/SGOT) 16 5-34 U/L Alanine Aminotransferase (ALT/SGPT) 8 0-55 U/L Alkaline Phosphatase 60 40-136 U/L Troponin I < 0.30 <0.30 NG/ML Pro-B-Type Natriuretic Peptide 2671.0 H <125.0 PG/ML Total Protein 5.7 L 6.4-8.2 GM/DL Albumin 3.1 L 3.2-4.5 GM/DL Lipase 16 8-78 U/L My Orders Orders - MIL ELY MD Cbc With Automated Diff (04/06/23 14:45) Comprehensive Metabolic Panel (04/06/23 14:45) Blood Culture (04/06/23 14:45) Protime With Inr (04/06/23 14:45) Partial Thromboplastin Time (04/06/23 14:45) Chest 1 View Ap/Pa Only (04/06/23 14:45) Ed Iv/Invasive Line Start (04/06/23 14:45) Ed Iv/Invasive Line Start (04/06/23 14:45) Ekg Tracing (04/06/23 14:45) Vital Signs Adult Sepsis Patie Q15M (04/06/23 14:45) O2 (04/06/23 14:45) Remove Rings In Anticipation O (04/06/23 14:45) Lactic Acid Analyzer (04/06/23 14:45) Aspirin Chewable Tablet (Baby Aspirin Ch (04/06/23 14:45) Lipase (04/06/23 14:45) Troponin I Fs (04/06/23 14:45) Probnp Fs (04/06/23 14:45) Clopidogrel Tablet (Plavix Tablet) (04/06/23 14:45) Albuterol/Ipra Inhalation Soln (Duoneb I (04/06/23 15:00) Dexamethasone Injection (Decadron Inje (04/06/23 15:00) Sputum Culture (04/06/23 15:14) Cefepime Injection (Maxipime Injection) (04/06/23 15:30) Doxycycline Hyclate Tablet (Vibramycin T (04/06/23 15:17) Iohexol Injection (Omnipaque 350 Mg/Ml 1 (04/06/23 16:00) Received Contrast (Hold Metformin- Contr (04/06/23 16:00) Ns (Ivpb) (Sodium Chloride 0.9% Ivpb Bag (04/06/23 16:00) Ct Angio Chest W (04/06/23 16:00) Ns Iv 500 Ml (Sodium Chloride 0.9%) (04/06/23 16:02) Ed Admission (Communication) (04/06/23 16:51) Enoxaparin Injection (Lovenox Injection) (04/06/23 17:00) Medications Given in ED Current Medications Medications Dose Ordered Sig/Erick Route Start Time Stop Time Status Last Admin Dose Admin Albuterol/ Ipratropium 3 ml ONCE ONCE INH 04/06/23 15:00 04/06/23 15:01 DC 04/06/23 15:03 3 ML Aspirin 324 mg ONCE ONCE PO 04/06/23 14:45 04/06/23 14:49 DC 04/06/23 15:03 324 MG Cefepime HCl 1000 mg/Sodium Chloride 50 ml @ 100 mls/hr ONCE ONCE IV 04/06/23 15:30 04/06/23 15:59 DC 04/06/23 15:40 100 MLS/HR Clopidogrel Bisulfate 75 mg ONCE ONCE PO 04/06/23 14:45 04/06/23 14:49 DC 04/06/23 15:03 75 MG Dexamethasone Sodium Phosphate 10 mg ONCE ONCE IV 04/06/23 15:00 04/06/23 15:01 DC 04/06/23 15:03 10 MG Enoxaparin Sodium 60 mg ONCE ONCE SC 04/06/23 17:00 04/06/23 17:01 DC 04/06/23 17:47 60 MG Iohexol 100 ml ONCE ONCE IV 04/06/23 16:00 04/06/23 16:01 DC 04/06/23 16:08 80 ML Sodium Chloride 100 ml ONCE ONCE IV 04/06/23 16:00 04/06/23 16:01 DC 04/06/23 16:07 100 ML Vital Signs/I&O 04/06/23 04/06/23 14:33 17:50 Temp 36.7 36.7 Pulse 81 77 Resp 16 16 B/P (MAP) 127/56 (79) 129/46 Pulse Ox 94 97 O2 Delivery Nasal Cannula Nasal Cannula O2 Flow Rate 2.50 2.00 Progress Progress Note : Progress Note 72-year-old male with above history presenting for chest pain. ABCs were intact and vitals are stable on presentation other than his blood pressure was on the lower end 90s over 40s. I looked back at the patient's previous history and admission and his blood pressure typically is 90s over 50s. Family confirms that he has been on the lower end for quite some time. An IV was placed and basic labs were obtained including lactic acid and cardiac biomarkers. EKG ordered and interpreted by me showing no STEMI. Chest x-ray with multiple masses that were there prior on my interpretation. CTA chest on my interpretation with no obvious PE. He does have potentially right lower lobe pneumonia versus changes from radiation. He was given cefepime as well as doxycycline. He was given a gentle bolus of IV fluids given his history of heart failure. Am concerned that given more fluids he may decompensate, especially given he is DNR. White blood cell count normal, creatinine normal, troponin negative, proBNP around 2000 down from 3000, and normal lactic acid. I contacted Dr. Neumann, the patient was given aspirin, Plavix, and 1 mg/kg of Lovenox. I then contacted Dr. Young who will admit him under inpatient status to the cardiac stepdown for further evaluation and management due to his chest pain, likely pneumonia, and chronic respiratory failure. Of note, I do not believe the patient is showing signs of being septic at this time. Initial ECG Impression Date: April 06, 2023 Initial ECG Impression Time: 14:40 Initial ECG Rate: 76 Initial ECG Rhythm: Normal Sinus Comment Narrow QRS, normal axis, no significant ST elevation, T wave inversions in the lateral leads which are nonspecific Diagnostic Imaging Diagonstic Imaging: Xray (chest) Comments NAME: FARRAH DUDLEY [facility] REC#: [id number] PT STATUS: REG ER : 1950 PHYSICIAN: MIL ELY MD ADMIT DATE: 04/06/23/ER FS Draft Date of Exam:04/06/23 CHEST 1 VIEW AP/PA ONLY INDICATION: Chest pain. TECHNIQUE: Single view chest, 2:47 p.m. CORRELATION STUDY: 03/14/2023. FINDINGS: Right IJ Rmfwqe-l-Soke catheter and left-sided AICD remain in place. Coronary artery stent at the left heart border. Heart size and mediastinum are generally stable. Vasculature overall appears to be within normal limits. Hyperinflated lung bauer with chronic changes about the lung parenchyma. More focal opacity at the right lung base does persist but overall is less pronounced from prior. Minimal opacity likely scarring in the right mid lung. IMPRESSION: 1. Asymmetric opacity at the right lung base is present but less pronounced from prior. May reflect residual and/or recurrent pneumonia. Likely area of scarring in the right mid lung field. Superimposed on chronic lung disease. Dictated on workstation # [id number] Dict: 04/06/23 1500 Trans: 04/06/23 1503 [id number] Interpreted by: NIEVES BARBOSA DO Electronically signed by: NAME: FARRAH DUDLEY [facility] REC#: [id number] PT STATUS: REG ER : 1950 PHYSICIAN: MIL ELY MD ADMIT DATE: 04/06/23/ER FS Draft Date of Exam:04/06/23 CT ANGIO CHEST W PROCEDURE: CT angiography Chest. TECHNIQUE: After intravenous administration of contrast, thin section axial CT angiography of the chest was performed. 3D MIP reconstructions were made. All CT scans use one or more of the following dose optimizing techniques: automated exposure control, MA and/or KvP adjustment based on a patient size and exam type, or iterative reconstruction. INDICATION: Lung cancer, chest pain. COMPARISON: CT chest of 12/25/2022. FINDINGS: Vasculature: No pulmonary emboli. No CT evidence of pulmonary hypertension or right ventricular strain. Thoracic aorta is normal in caliber. No aortic dissection or pseudoaneurysm. Heart and mediastinum: Visualized thyroid is normal. No axillary lymphadenopathy. No mediastinal lymphadenopathy. Heart is mildly enlarged without pericardial effusion. Pleura: Trace right pleural effusion. No pneumothorax. Lungs and airway: A small amount of retained secretions are present in the lower trachea and mainstem bronchi. No change in the band-like consolidation in the posterior right upper lobe measuring approximately 4.0 x 1.5 cm. The right infrahilar mass is stable at 2.4 x 2.2 cm. Increasing consolidation in the periphery of the right lower lobe. Upper abdomen: No concerning abnormality in the upper abdomen. Musculoskeletal: No change in the mixed lytic and sclerotic lesion in the posterior left fourth rib with chronic pathologic fracture. No new concerning osseous lesions in the chest. IMPRESSION: 1. No pulmonary emboli or acute aortic syndrome. 2. Stable size of the right infrahilar mass. 3. New consolidations in the periphery of the right lower lobe could represent pneumonia in appropriate setting. Alternatively, if the patient has had interval radiation therapy, this could account for the changes. 4. Trace right pleural effusion. Dictated on workstation # [id number] Dict: 04/06/23 1620 Trans: 04/06/23 1635 [id number] Interpreted by: SANTI PEDERSEN MD Electronically signed by: Departure Impression Primary Impression: Pneumonia Qualified Codes: J18.9 - Pneumonia, unspecified organism Additional Impressions: Chest pain Qualified Codes: R07.82 - Intercostal pain Chronic respiratory failure Qualified Codes: J96.11 - Chronic respiratory failure with hypoxia Transient hypotension Disposition: 30 STILL A PATIENT Condition: Stable Admissions Decision to Admit Reason: Admit from ER (General) Decision to Admit/Date: April 06, 2023 Time/Decision to Admit Time: 16:45 Transfer Method of Transfer: EMS Departure-Patient Inst. Referrals: KATHERIN GILMORE MD (PCP) Primary Care Physician MIL ELY MD April 06, 2023 14:50
[2023-04-06] MEDS ORDERED: RT-ALBUTEROL/IPRATROPIUM 3 ML (DUONEB) VIAL INH ONE (15:00)
[2023-04-06 15:02] LABS: BASOPHILS # (AUTO) 0.1 10^3/uL (0.0-0.1); BASOPHILS % (AUTO) 1 % (0-10); EOSINOPHILS # (AUTO) 0.6 10^3/uL (0.0-0.3); EOSINOPHILS % (AUTO) 8 % (0-10); HEMATOCRIT 33 % (40-54); HEMOGLOBIN 10.2 g/dL (13.3-17.7); LYMPHOCYTES # (AUTO) 1.7 10^3/uL (1.0-4.0); LYMPHOCYTES % (AUTO) 22 % (12-44); MEAN CORPUSCULAR HEMOGLOBIN 28 pg (25-34); MEAN CORPUSCULAR HGB CONC 31 g/dL (32-36); MEAN CORPUSCULAR VOLUME 91 fL (80-99); MEAN PLATELET VOLUME 9.7 fL (9.0-12.2); MONOCYTES # (AUTO) 0.7 10^3/uL (0.0-1.0); MONOCYTES % (AUTO) 9 % (0-12); NEUTROPHILS # (AUTO) 4.8 10^3/uL (1.8-7.8); NEUTROPHILS % (AUTO) 60 % (42-75); PLATELET COUNT 251 10^3/uL (130-400); WHITE BLOOD COUNT 7.9 10^3/uL (4.3-11.0)
--- NOTE | 2023-04-06 15:04 | Diagnostic Imaging Report ---
INDICATION: Chest pain. TECHNIQUE: Single view chest, 2:47 p.m. CORRELATION STUDY: 03/14/2023. FINDINGS: Right IJ Qpyvmq-o-Wwvh catheter and left-sided AICD remain in place. Coronary artery stent at the left heart border. Heart size and mediastinum are generally stable. Vasculature overall appears to be within normal limits. Hyperinflated lung bauer with chronic changes about the lung parenchyma. More focal opacity at the right lung base does persist but overall is less pronounced from prior. Minimal opacity likely scarring in the right mid lung. IMPRESSION: 1. Asymmetric opacity at the right lung base is present but less pronounced from prior. May reflect residual and/or recurrent pneumonia. Likely area of scarring in the right mid lung field. Superimposed on chronic lung disease. Dictated by: Dictated on workstation # [id number]
[2023-04-06] MEDS ORDERED: DOXYCYCLINE 100 MG (VIBRAMYCIN) TABLET PO STA (15:17)
[2023-04-06 15:18] LABS: INR 0.9 (0.8-1.4); PROTHROMBIN TIME PATIENT 12.6 SEC (12.2-14.7)
[2023-04-06 15:30] LABS: ALANINE AMINOTRANSFERASE 8 U/L (0-55); ALKALINE PHOSPHATASE 60 U/L (40-136); BILIRUBIN,TOTAL 0.2 MG/DL (0.1-1.0); BUN/CREATININE RATIO 22; CALCIUM 8.5 MG/DL (8.5-10.1); CARBON DIOXIDE 26 MMOL/L (21-32); CHLORIDE 104 MMOL/L (98-107); CREATININE SERUM 1.14 MG/DL (0.60-1.30); GFR ESTIMATED 68; GLUCOSE 121 MG/DL (70-105); POTASSIUM 4.8 MMOL/L (3.6-5.0); SODIUM 139 MMOL/L (135-145)
[2023-04-06] MEDS ORDERED: CEFEPIME INJECTION 1,000 MG in NS (IVPB) 50 ML IV ONE (15:30)
[2023-04-06 15:31] LABS: ALBUMIN 3.1 GM/DL (3.2-4.5); LIPASE 16 U/L (8-78); TOTAL PROTEIN 5.7 GM/DL (6.4-8.2)
[2023-04-06] MEDS ORDERED: IOHEXOL 350 MG/ML 100 ML (OMNIPAQUE 350) VIAL IV ONE (16:00)
[2023-04-06] MEDS ORDERED: NS 100 ML (IVPB) BAG IV ONE (16:00)
[2023-04-06] MEDS ORDERED: HOLD METFORMIN - RECEIVED CONTRAST 20 ML VIAL IV SCH (16:00)
[2023-04-06] MEDS ORDERED: NS IV 500 ML 500 ML IV STA (16:02)
--- NOTE | 2023-04-06 16:36 | Diagnostic Imaging Report ---
PROCEDURE: CT angiography Chest. TECHNIQUE: After intravenous administration of contrast, thin section axial CT angiography of the chest was performed. 3D MIP reconstructions were made. All CT scans use one or more of the following dose optimizing techniques: automated exposure control, MA and/or KvP adjustment based on a patient size and exam type, or iterative reconstruction. INDICATION: Lung cancer, chest pain. COMPARISON: CT chest of 12/25/2022. FINDINGS: Vasculature: No pulmonary emboli. No CT evidence of pulmonary hypertension or right ventricular strain. Thoracic aorta is normal in caliber. No aortic dissection or pseudoaneurysm. Heart and mediastinum: Visualized thyroid is normal. No axillary lymphadenopathy. No mediastinal lymphadenopathy. Heart is mildly enlarged without pericardial effusion. Pleura: Trace right pleural effusion. No pneumothorax. Lungs and airway: A small amount of retained secretions are present in the lower trachea and mainstem bronchi. No change in the band-like consolidation in the posterior right upper lobe measuring approximately 4.0 x 1.5 cm. The right infrahilar mass is stable at 2.4 x 2.2 cm. Increasing consolidation in the periphery of the right lower lobe. Upper abdomen: No concerning abnormality in the upper abdomen. Musculoskeletal: No change in the mixed lytic and sclerotic lesion in the posterior left fourth rib with chronic pathologic fracture. No new concerning osseous lesions in the chest. IMPRESSION: 1. No pulmonary emboli or acute aortic syndrome. 2. Stable size of the right infrahilar mass. 3. New consolidations in the periphery of the right lower lobe could represent pneumonia in appropriate setting. Alternatively, if the patient has had interval radiation therapy, this could account for the changes. 4. Trace right pleural effusion. Dictated by: Dictated on workstation # [id number]
[2023-04-06] MEDS ORDERED: ENOXAPARIN 60 MG/0.6 ML (LOVENOX) SYR SC ONE (17:00)
[2023-04-06] MEDS ORDERED: BISACODYL 10 MG SUPP (DULCOLAX) PR PRN (19:00)
[2023-04-06] MEDS ORDERED: NS IV 500 ML 500 ML IV PRN (19:00)
[2023-04-06] MEDS ORDERED: morphine IMMEDIATE RELEASE 15 MG TABLET PO PRN (19:00)
[2023-04-06] MEDS ORDERED: ACETAMINOPHEN 325 MG TABLET PO PRN (19:00)
[2023-04-06] MEDS ORDERED: ONDANSETRON 4 MG/2 ML (SDV) Z0FRAN IV PRN (19:00)
[2023-04-06] MEDS ORDERED: MELATONIN 3 MG TABLET PO PRN (19:00)
[2023-04-06] MEDS ORDERED: ANTACID SUSP 30 ML UDC (MYLANTA) PO PRN (19:00)
[2023-04-06] MEDS ORDERED: ONDANSETRON 4 MG (ZOFRAN) ORAL DISSOLVE TAB PO PRN (19:00)
[2023-04-06] MEDS ORDERED: polyethylene glycoL POWDER 17 GM (MIRALAX) PACK PO PRN (19:00)
[2023-04-06] MEDS ORDERED: morphine INJ 4 MG/ML 1 ML (VIAL/SYRINGE) IVP PRN (19:30)
[2023-04-06] MEDS ORDERED: RT-ALBUTEROL/IPRATROPIUM 3 ML (DUONEB) VIAL INH PRN (19:45)
[2023-04-06] MEDS: SACUBITRIL/VALSARTAN 24/26 MG (ENTRESTO) TABLET PO SCH (21:16)
[2023-04-06] MEDS: DOCUSATE SODIUM 100 MG (COLACE) CAP PO SCH (21:16)
[2023-04-06] MEDS: morphine ER 30 MG (MS CONTIN) TAB PO SCH (21:17)
[2023-04-06] MEDS: MIRTAZAPINE 15 MG (REMERON) TAB PO SCH (21:17)
[2023-04-06] MEDS: RT-ALBUTEROL/IPRATROPIUM 3 ML (DUONEB) VIAL INH SCH (22:02)
[2023-04-07] VITALS (13 sets, daily range): BP systolic 88–116; BP diastolic 25–52
[2023-04-07] MEDS: CEFEPIME INJECTION 1,000 MG in NS (IVPB) 50 ML IV SCH ×4 (00:11→22:05)
[2023-04-07] MEDS: RT-ALBUTEROL/IPRATROPIUM 3 ML (DUONEB) VIAL INH SCH ×7 (02:59→21:23)
[2023-04-07 05:07] LABS: POTASSIUM 4.9 MMOL/L (3.6-5.0)
[2023-04-07 05:08] LABS: CALCIUM 8.1 MG/DL (8.5-10.1)
[2023-04-07] MEDS: POTASSIUM CL 10MEQ/50ML IVPB 50 ML IV SCH (05:10)
[2023-04-07 05:12] LABS: CREATININE SERUM 0.85 MG/DL (0.60-1.30)
[2023-04-07 05:15] LABS: MAGNESIUM 1.5 MG/DL (1.6-2.4)
[2023-04-07 05:16] LABS: BASOPHILS % (AUTO) 0 % (0-10); EOSINOPHILS % (AUTO) 0 % (0-10); HEMATOCRIT 33 % (40-54); HEMOGLOBIN 10.4 g/dL (13.3-17.7); LYMPHOCYTES # (AUTO) 1.2 10^3/uL (1.0-4.0); LYMPHOCYTES % (AUTO) 15 % (12-44); MEAN CORPUSCULAR HEMOGLOBIN 29 pg (25-34); MEAN CORPUSCULAR HGB CONC 32 g/dL (32-36); MEAN CORPUSCULAR VOLUME 91 fL (80-99); MEAN PLATELET VOLUME 10.4 fL (9.0-12.2); MONOCYTES # (AUTO) 0.2 10^3/uL (0.0-1.0); MONOCYTES % (AUTO) 2 % (0-12); NEUTROPHILS # (AUTO) 6.4 10^3/uL (1.8-7.8); NEUTROPHILS % (AUTO) 82 % (42-75); PLATELET COUNT 265 10^3/uL (130-400); WHITE BLOOD COUNT 7.8 10^3/uL (4.3-11.0)
[2023-04-07] MEDS: KCL 20 MEQ TAB (K-DUR) PO SCH (05:32)
[2023-04-07] MEDS: MAGNESIUM 1 GM/100 ML IVPB 100 ML IV SCH (05:40)
[2023-04-07] MEDS: DOXYCYCLINE 100 MG (VIBRAMYCIN) TABLET PO SCH ×2 (05:56→15:57)
[2023-04-07] MEDS: LEVOTHYROXINE 50 MCG (LEVOTHROID) TAB PO SCH (05:57)
--- NOTE | 2023-04-07 09:43 | Consultation-Cardiology ---
HPI-Cardiology Cardiology Consultation Date of Consultation 04/07/23 Date of Admission Time Seen by Provider: 09:00 Indication: chest pain, dyspnea HPI Patient is a 72 y/o male with history of CAD, CHF s/p single chamber ICD, stage IV lung CA, followed by Dr. Loving. Presented to the ER with complaints of increased dyspnea and intermittent chest pain. C/o chest pressure and dyspnea with minimal exertion. Denies any dizziness, lightheadedness or syncope. Home Medications & Allergies Allergies: Coded Allergies: cephalexin (Verified Allergy, Intermediate, Rash, 12/12/21) Home Medication List Reviewed: Yes [id number]-[id number] Hx Patient Social History Smoking Status: Current Everyday Smoker Type Used: Cigarettes 2nd Hand Smoke Exposure: No Recent Hopitalizations: No Have you traveled recently?: No Alcohol Use?: No Substance type: Caffeine, Nicotine Immunizations Up To Date Tetanus Booster (TDap): Unknown Date of Pneumonia Vaccine: Dec 26, 2018 Past Medical History CAD, CHF, Lung CA Review of Systems-General Review of Systems Constitutional: see HPI; No fever EENTM: see HPI, no symptoms reported Respiratory: see HPI, dyspnea on exertion, orthopnea, short of breath Cardiovascular: see HPI, chest pain, Hx of Intervention; No syncope Genitourinary: No dysuria, No frequency Musculoskeletal: no symptoms reported Skin: no symptoms reported Psychiatric/Neurological: No Symptoms Reported Reviewed Test Results Reviewed Test Results Lab Laboratory Tests 04/06/23 14:45: White Blood Count 7.9, Red Blood Count 3.61L, Hemoglobin 10.2L, Hematocrit 33L, Mean Corpuscular Volume 91, Mean Corpuscular Hemoglobin 28, Mean Corpuscular Hemoglobin Concent 31L, Red Cell Distribution Width 14.6H, Platelet Count 251, Mean Platelet Volume 9.7, Immature Granulocyte % (Auto) 1, Neutrophils (%) (Auto) 60, Lymphocytes (%) (Auto) 22, Monocytes (%) (Auto) 9, Eosinophils (%) (Auto) 8, Basophils (%) (Auto) 1, Neutrophils # (Auto) 4.8, Lymphocytes # (Auto) 1.7, Monocytes # (Auto) 0.7, Eosinophils # (Auto) 0.6H, Basophils # (Auto) 0.1, Immature Granulocyte # (Auto) 0.0, Prothrombin Time 12.6, INR Comment 0.9, Activated Partial Thromboplast Time 32, Sodium Level 139, Potassium Level 4.8, Chloride Level 104, Carbon Dioxide Level 26, Anion Gap 9, Blood Urea Nitrogen 25H, Creatinine 1.14, Estimat Glomerular Filtration Rate 68, BUN/Creatinine Ratio 22, Glucose Level 121H, Lactic Acid Level 0.83, Calcium Level 8.5, Corrected Calcium 9.2, Total Bilirubin 0.2, Aspartate Amino Transf (AST/SGOT) 16, Alanine Aminotransferase (ALT/SGPT) 8, Alkaline Phosphatase 60, Troponin I < 0.30, Pro-B-Type Natriuretic Peptide 2671.0H, Total Protein 5.7L, Albumin 3.1L, Lipase 16 04/06/23 20:53: Troponin I < 0.028 04/07/23 04:45: White Blood Count 7.8, Red Blood Count 3.60L, Hemoglobin 10.4L, Hematocrit 33L, Mean Corpuscular Volume 91, Mean Corpuscular Hemoglobin 29, Mean Corpuscular Hemoglobin Concent 32, Red Cell Distribution Width 14.6H, Platelet Count 265, Mean Platelet Volume 10.4, Immature Granulocyte % (Auto) 0, Neutrophils (%) (Auto) 82H, Lymphocytes (%) (Auto) 15, Monocytes (%) (Auto) 2, Eosinophils (%) (Auto) 0, Basophils (%) (Auto) 0, Neutrophils # (Auto) 6.4, Lymphocytes # (Auto) 1.2, Monocytes # (Auto) 0.2, Eosinophils # (Auto) 0.0, Basophils # (Auto) 0.0, Immature Granulocyte # (Auto) 0.0, Sodium Level 138, Potassium Level 4.9, Chloride Level 106, Carbon Dioxide Level 24, Anion Gap 8, Blood Urea Nitrogen 22H, Creatinine 0.85, Estimat Glomerular Filtration Rate 92, BUN/Creatinine Ratio 26, Glucose Level 122H, Calcium Level 8.1L, Magnesium Level 1.5L Microbiology 04/06/23 Gram Stain, Resulted Pending 04/06/23 Sputum Culture - Preliminary, Resulted Physical Exam Physical Exam Vital Signs Vital Signs - First Documented 04/06/23 14:33 Temp 36.7 Pulse 81 Resp 16 B/P (MAP) 127/56 (79) Pulse Ox 94 O2 Delivery Nasal Cannula O2 Flow Rate 2.50 Capillary Refill : Less Than 3 Seconds Height, Weight, BMI Height: 5'6.00" Weight: 144lbs. 0.0oz. 65.604848tr; 25.56 BMI Method:Stated General Appearance: WD/WN, Anxious HEENT: PERRL/EOMI, Normal ENT Inspection, Pharynx Normal Neck: Full Range of Motion, Normal Inspection, Non Tender, Supple Respiratory: Chest Non Tender, No Accessory Muscle Use, No Respiratory Distress, Wheezing Cardiovascular: Regular Rate, Rhythm, No Edema, Normal Peripheral Pulses Gastrointestinal: Normal Bowel Sounds, Non Tender, Soft; No Distended, No Guarding Extremity: Normal Capillary Refill, Normal Inspection, Normal Range of Motion, Non Tender, No Calf Tenderness, No Pedal Edema Neurologic/Psychiatric: Alert, No Motor/Sensory Deficits, Normal Mood/Affect Skin: Normal Color, Warm/Dry A/P-Cardiology Admission Diagnosis Chest pain Dyspnea CAD CHF Assessment/Plan Chest pain, nonspecific etiology- EKG showing SR with no acute ST changes, troponin negative x 2 Conservative management is recommended Increased dyspnea, likely multifactorial Questionable pneumonia on CT chest. Started on antibiotic, management per PCP Acute on chronic CHF, LV systolic dysfunction. Most recent 2D Echo done July 2021 showing EF 35-40%. Maintainted on Entresto, beta obi. I will evaluate 2D Echo Had a single chamber ICD implanted in 2019 using Biotronik device with inability to sense the atrium and since then paced the ventricle and successful DFT testing. Has been maintained on Entresto, beta obi as outpatient. Diurese as blood pressure tolerates Coronary artery disease, history of total of 5 stents in the past. Cardiac catheterization was carried out on March 15, 2019 after having an abnormal stress test, showing patent stents in the LAD with mild disease distally, right coronary artery has also a patent stent dominant artery with mild disease nonobstructive disease and mild disease in the circumflex artery, the left ventricle is dilated and aneurysmal anterior wall, ejection fraction 30 percent. Stress test was done in August 2021 showing baseline T wave inversion in lead III and aVF, fixed defect involving the apex, anteroapical and inferoapical segment with no significant reversibility, stress score 27, SDS 0, ejection fraction 31%. Hypertension, history or orthostatic hypotension Hyperlipidemia, monitored as outpatient. Family history of coronary artery disease Tobaccoism, educated on smoking cessation Mild bilateral carotid stenosis. Continue to monitor Stage IV sacromatoid lung cancer, associated with chest wall pain. Hx of radiation, chemotherapy, following with Dr. Loving Thank you for allowing us to participate in the management of Mr. Rubio.This is Lita Ramey PA-C, as a scribe for Dr. Neumann. Patient was seen and evaluated with Lita, I interviewed and examined the patient, made few modification to the note using Italic font. He was reporting chest pain, currently better Patient has metastatic lung cancer, there is questionable infiltrate on his chest x-ray Conservative management is recommended due to his comorbid condition Cardiac enzymes were negative Continue with medical therapy Clinical Quality Measures AMI/AHF: ASA po Prior to arrival: No LITA MORIN April 07, 2023 09:43 FRANKLIN NEUMANN MD April 07, 2023 12:18
[2023-04-07] MEDS ORDERED: MORP60TA69 PO (10:01)
[2023-04-07] MEDS: SACUBITRIL/VALSARTAN 24/26 MG (ENTRESTO) TABLET PO SCH ×2 (10:19→20:34)
[2023-04-07] MEDS: CLOPIDOGREL 75 MG (PLAVIX) TABLET PO SCH (10:19)
[2023-04-07] MEDS: ASPIRIN 81 MG CHEW (CHILDREN'S ASA) PO SCH (10:19)
[2023-04-07] MEDS: morphine ER 30 MG (MS CONTIN) TAB PO SCH ×2 (10:19→20:35)
[2023-04-07] MEDS: DOCUSATE SODIUM 100 MG (COLACE) CAP PO SCH ×2 (10:19→20:38)
[2023-04-07] MEDS: ISOSORBIDE MONONITRATE 30 MG (IMDUR) TAB PO SCH (10:19)
--- NOTE | 2023-04-07 14:46 | History & Physical-Hospitalist ---
[facility]: History of Present Illness HPI/Chief Complaint Ivette Rubio is a 72 yo M with PMH of COPD on 2L O2 via NC continuously, CAD s/p stenting, CHF with ICD, stage 4 lung cancer. He presented to the ED 04/06 with CP and SOB. Notes having 30 minutes of CP described as pressure over left lower chest before coming in. SOB described as trouble getting air and did not improve with turning O2 up to 3L. He also noted feeling lightheaded but that resolved. He has a cough at baseline that is productive. Notes he was unable to receive chemo last month due to decreased kidney function. Source: patient Exam Limitations: no limitations Date Seen 04/07/23 Time Seen by a Provider: 08:05 Attending Physician Bradley Myers MD PCP Admitting Physician: Riki Zavala MD Attending Physician: Riki Zavala MD Referring Physician Date of Admission April 06, 2023 at 18:38 Home Medications & Allergies Home Medications Reviewed patient Home Medication Reconciliation performed by pharmacy medication reconciliations log data technician and/or nursing. Patients Allergies have been reviewed. Allergies Allergies Coded Allergies cephalexin (Verified Allergy, Intermediate, Rash, 12/12/21) Past Obszzuq-Qylxny-Xcaxky Hx Patient Social History Tobacco Use?: Yes Tobacco type used: Cigarettes Smoking Status: Current Everyday Smoker Use of E-Cig and/or Vaping dev: No Alcohol Use?: No Pt feels they are or have been: No Immunizations Up To Date First/Initial COVID19 Vaccinat: APRIL 08, 2021 Second COVID19 Vaccination Terence: MAY 06, 2021 Tetanus Booster (TDap): More Than 5 Years Hepatitis A: No Hepatitis B: No Date of Pneumonia Vaccine: Dec 26, 2018 Seasonal Allergies Seasonal Allergies: No Current Status Advance Directives: Yes Advance Directive Location: Scanned into EMR Communicates: Verbally Primary Language: Georgian Preferred Spoken Language: Georgian Is interpretation needed?: No Implanted or Applied Medical D: Port-a-cath, Stents Past Medical History Surgeries: Coronary Stent, Defibrillator, Pacemaker COPD Currently Using CPAP: No Currently Using BIPAP: No Coronary Artery Disease, Heart Attack, High Cholesterol, Hypertension Hypothyroidsim Lung Did You Recieve Any Treatments: Yes What Type of Treatment Did You: Chemotherapy, Radiation Family Medical History Heart Disease Review of Systems Constitutional: No chills, No fever EENTM: No blurred vision, No double vision Respiratory: cough, dyspnea on exertion, short of breath Cardiovascular: No chest pain, No edema; Hx of Intervention Gastrointestinal: abdominal pain (diffuse, chronic); No nausea, No vomiting Genitourinary: No decreased output, No dysuria, No hematuria All Other Systems Reviewed Negative Unless Noted: Yes (Negative excepted noted.) Physical Exam Physical Exam Vital Signs Vital Signs - First Documented 04/06/23 14:33 Temp 36.7 Pulse 81 Resp 16 B/P (MAP) 127/56 (79) Pulse Ox 94 O2 Delivery Nasal Cannula O2 Flow Rate 2.50 Capillary Refill : Less Than 3 Seconds Height, Weight, BMI Height: 5'6.00" Weight: 144lbs. 0.0oz. 65.808654sf; 25.56 BMI Method:Stated General Appearance: No Apparent Distress, Chronically ill HEENT: PERRL/EOMI, Pharynx Normal, Moist Mucous Membranes Respiratory: Chest Non Tender, Lungs Clear, Normal Breath Sounds, No Accessory Muscle Use, No Respiratory Distress Cardiovascular: Regular Rate, Rhythm, Normal Peripheral Pulses Gastrointestinal: Normal Bowel Sounds, Soft; No Distended; Tenderness (diffuse) Extremity: Normal Inspection, Non Tender, No Pedal Edema Neurologic/Psychiatric: Alert, Oriented x3, Normal Mood/Affect Skin: Normal Color, Warm/Dry Results Results/Procedures Labs Laboratory Tests 04/06/23 14:45 04/07/23 04:45 Patient resulted labs reviewed. Imaging: Reviewed Imaging Report Assessment/Plan Admission Diagnosis Chest pain CAD Chronic respiratory failure with hypoxia Admission Status: Observation Assessment and Plan Chest pain CAD s/p stenting CHF HTN, HLD Troponins negative x2 Echo with EF 30-35% Cardiology following, conservative management at this time Restart home lasix Chronic Respiratory Failure with hypoxia Community acquired pneumonia Stage 4 lung cancer COPD, Tobacco abuse At baseline oxygen use CTA with RLL consolidation Continue antibiotic Nicotine patch as needed Followed by Dr. Loving at cancer center, on chemo s/p radiation Clinical Quality Measures AMI/AHF: ASA po Prior to arrival: RIKI Pickering MD 04/07/23 9793: History of Present Illness Time Seen by a Provider: 11:00 Results Results/Procedures Imaging: Reviewed Imaging Report Assessment/Plan Admission Diagnosis Admission Status: Inpatient Order (span 2 midnights) Reason for Inpatient Admission: Antibiotics Cardiology evaluation Assessment and Plan Admitted with chest pain. Cardiology consulted, recommending conservative medi rio management. Also with pneumonia, started on antibiotics. Oxygen requirement at baseline. Diagnosis/Problems Diagnosis/Problems (1) Chest pain Status: Acute Qualifiers: Chest pain type: intercostal pain Qualified Codes: R07.82 - Intercostal pain (2) Pneumonia Qualifiers: Pneumonia type: due to unspecified organism Laterality: right Lung location: lower lobe of lung Qualified Codes: J18.9 - Pneumonia, unspecified organism (3) Chronic respiratory failure Status: Acute Qualifiers: Respiratory failure complication: hypoxia Qualified Codes: J96.11 - Chronic respiratory failure with hypoxia (4) Stage 4 lung cancer Status: Chronic Qualifiers: Laterality: right Qualified Codes: C34.91 - Malignant neoplasm of unsp ecified part of right bronchus or lung (5) Bone metastases Status: Chronic (6) Congestive heart failure Status: Acute Supervisory-Addendum Brief Verification & Attestation Participated in pt care: history, MDM, physical Personally performed: exam, history, MDM, supervision of care Care discussed with: Medical Student Procedures: n/a A medical student performed and documented this service in my presence. I reviewed and verified all information documented by the medical student and made modifications to such information, when appropriate. I personally performed the physical exam and medical decision making. SOLEDAD BOBBY April 07, 2023 14:46 RIKI ZAVALA MD April 07, 2023 16:13
[2023-04-07] MEDS ORDERED: NICOTINE 21 MG (NICODERM) PATCH TD NR (15:00)
[2023-04-07] MEDS ORDERED: ENOXAPARIN 40 MG/0.4 ML (LOVENOX) SYR SC SCH (18:00)
[2023-04-07] MEDS: MIRTAZAPINE 15 MG (REMERON) TAB PO SCH (20:36)
[2023-04-08 07:07] LABS: BASOPHILS % (AUTO) 0 % (0-10); EOSINOPHILS # (AUTO) 0.2 10^3/uL (0.0-0.3); EOSINOPHILS % (AUTO) 2 % (0-10); HEMATOCRIT 31 % (40-54); LYMPHOCYTES # (AUTO) 2.2 10^3/uL (1.0-4.0); LYMPHOCYTES % (AUTO) 22 % (12-44); MEAN CORPUSCULAR HEMOGLOBIN 29 pg (25-34); MEAN CORPUSCULAR HGB CONC 32 g/dL (32-36); MEAN CORPUSCULAR VOLUME 90 fL (80-99); MEAN PLATELET VOLUME 10.1 fL (9.0-12.2); MONOCYTES # (AUTO) 0.8 10^3/uL (0.0-1.0); MONOCYTES % (AUTO) 8 % (0-12); NEUTROPHILS # (AUTO) 6.6 10^3/uL (1.8-7.8); NEUTROPHILS % (AUTO) 68 % (42-75); PLATELET COUNT 274 10^3/uL (130-400); WHITE BLOOD COUNT 9.8 10^3/uL (4.3-11.0)
[2023-04-08] MEDS: CEFEPIME INJECTION 1,000 MG in NS (IVPB) 50 ML IV SCH ×2 (07:16→11:15)
[2023-04-08 07:17] LABS: CALCIUM 8.2 MG/DL (8.5-10.1); CREATININE SERUM 0.82 MG/DL (0.60-1.30)
[2023-04-08] MEDS: POTASSIUM CL 10MEQ/50ML IVPB 50 ML IV SCH (07:18)
[2023-04-08] MEDS: KCL 20 MEQ TAB (K-DUR) PO SCH (07:19)
[2023-04-08] MEDS: MAGNESIUM 1 GM/100 ML IVPB 100 ML IV SCH ×5 (07:22→09:26)
[2023-04-08] MEDS: RT-ALBUTEROL/IPRATROPIUM 3 ML (DUONEB) VIAL INH SCH ×2 (07:44→10:10)
[2023-04-08] MEDS ORDERED: FUROSEMIDE 40 MG/4 ML INJ (LASIX) IVP SCH (07:45)
[2023-04-08] MEDS: DOXYCYCLINE 100 MG (VIBRAMYCIN) TABLET PO SCH (07:51)
[2023-04-08] MEDS: LEVOTHYROXINE 50 MCG (LEVOTHROID) TAB PO SCH (07:52)
[2023-04-08] MEDS ORDERED: FUROSEMIDE 40 MG/4 ML INJ (LASIX) ONE (07:54)
[2023-04-08 07:55] VITALS: BP 115/52
[2023-04-08] MEDS: CLOPIDOGREL 75 MG (PLAVIX) TABLET PO SCH (08:03)
[2023-04-08] MEDS: ISOSORBIDE MONONITRATE 30 MG (IMDUR) TAB PO SCH (08:03)
[2023-04-08] MEDS: SACUBITRIL/VALSARTAN 24/26 MG (ENTRESTO) TABLET PO SCH (08:03)
[2023-04-08] MEDS: morphine ER 30 MG (MS CONTIN) TAB PO SCH (08:03)
[2023-04-08] MEDS: DOCUSATE SODIUM 100 MG (COLACE) CAP PO SCH (08:03)
[2023-04-08] MEDS: ASPIRIN 81 MG CHEW (CHILDREN'S ASA) PO SCH (08:03)
--- NOTE | 2023-04-08 08:17 | Cardiology Progress Note ---
Subjective Date Seen by Provider: April 08, 2023 Time Seen by Provider: 08:16 Subjective/Events-last exam Patient was seen at bedside, laying down comfortably. Feeling better today Review of Systems General: No Chills, No Night Sweats, No Fatigue, No Malaise, No Appetite, No Other HEENT: No Head Aches, No Visual Changes, No Eye Pain, No Ear Pain, No Dysphasia, No Sinus Congestion, No Post Nasal Drip, No Sore Throat, No Other Pulmonary: Dyspnea; No Cough, No Pleuritic Chest Pain, No Other Cardiovascular: No: Chest Pain, Palpitations, Orthopnea, Paroxysmal Noc. Dyspnea, Edema, Lt Headedness, Other Focused Exam Lactate Level 04/06/23 14:45: Lactic Acid Level 0.83 Objective-Cardiology Exam Last Set of Vital Signs Vital Signs 04/08/23 07:55 Temp 36.5 Pulse 66 Resp 16 B/P (MAP) 115/52 (73) Pulse Ox 98 O2 Delivery Nasal Cannula O2 Flow Rate 3.00 I&O Intake and Output 04/08/23 00:00 Intake Total 500 ml Output Total 925 ml Balance -425 ml Intake Oral 450 ml IV Total 50 ml Output Urine Total 925 ml # Voids 3 # Bowel Movements 1 General: Alert, Oriented X3, Cooperative HEENT: Atraumatic, PERRLA Neck: Supple, No JVD, No Thyromegaly Lungs: Normal Air Movement, Other (Bilateral rhonchi) Heart: Regular Rate, Normal S1, Normal S2, No Murmurs Abdomen: Normal Bowel Sounds, Soft, No Tenderness, No Hepatosplenomegaly, No Masses Extremities: No Clubbing, No Cyanosis, No Edema, Normal Pulses, No Tenderness/Swelling Skin: No Rashes, No Breakdown, No Significant Lesion Neuro: Normal Gait, Normal Speech, Strength at 5/5 X4 Ext, Normal Tone, Sensation Intact Psych/Mental Status: Mental Status NL, Mood NL Results Lab Laboratory Tests 04/08/23 04:51 A/P-Cardiology Admission Diagnosis Chest pain Dyspnea CAD CHF Assessment/Plan Chest pain, nonspecific etiology- EKG showing SR with no acute ST changes, troponin negative x 2 Conservative management is recommended Mild shortness of breath, pulmonary edema We will start on Lasix and evaluate tolerance and response Increased dyspnea, likely multifactorial Questionable pneumonia on CT chest. Started on antibiotic, management per PCP Acute on chronic CHF, LV systolic dysfunction. 2D echo was done on April 07, 2023 with ejection fraction 30 to 35%, mild to moderate aortic regurgitation, mild mitral regurgitation, PA pressure 30 to 35 mmHg. Had a single chamber ICD implanted in 2018 using Biotronik device with inability to sense the atrium and since then paced the ventricle and successful DFT testing. Has been maintained on Entresto, beta obi as outpatient. Diurese as blood pressure tolerates Coronary artery disease, history of total of 5 stents in the past. Cardiac catheterization was carried out on March 15, 2019 after having an abnormal stress test, showing patent stents in the LAD with mild disease distally, right coronary artery has also a patent stent dominant artery with mild disease nonobstructive disease and mild disease in the circumflex artery, the left ventricle is dilated and aneurysmal anterior wall, ejection fraction 30 percent. Stress test was done in August 2021 showing baseline T wave inversion in lead III and aVF, fixed defect involving the apex, anteroapical and inferoapical segment with no significant reversibility, stress score 27, SDS 0, ejection fraction 31%. Hypertension, history or orthostatic hypotension Hyperlipidemia, monitored as outpatient. Family history of coronary artery disease Tobaccoism, educated on smoking cessation Mild bilateral carotid stenosis. Continue to monitor Stage IV sacromatoid lung cancer, associated with chest wall pain. Hx of radiation, chemotherapy, following with FRANKLIN Soto MD April 08, 2023 08:17
[2023-04-08] MEDS ORDERED: NICOTINE PATCH REMOVAL TP SCH (08:59)
[2023-04-08] MEDS ORDERED: NICOTINE 21 MG (NICODERM) PATCH TD SCH (09:00)
[2023-04-08] MEDS ORDERED: CEFD300C3 PO (11:23)
--- NOTE | 2023-04-08 11:27 | Physical Therapy Evaluation ---
PT Evaluation-General Medical Diagnosis Admission Date April 06, 2023 at 18:38 Medical Diagnosis: pneumonia Onset Date: April 06, 2023 Therapy Diagnosis Therapy Diagnosis: debility Height/Weight Height (Feet): 5 Height (Inches): 6.00 Weight (Pounds): 144 Weight (Ounces): 0.0 Precautions Precautions/Isolations: Standard Precautions Weight Bear Status Right Lower Extremity: Right Weight Bearing/Tolerated Left Lower Extremity: Left Weight Bearing/Tolerated Referral Physician: Hector Reason for Referral: Evaluation/Treatment Medical History Pertinent Medical History: CABG, CAD, COPD (2L), Heart Failure, HTN, Smoking Additional Medical History lung cancer Current History ER secondaryt o chronic hypoxic respiratory failure Reviewed History: Yes Social History Home: Single Level Current Living Status: Alone Entry Into Home: Stairs Without Railing PT Steps Into Home: 1 Prior Prior Level of Function SCALE: Activities may be completed with or without assistive devices. 3-Gtwrlwrbbg-gsqnusr completes the activity by him/herself with no assistance from a helper. 5-Set-up or Clean-up Assistance-helper sets up or cleans up; patient completes activity. [place] assists only prior to or following the activity. 4-Supervision or Touching Assistance-helper provides verbal cues and/or touching/steadying and/or contact guard assistance as patient completes activity. Assistance may be provided throughout the activity or intermittently. 3-Partial/Moderate Assistance-helper does LESS THAN HALF the effort. [place] lifts, holds or supports trunk or limbs, but provides less than half the effort. 2-Substantial/Maximal Assistance-helper does MORE THAN HALF the effort. [place] lifts or holds trunk or limbs and provides more than half the effort. 1-Pppotrfop-looosj does ALL the effort. Patient does none of the effort to complete the activity. Or, the assistance of 2 or more helpers is required for the patient to complete the activity. If activity was not attempted, code reason: 7-Patient Refused. 9-Not Applicable-not attempted and the patient did not perform the activity before the current illness, exacerbation or injury. 10-Not Attempted due to Environmental Limitations-(lack of equipment, weather restraints, etc.). 88-Not Attempted due to Medical Conditions or Safety Concerns. Bed Mobility: 6 Transfers (B,C,W/C): 6 Gait: 6 Stairs: 6 Indoor Mobility (Ambulation): Independent Stairs: Independent Prior Devices Use: None PT Evaluation-Current Subjective Patient agrees to PT. Objective Patient Orientation: Normal For Age Attachments: Oxygen ROM/Strength ROM Lower Extremities bilateral LE WFL Strength Lower Extremities 4-/5 grossly bilateral LE all planes Integumentary/Posture Integumentary refer to nursing notes Bowel Incontinence: No Bladder Incontinence: No Posture WFL Neuromuscular (Tone, Coordination, Reflexes) grossly intact Sensory Vision: Functional Hearing: Functional Transfers Lying to Sitting/Side of Bed(Q: 6 Sit to Stand (QC): 6 Chair/Cah-of-Hwmec Xfer(QC): 6 Gait Mode of Locomotion: Walk Anticipated Mode of Locomotion: Walk Walk 10 feet (QC): 6 Walk 50 ft with 2 Turns(QC): 6 Walk 150 ft (QC): 6 Distance: >400' Gait Assistive Device: None Comments/Gait Description safe and functional with no deviation Balance Sitting Static: Normal Sitting Dynamic: Normal Standing Static: Normal Standing Dynamic: Normal Assessment/Needs Patient is currently at independent [facility] with all gross motor skills safely and does not require skilled PT intervention at this time. Rehab Potential: Fair PT Plan Treatment/Plan Treatment Plan: Discontinue PT, goals met Treatment Duration: April 08, 2023 Frequency: 1 time per week Estimated Hrs Per Day: .25 hour per day Patient and/or Family Agrees t: Yes Time Time In: 1120 Time Out: 1130 DATE: April 08, 2023 Total Billed Treatment Time: 10 Total Billed Treatment 1 visit EVModC 10 min ERIS ROLDAN PT April 08, 2023 11:27
[2023-04-08 11:30] VITALS: BP 116/55
[2023-04-08 12:00] VITALS: BP 116/55
--- NOTE | 2023-04-08 14:33 | Discharge Summary ---
Discharge Summary Hospital Course Problems/Dx: (1) Chest pain Status: Acute Qualifiers: Qualified Codes: R07.82 - Intercostal pain (2) Pneumonia Qualifiers: Qualified Codes: J18.9 - Pneumonia, unspecified organism (3) Chronic respiratory failure Status: Acute Qualifiers: Qualified Codes: J96.11 - Chronic respiratory failure with hypoxia (4) Stage 4 lung cancer Status: Chronic Qualifiers: Qualified Codes: C34.91 - Malignant neoplasm of unspecified part of right bronchus or lung (5) Bone metastases Status: Chronic (6) Congestive heart failure Status: Acute Hospital Course Date of Admission: April 06, 2023 at 18:38 Admission Diagnosis : Chest pain, pneumonia Family Physician/Provider: Bradley Myers MD Date of Discharge: 04/08/23 Discharge Diagnosis: Chest pain, pneumonia Hospital Course: Ishmael Rubio is a 72 year old male with metastatic lung cancer to the bone on immunotherapy who was admitted with chest pain. Cardiology was consulted and assisted with his care. His troponins and EKG were unremarkable. They recommended conservative medical management. He also had a pneumonia. His oxygen requirement remained at his baseline 2 L. He was given a course of antibiotics. He should follow up with Dr. Mckeon as scheduled. He was discharged home in stable condition. Labs and Pending Lab Test: Laboratory Tests 04/08/23 04:51: White Blood Count 9.8, Red Blood Count 3.44L, Hemoglobin 10.0L, Hematocrit 31L, Mean Corpuscular Volume 90, Mean Corpuscular Hemoglobin 29, Mean Corpuscular Hemoglobin Concent 32, Red Cell Distribution Width 14.8H, Platelet Count 274, Mean Platelet Volume 10.1, Immature Granulocyte % (Auto) 0, Neutrophils (%) (Aut o) 68, Lymphocytes (%) (Auto) 22, Monocytes (%) (Auto) 8, Eosinophils (%) (Auto) 2, Basophils (%) (Auto) 0, Neutrophils # (Auto) 6.6, Lymphocytes # (Auto) 2.2, Monocytes # (Auto) 0.8, Eosinophils # (Auto) 0.2, Basophils # (Auto) 0.0, Immature Granulocyte # (Auto) 0.0, Sodium Level 136, Potassium Level 5.0, Chloride Level 104, Carbon Dioxide Level 26, Anion Gap 6, Blood Urea Nitrogen 19H, Creatinine 0.82, Estimat Glomerular Filtration Rate 93, BUN/Creatinine Ratio 23, Glucose Level 86, Calcium Level 8.2L, Magnesium Level 2.0 Microbiology 04/06/23 Blood Culture - Preliminary, Resulted No growth 04/06/23 Gram Stain - Final, Resulted 04/06/23 Sputum Culture - Preliminary, Resulted Home Meds Active Cefdinir 300 Mg Capsule 300 Mg PO BID 5 Days Reported Morphine Sulfate ER (Morphine Sulfate) 60 Mg Tablet.er 60 Mg PO Q12H Zoledronic Acid 4 Mg Vial 3.3 Mg IV EVERY 12 WEEKS Opdivo (Nivolumab) 240 Mg/24 Ml Vial 480 Mg IV EVERY 4 WEEKS Aspirin EC (Aspirin) 81 Mg Tablet.dr 81 Mg PO 1800 Mirtazapine 15 Mg Tab.rapdis 15 Mg PO HS PRN Carvedilol 12.5 Mg Tablet 12.5 Mg PO BID Potassium Chloride 20 Meq Tab.er.prt 20 Meq PO 1800 Entresto 49 mg-51 mg Tablet (Sacubitril/Valsartan) 49 Mg-51 Mg Tablet 1 Ea PO BID Morphine Sulfate IR Tablet (Morphine Sulfate) 15 Mg Tablet 15 Mg PO Q6H PRN Atorvastatin Calcium 20 Mg Tablet 20 Mg PO 1800 Iprat-Albut 0.5-3(2.5) mg/3 ml (Ipratropium/Albuterol Sulfate) 0.5 Mg-3 Mg (2.5 Mg Base)/3 Ml Ampul.neb 3 Ml NEB Q8H PRN Isosorbide Mononitrate ER (Isosorbide Mononitrate) 30 Mg Tab.er.24h 30 Mg PO 1800 Clopidogrel (Clopidogrel Bisulfate) 75 Mg Tablet 75 Mg PO 1800 Levothyroxine Sodium 50 Mcg Tablet 50 Mcg PO 1800 Ventolin Hfa (Albuterol Sulfate) 1 Puff Puff 2 Puff INH Q6H PRN Furosemide 40 Mg Tablet 40 Mg PO 1800 Nitroglycerin 0.4 Mg Tab.subl 0.4 Mg SL UD PRN Assessment/Pt Instructions See instructions Discharge Planning: >30 minutes discharge planning Discharge Instructions Discharge Diet: No Restrictions Activity as Tolerated: Yes Consultations Cardiology Discharge Physical Examination Vital Signs Vital Signs Date Time Temp Pulse Resp B/P (MAP) Pulse Ox O2 Delivery O2 Flow Rate FiO2 04/08/23 13:34 04/08/23 12:00 36.7 76 18 96 Nasal Cannula 3.00 General Appearance: No Apparent Distress, Thin Respiratory: No Respiratory Distress, Crackles Cardiovascular: Regular Rate, Rhythm, No Murmur Gastrointestinal: Normal Bowel Sounds, Soft Extremity: Normal Inspection, No Pedal Edema Skin: Normal Color, Warm/Dry Neurologic/Psychiatric: Alert, Normal Mood/Affect Allergies: Coded Allergies: cephalexin (Verified Allergy, Intermediate, Rash, 12/12/21) Copy Copies To 1: SONA MCKEON MD Discharge Summary Date of Admission April 06, 2023 at 18:38 Date of Discharge Discharge Date: April 08, 2023 Discharge Time: 14:31 Admission Diagnosis Chest pain, pneumonia Consults/Procedures Consulations Cardiology Discharge Diagnosis Chest pain, pneumonia (1) Chest pain Status: Acute Qualifiers: Qualified Codes: R07.82 - Intercostal pain (2) Pneumonia Qualifiers: Qualified Codes: J18.9 - Pneumonia, unspecified organism (3) Chronic respiratory failure Status: Acute Qualifiers: Qualified Codes: J96.11 - Chronic respiratory failure with hypoxia (4) Stage 4 lung cancer Status: Chronic Qualifiers: Qualified Codes: C34.91 - Malignant neoplasm of unspecified part of right bronchus or lung (5) Bone metastases Status: Chronic (6) Congestive heart failure Status: Acute Clinical Quality Measures AMI/AHF: ASA po Prior to arrival: RIKI Pickering MD April 08, 2023 14:31
== END 2023-04-08 14:20 | disposition home or self-care (01) | DRG 193 ==
LOC: EDUNIT# 14:33 → ER FS 14:34 → CSD 18:38
PROVIDERS: ADMIT Internal Medicine; ATTEND Internal Medicine
DX: J18.9 Pneumonia, unspecified organism (principal); I50.23 Acute on chronic systolic (congestive) heart failure; C34.91 Malignant neoplasm of unspecified part of right bronchus or lung; C79.51 Secondary malignant neoplasm of bone; J96.11 Chronic respiratory failure with hypoxia; J44.0 Chronic obstructive pulmonary disease with (acute) lower respiratory infection; Z99.81 Dependence on supplemental oxygen; Z66 Do not resuscitate; I25.10 Atherosclerotic heart disease of native coronary artery without angina pectoris; Z95.5 Presence of coronary angioplasty implant and graft; Z95.810 Presence of automatic (implantable) cardiac defibrillator; F17.210 Nicotine dependence, cigarettes, uncomplicated; I11.0 Hypertensive heart disease with heart failure; E78.00 Pure hypercholesterolemia, unspecified; I25.2 Old myocardial infarction; E03.9 Hypothyroidism, unspecified; Z92.21 Personal history of antineoplastic chemotherapy; Z92.3 Personal history of irradiation; Z82.49 Family history of ischemic heart disease and other diseases of the circulatory system; I65.23 Occlusion and stenosis of bilateral carotid arteries
CPT/HCPCS: 36415; 71045; 71275; 80048; 80053; 83605; 83690; 83735; 83880; 84484; 85025; 85610; 85730; 87040; 87070; 87205; 93005; 93306; 94640; 94760

== ENCOUNTER 2023-04-21 09:09 | Outpatient (RCR) | payer MEDICARE ==
[~2023-04-21] VITALS: Ht 167.6 cm; Wt 56.5 kg
[~2023-04-21 09:09] MED LIST changes: +CEFD300C3 PO; +HEParin (CENTRAL IV FLUSH) 500 UNIT/5 ML SYR IV PRN; +MORP60TA69 PO; +NIVOLUMAB 480 MG in NS (IVPB) 100 ML IV SCH; +NS IV 500 ML 500 ML IV SCH; +NS IV SCH; +ZOLEDRONIC ACID IV SCH
[2023-04-21 09:45] LABS: BASOPHILS # (AUTO) 0.1 10^3/uL (0.0-0.1); BASOPHILS % (AUTO) 1 % (0-10); EOSINOPHILS # (AUTO) 0.4 10^3/uL (0.0-0.3); EOSINOPHILS % (AUTO) 5 % (0-10); HEMATOCRIT 31 % (40-54); HEMOGLOBIN 9.9 g/dL (13.3-17.7); LYMPHOCYTES # (AUTO) 2.2 10^3/uL (1.0-4.0); LYMPHOCYTES % (AUTO) 26 % (12-44); MEAN CORPUSCULAR HEMOGLOBIN 29 pg (25-34); MEAN CORPUSCULAR HGB CONC 32 g/dL (32-36); MEAN CORPUSCULAR VOLUME 91 fL (80-99); MEAN PLATELET VOLUME 9.9 fL (9.0-12.2); MONOCYTES # (AUTO) 0.8 10^3/uL (0.0-1.0); MONOCYTES % (AUTO) 9 % (0-12); NEUTROPHILS # (AUTO) 5.1 10^3/uL (1.8-7.8); NEUTROPHILS % (AUTO) 60 % (42-75); PLATELET COUNT 281 10^3/uL (130-400); WHITE BLOOD COUNT 8.6 10^3/uL (4.3-11.0)
[2023-04-21 09:54] VITALS: BP 102/51
[2023-04-21 10:15] LABS: ALBUMIN 3.5 GM/DL (3.2-4.5); BILIRUBIN,TOTAL 0.3 MG/DL (0.1-1.0); CALCIUM 8.9 MG/DL (8.5-10.1); CREATININE SERUM 1.04 MG/DL (0.60-1.30); POTASSIUM 4.6 MMOL/L (3.6-5.0); TOTAL PROTEIN 6.1 GM/DL (6.4-8.2)
[2023-04-21] MEDS ORDERED: ZOLEDRONIC ACID IV SCH (11:00)
[2023-04-21] MEDS ORDERED: NS IV SCH (11:00)
[2023-04-30] MEDS ORDERED: PRD20T PO (20:45)
[2023-04-30] MEDS ORDERED: ALPR0.5T7 PO (20:47)
[2023-05-12] MEDS ORDERED: ALPR0.5T7 PO (15:52)
== END 2023-05-14 | disposition home or self-care (01) ==
LOC: ONC 09:09
PROVIDERS: ATTEND Internal Medicine Hematology & Oncology
DX: Z51.11 Encounter for antineoplastic chemotherapy (principal); Z45.2 Encounter for adjustment and management of vascular access device; C34.91 Malignant neoplasm of unspecified part of right bronchus or lung; C79.51 Secondary malignant neoplasm of bone; J44.9 Chronic obstructive pulmonary disease, unspecified; I25.10 Atherosclerotic heart disease of native coronary artery without angina pectoris; J96.10 Chronic respiratory failure, unspecified whether with hypoxia or hypercapnia; I50.9 Heart failure, unspecified; Z72.0 Tobacco use
CPT/HCPCS: 36591; 80053; 84443; 85025; 96365; 96413

== ENCOUNTER 2023-04-30 04:25 | Emergency (ER) | payer MEDICARE ==
[~2023-04-30] VITALS: Ht 167.7 cm; Wt 55.7 kg
[~2023-04-30 04:25] MED LIST changes: -HEParin (CENTRAL IV FLUSH) 500 UNIT/5 ML SYR IV PRN; -NIVOLUMAB 480 MG in NS (IVPB) 100 ML IV SCH; -NS IV 500 ML 500 ML IV SCH; -NS IV SCH; -ZOLEDRONIC ACID IV SCH
--- NOTE | 2023-04-30 04:36 | ED Dyspnea ---
General Stated Complaint: SOB Source of Information: Patient Exam Limitations: No Limitations History of Present Illness Date Seen by Provider: Apr 30, 2023 Time Seen by Provider: 04:23 Initial Comments 72-year-old male presents via EMS for shortness of breath. He has lung cancer on the right side with metastasis to his bones. He states he gets chemotherapy 1 time a month to "keep me going." It seems that this is likely palliative at this time. He has been more short of breath since last night. He is typically on 3 L of oxygen via nasal cannula. On EMS arrival his oxygen saturation was in the mid 80s so they increased to 5 L via nasal cannula. They also gave him a breathing treatment in route which he states did not really help. Denies any fevers or chills. He has a chronic productive cough which is unchanged. He is on Xarelto, denies missing any doses. He tells me yesterday he was unable to move his right foot through flexion and extension for a few hours. This has seemingly resolved at present. All other systems reviewed and negative except documented per HPI. Voice recognition software was used to help create this chart Allergies and Home Medications Allergies Coded Allergies: cephalexin (Verified Allergy, Intermediate, Rash, 12/12/21) Patient Home Medication List Home Medication List Reviewed: Yes Albuterol Sulfate (Ventolin Hfa) 1 Puff Puff, 2 PUFF INH Q6H PRN for SHORTNESS OF BREATH, (Reported) Entered as Reported by: MICA FAIRCHILD on 02/23/19 0935 Alprazolam (Alprazolam) 0.5 Mg Tablet, 0.25 MG PO DAILY PRN for SHORTNESS OF BREATH Prescribed by: TRAVIS HENRY on 04/30/232046 Aspirin (Aspirin EC) 81 Mg Tablet.dr, 81 MG PO 1800, (Reported) Entered as Reported by: JERILYN LISA on 03/15/23 1200 Atorvastatin Calcium (Atorvastatin Calcium) 20 Mg Tablet, 20 MG PO 1800, (Reported) Entered as Reported by: JERILYN LISA on 03/15/23 1200 Carvedilol (Carvedilol) 12.5 Mg Tablet, 12.5 MG PO BID, (Reported) Entered as Reported by: JERILYN LISA on 03/15/23 1200 Cefdinir (Cefdinir) 300 Mg Capsule, 300 MG PO BID Prescribed by: RIKI ZAVALA on 04/08/23 1123 Clopidogrel Bisulfate (Clopidogrel) 75 Mg Tablet, 75 MG PO 1800, (Reported) Entered as Reported by: MICA FAIRCHILD on 02/23/19 09 Furosemide (Furosemide) 40 Mg Tablet, 40 MG PO 1800, (Reported) Entered as Reported by: MICA FAIRCHILD on 02/23/19 09 Ipratropium/Albuterol Sulfate (Iprat-Albut 0.5-3(2.5) mg/3 ml) 0.5 Mg-3 Mg (2.5 Mg Base)/3 Ml Ampul.neb, 3 ML NEB Q8H PRN for SHORTNESS OF BREATH, (Reported) Entered as Reported by: JERILYN LISA on 03/15/23 1200 Isosorbide Mononitrate (Isosorbide Mononitrate ER) 30 Mg Tab.er.24h, 30 MG PO 1800, (Reported) Entered as Reported by: JAYSON PHOENIX on 06/28/19 1215 Levothyroxine Sodium (Levothyroxine Sodium) 50 Mcg Tablet, 50 MCG PO 1800, (Reported) Entered as Reported by: MICA FAIRCHILD on 02/23/19934 Mirtazapine (Mirtazapine) 15 Mg Tab.rapdis, 15 MG PO HS PRN for SLEEP, (Reported) Entered as Reported by: JERILYN LISA on 03/15/23 1200 Morphine Sulfate (Morphine Sulfate IR Tablet) 15 Mg Tablet, 15 MG PO Q6H PRN for PAIN-SEVERE (8-10), (Reported) Entered as Reported by: JERILYN LISA on 03/15/23 1200 Morphine Sulfate (Morphine Sulfate ER) 60 Mg Tablet.er, 60 MG PO Q12H, (Reported) Entered as Reported by: JERILYN LISA on 04/07/23 1001 Nitroglycerin (Nitroglycerin) 0.4 Mg Tab.subl, 0.4 MG SL UD PRN for CHEST PAIN (ANGINA), (Reported) Entered as Reported by: MICA FAIRCHILD on 02/23/19 09 Nivolumab (Opdivo) 240 Mg/24 Ml Vial, 480 MG IV EVERY 4 WEEKS, (Reported) Entered as Reported by: JERILYN LISA on 03/15/23 1200 Potassium Chloride (Potassium Chloride) 20 Meq Tab.er.prt, 20 MEQ PO 1800, (Reported) Entered as Reported by: JERILYN LISA on 03/15/231199 Prednisone (Prednisone) 20 Mg Tab, 40 MG PO DAILY Prescribed by: TRAVIS HENRY on 04/30/232044 Sacubitril/Valsartan (Entresto 49 mg-51 mg Tablet) 49 Mg-51 Mg Tablet, 1 EA PO BID, (Reported) Entered as Reported by: JERILYN LISA on 03/15/231199 Zoledronic Acid (Zoledronic Acid) 4 Mg Vial, 3.3 MG IV EVERY 12 WEEKS, (Reported) Entered as Reported by: JERILYN LISA on 03/15/231199 Review of Systems Review of Systems Constitutional: see HPI Past Tllnagk-Lqoahm-Ftkudh Hx Patient Social History Tobacco Use?: Yes Use of E-Cig and/or Vaping dev: No Substance use?: No Alcohol Use?: No Immunizations Up To Date Tetanus Booster (TDap): Unknown First/Initial COVID19 Vaccinat: APRIL 08, 2021 Second COVID19 Vaccination Terence: MAY 06, 2021 Third COVID19 Vaccination Date: APRIL 08, 2021 Seasonal Allergies Seasonal Allergies: No Past Medical History Surgery/Hospitalization HX: CANCER LUNG WITH METS, STENTS Surgeries: Yes (HEMORRHOIDS, DEFIB/PACEMAKER PLACEMENT, CARDIAC STENTS) Coronary Stent, Defibrillator, Pacemaker Respiratory: Yes (Lung cancer) COPD Currently Using CPAP: No Currently Using BIPAP: No Cardiac: Yes Coronary Artery Disease, Heart Attack, High Cholesterol, Hypertension Neurological: No Genitourinary: No Gastrointestinal: No Musculoskeletal: No Endocrine: Yes Hypothyroidsim HEENT: No Cancer: Yes (LUNG) Lung Did You Recieve Any Treatments: Yes What Type of Treatment Did You: Chemotherapy, Radiation Psychosocial: No Integumentary: No Family Medical History Heart Disease Physical Exam Vital Signs Vital Signs - First Documented Capillary Refill : Height, Weight, BMI Height: 5'6.00" Weight: 144lbs. 0.0oz. 65.963135ds; 20.11 BMI Method:Stated General Appearance: No Apparent Distress, WD/WN HEENT: Normal ENT Inspection, Pharynx Normal Neck: Full Range of Motion, Normal Inspection, Non Tender, Supple Respiratory: Chest Non Tender, No Accessory Muscle Use, No Respiratory Di stress, Other (Coarse breath sounds bilaterally, much worse in the right base.) Cardiovascular: Regular Rate, Rhythm, No Murmur Gastrointestinal: Normal Bowel Sounds, No Organomegaly, No Pulsatile Mass, Non Tender, Soft Extremity: Normal Capillary Refill, Normal Inspection, Normal Range of Motion, Non Tender, No Calf Tenderness, No Pedal Edema Neurologic/Psychiatric: Alert, Oriented x3 Skin: Normal Color, Warm/Dry Focused Exam Lactate Level 04/30/23 04:43: Lactic Acid Level 0.57 Lactic Acid Level Laboratory Tests Test 04/30/23 04:43 Lactic Acid Level 0.57 MMOL/L (0.50-2.00) Progress/Results/Core Measures Results/Orders Lab Results Laboratory Tests Test 04/30/23 04:43 Range/Units White Blood Count 10.2 4.3-11.0 10^3/uL Red Blood Count 3.75 L 4.30-5.52 10^6/uL Hemoglobin 10.7 L 13.3-17.7 g/dL Hematocrit 34 L 40-54 % Mean Corpuscular Volume 91 80-99 fL Mean Corpuscular Hemoglobin 29 25-34 pg Mean Corpuscular Hemoglobin Concent 32 32-36 g/dL Red Cell Distribution Width 15.1 H 10.0-14.5 % Platelet Count 307 130-400 10^3/uL Mean Platelet Volume 9.9 9.0-12.2 fL Immature Granulocyte % (Auto) 0 % Neutrophils (%) (Auto) 71 42-75 % Lymphocytes (%) (Auto) 20 12-44 % Monocytes (%) (Auto) 6 0-12 % Eosinophils (%) (Auto) 1 0-10 % Basophils (%) (Auto) 0 0-10 % Neutrophils # (Auto) 7.2 1.8-7.8 10^3/uL Lymphocytes # (Auto) 2.1 1.0-4.0 10^3/uL Monocytes # (Auto) 0.7 0.0-1.0 10^3/uL Eosinophils # (Auto) 0.1 0.0-0.3 10^3/uL Basophils # (Auto) 0.0 0.0-0.1 10^3/uL Immature Granulocyte # (Auto) 0.0 0.0-0.1 10^3/uL Sodium Level 137 135-145 MMOL/L Potassium Level 4.7 3.6-5.0 MMOL/L Chloride Level 100 98-107 MMOL/L Carbon Dioxide Level 27 21-32 MMOL/L Anion Gap 10 5-14 MMOL/L Blood Urea Nitrogen 21 H 7-18 MG/DL Creatinine 0.97 0.60-1.30 MG/DL Estimat Glomerular Filtration Rate 82 BUN/Creatinine Ratio 22 Glucose Level 108 H 70-105 MG/DL Lactic Acid Level 0.57 0.50-2.00 MMOL/L Calcium Level 9.2 8.5-10.1 MG/DL Corrected Calcium 9.6 8.5-10.1 MG/DL Total Bilirubin 0.3 0.1-1.0 MG/DL Aspartate Amino Transf (AST/SGOT) 15 5-34 U/L Alanine Aminotransferase (ALT/SGPT) 9 0-55 U/L Alkaline Phosphatase 67 40-136 U/L Total Protein 6.2 L 6.4-8.2 GM/DL Albumin 3.5 3.2-4.5 GM/DL SARS-CoV-2 RNA (RT-PCR) Not Detected Not Detecte Micro Results Microbiology 04/30/23 Blood Culture - Preliminary, Resulted No growth 04/30/23 Blood Culture - Preliminary, Resulted No growth My Orders Orders - SAMUEL BARRETO DO Cbc With Automated Diff (04/30/23 04:32) Comprehensive Metabolic Panel (04/30/23 04:32) Blood Culture (04/30/23 04:32) Chest 1 View Ap/Pa Only (04/30/23 04:32) Ed Iv/Invasive Line Start (04/30/23 04:32) Vital Signs Adult Sepsis Patie Q15M (04/30/23 04:32) O2 (04/30/23 04:32) Lactic Acid Analyzer (04/30/23 04:32) Covid 19 Inhouse Test (04/30/23 04:32) Ct Head Wo (04/30/23 04:36) Ct Angio Chest W (04/30/23 04:36) Iohexol Injection (Omnipaque 350 Mg/Ml 1 (04/30/23 05:00) Received Contrast (Hold Metformin- Contr (04/30/23 05:00) Ns (Ivpb) (Sodium Chloride 0.9% Ivpb Bag (04/30/23 05:00) Medications Given in ED Vital Signs/I&O 04/30/23 04/30/23 04/30/23 04/30/23 04:28 04:28 04:28 04:28 Temp 36.6 36.6 Pulse 66 66 Resp 20 20 B/P (MAP) 107/40 107/40 (62) Pulse Ox 94 97 97 O2 Delivery Nasal Cannula Nasal Cannula Nasal Cannula Nasal Cannula O2 Flow Rate 5.00 3.00 5.00 04/30/23 06:53 Pulse 68 Resp 22 B/P (MAP) 110/52 Pulse Ox 94 O2 Delivery Nasal Cannula O2 Flow Rate 3.00 Departure Communication (Admissions) The patient is hemodynamically stable. He has 5 L of oxygen on via nasal cannula when he arrives and his oxygen saturations around 97%. We decreased his back to his home 3 L and he maintained 94 to 95% thereafter. His lungs are coarse bilaterally, worse on the right which is consistent with his diagnosis of pneumonia. He is on Xarelto but still with his advanced cancer I thought he was a risk for pulmonary embolus. CT angiography shows no evidence for pulmonary embolus, pneumonia but does show advanced cancer. He also has severe emphysematous changes bilaterally. I did a CT of his head due to the right foot symptoms that he had yesterday. This was negative as well on my initial read. Pending radiology official read of both CT angiography as well as CT head. His white blood cell count is normal, lactic acid is well. Remainder of his labs are unremarkable. With him being stable on his home oxygen requirement, no evidence for pneumonia or pulmonary embolus I think he is stable for discharge home at this time with close follow-up. We will await the official reads of CT scans prior to discharge. His nephew is going to come up to pick him up. Impression Primary Impression: Dyspnea Qualified Codes: R06.00 - Dyspnea, unspecified Additional Impression: Lung cancer Qualified Codes: C34.91 - Malignant neoplasm of unspecified part of right bronchus or lung Disposition: HOME, SELF-CARE Condition: Stable Departure-Patient Inst. Referrals: KATHERIN GILMORE MD (PCP/Family) Primary Care Physician Patient Instructions: Shortness of Breath, Adult ED Add. Discharge Instructions: Use all inhalers and nebulizers as previously prescribed. Use your oxygen as needed, increase this up to 5 L via nasal cannula as necessary. If you need more than that she should return to the hospital. Continue all previous medications. Return to the emergency department for any severe concerns. SAMUEL BARRETO DO Apr 30, 2023 04:36
[2023-04-30] MEDS ORDERED: IOHEXOL 350 MG/ML 100 ML (OMNIPAQUE 350) VIAL IV ONE (05:00)
[2023-04-30] MEDS ORDERED: NS 100 ML (IVPB) BAG IV ONE (05:00)
[2023-04-30] MEDS ORDERED: HOLD METFORMIN - RECEIVED CONTRAST 20 ML VIAL IV SCH (05:00)
[2023-04-30 05:01] LABS: BASOPHILS % (AUTO) 0 % (0-10); EOSINOPHILS # (AUTO) 0.1 10^3/uL (0.0-0.3); EOSINOPHILS % (AUTO) 1 % (0-10); HEMATOCRIT 34 % (40-54); HEMOGLOBIN 10.7 g/dL (13.3-17.7); LYMPHOCYTES # (AUTO) 2.1 10^3/uL (1.0-4.0); LYMPHOCYTES % (AUTO) 20 % (12-44); MEAN CORPUSCULAR HEMOGLOBIN 29 pg (25-34); MEAN CORPUSCULAR HGB CONC 32 g/dL (32-36); MEAN CORPUSCULAR VOLUME 91 fL (80-99); MEAN PLATELET VOLUME 9.9 fL (9.0-12.2); MONOCYTES # (AUTO) 0.7 10^3/uL (0.0-1.0); MONOCYTES % (AUTO) 6 % (0-12); NEUTROPHILS # (AUTO) 7.2 10^3/uL (1.8-7.8); NEUTROPHILS % (AUTO) 71 % (42-75); PLATELET COUNT 307 10^3/uL (130-400); WHITE BLOOD COUNT 10.2 10^3/uL (4.3-11.0)
[2023-04-30 05:28] LABS: POTASSIUM 4.7 MMOL/L (3.6-5.0)
[2023-04-30 05:29] LABS: ALBUMIN 3.5 GM/DL (3.2-4.5); BILIRUBIN,TOTAL 0.3 MG/DL (0.1-1.0); CALCIUM 9.2 MG/DL (8.5-10.1); CREATININE SERUM 0.97 MG/DL (0.60-1.30); TOTAL PROTEIN 6.2 GM/DL (6.4-8.2)
--- NOTE | 2023-04-30 06:03 | Diagnostic Imaging Report ---
CLINICAL INDICATION: Patient states that he has shortness of breath and right lung cancer. EXAM: Portable chest x-ray upright view. COMPARISON: Chest x-ray dated 04/06/2023. FINDINGS: There is improved aeration of the inferior right perihilar region. There is amorphous airspace opacities involving the right lung base and right midlung field which is slightly decreased in the interim. Left lung is clear. There is no pleural effusion or pneumothorax. Pulmonary vasculature and cardiac silhouette are within normal limits. [id number] is again seen overlying the right chest in stable position. Cardiac pacemaker/AICD is again seen which appears intact. There are degenerative spurs involving the spine. IMPRESSION: 1: There is improved aeration of the right midlung field right lung base. There is persistent airspace opacities involving the right midlung field right lung base which may represent atelectasis versus infiltrate or sequelae from lung mass. 2: Otherwise, the remainder of this exam is stable with no interval acute abnormality. Dictated by: Dictated on workstation # [id number]
--- NOTE | 2023-04-30 06:41 | Diagnostic Imaging Report ---
Clinical indications: Patient with shortness of breath and right lung cancer. Exam: CT angiogram of the chest performed with 100 cc Omnipaque 350 IV contrast. Coronal and oblique MIP images of the vasculature were created to better evaluate anatomy. Auto Exposure Controls were utilized during the CT exam to meet ALARA standards for radiation dose reduction. Comparison: CT angiogram of the chest dated 04/06/2023.. Findings: Given the differences in technique, there is no significant change in size of the mass in the posterior right upper lobe which measures 1.7 cm x 3.8 cm in AP by transverse dimensions. Stable small nodular area seen inferior to the right lung mass. Stable mass in the inferior right perihilar region which previously measured 2.3 cm x 2.4 cm in greatest axial dimensions. There is also no significant change in size of the masslike consolidation in the lateral right lower lobe measuring roughly 3.1 cm in greatest axial dimension. There is mild atelectasis or scarring involving posterior aspects of both lung bases. Emphysema is seen with right lung apex affected the most. There is no pleural effusion or pneumothorax. There are partially calcified lymph nodes in the mediastinal and right hilar region again seen. The size of lymph nodes are stable. There is no axillary lymphadenopathy. There is enlargement of the ascending thoracic aorta measuring roughly 3.9 cm in AP dimensions. There is no dissection seen. There is no pulmonary embolism. Stable destructive area with bony irregularity involving the posterior aspect of the left T4 and T5 rib with adjacent soft tissue thickening. The visualized upper abdominal structures are stable. There are degenerative spurs involving the spine. IMPRESSION: 1: There is no evidence of pulmonary embolism. 2: Stable ascending thoracic aortic aneurysm with no dissection. 3: Stable lung mass like areas involving the right lung, as described above. 4: The remainder of this exam shows no significant interval change compared to the prior study of comparison. Dictated by: Dictated on workstation # [id number]
--- NOTE | 2023-04-30 06:45 | Diagnostic Imaging Report ---
Clinical indications: Patient with right-sided weakness and lung cancer. Patient had trouble moving right side yesterday. Exam: Axial CT scan of the brain without IV contrast with coronal and sagittal reformatted images. Auto Exposure Controls were utilized during the CT exam to meet ALARA standards for radiation dose reduction. Comparison: Head CT with and without contrast dated 12/08/2021. Findings: There is no evidence of acute cerebral infarct, intracranial hemorrhage, or gross mass effect. The brain parenchymal volume appears appropriate for patient's age. There is mild chronic small vessel ischemic disease. There is normal cormier-white matter distinction. There is no significant midline shift or herniation. There is no evidence of hydrocephalus. The basal cisterns are unremarkable. The skull, extracranial soft tissue, and orbits are unremarkable. The paranasal sinuses are unremarkable. Temporal bones show no significant abnormality. Impression: 1: There is no CT evidence of acute intracranial process. Dictated by: Dictated on workstation # [id number]
[2023-04-30 06:53] VITALS: BP 110/52
[2023-04-30] MEDS ORDERED: PRD20T PO (20:45)
[2023-04-30] MEDS ORDERED: ALPR0.5T7 PO (20:47)
== END 2023-04-30 06:54 | disposition home or self-care (01) ==
LOC: EDUNIT# 04:25 → ER FS 04:26
DX: R06.00 Dyspnea, unspecified (principal); C34.91 Malignant neoplasm of unspecified part of right bronchus or lung; C79.51 Secondary malignant neoplasm of bone; Z79.02 Long term (current) use of antithrombotics/antiplatelets; Z99.81 Dependence on supplemental oxygen; Z20.822 Contact with and (suspected) exposure to COVID-19
CPT/HCPCS: 36415; 70450; 71045; 71275; 80053; 83605; 85025; 87040; 87636; Q9967

== ENCOUNTER 2023-04-30 20:12 | Emergency (ER) | payer MEDICARE ==
[2023-04-30] MEDS ORDERED: ALPRAZolam 0.25 MG (XANAX) TAB PO STA (20:24)
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
[2023-04-30] MEDS ORDERED: PRD20T PO (20:45)
[2023-04-30] MEDS ORDERED: ALPR0.5T7 PO (20:47)
[2023-04-30 20:49] VITALS: BP 105/41
== END 2023-04-30 20:50 | disposition home or self-care (01) ==
LOC: EDUNIT# 20:12 → ER FS 20:13
DX: J44.9 Chronic obstructive pulmonary disease, unspecified (principal); F41.9 Anxiety disorder, unspecified; C34.90 Malignant neoplasm of unspecified part of unspecified bronchus or lung; C79.51 Secondary malignant neoplasm of bone; F17.210 Nicotine dependence, cigarettes, uncomplicated

== ENCOUNTER 2023-05-12 14:32 | Emergency (ER) | payer MEDICARE ==
[~2023-05-12 14:32] MED LIST changes: +ALPR0.5T7 PO
[2023-05-12] MEDS ORDERED: RT-ALBUTEROL/IPRATROPIUM 3 ML (DUONEB) VIAL INH STA (14:40)
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
[2023-05-12] MEDS ORDERED: ALPR0.5T7 PO (15:52)
[2023-05-12 16:05] VITALS: BP 109/47
== END 2023-05-12 16:06 | disposition home or self-care (01) ==
LOC: EDUNIT# 14:32 → ER FS 14:32
DX: T59.811A Toxic effect of smoke, accidental (unintentional), initial encounter (principal); J70.5 Respiratory conditions due to smoke inhalation; C34.90 Malignant neoplasm of unspecified part of unspecified bronchus or lung; C79.51 Secondary malignant neoplasm of bone; F41.9 Anxiety disorder, unspecified; F17.210 Nicotine dependence, cigarettes, uncomplicated; Z99.81 Dependence on supplemental oxygen; Z79.899 Other long term (current) drug therapy; Y92.009 Unspecified place in unspecified non-institutional (private) residence as the place of occurrence of the external cause
CPT/HCPCS: 99283

== ENCOUNTER 2023-05-19 09:15 | Outpatient (RCR) | payer MEDICARE ==
[~2023-05-19] VITALS: Ht 167.6 cm; Wt 52.2 kg
[~2023-05-19 09:15] MED LIST changes: +HEParin (CENTRAL IV FLUSH) 500 UNIT/5 ML SYR IV PRN; +NIVOLUMAB 480 MG in NS (IVPB) 100 ML 100 ML IV SCH; +NS IV 500 ML 500 ML IV SCH; +NS IV SCH; +ZOLEDRONIC ACID IV SCH
[2023-05-19 09:34] LABS: BASOPHILS # (AUTO) 0.1 10^3/uL (0.0-0.1); BASOPHILS % (AUTO) 1 % (0-10); EOSINOPHILS # (AUTO) 0.2 10^3/uL (0.0-0.3); EOSINOPHILS % (AUTO) 2 % (0-10); HEMATOCRIT 36 % (40-54); LYMPHOCYTES % (AUTO) 20 % (12-44); MEAN CORPUSCULAR HEMOGLOBIN 29 pg (25-34); MEAN CORPUSCULAR HGB CONC 31 g/dL (32-36); MEAN CORPUSCULAR VOLUME 94 fL (80-99); MEAN PLATELET VOLUME 9.8 fL (9.0-12.2); MONOCYTES # (AUTO) 0.6 10^3/uL (0.0-1.0); MONOCYTES % (AUTO) 6 % (0-12); NEUTROPHILS # (AUTO) 7.2 10^3/uL (1.8-7.8); NEUTROPHILS % (AUTO) 72 % (42-75); PLATELET COUNT 312 10^3/uL (130-400)
[2023-05-19 09:50] VITALS: BP 119/43
[2023-05-19 09:52] LABS: ALBUMIN 3.6 GM/DL (3.2-4.5); BILIRUBIN,TOTAL 0.4 MG/DL (0.1-1.0); CALCIUM 8.6 MG/DL (8.5-10.1); CREATININE SERUM 0.86 MG/DL (0.60-1.30); POTASSIUM 4.4 MMOL/L (3.6-5.0); TOTAL PROTEIN 6.6 GM/DL (6.4-8.2)
== END 2023-06-14 | disposition home or self-care (01) ==
LOC: ONC 09:15
PROVIDERS: ATTEND Internal Medicine Hematology & Oncology
DX: Z51.11 Encounter for antineoplastic chemotherapy (principal); Z45.2 Encounter for adjustment and management of vascular access device; C34.91 Malignant neoplasm of unspecified part of right bronchus or lung; C79.51 Secondary malignant neoplasm of bone; J44.9 Chronic obstructive pulmonary disease, unspecified; I25.10 Atherosclerotic heart disease of native coronary artery without angina pectoris; J96.10 Chronic respiratory failure, unspecified whether with hypoxia or hypercapnia; I50.9 Heart failure, unspecified; Z72.0 Tobacco use
CPT/HCPCS: 36591; 80053; 85025; 96413

== ENCOUNTER 2023-07-05 18:56 | Emergency (ER) | payer MEDICARE ==
[~2023-07-05] VITALS: Ht 167.7 cm; Wt 54.4 kg
[~2023-07-05 18:56] MED LIST changes: -HEParin (CENTRAL IV FLUSH) 500 UNIT/5 ML SYR IV PRN; -NIVOLUMAB 480 MG in NS (IVPB) 100 ML 100 ML IV SCH; -NS IV 500 ML 500 ML IV SCH; -NS IV SCH; -ZOLEDRONIC ACID IV SCH
--- NOTE | 2023-07-05 19:00 | ED Chest Pain ---
General Stated Complaint: CHEST TIGHTNESS History of Present Illness Date Seen by Provider: Jul 05, 2023 Time Seen by Provider: 19:00 Initial Comments 73-year-old male presents with chest tightness, congestion that started yesterday. He has a fever and generalized malaise and not feeling well. Reports he has underlying history of lung disease and his bowel pneumonia 3 times over the last couple months. Patient denies any nausea, vomiting, diarrhea Allergies and Home Medications Allergies Coded Allergies: cephalexin (Verified Allergy, Intermediate, Rash, 12/12/21) Patient Home Medication List Home Medication List Reviewed: Yes Albuterol Sulfate (Ventolin Hfa) 1 Puff Puff, 2 PUFF INH Q6H PRN for SHORTNESS OF BREATH, (Reported) Entered as Reported by: MICA FAIRCHILD on 02/23/19 0935 Alprazolam (Alprazolam) 0.5 Mg Tablet, 0.25 MG PO DAILY PRN for SHORTNESS OF BREATH Prescribed by: TRAVIS HENRY on 05/12/23 1553 Aspirin (Aspirin EC) 81 Mg Tablet.dr, 81 MG PO 1800, (Reported) Entered as Reported by: JERILYN LISA on 03/15/23 1200 Atorvastatin Calcium (Atorvastatin Calcium) 20 Mg Tablet, 20 MG PO 1800, (Reported) Entered as Reported by: JERILYN LISA on 03/15/23 1200 Azithromycin (Azithromycin) 250 Mg Tablet, 250 MG PO UD Prescribed by: ALYSIA MCLEAN on 07/05/232006 Carvedilol (Carvedilol) 12.5 Mg Tablet, 12.5 MG PO BID, (Reported) Entered as Reported by: JERILYN LISA on 03/15/23 1200 Cefdinir (Cefdinir) 300 Mg Capsule, 300 MG PO BID Prescribed by: RIKI ZAVALA on 04/08/23 1123 Clopidogrel Bisulfate (Clopidogrel) 75 Mg Tablet, 75 MG PO 1800, (Reported) Entered as Reported by: MICA FAIRCHILD on 02/23/19 0935 Furosemide (Furosemide) 40 Mg Tablet, 40 MG PO 1800, (Reported) Entered as Reported by: MICA FAIRCHILD on 02/23/19 0935 Ipratropium/Albuterol Sulfate (Iprat-Albut 0.5-3(2.5) mg/3 ml) 0.5 Mg-3 Mg (2.5 Mg Base)/3 Ml Ampul.neb, 3 ML NEB Q8H PRN for SHORTNESS OF BREATH, (Reported) Entered as Reported by: JERILYN LISA on 03/15/23 1200 Isosorbide Mononitrate (Isosorbide Mononitrate ER) 30 Mg Tab.er.24h, 30 MG PO 1800, (Reported) Entered as Reported by: JAYSON PHOENIX on 06/28/19 1215 Levothyroxine Sodium (Levothyroxine Sodium) 50 Mcg Tablet, 50 MCG PO 1800, (Reported) Entered as Reported by: MICA FAIRCIHLD on 02/23/19 0935 Mirtazapine (Mirtazapine) 15 Mg Tab.rapdis, 15 MG PO HS PRN for SLEEP, (Reported) Entered as Reported by: JERILYN LISA on 03/15/23 1200 Morphine Sulfate (Morphine Sulfate IR Tablet) 15 Mg Tablet, 15 MG PO Q6H PRN for PAIN-SEVERE (8-10), (Reported) Entered as Reported by: JERILYN LISA on 03/15/23 1200 Morphine Sulfate (Morphine Sulfate ER) 60 Mg Tablet.er, 60 MG PO Q12H, (Reported) Entered as Reported by: JERILYN LISA on 04/07/23 1001 Nitroglycerin (Nitroglycerin) 0.4 Mg Tab.subl, 0.4 MG SL UD PRN for CHEST PAIN (ANGINA), (Reported) Entered as Reported by: MICA FAIRCHILD on 02/23/19 0935 Nivolumab (Opdivo) 240 Mg/24 Ml Vial, 480 MG IV EVERY 4 WEEKS, (Reported) Entered as Reported by: JERILYN LISA on 03/15/23 1200 Potassium Chloride (Potassium Chloride) 20 Meq Tab.er.prt, 20 MEQ PO 1800, (Reported) Entered as Reported by: JERILYN LISA on 03/15/23 1200 Prednisone (Prednisone) 20 Mg Tab, 40 MG PO DAILY Prescribed by: TRAVIS HENRY on 04/30/232044 Prednisone (Prednisone) 20 Mg Tab, 40 MG PO DAILY Prescribed by: ALYSIA MCLEAN on 07/05/232006 Sacubitril/Valsartan (Entresto 49 mg-51 mg Tablet) 49 Mg-51 Mg Tablet, 1 EA PO BID, (Reported) Entered as Reported by: JERILYN LISA on 03/15/23 1200 Zoledronic Acid (Zoledronic Acid) 4 Mg Vial, 3.3 MG IV EVERY 12 WEEKS, (Re ported) Entered as Reported by: JERILYN LISA on 03/15/23 1200 Review of Systems Review of Systems Constitutional: chills, fever Respiratory: Cough, Shortness of Air Cardiovascular: See HPI Gastrointestinal: Denies Abdominal Pain, Denies Nausea, Denies Vomiting Genitourinary: No Symptoms Reported Musculoskeletal: no symptoms reported Skin: no symptoms reported Psychiatric/Neurological: No Symptoms Reported Endocrine: No Symptoms Reported Past Ksatpsm-[id number]-[id number] Hx Immunizations Up To Date Tetanus Booster (TDap): Unknown First/Initial COVID19 Vaccinat: APRIL 08, 2021 Second COVID19 Vaccination Terence: MAY 06, 2021 Third COVID19 Vaccination Date: APRIL 08, 2021 Seasonal Allergies Seasonal Allergies: No Past Medical History Surgery/Hospitalization HX: Lung Cancer with mets to the bone, Cardiac Surgeries: Yes (HEMORRHOIDS, DEFIB/PACEMAKER PLACEMENT, CARDIAC STENTS) Coronary Stent, Defibrillator, Pacemaker Respiratory: Yes (Lung cancer) COPD Currently Using CPAP: No Currently Using BIPAP: No Cardiac: Yes Coronary Artery Disease, Heart Attack, High Cholesterol, Hypertension Neurological: No Genitourinary: No Gastrointestinal: No Musculoskeletal: No Endocrine: Yes Hypothyroidsim HEENT: No Cancer: Yes (LUNG) Lung Did You Recieve Any Treatments: Yes What Type of Treatment Did You: Chemotherapy, Radiation Psychosocial: No Integumentary: No Family Medical History Heart Disease Physical Exam Vital Signs Vital Signs - First Documented Capillary Refill : Height, Weight, BMI Height: 5'6.00" Weight: 144lbs. 0.0oz. 65.498661ch; 19.18 BMI Method:Stated General Appearance: No Apparent Distress Neck: Non Tender, Supple Respiratory: No Accessory Muscle Use, Decreased Breath Sounds (bilateral ) Cardiovascular: Regular Rate, Rhythm, No Edema Extremity: Normal Capillary Refill, Normal Inspection Neurologic/Psychiatric: Alert, Oriented x3, No Motor/Sensory Deficits, Normal Mood/Affect Skin: Normal Color, Warm/Dry Progress/Results/Core Measures Results/Orders Lab Results Laboratory Tests Test 07/05/23 19:06 Range/Units White Blood Count 10.3 4.3-11.0 10^3/uL Red Blood Count 4.19 L 4.30-5.52 10^6/uL Hemoglobin 11.9 L 13.3-17.7 g/dL Hematocrit 38 L 40-54 % Mean Corpuscular Volume 90 80-99 fL Mean Corpuscular Hemoglobin 28 25-34 pg Mean Corpuscular Hemoglobin Concent 32 32-36 g/dL Red Cell Distribution Width 15.1 H 10.0-14.5 % Platelet Count 285 130-400 10^3/uL Mean Platelet Volume 10.6 9.0-12.2 fL Immature Granulocyte % (Auto) 0 % Neutrophils (%) (Auto) 73 42-75 % Lymphocytes (%) (Auto) 20 12-44 % Monocytes (%) (Auto) 6 0-12 % Eosinophils (%) (Auto) 0 0-10 % Basophils (%) (Auto) 0 0-10 % Neutrophils # (Auto) 7.5 1.8-7.8 10^3/uL Lymphocytes # (Auto) 2.1 1.0-4.0 10^3/uL Monocytes # (Auto) 0.6 0.0-1.0 10^3/uL Eosinophils # (Auto) 0.0 0.0-0.3 10^3/uL Basophils # (Auto) 0.0 0.0-0.1 10^3/uL Immature Granulocyte # (Auto) 0.0 0.0-0.1 10^3/uL Sodium Level 141 135-145 MMOL/L Potassium Level 3.9 3.6-5.0 MMOL/L Chloride Level 104 98-107 MMOL/L Carbon Dioxide Level 27 21-32 MMOL/L Anion Gap 10 5-14 MMOL/L Blood Urea Nitrogen 17 7-18 MG/DL Creatinine 0.82 0.60-1.30 MG/DL Estimat Glomerular Filtration Rate 92 BUN/Creatinine Ratio 21 Glucose Level 117 H 70-105 MG/DL Calcium Level 9.3 8.5-10.1 MG/DL Corrected Calcium 9.5 8.5-10.1 MG/DL Magnesium Level 2.0 1.6-2.4 MG/DL Total Bilirubin 0.3 0.1-1.0 MG/DL Aspartate Amino Transf (AST/SGOT) 14 5-34 U/L Alanine Aminotransferase (ALT/SGPT) 8 0-55 U/L Alkaline Phosphatase 59 40-136 U/L Troponin I < 0.30 <0.30 NG/ML Pro-B-Type Natriuretic Peptide 3039.0 H <125.0 PG/ML Total Protein 6.1 L 6.4-8.2 GM/DL Albumin 3.8 3.2-4.5 GM/DL Influenza Type A (RT-PCR) Not Detected Not Detecte Influenza Type B (RT-PCR) Not Detected Not Detecte SARS-CoV-2 RNA (RT-PCR) Not Detected Not Detecte My Orders Orders - ALYSIA MCLEAN DO Cbc With Automated Diff (07/05/23 19:06) Comprehensive Metabolic Panel (07/05/23 19:06) Magnesium (07/05/23 19:06) Influenza A And B By Pcr (07/05/23 19:06) Probnp Fs (07/05/23 19:06) Troponin I Fs (07/05/23 19:06) Covid 19 Inhouse Test (07/05/23 19:06) Ipratropium/Albuterol Inh Soln (Ipratrop (07/05/23 19:15) Svn Small Volume Nebulizer (07/05/23 19:06) Ekg Tracing (07/05/23 19:07) Monitor-Rhythm Ecg Trace Only (07/05/23 19:07) Chest 1 View Ap/Pa Only (07/05/23 19:16) Budesonide Inhalation Solution (Budesoni (07/05/23 20:00) Dexamethasone Injection (Dexamethasone (07/05/23 20:00) Svn Small Volume Nebulizer (07/05/23 19:51) Medications Given in ED Current Medications Medications Dose Ordered Sig/Erick Route Start Time Stop Time Status Last Admin Dose Admin Albuterol/ Ipratropium 3 ml ONCE ONCE INH 07/05/23 19:15 07/05/23 19:16 DC 07/05/23 19:14 3 ML Budesonide 0.5 mg ONCE ONCE INH 07/05/23 20:00 07/05/23 20:01 DC 07/05/23 19:57 0.5 MG Dexamethasone Sodium Phosphate 10 mg ONCE ONCE IV 07/05/23 20:00 07/05/23 20:01 DC 07/05/23 19:57 10 MG Vital Signs/I&O 07/05/23 07/05/23 18:57 18:57 Temp 36.9 Pulse 75 Resp 22 B/P (MAP) 129/50 (76) Pulse Ox 97 O2 Delivery Nasal Cannula Nasal Cannula O2 Flow Rate 2.50 2.50 Progress Progress Note : Progress Note Patient's diagnostic studies were ordered reviewed and interpreted by me. Patient's labs appear to be at his baseline 1. Paired to previous labs. Patient does not have any signs on physical exam of fluid overload. Patient's EKG shows no acute findings with a negative troponin. Patient's symptoms did improve with breathing treatment. I suspect this likely due to COPD exacerbation likely due to the extreme heat and humidity. I will treat him for a COPD exacerbation. He is stable and discharged home Initial ECG Impression Date: Jul 05, 2023 Initial ECG Impression Time: 19:06 Initial ECG Rate: 75 Initial ECG Rhythm: Normal Sinus Initial ECG Intervals: Normal Initial ECG Impression: Nonspecific Changes Comment No acute ST elevation or changes noted Diagnostic Imaging Diagonstic Imaging: Xray Plain Films/CT/US/NM/MRI: chest Comments Date of Exam:07/05/23 CHEST 1 VIEW AP/PA ONLY CHEST 1 VIEW AP/PA ONLY INDICATION: chest tightness . COMPARISON: Chest radiograph 04/30/2023. FINDINGS: Lungs: Normal lung volume. No focal consolidation. Similar scarring within the lung bases. Emphysema. Pleura: No pleural effusion or pneumothorax. Heart and Mediastinum: Cardiomediastinal silhouette and great vessels of the thorax are stable. Right pectoral Port-A-Cath tip projects over the SVC. Left pectoral AICD. Osseous Structures and Soft Tissues: No acute osseous abnormality. Normal soft tissues. IMPRESSION: Redemonstration of emphysema and scarring in the lung bases. No focal consolidation or marylu pulmonary edema. Reviewed: Reviewed by Me, Reviewed/Discussed Departure Impression Primary Impression: Chest tightness Additional Impression: COPD (chronic obstructive pulmonary disease) Qualified Codes: J44.1 - Chronic obstructive pulmonary disease with (acute) exacerbation Disposition: 01 HOME, SELF-CARE Condition: Stable Departure-Patient Inst. Referrals: KATHERIN GILMORE MD (PCP/Family) Primary Care Physician Patient Instructions: Chronic Bronchitis (DC) Add. Discharge Instructions: Follow-up with your primary care provider in 1 week for recheck. Scripts Prednisone (Prednisone) 20 Mg Tab 40 MG PO DAILY, #6 TAB 0 Refills Prov: ALYSIA MCLEAN DO 07/05/23 Azithromycin (Azithromycin) 250 Mg Tablet 250 MG PO UD, #6 TAB TAKE 2 TABLETS ON DAY ONE THEN TAKE 1 TABLET DAILY FOR FOUR MORE DAYS Prov: ALYSIA MCLEAN DO 07/05/23 ALYSIA MCLEAN DO Jul 05, 2023 19:00
[2023-07-05] MEDS ORDERED: RT-Ipratropium/Albuterol NEB 3 ML VIAL INH ONE (19:15)
[2023-07-05 19:16] LABS: BASOPHILS % (AUTO) 0 % (0-10); EOSINOPHILS % (AUTO) 0 % (0-10); HEMATOCRIT 38 % (40-54); HEMOGLOBIN 11.9 g/dL (13.3-17.7); LYMPHOCYTES # (AUTO) 2.1 10^3/uL (1.0-4.0); LYMPHOCYTES % (AUTO) 20 % (12-44); MEAN CORPUSCULAR HEMOGLOBIN 28 pg (25-34); MEAN CORPUSCULAR HGB CONC 32 g/dL (32-36); MEAN CORPUSCULAR VOLUME 90 fL (80-99); MEAN PLATELET VOLUME 10.6 fL (9.0-12.2); MONOCYTES # (AUTO) 0.6 10^3/uL (0.0-1.0); MONOCYTES % (AUTO) 6 % (0-12); NEUTROPHILS # (AUTO) 7.5 10^3/uL (1.8-7.8); NEUTROPHILS % (AUTO) 73 % (42-75); PLATELET COUNT 285 10^3/uL (130-400); WHITE BLOOD COUNT 10.3 10^3/uL (4.3-11.0)
--- NOTE | 2023-07-05 19:32 | Diagnostic Imaging Report ---
CHEST 1 VIEW AP/PA ONLY INDICATION: chest tightness . COMPARISON: Chest radiograph 04/30/2023. FINDINGS: Lungs: Normal lung volume. No focal consolidation. Similar scarring within the lung bases. Emphysema. Pleura: No pleural effusion or pneumothorax. Heart and Mediastinum: Cardiomediastinal silhouette and great vessels of the thorax are stable. Right pectoral Port-A-Cath tip projects over the SVC. Left pectoral AICD. Osseous Structures and Soft Tissues: No acute osseous abnormality. Normal soft tissues. IMPRESSION: Redemonstration of emphysema and scarring in the lung bases. No focal consolidation or marylu pulmonary edema. Dictated by: Dictated on workstation # [id number]
[2023-07-05 19:47] LABS: ALANINE AMINOTRANSFERASE 8 U/L (0-55); ALKALINE PHOSPHATASE 59 U/L (40-136); BILIRUBIN,TOTAL 0.3 MG/DL (0.1-1.0); BUN/CREATININE RATIO 21; CALCIUM 9.3 MG/DL (8.5-10.1); CARBON DIOXIDE 27 MMOL/L (21-32); CHLORIDE 104 MMOL/L (98-107); CREATININE SERUM 0.82 MG/DL (0.60-1.30); GFR ESTIMATED 92; GLUCOSE 117 MG/DL (70-105); POTASSIUM 3.9 MMOL/L (3.6-5.0); SODIUM 141 MMOL/L (135-145); TOTAL PROTEIN 6.1 GM/DL (6.4-8.2)
[2023-07-05 19:48] LABS: ALBUMIN 3.8 GM/DL (3.2-4.5)
[2023-07-05] MEDS ORDERED: RT-BUDESONIDE NEBS 0.5 MG/2ML VIAL INH ONE (20:00)
[2023-07-05] MEDS ORDERED: dexAMETHasone INJ 10 MG/ML 1 ML VIAL IV ONE (20:00)
[2023-07-05] MEDS ORDERED: AZIT250T12 PO (20:07)
[2023-07-05] MEDS ORDERED: PRD20T PO (20:07)
[2023-07-05 20:17] VITALS: BP 121/48
== END 2023-07-05 20:17 | disposition home or self-care (01) ==
LOC: EDUNIT# 18:56 → ER FS 18:57
DX: J44.9 Chronic obstructive pulmonary disease, unspecified (principal); Z88.1 Allergy status to other antibiotic agents; Z85.118 Personal history of other malignant neoplasm of bronchus and lung; Z92.21 Personal history of antineoplastic chemotherapy; Z92.3 Personal history of irradiation; Z20.822 Contact with and (suspected) exposure to COVID-19
CPT/HCPCS: 36415; 71045; 80053; 83735; 83880; 84484; 85025; 87636; 93005; 93041

== ENCOUNTER → 2023-07-15 | Outpatient (RCR) | payer MEDICARE ==
[2023-06-17 10:20] LABS: BASOPHILS % (AUTO) 1 % (0-10); EOSINOPHILS # (AUTO) 0.2 10^3/uL (0.0-0.3); EOSINOPHILS % (AUTO) 2 % (0-10); HEMATOCRIT 37 % (40-54); HEMOGLOBIN 11.2 g/dL (13.3-17.7); LYMPHOCYTES # (AUTO) 2.2 10^3/uL (1.0-4.0); LYMPHOCYTES % (AUTO) 28 % (12-44); MEAN CORPUSCULAR HEMOGLOBIN 29 pg (25-34); MEAN CORPUSCULAR HGB CONC 31 g/dL (32-36); MEAN CORPUSCULAR VOLUME 94 fL (80-99); MEAN PLATELET VOLUME 9.8 fL (9.0-12.2); MONOCYTES # (AUTO) 0.6 10^3/uL (0.0-1.0); MONOCYTES % (AUTO) 8 % (0-12); NEUTROPHILS % (AUTO) 62 % (42-75); PLATELET COUNT 246 10^3/uL (130-400); WHITE BLOOD COUNT 8.1 10^3/uL (4.3-11.0)
[2023-06-17 10:30] LABS: ALBUMIN 3.4 GM/DL (3.2-4.5)
[2023-06-17 10:31] LABS: POTASSIUM 3.9 MMOL/L (3.6-5.0)
[2023-06-17 10:32] LABS: CALCIUM 8.6 MG/DL (8.5-10.1)
[2023-06-17 10:33] LABS: TOTAL PROTEIN 6.2 GM/DL (6.4-8.2)
[2023-06-17 10:35] LABS: BILIRUBIN,TOTAL 0.3 MG/DL (0.1-1.0)
[2023-06-17 10:37] LABS: CREATININE SERUM 0.72 MG/DL (0.60-1.30)
[2023-06-17 10:45] VITALS: BP 124/56
[2023-06-17] MEDS: NS IV 500 ML 500 ML IV SCH (10:56)
[2023-06-17] MEDS: NIVOLUMAB 480 MG in NS (IVPB) 100 ML 100 ML IV SCH (10:56)
[~2023-07-15] VITALS: Ht 167.6 cm; Wt 54.6 kg
[~2023-07-15] MED LIST changes: +AZIT250T12 PO; +HEParin (CENTRAL IV FLUSH) 500 UNIT/5 ML SYR IV PRN; +NS IV SCH; +ZOLEDRONIC ACID IV SCH
[2023-07-15 09:06] LABS: BASOPHILS # (AUTO) 0.1 10^3/uL (0.0-0.1); BASOPHILS % (AUTO) 1 % (0-10); EOSINOPHILS # (AUTO) 0.2 10^3/uL (0.0-0.3); EOSINOPHILS % (AUTO) 2 % (0-10); HEMATOCRIT 38 % (40-54); HEMOGLOBIN 11.8 g/dL (13.3-17.7); LYMPHOCYTES # (AUTO) 2.1 10^3/uL (1.0-4.0); LYMPHOCYTES % (AUTO) 19 % (12-44); MEAN CORPUSCULAR HEMOGLOBIN 30 pg (25-34); MEAN CORPUSCULAR HGB CONC 31 g/dL (32-36); MEAN CORPUSCULAR VOLUME 95 fL (80-99); MEAN PLATELET VOLUME 10.5 fL (9.0-12.2); MONOCYTES # (AUTO) 0.8 10^3/uL (0.0-1.0); MONOCYTES % (AUTO) 8 % (0-12); NEUTROPHILS # (AUTO) 7.7 10^3/uL (1.8-7.8); NEUTROPHILS % (AUTO) 70 % (42-75); PLATELET COUNT 250 10^3/uL (130-400)
[2023-07-15 09:34] LABS: ALBUMIN 3.7 GM/DL (3.2-4.5); BILIRUBIN,TOTAL 0.2 MG/DL (0.1-1.0); CALCIUM 8.5 MG/DL (8.5-10.1); CREATININE SERUM 0.89 MG/DL (0.60-1.30); TOTAL PROTEIN 6.1 GM/DL (6.4-8.2)
[2023-07-15] MEDS: NIVOLUMAB 480 MG in NS (IVPB) 100 ML 100 ML IV SCH (10:28)
[2023-07-15] MEDS: NS IV 500 ML 500 ML IV SCH (10:29)
[2023-07-15 10:39] VITALS: BP 121/64
== END | disposition home or self-care (01) ==
LOC: ONC 06-17 07:44
PROVIDERS: ATTEND Internal Medicine Hematology & Oncology
DX: Z51.11 Encounter for antineoplastic chemotherapy (principal); Z45.2 Encounter for adjustment and management of vascular access device; C34.91 Malignant neoplasm of unspecified part of right bronchus or lung; C79.51 Secondary malignant neoplasm of bone; J44.9 Chronic obstructive pulmonary disease, unspecified; I25.10 Atherosclerotic heart disease of native coronary artery without angina pectoris; J96.10 Chronic respiratory failure, unspecified whether with hypoxia or hypercapnia; I50.9 Heart failure, unspecified; Z72.0 Tobacco use
CPT/HCPCS: 80053; 84443; 85025; 96413; G0463; 36591; 96365; 99214

== ENCOUNTER 2023-08-20 09:01 | Outpatient (RCR) | payer MEDICARE ==
[~2023-08-20 09:01] MED LIST changes: +NIVOLUMAB 480 MG in NS (IVPB) 100 ML 100 ML IV SCH; +NS IV 500 ML 500 ML IV SCH
[2023-08-20 09:30] LABS: BASOPHILS # (AUTO) 0.1 10^3/uL (0.0-0.1); BASOPHILS % (AUTO) 1 % (0-10); EOSINOPHILS # (AUTO) 0.2 10^3/uL (0.0-0.3); EOSINOPHILS % (AUTO) 2 % (0-10); HEMATOCRIT 39 % (40-54); LYMPHOCYTES # (AUTO) 2.3 10^3/uL (1.0-4.0); LYMPHOCYTES % (AUTO) 24 % (12-44); MEAN CORPUSCULAR HEMOGLOBIN 29 pg (25-34); MEAN CORPUSCULAR HGB CONC 31 g/dL (32-36); MEAN CORPUSCULAR VOLUME 92 fL (80-99); MEAN PLATELET VOLUME 10.5 fL (9.0-12.2); MONOCYTES # (AUTO) 0.9 10^3/uL (0.0-1.0); MONOCYTES % (AUTO) 9 % (0-12); NEUTROPHILS # (AUTO) 6.4 10^3/uL (1.8-7.8); NEUTROPHILS % (AUTO) 65 % (42-75); PLATELET COUNT 284 10^3/uL (130-400)
[2023-08-20 09:49] LABS: ALBUMIN 3.6 GM/DL (3.2-4.5); BILIRUBIN,TOTAL 0.2 MG/DL (0.1-1.0); CALCIUM 8.8 MG/DL (8.5-10.1); CREATININE SERUM 0.81 MG/DL (0.60-1.30); POTASSIUM 4.6 MMOL/L (3.6-5.0); TOTAL PROTEIN 6.2 GM/DL (6.4-8.2)
[2023-08-20 10:12] VITALS: BP 129/62
[2023-09-06] MEDS ORDERED: ALPR0.5T7 PO (11:29)
[2023-09-06] MEDS ORDERED: MORP100T47 PO (11:29)
[2023-09-09] MEDS ORDERED: PANT40TA52 PO (13:10)
[2023-09-09] MEDS ORDERED: AMOX1TAB12 PO (13:10)
== END 2023-09-14 | disposition home or self-care (01) ==
LOC: ONC 09:01
PROVIDERS: ATTEND Internal Medicine Hematology & Oncology
DX: C34.91 Malignant neoplasm of unspecified part of right bronchus or lung (principal); C79.51 Secondary malignant neoplasm of bone; J44.9 Chronic obstructive pulmonary disease, unspecified; I25.10 Atherosclerotic heart disease of native coronary artery without angina pectoris; J96.10 Chronic respiratory failure, unspecified whether with hypoxia or hypercapnia; I50.9 Heart failure, unspecified; Z72.0 Tobacco use
CPT/HCPCS: 80053; 84443; 85025

== ENCOUNTER 2023-09-05 19:48 | Inpatient (IN) | payer MEDICARE ==
[~2023-09-05] VITALS: Ht 167.7 cm; Wt 61.6 kg
[~2023-09-05 19:48] MED LIST changes: -HEParin (CENTRAL IV FLUSH) 500 UNIT/5 ML SYR IV PRN; -NIVOLUMAB 480 MG in NS (IVPB) 100 ML 100 ML IV SCH; -NS IV 500 ML 500 ML IV SCH; -NS IV SCH; -ZOLEDRONIC ACID IV SCH
[2023-09-05] MEDS ORDERED: NS IV 1000 ML 1,000 ML IV STA (19:55)
--- NOTE | 2023-09-05 19:59 | ED Dyspnea ---
General Stated Complaint: SOB|SWELLING|LIGHT HEADED Source of Information: Patient, EMS History of Present Illness Date Seen by Provider: Sep 05, 2023 Time Seen by Provider: 19:48 Initial Comments 73-year-old male presenting with complaints of increased shortness of breath and chest tightness. He has not taken any of his morphine for chronic pain today. He had recently gone with family to a race. Since then he has been feeling more short of breath and coughing more. He also has had increased fatigue and weakness. He does have a history of lung cancer and is undergoing palliative type care chemotherapy. He did have a breathing treatment by EMS with minimal to no improvement. He also has a large anxiety component with his shortness of breath. He is on home oxygen at 2 L/min chronically. He has not had fever but has been having increased chills. Timing/Duration: Increasing (over the last 3 days) Severity: Severe Activities at Onset: Other (after going to race with family) Prior Episodes/Possible Cause: Chronic Episodes, Frequent Episodes Modifying Factors: Worse With Activity Associated Symptoms: Anxiety, Chest Pain (tightness), Cough, Lightheadedness, Weakness, Wheezing Allergies and Home Medications Allergies Coded Allergies: cephalexin (Verified Allergy, Intermediate, Rash, 12/12/21) Patient Home Medication List Home Medication List Reviewed: Yes Albuterol Sulfate (Ventolin Hfa) 1 Puff Puff, 2 PUFF INH Q6H PRN for SHORTNESS OF BREATH, (Reported) Entered as Reported by: MICA FAIRCHILD on 02/23/19 0935 Alprazolam (Alprazolam) 0.5 Mg Tablet, 0.25 MG PO DAILY PRN for SHORTNESS OF BREATH Prescribed by: TRAVIS HENRY on 05/12/23 1553 Aspirin (Aspirin EC) 81 Mg Tablet.dr, 81 MG PO 1800, (Reported) Entered as Reported by: JERILYN LISA on 03/15/23 1200 Atorvastatin Calcium (Atorvastatin Calcium) 20 Mg Tablet, 20 MG PO 1800, (Reported) Entered as Reported by: JERILYN LISA on 03/15/231199 Azithromycin (Azithromycin) 250 Mg Tablet, 250 MG PO UD Prescribed by: ALYSIA MCLEAN on 07/05/232006 Carvedilol (Carvedilol) 12.5 Mg Tablet, 12.5 MG PO BID, (Reported) Entered as Reported by: JERILYN LISA on 03/15/23 1200 Cefdinir (Cefdinir) 300 Mg Capsule, 300 MG PO BID Prescribed by: RIKI ZAVALA on 04/08/23 1123 Clopidogrel Bisulfate (Clopidogrel) 75 Mg Tablet, 75 MG PO 1800, (Reported) Entered as Reported by: MICA FAIRCHILD on 02/23/19 0935 Furosemide (Furosemide) 40 Mg Tablet, 40 MG PO 1800, (Reported) Entered as Reported by: MICA FAIRCHILD on 02/23/19 09 Ipratropium/Albuterol Sulfate (Iprat-Albut 0.5-3(2.5) mg/3 ml) 0.5 Mg-3 Mg (2.5 Mg Base)/3 Ml Ampul.neb, 3 ML NEB Q8H PRN for SHORTNESS OF BREATH, (Reported) Entered as Reported by: JERILYN LISA on 03/15/23 1200 Isosorbide Mononitrate (Isosorbide Mononitrate ER) 30 Mg Tab.er.24h, 30 MG PO 1800, (Reported) Entered as Reported by: JAYSON PHOENIX on 06/28/19 1215 Levothyroxine Sodium (Levothyroxine Sodium) 50 Mcg Tablet, 50 MCG PO 1800, (Reported) Entered as Reported by: MICA FAIRCHILD on 02/23/19934 Mirtazapine (Mirtazapine) 15 Mg Tab.rapdis, 15 MG PO HS PRN for SLEEP, (Reported) Entered as Reported by: JERILYN LISA on 03/15/23 1200 Morphine Sulfate (Morphine Sulfate IR Tablet) 15 Mg Tablet, 15 MG PO Q6H PRN for PAIN-SEVERE (8-10), (Reported) Entered as Reported by: JERILYN LISA on 03/15/23 1200 Morphine Sulfate (Morphine Sulfate ER) 60 Mg Tablet.er, 60 MG PO Q12H, (Reported) Entered as Reported by: JERILYN LISA on 04/07/23 1001 Nitroglycerin (Nitroglycerin) 0.4 Mg Tab.subl, 0.4 MG SL UD PRN for CHEST PAIN (ANGINA), (Reported) Entered as Reported by: MICA FAIRCHILD on 02/23/19 0935 Nivolumab (Opdivo) 240 Mg/24 Ml Vial, 480 MG IV EVERY 4 WEEKS, (Reported) Entered as Reported by: JERILYN LISA on 03/15/231199 Potassium Chloride (Potassium Chloride) 20 Meq Tab.er.prt, 20 MEQ PO 1800, (Reported) Entered as Reported by: JERILYN LISA on 03/15/231199 Prednisone (Prednisone) 20 Mg Tab, 40 MG PO DAILY Prescribed by: TRAVIS HENRY on 04/30/232044 Prednisone (Prednisone) 20 Mg Tab, 40 MG PO DAILY Prescribed by: ALYSIA MCLEAN on 07/05/232006 Sacubitril/Valsartan (Entresto 49 mg-51 mg Tablet) 49 Mg-51 Mg Tablet, 1 EA PO BID, (Reported) Entered as Reported by: JERILYN LISA on 03/15/231199 Zoledronic Acid (Zoledronic Acid) 4 Mg Vial, 3.3 MG IV EVERY 12 WEEKS, (R eported) Entered as Reported by: JERILYN LISA on 03/15/231199 Review of Systems Review of Systems Constitutional: chills, dizziness; No fever; malaise, weakness EENTM: No nose congestion Respiratory: cough, dyspnea on exertion, phlegm, short of breath; No stridor; wheezing Cardiovascular: see HPI Gastrointestinal: No nausea, No vomiting Genitourinary: No dysuria Musculoskeletal: no symptoms reported Skin: No rash Psychiatric/Neurological: Anxiety Past Ozsvane-Xhclox-Cmnnoe Hx Patient Social History Smoking Status: Former Smoker Immunizations Up To Date Tetanus Booster (TDap): Unknown First/Initial COVID19 Vaccinat: APRIL 08, 2021 Second COVID19 Vaccination Terence: MAY 06, 2021 Third COVID19 Vaccination Date: APRIL 08, 2021 Seasonal Allergies Seasonal Allergies: No Past Medical History Surgery/Hospitalization HX: Lung Cancer with mets to the bone, Cardiac Surgeries: Yes (HEMORRHOIDS, DEFIB/PACEMAKER PLACEMENT, CARDIAC STENTS) Coronary Stent, Defibrillator, Pacemaker Respiratory: Yes (Lung cancer) COPD Currently Using CPAP: No Currently Using BIPAP: No Cardiac: Yes Coronary Artery Disease, Heart Attack, High Cholesterol, Hypertension Neurological: No Genitourinary: No Gastrointestinal: No Musculoskeletal: No Endocrine: Yes Hypothyroidsim HEENT: No Cancer: Yes (LUNG) Lung Did You Recieve Any Treatments: Yes What Type of Treatment Did You: Chemotherapy, Radiation Psychosocial: No Integumentary: No Family Medical History Heart Disease Physical Exam Vital Signs Vital Signs - First Documented Capillary Refill : Height, Weight, BMI Height: 5'6.00" Weight: 144lbs. 0.0oz. [id number]; 19.00 BMI Method:Stated General Appearance: Chronically ill, Cachetic, Thin HEENT: Moist Mucous Membranes Respiratory: Chest Non Tender, Accessory Muscle Use, Decreased Breath Sounds, Respiratory Distress, Rhonci, Wheezing Cardiovascular: Regular Rate, Rhythm, Normal Peripheral Pulses Gastrointestinal: Normal Bowel Sounds, No Pulsatile Mass, Non Tender, Soft Neurologic/Psychiatric: Alert, Oriented x3 Skin: Warm/Dry, Pallor Focused Exam Sepsis Stage: Sepsis Possible Source: Pulmonary Lactate Level 09/05/23 20:02: Lactic Acid Level 3.33*H Time of Focused Exam: 21:36 Respiratory: No Accessory Muscle Use, No Respiratory Distress, Decreased Breath Sounds Cardiovascular: Regular Rate, Rhythm, Normal Peripheral Pulses Capillary Refill: Less Than 3 Seconds Peripheral Pulses: 2+ Carotid (R), 2+ Carotid (L), 2+ Radial Pulses (R), 2+ Radial Pulses (L) Skin: normal color, warm/dry Lactic Acid Level Laboratory Tests Test 09/05/23 20:02 Lactic Acid Level 3.33 MMOL/L (0.50-2.00) *H Within 3hrs of presentation: Admin fluids, Admin ABX, Blood cultures prior to ABX's, Focus exam, Lactate level Progress/Results/Core Measures Results/Orders Lab Results Laboratory Tests Test 09/05/23 20:02 Range/Units White Blood Count 10.4 4.3-11.0 10^3/uL Red Blood Count 3.99 L 4.30-5.52 10^6/uL Hemoglobin 11.5 L 13.3-17.7 g/dL Hematocrit 39 L 40-54 % Mean Corpuscular Volume 98 80-99 fL Mean Corpuscular Hemoglobin 29 25-34 pg Mean Corpuscular Hemoglobin Concent 29 L 32-36 g/dL Red Cell Distribution Width 14.7 H 10.0-14.5 % Platelet Count 235 130-400 10^3/uL Mean Platelet Volume 10.0 9.0-12.2 fL Immature Granulocyte % (Auto) 0 % Neutrophils (%) (Auto) 78 H 42-75 % Lymphocytes (%) (Auto) 16 12-44 % Monocytes (%) (Auto) 5 0-12 % Eosinophils (%) (Auto) 0 0-10 % Basophils (%) (Auto) 0 0-10 % Neutrophils # (Auto) 8.1 H 1.8-7.8 10^3/uL Lymphocytes # (Auto) 1.6 1.0-4.0 10^3/uL Monocytes # (Auto) 0.5 0.0-1.0 10^3/uL Eosinophils # (Auto) 0.0 0.0-0.3 10^3/uL Basophils # (Auto) 0.0 0.0-0.1 10^3/uL Immature Granulocyte # (Auto) 0.0 0.0-0.1 10^3/uL Sodium Level 138 135-145 MMOL/L Potassium Level 3.8 3.6-5.0 MMOL/L Chloride Level 103 98-107 MMOL/L Carbon Dioxide Level 24 21-32 MMOL/L Anion Gap 11 5-14 MMOL/L Blood Urea Nitrogen 8 7-18 MG/DL Creatinine 0.82 0.60-1.30 MG/DL Estimat Glomerular Filtration Rate 92 BUN/Creatinine Ratio 10 Glucose Level 154 H 70-105 MG/DL Lactic Acid Level 3.33 *H 0.50-2.00 MMOL/L Calcium Level 8.8 8.5-10.1 MG/DL Corrected Calcium 9.1 8.5-10.1 MG/DL Magnesium Level 2.3 1.6-2.4 MG/DL Total Bilirubin 0.2 0.1-1.0 MG/DL Aspartate Amino Transf (AST/SGOT) 18 5-34 U/L Alanine Aminotransferase (ALT/SGPT) 9 0-55 U/L Alkaline Phosphatase 63 40-136 U/L C-Reactive Protein 0.35 <0.50 MG/DL Total Protein 6.2 L 6.4-8.2 GM/DL Albumin 3.6 3.2-4.5 GM/DL My Orders Orders - TRAVIS HENRY MD Cbc And Automated Diff (09/05/23 19:55) Comprehensive Metabolic Panel (09/05/23 19:55) Chest 1 View Ap/Pa Only (09/05/23 19:55) Ipratropium/Albuterol Inh Soln (Ipratrop (09/05/23 20:00) Magnesium (09/05/23 19:55) Ekg Tracing (09/05/23 19:55) O2 (09/05/23 19:55) Ed Iv/Invasive Line Start (09/05/23 19:55) Monitor-Rhythm Ecg Trace Only (09/05/23 19:55) Crp Fs (09/05/23 19:55) Svn Small Volume Nebulizer (09/05/23 19:55) Implanted Port: Access (09/05/23 19:55) Ns Iv 1000 Ml (Ns Iv 1000 Ml) (09/05/23 19:55) Code/Resuscitation (09/05/23 19:55) Lorazepam Injection (Lorazepam Injection (09/05/23 20:24) Morphine Injection (Morphine Injection (09/05/23 20:24) Sputum Culture (09/05/23 20:32) Blood Culture (09/05/23 20:37) Lactic Acid Analyzer (09/05/23 20:37) Piperacillin/Tazobactam (Piperacillin/Ta (09/05/23 21:11) Ed Admission (Communication) (09/05/23 21:33) Medications Given in ED Current Medications Medications Dose Ordered Sig/Erick Route Start Time Stop Time Status Last Admin Dose Admin Albuterol/ Ipratropium 3 ml ONCE ONCE INH 09/05/23 20:00 09/05/23 20:01 DC 09/05/23 20:16 3 ML Vital Signs/I&O 09/05/23 09/05/23 09/05/23 09/05/23 19:54 19:54 19:54 22:18 Temp 37.1 Pulse 84 84 Resp 26 18 B/P (MAP) 131/42 (71) 115/50 Pulse Ox 97 97 99 O2 Delivery Nasal Cannula Nasal Cannula Nasal Cannula Nasal Cannula O2 Flow Rate 2.00 2.00 2.00 2.00 Progress Progress Note #1: Progress Note Differential diagnosis includes pneumonia, CHF, worsening lung cancer, bronchitis, sepsis. Access his port and send labs for complete blood count, comprehensive metabolic profile, CRP. Obtain chest x-ray to look for acute pathology in the lungs. Administer normal saline 1 L IV fluid for hydration. Progress Note #2: Time: 20:18 Progress Note Family is requesting something to help with patient's anxiety and chest pain as he was getting worked up for getting a breathing treatment. A DuoNeb breathing treatment to been ordered to try and help with his shortness of breath. He does take benzodiazepines as well as chronic pain medicine at home. A dose of Ativan 1 mg IV as well as 5 mg of morphine IV were ordered. His 1 view chest x-ray did show bilateral upper lobe pneumonitis or infiltrate. Administer Zosyn 4.5 g IV to help with hospital-acquired pneumonia. Add on blood cultures and lactic acid. Progress Note #3: Time: 21:00 Progress Note Lactic acid elevated to 3.33. Part of this could be from hyperventilation from his shortness of breath and anxiety. His white blood cell count was at upper limit of normal at 10.4. Hemoglobin mild anemia at 11.5. No acute significant electrolyte abnormality on comprehensive metabolic profile. Updated patient and family and will start on Zosyn 4.5 g IV for the pneumonia. Patient does follow with Dr. Gilmore out of [place] but when asked where he would like to be admitted he requested to go to [place]. 2113 d/w Dr. Lino for hospitalist service. Reviewed with her the patient's presentation and history. Counseled that his labs looked okay other than an elevated lactic acid of 3.33. He had bilateral upper lobe infiltrate or pneumonitis on chest x-ray. This was new from previous films. He is maintaining oxygen of 97 to 99% on his home 2 L/min. He is getting started on Zosyn here. She requested to had an vancomycin as well. Will admit to the cardiac stepdown as a full inpatient admission. Diagnostic Imaging Diagonstic Imaging: Xray Plain Films/CT/US/NM/MRI: chest Comments [facility], [facility]. [place], [place] NAME: FARRAH DUDLEY [facility] REC#: [id number] PT STATUS: REG ER : 1950 PHYSICIAN: TRAVIS HENRY MD ADMIT DATE: 09/05/23/ER FS Signed Date of Exam:09/05/23 CHEST 1 VIEW AP/PA ONLY Indication: Dyspnea Portable AP view of the chest is obtained with comparison made to study of 07/05/2023. There is mild cardiomegaly with tortuosity of great vessels of the mediastinum. There is background air trapping. There does appear to be an overall increase in groundglass density in the upper lobes and right perihilar region. There is no lobar consolidation or significant pleural fluid. Right anterior chest wall Port-A-Cath remains in place as does defibrillator device. IMPRESSION: Mild edema or possible pneumonitis involving upper lobes in right perihilar region with background emphysema. Dictated by: Dictated on workstation # [id number] Dict: 09/05/232013 Trans: 09/05/232204 [facility] [id number] Interpreted by: FRANCIS PARKER MD Electronically signed by: FRANCIS PARKER MD 09/05/232204 Reviewed: Reviewed by Me Departure Communication (Admissions) Time/Spoke to Admitting Phy: 21:14 2113 d/w Dr. Lino for hospitalist service. Reviewed with her the patient's presentation and history. Counseled that his labs looked okay other than an elevated lactic acid of 3.33. He had bilateral upper lobe infiltrate or pneumonitis on chest x-ray. This was new from previous films. He is maintaining oxygen of 97 to 99% on his home 2 L/min. He is getting started on Zosyn here. She requested to had an vancomycin as well. Will admit to the cardiac stepdown as a full inpatient admission. Impression Primary Impression: Sepsis Qualified Codes: A41.9 - Sepsis, unspecified organism Additional Impressions: Pneumonia of upper lobe due to infectious organism Qualified Codes: J18.9 - Pneumonia, unspecified organism Shortness of breath Disposition: 30 STILL A PATIENT Condition: Stable Admissions Decision to Admit Reason: Admit from ER (General) Decision to Admit/Date: Sep 05, 2023 Time/Decision to Admit Time: 21:14 Departure-Patient Inst. Referrals: KATHERIN GILMORE MD (PCP/Family) Primary Care Physician TRAVIS HENRY MD Sep 05, 2023 19:59
[2023-09-05] MEDS ORDERED: RT-Ipratropium/Albuterol NEB 3 ML VIAL INH ONE (20:00)
[2023-09-05 20:14] LABS: BASOPHILS % (AUTO) 0 % (0-10); EOSINOPHILS % (AUTO) 0 % (0-10); HEMATOCRIT 39 % (40-54); HEMOGLOBIN 11.5 g/dL (13.3-17.7); LYMPHOCYTES # (AUTO) 1.6 10^3/uL (1.0-4.0); LYMPHOCYTES % (AUTO) 16 % (12-44); MEAN CORPUSCULAR HEMOGLOBIN 29 pg (25-34); MEAN CORPUSCULAR HGB CONC 29 g/dL (32-36); MEAN CORPUSCULAR VOLUME 98 fL (80-99); MONOCYTES # (AUTO) 0.5 10^3/uL (0.0-1.0); MONOCYTES % (AUTO) 5 % (0-12); NEUTROPHILS # (AUTO) 8.1 10^3/uL (1.8-7.8); NEUTROPHILS % (AUTO) 78 % (42-75); PLATELET COUNT 235 10^3/uL (130-400); WHITE BLOOD COUNT 10.4 10^3/uL (4.3-11.0)
--- NOTE | 2023-09-05 20:19 | Diagnostic Imaging Report ---
Indication: Dyspnea Portable AP view of the chest is obtained with comparison made to study of 07/05/2023. There is mild cardiomegaly with tortuosity of great vessels of the mediastinum. There is background air trapping. There does appear to be an overall increase in groundglass density in the upper lobes and right perihilar region. There is no lobar consolidation or significant pleural fluid. Right anterior chest wall Port-A-Cath remains in place as does defibrillator device. IMPRESSION: Mild edema or possible pneumonitis involving upper lobes in right perihilar region with background emphysema. Dictated by: Dictated on workstation # [id number]
[2023-09-05] MEDS ORDERED: morphine INJ 10 MG/ML 1ML (SYR OR VIAL) IVP STA (20:24)
[2023-09-05 20:27] LABS: POTASSIUM 3.8 MMOL/L (3.6-5.0)
[2023-09-05 20:37] LABS: ALBUMIN 3.6 GM/DL (3.2-4.5); BILIRUBIN,TOTAL 0.2 MG/DL (0.1-1.0); CALCIUM 8.8 MG/DL (8.5-10.1); CREATININE SERUM 0.82 MG/DL (0.60-1.30); MAGNESIUM 2.3 MG/DL (1.6-2.4); TOTAL PROTEIN 6.2 GM/DL (6.4-8.2)
[2023-09-05] MEDS ORDERED: PIPERACILLIN/Tazobactam 4.5 GM in NS (IVPB) 100 ML 100 ML IV STA (21:11)
[2023-09-05 23:35] VITALS: BP 125/47
[2023-09-05 23:45] VITALS: BP 139/56
[2023-09-05] MEDS ORDERED: VANCOMYCIN 1250MG/250ML PREMIX 250 ML IV ONE (23:45)
[2023-09-06] VITALS (11 sets, daily range): BP systolic 105–133; BP diastolic 43–65
[2023-09-06] MEDS ORDERED: RT-Ipratropium/Albuterol NEB 3 ML VIAL INH PRN (00:30)
[2023-09-06] MEDS: NS IV 1000 ML 1,000 ML IV SCH ×4 (00:42→07:05)
[2023-09-06] MEDS ORDERED: morphine IMMEDIATE RELEASE 15 MG TABLET PO PRN (01:15)
[2023-09-06] MEDS: RT-Ipratropium/Albuterol NEB 3 ML VIAL INH SCH ×6 (02:03→22:59)
[2023-09-06 04:35] LABS: BASOPHILS % (AUTO) 0 % (0-10); EOSINOPHILS # (AUTO) 0.2 10^3/uL (0.0-0.3); EOSINOPHILS % (AUTO) 2 % (0-10); HEMATOCRIT 32 % (40-54); LYMPHOCYTES # (AUTO) 1.8 10^3/uL (1.0-4.0); LYMPHOCYTES % (AUTO) 20 % (12-44); MEAN CORPUSCULAR HEMOGLOBIN 29 pg (25-34); MEAN CORPUSCULAR HGB CONC 32 g/dL (32-36); MEAN CORPUSCULAR VOLUME 91 fL (80-99); MEAN PLATELET VOLUME 10.1 fL (9.0-12.2); MONOCYTES # (AUTO) 0.8 10^3/uL (0.0-1.0); MONOCYTES % (AUTO) 8 % (0-12); NEUTROPHILS # (AUTO) 6.2 10^3/uL (1.8-7.8); NEUTROPHILS % (AUTO) 69 % (42-75); PLATELET COUNT 213 10^3/uL (130-400)
[2023-09-06 04:45] LABS: ALBUMIN 2.9 GM/DL (3.2-4.5); POTASSIUM 3.6 MMOL/L (3.6-5.0)
[2023-09-06 04:46] LABS: CALCIUM 7.8 MG/DL (8.5-10.1)
[2023-09-06 04:49] LABS: BILIRUBIN,TOTAL 0.2 MG/DL (0.1-1.0)
[2023-09-06 04:51] LABS: CREATININE SERUM 0.77 MG/DL (0.60-1.30)
[2023-09-06] MEDS: PIPERACILLIN/Tazobactam 4.5 GM in NS (IVPB) 100 ML 100 ML IV SCH ×3 (05:02→18:48)
[2023-09-06] MEDS ORDERED: ALPRAZolam 0.5 MG TABLET PO PRN (10:45)
[2023-09-06] MEDS ORDERED: MORP100T47 PO (11:29)
[2023-09-06] MEDS ORDERED: ALPR0.5T7 PO (11:29)
[2023-09-06] MEDS ORDERED: SUCRALFATE 1 GM TABLET PO ONE (11:30)
[2023-09-06] MEDS ORDERED: PANTOPRAZOLE INJECTION 40 MG VIAL IV ONE (11:30)
[2023-09-06] MEDS: MORPHINE 100 MG PO SCH ×2 (12:14→21:30)
--- NOTE | 2023-09-06 12:22 | Consultation-Cardiology ---
HPI-Cardiology Cardiology Consultation Date of Consultation 09/06/23 Date of Admission Time Seen by Provider: 12:18 Indication: Shortness of breath HPI 73-year-old gentleman with a history of congestive heart failure nonischemic cardiomyopathy, has been having worsening shortness of breath, increasing chest pain on and off. No syncope or near syncopal episode, came into the emergency room and was in congestive heart failure and had mild elevation in troponin level. On my evaluation was laying down in bed, feeling better, breathing better, still an active smoker and having active wheezing. Home Medications & Allergies Allergies: Coded Allergies: cephalexin (Verified Allergy, Intermediate, Rash, 12/12/21) Home Medication List Reviewed: Yes DUT-Bdnqgw-Bjowkl Hx Patient Social History Marital Status: Employed/Student: retired Smoking Status: Current Everyday Smoker Type Used: Cigarettes 2nd Hand Smoke Exposure: No Recent Hopitalizations: No Alcohol Use?: No Immunizations Up To Date Tetanus Booster (TDap): Unknown Date of Pneumonia Vaccine: Dec 26, 2018 Past Medical History Discussed below Family Medical History Significant Family History: Heart Disease Review of Systems-General Review of Systems Constitutional: chills, dizziness; No fever; malaise, weakness EENTM: No nose congestion Respiratory: cough, dyspnea on exertion, phlegm, short of breath; No stridor; wheezing Cardiovascular: see HPI, chest pain; No edema, No Hx of Intervention, No palpitations, No syncope, No vascular heart diseas, No other Gastrointestinal: No nausea, No vomiting Genitourinary: No dysuria Musculoskeletal: no symptoms reported Skin: No rash Psychiatric/Neurological: Anxiety Reviewed Test Results Reviewed Test Results Lab Laboratory Tests Test 09/05/23 20:02 09/06/23 04:30 09/06/23 06:55 Range/Units White Blood Count 10.4 9.0 4.3-11.0 10^3/uL Red Blood Count 3.99 L 3.46 L 4.30-5.52 10^6/uL Hemoglobin 11.5 L 10.0 L 13.3-17.7 g/dL Hematocrit 39 L 32 L 40-54 % Mean Corpuscular Volume 98 91 80-99 fL Mean Corpuscular Hemoglobin 29 29 25-34 pg Mean Corpuscular Hemoglobin Concent 29 L 32 32-36 g/dL Red Cell Distribution Width 14.7 H 14.8 H 10.0-14.5 % Platelet Count 235 213 130-400 10^3/uL Mean Platelet Volume 10.0 10.1 9.0-12.2 fL Immature Granulocyte % (Auto) 0 0 % Neutrophils (%) (Auto) 78 H 69 42-75 % Lymphocytes (%) (Auto) 16 20 12-44 % Monocytes (%) (Auto) 5 8 0-12 % Eosinophils (%) (Auto) 0 2 0-10 % Basophils (%) (Auto) 0 0 0-10 % Neutrophils # (Auto) 8.1 H 6.2 1.8-7.8 10^3/uL Lymphocytes # (Auto) 1.6 1.8 1.0-4.0 10^3/uL Monocytes # (Auto) 0.5 0.8 0.0-1.0 10^3/uL Eosinophils # (Auto) 0.0 0.2 0.0-0.3 10^3/uL Basophils # (Auto) 0.0 0.0 0.0-0.1 10^3/uL Immature Granulocyte # (Auto) 0.0 0.0 0.0-0.1 10^3/uL Sodium Level 138 142 135-145 MMOL/L Potassium Level 3.8 3.6 3.6-5.0 MMOL/L Chloride Level 103 110 H 98-107 MMOL/L Carbon Dioxide Level 24 24 21-32 MMOL/L Anion Gap 11 8 5-14 MMOL/L Blood Urea Nitrogen 8 7 7-18 MG/DL Creatinine 0.82 0.77 0.60-1.30 MG/DL Estimat Glomerular Filtration Rate 92 94 BUN/Creatinine Ratio 10 9 Glucose Level 154 H 87 70-105 MG/DL Lactic Acid Level 3.33 *H 1.03 0.50-2.00 MMOL/L Calcium Level 8.8 7.8 L 8.5-10.1 MG/DL Corrected Calcium 9.1 8.7 8.5-10.1 MG/DL Magnesium Level 2.3 1.6-2.4 MG/DL Total Bilirubin 0.2 0.2 0.1-1.0 MG/DL Aspartate Amino Transf (AST/SGOT) 18 14 5-34 U/L Alanine Aminotransferase (ALT/SGPT) 9 8 0-55 U/L Alkaline Phosphatase 63 44 40-136 U/L C-Reactive Protein 0.35 <0.50 MG/DL Total Protein 6.2 L 5.0 L 6.4-8.2 GM/DL Albumin 3.6 2.9 L 3.2-4.5 GM/DL Troponin I 0.050 H <0.028 NG/ML Physical Exam Physical Exam Vital Signs Vital Signs - First Documented Capillary Refill : Less Than 3 Seconds Height, Weight, BMI Height: 5'6.00" Weight: 144lbs. 0.0oz. 65.541007fr; 20.12 BMI Method:Stated General Appearance: Chronically ill, Cachetic, Thin Eyes: Bilateral Eye Normal Inspection, Bilateral Eye PERRL, Bilateral Eye EOMI HEENT: Moist Mucous Membranes Neck: Full Range of Motion, Normal Inspection, Non Tender, Supple, Carotid Bruit Respiratory: No Accessory Muscle Use, No Respiratory Distress, Decreased Breath Sounds, Rhonci, Wheezing Cardiovascular: Regular Rate, Rhythm, Normal Peripheral Pulses Gastrointestinal: Normal Bowel Sounds, No Pulsatile Mass, Non Tender, Soft Back: Normal Inspection, No CVA Tenderness, No Vertebral Tenderness Extremity: Normal Capillary Refill, Normal Inspection, Normal Range of Motion, Non Tender, No Calf Tenderness, No Pedal Edema Neurologic/Psychiatric: Alert, Oriented x3 Skin: Warm/Dry, Pallor Lymphatic: No Adenopathy A/P-Cardiology Admission Diagnosis Chest pain Non-ST elevation myocardial infarction Congestive heart failure, acute on chronic left ventricular systolic dysfunction Hypertension Assessment/Plan Chest pain, nonspecific etiology, mild elevation in troponin level Non-ST elevation myocardial infarction more probably type II RI secondary to cardiomyopathy I will monitor the trend of troponin and consider repeating cardiac catheterization Coronary artery disease, history of total of 5 stents in the past. Cardiac catheterization was carried out on March 15, 2019 after having an abnormal stress test, showing patent stents in the LAD with mild disease distally, right coronary artery has also a patent stent dominant artery with mild disease nonobstructive disease and mild disease in the circumflex artery, the left ventricle is dilated and aneurysmal anterior wall, ejection fraction 30 percent. Had mild elevation in troponin, I will monitor the trend and consider cardiac catheterization Stress test was done in August 2021 showing baseline T wave inversion in lead III and aVF, fixed defect involving the apex, anteroapical and inferoapical segment with no significant reversibility, stress score 27, SDS 0, ejection fraction 31%. Congestive heart failure, acute on chronic left ventricular systolic dysfunction, EF 25-30% percent per 2-D echocardiogram done May 29, 2019, no improvement of EF from echo done in February 2019. Had a single chamber ICD implanted using Biotronik device with inability to sense the atrium and since then paced the ventricle and successful DFT testing. Most recent 2D Echo done July 2021 showing EF 35-40%. Maintainted on Entresto, carvedilol I will repeat 2D echocardiogram Status post implantation of Biotronik single chamber ICD with serial number [id number] done on June 27, 2019 Last ICD interrogation was done on February 19, 2022 showing good sensing and capture activity. Continue to monitor Hypertension, reporting orthostatic hypotension. Has been using Lasix as needed. Will require more aggressive dose of diuresis Hyperlipidemia, no recent lipid profile done, I will evaluate lipid/CMP. Family history of coronary artery disease Tobaccoism, educated on smoking cessation Mild bilateral carotid stenosis, ultrasound done in February 2010. Continue to monitor RLE claudication pain, PHAM was done on March 03 2021-minute was normal bilaterally, 1.13 bilaterally, TBI on the right 0.86, on the left 0.72. 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 Still an active smoker, currently established and receiving treatment with FRANKLIN Villalobos MD Sep 06, 2023 12:22
[2023-09-06] MEDS ORDERED: VANCOMYCIN 1 GM/NS 250 ML IVPB IV SCH ×2 (12:30)
--- NOTE | 2023-09-06 13:04 | Physical Therapy Evaluation ---
PT Evaluation-General Medical Diagnosis Admission Date Sep 05, 2023 at 23:21 Medical Diagnosis: sepsis Onset Date: Sep 05, 2023 Therapy Diagnosis Therapy Diagnosis: debility Height/Weight Height (Feet): 5 Height (Inches): 6.00 Weight (Pounds): 144 Weight (Ounces): 0.0 Precautions Precautions/Isolations: Fall Prevention, Standard Precautions Referral Physician: Hector Reason for Referral: Evaluation/Treatment Medical History Pertinent Medical History: CABG, CAD, COPD, Heart Failure, HTN, Smoking Additional Medical History lung cancer with bone mets Current History ER secondary to SOA after being out with family at the races Reviewed History: Yes Social History Home: Single Level Current Living Status: Alone PT Steps Into Home: 2 Prior Prior Level of Function SCALE: Activities may be completed with or without assistive devices. 2-Rxzpmondwc-hwsiqfy completes the activity by him/herself with no assistance from a helper. 5-Set-up or Clean-up Assistance-helper sets up or cleans up; patient completes activity. [place] assists only prior to or following the activity. 4-Supervision or Touching Assistance-helper provides verbal cues and/or touching/steadying and/or contact guard assistance as patient completes activity. Assistance may be provided throughout the activity or intermittently. 3-Partial/Moderate Assistance-helper does LESS THAN HALF the effort. [place] lifts, holds or supports trunk or limbs, but provides less than half the effort. 2-Substantial/Maximal Assistance-helper does MORE THAN HALF the effort. [place] lifts or holds trunk or limbs and provides more than half the effort. 0-Perxdzavv-xwmbdl does ALL the effort. Patient does none of the effort to complete the activity. Or, the assistance of 2 or more helpers is required for the patient to complete the activity. If activity was not attempted, code reason: 7-Patient Refused. 9-Not Applicable-not attempted and the patient did not perform the activity before the current illness, exacerbation or injury. 10-Not Attempted due to Environmental Limitations-(lack of equipment, weather restraints, etc.). 88-Not Attempted due to Medical Conditions or Safety Concerns. Bed Mobility: 6 Transfers (B,C,W/C): 6 Gait: 6 Stairs: 6 Indoor Mobility (Ambulation): Independent Stairs: Independent Prior Devices Use: None PT Evaluation-Current Subjective Patient reports he is feeling better. Agrees to therapy. Objective Patient Orientation: Normal For Age Attachments: Oxygen (4L), IV ROM/Strength ROM Lower Extremities bilateral LE WFL Strength Lower Extremities 4-/5 grossly bilateral LE all planes Integumentary/Posture Bowel Incontinence: No Bladder Incontinence: No Posture WFL Neuromuscular (Tone, Coordination, Reflexes) grossly intact Sensory Vision: Functional Hearing: Functional Transfers Sit to Lying (QC): 6 Lying to Sitting/Side of Bed(Q: 6 Sit to Stand (QC): 4 Gait Mode of Locomotion: Walk Anticipated Mode of Locomotion: Walk Walk 10 feet (QC): 4 Walk 50 ft with 2 Turns(QC): 4 Walk 150 ft (QC): 4 Distance: 200' Gait Assistive Device: None Comments/Gait Description slightly unsteady with self correct Balance Sitting Static: Normal Sitting Dynamic: Normal Standing Static: Fair Standing Dynamic: Fair Assessment/Needs Patient will be seen short term by skilled PT to address functional mobility to ensure safe return to home at independent [facility]. Rehab Potential: Fair PT Correction Goals Cordwainer Goals PT Cordwainer Goals Time Frame: Sep 11, 2023 Roll Left & Right (QC): 6 Sit to Lying (QC): 6 Lying-Sitting on Side/Bed(QC): 6 Sit to Stand (QC): 6 Chair/Slz-rl-Gbdbe Xfer(QC): 6 Toilet Transfer (QC): 6 Walk 10 feet (QC): 6 Walk 50ft with 2 Turns (QC): 6 Walk 150 ft (QC): 6 PT Plan Problem List Problem List: Activity Tolerance, Balance, Gait Treatment/Plan Treatment Plan: Continue Plan of Care Treatment Plan: Education, Functional Activity Ness, Functional Strength, Gait, Safety, Therapeutic Exercise Treatment Duration: Sep 11, 2023 Frequency: 5 times per week Estimated Hrs Per Day: .25 hour per day Time Time In: 1245 Time Out: 1255 DATE: Sep 06, 2023 Total Billed Treatment Time: 10 Total Billed Treatment 1 visit EVMod 10 min ERIS ROLDAN PT Sep 06, 2023 13:04
--- NOTE | 2023-09-06 13:07 | Occupational Therapy Eval ---
OT Evaluation-General/PLF Medical Diagnosis Admission Date Sep 05, 2023 at 23:21 Medical Diagnosis: SOA Onset Date: Sep 05, 2023 Therapy Diagnosis Therapy Diagnosis: gemeral weakness Height/Weight Height (Feet): 5 Height (Inches): 6.00 Weight (Pounds): 144 Weight (Ounces): 0.0 Precautions Precautions/Isolations: Fall Prevention, Standard Precautions Referral Referral Reason: Self Care, Evaluation/Treatment Medical History Pertinent Medical History: CABG, CAD, COPD, Heart Failure, HTN, Smoking Additional Medical History 73-year-old male presenting with complaints of increased shortness of breath and chest tightness. He has not taken any of his morphine for chronic pain today. He had recently gone with family to a race. Since then he has been feeling more short of breath and coughing more. He also has had increased fatigue and weakness. He does have a history of lung cancer and is undergoing palliative type care chemotherapy. He did have a breathing treatment by EMS with minimal to no improvement. He also has a large anxiety component with his shortness of breath. He is on home oxygen at 2 L/min chronically. He has not had fever but has been having increased chills. Social History Home: Single Level Current Living Status: Alone Entry Into Home: Stairs Without Railing Steps Into Home: 3 ADL-Prior Level of Function SCALE: Activities may be completed with or without assistive devices. 6-Hdwsmlvtbv-xfidrxd completes the activity by him/herself with no assistance from a helper. 5-Set-up or Clean-up Assistance-helper sets up or cleans up; patient completes activity. [place] assists only prior to or following the activity. 4-Supervision or Touching Assistance-helper provides verbal cues and/or touching/steadying and/or contact guard assistance as patient completes activity. Assistance may be provided throughout the activity or intermittently. 3-Partial/Moderate Assistance-helper does LESS THAN HALF the effort. [place] lifts, holds or supports trunk or limbs, but provides less than half the effort. 2-Substantial/Maximal Assistance-helper does MORE THAN HALF the effort. [place] lifts or holds trunk or limbs and provides more than half the effort. 8-Jinzhaito-qrywck does ALL the effort. Patient does none of the effort to complete the activity. Or, the assistance of 2 or more helpers is required for the patient to complete the activity. If activity was not attempted, code reason: 7-Patient Refused. 9-Not Applicable-not attempted and the patient did not perform the activity before the current illness, exacerbation or injury. 10-Not Attempted due to Environmental Limitations-(lack of equipment, weather restraints, etc.). 88-Not Attempted due to Medical Conditions or Safety Concerns. Self Care: Independent Functional Cognition: Independent DME/Equipment Comments has a walker w/ seat does not use it Occupation: [employer] [address] Self: Yes OT Current Status Subjective Agreeable to participate Mental Status/Objective Patient Orientation: Person, Place, Time, Situation Attachments: Oxygen, Telemetry Current Glasses/Contacts: No Hearing Aids: No Hand Dominance: Right Upper Extremity ROM BUE ROM WNL Upper Extremity Coordination WNLS Upper Extremity Sensation WFLS Upper Extremity Strength -4/5 GROSSLY ADL-Treatment Eating (QC): 6 Oral Hygiene (QC): 6 (STANDING) Shower/Bathe Self (QC): 7 Upper Body Dressing (QC): 5 Lower Body Dressing (QC): 5 On/Off Footwear (QC): 6 (UNDER BED) Toileting Hygiene (QC): 6 Education OT Patient Education: Modified ADL techniques, Progress toward Goal/Update tx plan, Purpose of tx/functional activities, Reviewed precautions, Rehab process, Safety issues, Transfer techniques Teaching Recipient: Patient, Family (SISTER) Teaching Methods: Demonstration, Discussion Response to Teaching: Verbalize Understanding OT Long-Term Goals Experimental Mechanic Electrical Goals 1=Demonstrate adherence to instructed precautions during ADL tasks. 2=Patient will verbalize/demonstrate understanding of assistive devices/modifications for ADL. 3=Patient will improve strength/tolerance for activity to enable patient to perform ADL's. OT Education/Plan Problem List/Assessment Assessment: Decreased Activ Tolerance Discharge Recommendations Plan/Recommendations: Discontinue OT Treatment Plan/Plan of Care Patient would benefit from OT for education, treatment and training to promote independence in ADL's, mobility, safety and/or upper extremity function for ADL's. Plan of Care: OTHER (eval ONLY) Treatment Duration: Sep 06, 2023 Frequency: 1 time per week Estimated Hrs Per Day: .25 hour per day Agreement: Yes Rehab Potential: Good Time Start Time: 12:40 Stop Time: 12:55 DATE: Sep 06, 2023 Total Time Billed (hr/min): 15 Billed Treatment Time EVL15 MIN MAL MIRANDA OT Sep 06, 2023 13:07
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
[2023-09-06] MEDS ORDERED: RT-HYPERTONIC SALINE 3% 4 ML NEB INH PRN (15:00)
[2023-09-06] MEDS ORDERED: NICOTINE 14 MG PATCH TD ONE (15:00)
[2023-09-06] MEDS: SUCRALFATE 1 GM TABLET PO SCH ×2 (15:19→21:31)
[2023-09-06] MEDS: FUROSEMIDE INJECTION 40 MG/4 ML VIAL IVP SCH (18:14)
[2023-09-06] MEDS ORDERED: SACUBITRIL PO SCH (21:00)
[2023-09-06] MEDS ORDERED: VALSARTAN PO SCH (21:00)
[2023-09-06] MEDS ORDERED: [UNRECOGNIZED DRUG - OTHER] PO SCH (21:00)
[2023-09-06] MEDS: PANTOPRAZOLE INJECTION 40 MG VIAL IV SCH (21:30)
[2023-09-06] MEDS: SACUBITRIL/VALSARTAN 24/26 MG TABLET PO SCH (21:30)
[2023-09-06] MEDS: carvediloL 12.5 MG TABLET PO SCH (21:31)
[2023-09-06] MEDS: RT-HYPERTONIC SALINE 3% 4 ML NEB INH SCH (23:00)
[2023-09-07] VITALS (7 sets, daily range): BP systolic 95–121; BP diastolic 53–76
[2023-09-07] MEDS: RT-Ipratropium/Albuterol NEB 3 ML VIAL INH SCH ×6 (02:11→21:47)
[2023-09-07] MEDS: PIPERACILLIN/Tazobactam 4.5 GM in NS (IVPB) 100 ML 100 ML IV SCH ×3 (03:38→21:41)
[2023-09-07 03:45] LABS: BASOPHILS # (AUTO) 0.1 10^3/uL (0.0-0.1); BASOPHILS % (AUTO) 1 % (0-10); EOSINOPHILS # (AUTO) 0.3 10^3/uL (0.0-0.3); EOSINOPHILS % (AUTO) 3 % (0-10); HEMATOCRIT 38 % (40-54); HEMOGLOBIN 12.1 g/dL (13.3-17.7); LYMPHOCYTES # (AUTO) 1.7 10^3/uL (1.0-4.0); LYMPHOCYTES % (AUTO) 18 % (12-44); MEAN CORPUSCULAR HEMOGLOBIN 29 pg (25-34); MEAN CORPUSCULAR HGB CONC 32 g/dL (32-36); MEAN CORPUSCULAR VOLUME 91 fL (80-99); MONOCYTES # (AUTO) 0.8 10^3/uL (0.0-1.0); MONOCYTES % (AUTO) 8 % (0-12); NEUTROPHILS # (AUTO) 6.6 10^3/uL (1.8-7.8); NEUTROPHILS % (AUTO) 70 % (42-75); PLATELET COUNT 259 10^3/uL (130-400); WHITE BLOOD COUNT 9.4 10^3/uL (4.3-11.0)
[2023-09-07 03:56] LABS: ALBUMIN 3.5 GM/DL (3.2-4.5); CHLORIDE 107 MMOL/L (98-107); SODIUM 141 MMOL/L (135-145)
[2023-09-07 03:57] LABS: CALCIUM 8.5 MG/DL (8.5-10.1)
[2023-09-07 03:58] LABS: GLUCOSE 90 MG/DL (70-105); TOTAL PROTEIN 6.3 GM/DL (6.4-8.2)
[2023-09-07 03:59] LABS: CARBON DIOXIDE 25 MMOL/L (21-32)
[2023-09-07 04:00] LABS: BILIRUBIN,TOTAL 0.2 MG/DL (0.1-1.0)
[2023-09-07 04:01] LABS: ALKALINE PHOSPHATASE 51 U/L (40-136)
[2023-09-07 04:02] LABS: CREATININE SERUM 0.87 MG/DL (0.60-1.30); GFR ESTIMATED 91
[2023-09-07 04:03] LABS: BUN/CREATININE RATIO 8
[2023-09-07 04:05] LABS: ALANINE AMINOTRANSFERASE 9 U/L (0-55)
[2023-09-07] MEDS: LEVOTHYROXINE 50 MCG TABLET PO SCH (06:01)
[2023-09-07] MEDS: SUCRALFATE 1 GM TABLET PO SCH ×4 (06:01→21:42)
[2023-09-07] MEDS: FUROSEMIDE INJECTION 40 MG/4 ML VIAL IVP SCH ×2 (06:01→16:17)
[2023-09-07] MEDS: POTASSIUM CHLORIDE 20 MEQ TABLET PO SCH (06:07)
[2023-09-07] MEDS: RT-HYPERTONIC SALINE 3% 4 ML NEB INH SCH ×2 (07:36→21:47)
--- NOTE | 2023-09-07 08:07 | Physical Therapy Daily Note ---
PT Daily Note-Current Subjective Patient agrees to PT. Pain Section J - Health Conditions 1. Rarely or not at all 2. Occasionally 3. Frequently 4. Almost constantly 8. Unable to answer Pain Effect on Sleep: 1 Pain Interference with Therapy: 1 Pain Interference w/Day-to-Day: 1 Mental Status Patient Orientation: Normal For Age Attachments: Oxygen Transfers SCALE: Activities may be completed with or without assistive devices. 6-Vaaqyhunyy-tytaeuk completes the activity by him/herself with no assistance from a helper. 5-Set-up or Clean-up Assistance-helper sets up or cleans up; patient completes activity. [place] assists only prior to or following the activity. 4-Supervision or Touching Assistance-helper provides verbal cues and/or touching/steadying and/or contact guard assistance as patient completes activity. Assistance may be provided throughout the activity or intermittently. 3-Partial/Moderate Assistance-helper does LESS THAN HALF the effort. [place] lifts, holds or supports trunk or limbs, but provides less than half the effort. 2-Substantial/Maximal Assistance-helper does MORE THAN HALF the effort. [place] lifts or holds trunk or limbs and provides more than half the effort. 6-Xvoqzkjpk-coqozx does ALL the effort. Patient does none of the effort to complete the activity. Or, the assistance of 2 or more helpers is required for the patient to complete the activity. If activity was not attempted, code reason: 7-Patient Refused. 9-Not Applicable-not attempted and the patient did not perform the activity before the current illness, exacerbation or injury. 10-Not Attempted due to Environmental Limitations-(lack of equipment, weather restraints, etc.). 88-Not Attempted due to Medical Conditions or Safety Concerns. Lying to Sitting/Side of Bed(Q: 6 Sit to Stand (QC): 6 Chair/Zqc-rs-Cbnze Xfer(QC): 6 Gait Training Distance: 275' Walk 10 feet (QC): 6 Walk 50 ft with 2 Turns(QC): 6 Walk 150 ft (QC): 6 Gait Assistive Device: FWW safe and functional with no deviation Assessment Patient is safely at independent PLOF with all gross motor skills. PT to dismiss patient from services at this time. PT Tax Commissioner Goals Fpc Goals PT Tax Commissioner Goals Time Frame: Sep 11, 2023 Roll Left & Right (QC): 6 Sit to Lying (QC): 6 Lying-Sitting on Side/Bed(QC): 6 Sit to Stand (QC): 6 Chair/Bfl-zq-Gylkv Xfer(QC): 6 Toilet Transfer (QC): 6 Walk 10 feet (QC): 6 Walk 50ft with 2 Turns (QC): 6 Walk 150 ft (QC): 6 PT Plan Treatment/Plan Treatment Plan: Discontinue PT Treatment Plan: Education, Functional Activity Ness, Functional Strength, Gait, Safety, Therapeutic Exercise Treatment Duration: Sep 11, 2023 Frequency: 5 times per week Estimated Hrs Per Day: .25 hour per day Time Time In: 720 Time Out: 731 DATE: Sep 07, 2023 Total Billed Treatment Time: 11 Total Billed Treatment 1 visit FA 11 min ERIS ROLDAN PT Sep 07, 2023 08:07
[2023-09-07] MEDS: ASPIRIN enteric coated 81MG TABLET PO SCH (08:38)
[2023-09-07] MEDS: NICOTINE PATCH REMOVAL TP SCH (08:38)
[2023-09-07] MEDS: CLOPIDOGREL 75 MG TABLET PO SCH (08:38)
[2023-09-07] MEDS: carvediloL 12.5 MG TABLET PO SCH ×2 (08:39→21:42)
[2023-09-07] MEDS: ISOSORBIDE MONONITRATE 30 MG TABLET PO SCH (08:39)
[2023-09-07] MEDS: NICOTINE 14 MG PATCH TD SCH (08:39)
[2023-09-07] MEDS: SACUBITRIL/VALSARTAN 24/26 MG TABLET PO SCH ×2 (08:39→21:42)
[2023-09-07] MEDS: PANTOPRAZOLE INJECTION 40 MG VIAL IV SCH (08:40)
[2023-09-07] MEDS: MORPHINE 100 MG PO SCH ×2 (08:40→09:10)
[2023-09-07] MEDS ORDERED: TROUGH ORDER-PHARMACY XX NR (11:30)
--- NOTE | 2023-09-07 11:57 | Cardiology Progress Note ---
Subjective Date Seen by Provider: Sep 07, 2023 Time Seen by Provider: 11:53 Subjective/Events-last exam Patient was seen at bedside, sitting comfortably, feeling better. No new complain Focused Exam Lactate Level 09/05/23 20:02: Lactic Acid Level 3.33*H 09/06/23 06:55: Lactic Acid Level 1.03 Time of Focused Exam: 21:36 Objective-Cardiology Exam Last Set of Vital Signs Vital Signs 09/07/23 09/07/23 09/07/23 08:00 08:37 10:41 Pulse 99 Resp 15 B/P (MAP) 121/76 (91) Pulse Ox 97 O2 Delivery Nasal Cannula O2 Flow Rate 2.00 I&O Intake and Output 09/07/23 00:00 Intake Total 920 ml Output Total 2150 ml Balance -1230 ml Intake Oral 670 ml IV Total 250 ml Output Urine Total 2150 ml General: Alert, Oriented X3, Cooperative HEENT: Atraumatic, PERRLA Neck: Supple, No JVD, No Thyromegaly Lungs: Clear to Auscultation, Normal Air Movement Heart: Regular Rate, Normal S1, Normal S2, No Murmurs Abdomen: Normal Bowel Sounds, Soft, No Tenderness, No Hepatosplenomegaly, No Masses Extremities: No Clubbing, No Cyanosis, No Edema, Normal Pulses, No T enderness/Swelling Skin: No Rashes, No Breakdown, No Significant Lesion Neuro: Normal Gait, Normal Speech, Strength at 5/5 X4 Ext, Normal Tone, Sensation Intact Psych/Mental Status: Mental Status NL, Mood NL Results Lab Laboratory Tests 09/07/23 03:35 A/P-Cardiology Admission Diagnosis Chest pain Non-ST elevation myocardial infarction Congestive heart failure, acute on chronic left ventricular systolic dysfunction Hypertension Assessment/Plan Chest pain, nonspecific etiology, mild elevation in troponin level Non-ST elevation myocardial infarction more probably type II AL secondary to cardiomyopathy Troponin is back to normal. I am planning to evaluate Lexiscan stress test in the morning Coronary artery disease, history of total of 5 stents in the past. Cardiac catheterization was carried out on March 15, 2019 after having an abnormal stress test, showing patent stents in the LAD with mild disease distally, right coronary artery has also a patent stent dominant artery with mild disease nonobstructive disease and mild disease in the circumflex artery, the left ventricle is dilated and aneurysmal anterior wall, ejection fraction 30 percent. Had mild elevation in troponin, Second set was normal, I am planning to evaluate Lexiscan stress test Stress test was done in August 2021 showing baseline T wave inversion in lead III and aVF, fixed defect involving the apex, anteroapical and inferoapical segment with no significant reversibility, stress score 27, SDS 0, ejection fraction 31%. Congestive heart failure, acute on chronic left ventricular systolic dysfunction, EF 25-30% percent per 2-D echocardiogram done May 29, 2019, no improvement of EF from echo done in February 2019. Had a single chamber ICD implanted using Biotronik device with inability to sense the atrium and since then paced the ventricle and successful DFT testing. Status post implantation of Biotronik single chamber ICD with serial number [id number] done on June 27, 2019 Continue to monitor Hypertension, reporting orthostatic hypotension. Has been using Lasix as needed. Will require more aggressive dose of diuresis Hyperlipidemia, Continue to monitor Family history of coronary artery disease Tobaccoism, educated on smoking cessation Mild bilateral carotid stenosis, ultrasound done in February 2010. Continue to monitor RLE claudication pain, PHAM was done on March 03 2021-minute was normal bilaterally, 1.13 bilaterally, TBI on the right 0.86, on the left 0.72. 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 Still an active smoker, currently established and receiving treatment with FRANKLIN Villalobos MD Sep 07, 2023 11:57
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
--- NOTE | 2023-09-07 15:02 | Physician Query-Final Dx ---
TAYLA PAUL 09/07/23 1502: Final Diagnosis Give Final Diagnosis Please give Final Diagnosis The medical record reflects the following clinical scenario: The patient, in the setting of History/Risk factors, Possible pneumonia, Lung cancer receiving Chemo and radiation Clinical Findings Admission VS/LABS: Vital Signs: HR 84, RR 26, BP 131/42, SpO2 97% sat on 2 L, T 37.1, WBC 10.4, glucose 154, lactic acid 3.33, then decreased to 1.03, Treatment ER: Normal saline 1 L, Zosyn IV, ipratropium/albuterol Question: Do you agree with the impression of Sepsis per Dr. Lorin Carreon? Yes; will document Sepsis in the Progress Notes No; will continue current documentation in the Progress Notes Other; will document explanation of clinical findings Clinically undetermined; no explanation for clinical findings Please clarify and document your clinical opinion in the Progress Notes and Discharge Summary including the definitive and/or presumptive diagnosis, (suspected or probable), related to the above clinical findings. Please include clinical findings supporting your diagnosis. In responding to this query, please exercise your independent professional judgment. The purpose of this communication is to more accurately reflect the complexity of your patients condition. The fact that a question is asked does not imply that any particular answer is desired or expected. Thank you for timely response to this clarification. Tayla Paul, MSN, RN Clinical [employer] [phone] RIKI ZAVALA MD 09/07/23 1530: Final Diagnosis Give Final Diagnosis 2 TAYLA PAUL Sep 07, 2023 15:02 RIKI ZAVALA MD Sep 07, 2023 15:30
[2023-09-07] MEDS: morphine IMMEDIATE RELEASE 15 MG TABLET PO PRN (16:24)
[2023-09-07] MEDS: PANTOPRAZOLE 40 MG TABLET PO SCH (21:42)
[2023-09-08 03:16] LABS: BASOPHILS % (AUTO) 1 % (0-10); EOSINOPHILS # (AUTO) 0.3 10^3/uL (0.0-0.3); EOSINOPHILS % (AUTO) 5 % (0-10); HEMATOCRIT 35 % (40-54); LYMPHOCYTES # (AUTO) 0.9 10^3/uL (1.0-4.0); LYMPHOCYTES % (AUTO) 14 % (12-44); MEAN CORPUSCULAR HEMOGLOBIN 29 pg (25-34); MEAN CORPUSCULAR HGB CONC 32 g/dL (32-36); MEAN CORPUSCULAR VOLUME 91 fL (80-99); MONOCYTES # (AUTO) 0.4 10^3/uL (0.0-1.0); MONOCYTES % (AUTO) 7 % (0-12); NEUTROPHILS # (AUTO) 4.7 10^3/uL (1.8-7.8); NEUTROPHILS % (AUTO) 74 % (42-75); PLATELET COUNT 222 10^3/uL (130-400); WHITE BLOOD COUNT 6.4 10^3/uL (4.3-11.0)
[2023-09-08] MEDS: RT-Ipratropium/Albuterol NEB 3 ML VIAL INH SCH ×6 (03:19→21:57)
[2023-09-08 03:27] LABS: CALCIUM 8.2 MG/DL (8.5-10.1)
[2023-09-08 03:28] LABS: TOTAL PROTEIN 5.4 GM/DL (6.4-8.2)
[2023-09-08 03:30] LABS: BILIRUBIN,TOTAL 0.3 MG/DL (0.1-1.0)
[2023-09-08 03:32] LABS: CREATININE SERUM 1.1 MG/DL (0.60-1.30)
[2023-09-08 03:43] LABS: ALBUMIN 3.1 GM/DL (3.2-4.5)
[2023-09-08 04:00] VITALS: BP 95/50
[2023-09-08] MEDS: PIPERACILLIN/Tazobactam 4.5 GM in NS (IVPB) 100 ML 100 ML IV SCH ×2 (04:31→11:32)
[2023-09-08] MEDS: POTASSIUM CHLORIDE 20 MEQ TABLET PO SCH (06:35)
[2023-09-08] MEDS: LEVOTHYROXINE 50 MCG TABLET PO SCH (06:35)
[2023-09-08] MEDS: SUCRALFATE 1 GM TABLET PO SCH ×4 (06:36→20:40)
[2023-09-08] MEDS: FUROSEMIDE INJECTION 40 MG/4 ML VIAL IVP SCH (06:36)
[2023-09-08 08:40] VITALS: BP 112/50
[2023-09-08] MEDS: carvediloL 12.5 MG TABLET PO SCH (08:57)
[2023-09-08] MEDS: CLOPIDOGREL 75 MG TABLET PO SCH (08:57)
[2023-09-08] MEDS: ISOSORBIDE MONONITRATE 30 MG TABLET PO SCH (08:58)
[2023-09-08] MEDS: MORPHINE 100 MG PO SCH ×2 (08:58→20:38)
[2023-09-08] MEDS: SACUBITRIL/VALSARTAN 24/26 MG TABLET PO SCH ×2 (08:58→20:40)
[2023-09-08] MEDS: PANTOPRAZOLE 40 MG TABLET PO SCH ×2 (08:58→20:40)
[2023-09-08] MEDS: ASPIRIN enteric coated 81MG TABLET PO SCH (08:58)
[2023-09-08] MEDS: NICOTINE 14 MG PATCH TD SCH (08:58)
[2023-09-08] MEDS: NICOTINE PATCH REMOVAL TP SCH (08:59)
--- NOTE | 2023-09-08 09:12 | Cardiology Progress Note ---
Subjective Date Seen by Provider: Sep 08, 2023 Time Seen by Provider: 08:20 Subjective/Events-last exam Patient is sitting up in bed, eating breakfast. Denies any chest pain Focused Exam Lactate Level 09/05/23 20:02: Lactic Acid Level 3.33*H 09/06/23 06:55: Lactic Acid Level 1.03 Time of Focused Exam: 08:45 Objective-Cardiology Exam Last Set of Vital Signs Vital Signs 09/08/23 09/08/23 09/08/23 12:12 13:00 15:14 Temp 36.5 Pulse 74 Resp 22 B/P (MAP) 73/48 (56) Pulse Ox 93 O2 Delivery Nasal Cannula O2 Flow Rate 2.50 I&O Intake and Output 09/08/23 00:00 Intake Total 1370 ml Output Total 2650 ml Balance -1280 ml Intake Oral 1370 ml Output Urine Total 2650 ml General: Alert, Oriented X3, Cooperative HEENT: Atraumatic, PERRLA Neck: Supple, No JVD, No Thyromegaly Lungs: Clear to Auscultation, Normal Air Movement Heart: Regular Rate, Normal S1, Normal S2, No Murmurs Abdomen: Normal Bowel Sounds, Soft, No Tenderness, No Hepatosplenomegaly, No Masses Extremities: No Clubbing, No Cyanosis, No Edema, Normal Pulses, No Tenderness/Swelling Skin: No Rashes, No Breakdown, No Significant Lesion Neuro: Normal Gait, Normal Speech, Strength at 5/5 X4 Ext, Normal Tone, Sensation Intact Psych/Mental Status: Mental Status NL, Mood NL Results Lab Laboratory Tests 09/08/23 03:10 A/P-Cardiology Admission Diagnosis Chest pain Non-ST elevation myocardial infarction Congestive heart failure, acute on chronic left ventricular systolic dysfunction Hypertension Assessment/Plan Chest pain, nonspecific etiology, mild elevation in troponin level Non-ST elevation myocardial infarction more probably type II RI secondary to cardiomyopathy Troponin is back to normal. Was planning for stress test this morning, unfortunately patient ate breakfast. I am planning to evaluate Lexiscan stress t est in the morning Coronary artery disease, history of total of 5 stents in the past. Cardiac catheterization was carried out on March 15, 2019 after having an abnormal stress test, showing patent stents in the LAD with mild disease distally, right coronary artery has also a patent stent dominant artery with mild disease nonobstructive disease and mild disease in the circumflex artery, the left vent ricle is dilated and aneurysmal anterior wall, ejection fraction 30 percent. Had mild elevation in troponin, Second set was normal, I am planning to evaluate Lexiscan stress test Stress test was done in August 2021 showing baseline T wave inversion in lead III and aVF, fixed defect involving the apex, anteroapical and inferoapical segment with no significant reversibility, stress score 27, SDS 0, ejection fraction 31%. Congestive heart failure, acute on chronic left ventricular systolic dysfu nction, EF 25-30% percent per 2-D echocardiogram done May 29, 2019, no improvement of EF from echo done in February 2019. Had a single chamber ICD implanted using Biotronik device with inability to sens e the atrium and since then paced the ventricle and successful DFT testing. Status post implantation of Biotronik single chamber ICD with serial number [id number] done on June 27, 2019 Continue to monitor Hypertension, reporting orthostatic hypotension. Has been using Lasix as needed. Will require more aggressive dose of diuresis Hyperlipidemia, Continue to monitor Family history of coronary artery disease Tobaccoism, educated on smoking cessation Mild bilateral carotid stenosis, ultrasound done in February 2010. Continue to monitor RLE claudication pain, PHAM was done on March 03 2021-minute was normal bilaterally, 1.13 bilaterally, TBI on the right 0.86, on the left 0.72. 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 Still an active smoker, currently established and receiving treatment with Dr. Katz Supervisory-Addendum Brief Supervisory Addendum Participated in pt care: history, MDM, physical Personally performed: exam, history, MDM Care discussed with: EMILIANA Results interpretation: Verified all documentation Notes: Patient was seen and evaluated with Lita, examination performed, management plan was discussed, agree with the current scribed note, I made few changes to the note using Italic font Patient was seen at bedside, sitting comfortably, he ate breakfast today, stress test was rescheduled for tomorrow Monitor blood pressure and lipids Continue on current treatment. LITA SCHRADER PA-C Sep 08, 2023 09:12 FRANKLIN FLORES MD Sep 08, 2023 16:03
[2023-09-08] MEDS: RT-HYPERTONIC SALINE 3% 4 ML NEB INH SCH ×2 (09:26→21:57)
[2023-09-08 12:12] VITALS: BP 73/48
[2023-09-08] MEDS ORDERED: NS IV 1000 ML 1,000 ML IV SCH (14:15)
[2023-09-08 16:00] VITALS: BP 105/48
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
[2023-09-08] MEDS ORDERED: ENOXAPARIN 40 MG/0.4 ML SYRINGE SC SCH (17:00)
[2023-09-08] MEDS: AMOXICILLIN/Clavulanate 875 MG TABLET PO SCH (18:14)
[2023-09-08 19:52] VITALS: BP 95/59
[2023-09-08 23:30] VITALS: BP 104/54
[2023-09-09 04:01] VITALS: BP 117/62
[2023-09-09 05:19] LABS: BASOPHILS % (AUTO) 1 % (0-10); EOSINOPHILS # (AUTO) 0.3 10^3/uL (0.0-0.3); EOSINOPHILS % (AUTO) 5 % (0-10); HEMATOCRIT 33 % (40-54); HEMOGLOBIN 10.6 g/dL (13.3-17.7); LYMPHOCYTES # (AUTO) 1.6 10^3/uL (1.0-4.0); LYMPHOCYTES % (AUTO) 30 % (12-44); MEAN CORPUSCULAR HEMOGLOBIN 29 pg (25-34); MEAN CORPUSCULAR HGB CONC 32 g/dL (32-36); MEAN CORPUSCULAR VOLUME 91 fL (80-99); MEAN PLATELET VOLUME 10.1 fL (9.0-12.2); MONOCYTES # (AUTO) 0.5 10^3/uL (0.0-1.0); MONOCYTES % (AUTO) 9 % (0-12); NEUTROPHILS # (AUTO) 3.1 10^3/uL (1.8-7.8); NEUTROPHILS % (AUTO) 56 % (42-75); PLATELET COUNT 220 10^3/uL (130-400); WHITE BLOOD COUNT 5.5 10^3/uL (4.3-11.0)
[2023-09-09 05:32] LABS: ALBUMIN 3.1 GM/DL (3.2-4.5)
[2023-09-09 05:33] LABS: POTASSIUM 4.3 MMOL/L (3.6-5.0)
[2023-09-09 05:34] LABS: CALCIUM 8.4 MG/DL (8.5-10.1)
[2023-09-09 05:35] LABS: TOTAL PROTEIN 5.5 GM/DL (6.4-8.2)
[2023-09-09 05:37] LABS: BILIRUBIN,TOTAL 0.2 MG/DL (0.1-1.0)
[2023-09-09 05:39] LABS: CREATININE SERUM 0.88 MG/DL (0.60-1.30)
[2023-09-09] MEDS: POTASSIUM CHLORIDE 20 MEQ TABLET PO SCH (06:28)
[2023-09-09] MEDS: SUCRALFATE 1 GM TABLET PO SCH ×2 (06:28→11:23)
[2023-09-09] MEDS: LEVOTHYROXINE 50 MCG TABLET PO SCH (06:28)
[2023-09-09] MEDS ORDERED: REGADENOSON 0.4 MG/5 ML SYR IV ONE ×2 (07:52→08:15)
[2023-09-09] MEDS: RT-HYPERTONIC SALINE 3% 4 ML NEB INH SCH (07:55)
[2023-09-09] MEDS: RT-Ipratropium/Albuterol NEB 3 ML VIAL INH SCH ×2 (07:55→10:00)
[2023-09-09 08:03] VITALS: BP 129/61
--- NOTE | 2023-09-09 08:28 | Cardiology Progress Note ---
Subjective Date Seen by Provider: Sep 09, 2023 Time Seen by Provider: 08:25 Subjective/Events-last exam Patient in heart center for stress test, denies any chest pain. Focused Exam Time of Focused Exam: 08:45 Objective-Cardiology Exam Last Set of Vital Signs Vital Signs 09/09/23 09/09/23 09/09/23 04:01 12:00 12:02 Temp 36.7 Pulse 102 Resp 16 B/P (MAP) 120/76 (91) Pulse Ox 95 O2 Delivery Nasal Cannula O2 Flow Rate 2.00 I&O Intake and Output 09/08/23 23:59 Intake Total 2340 ml Output Total 2100 ml Balance 240 ml Intake Oral 1140 ml IV Total 1200 ml Output Urine Total 2100 ml General: Alert, Oriented X3, Cooperative HEENT: Atraumatic, PERRLA Neck: Supple, No JVD, No Thyromegaly Lungs: Clear to Auscultation, Normal Air Movement Heart: Regular Rate, Normal S1, Normal S2, No Murmurs Abdomen: Normal Bowel Sounds, Soft, No Tenderness, No Hepatosplenomegaly, No Masses Extremities: No Clubbing, No Cyanosis, No Edema, Normal Pulses, No Tenderness/Swelling Skin: No Rashes, No Breakdown, No Significant Lesion Neuro: Normal Gait, Normal Speech, Strength at 5/5 X4 Ext, Normal Tone, Sensation Intact Psych/Mental Status: Mental Status NL, Mood NL Results Lab Laboratory Tests 09/09/23 04:56 A/P-Cardiology Admission Diagnosis Chest pain Non-ST elevation myocardial infarction Congestive heart failure, acute on chronic left ventricular systolic dysfunction Hypertension Assessment/Plan Chest pain, nonspecific etiology, mild elevation in troponin level Non-ST elevation myocardial infarction more probably type II ME secondary to cardiomyopathy Troponin is back to normal. Stress test done on September 09, 2023, fixed defect at the apex and inferior wall with no significant ischemia or infarction, ejection fraction 31% Coronary artery disease, history of total of 5 stents in the past. Cardiac catheterization was carried out on March 15, 2019 after having an abnormal stress test, showing patent stents in the LAD with mild disease distally, right coronary artery has also a patent stent dominant artery with mild disease nonobstructive disease and mild disease in the circumflex artery, the left ventricle is dilated and aneurysmal anterior wall, ejection fraction 30 percent. Congestive heart failure, acute on chronic left ventricular systolic dysfunction, EF 25-30% percent per 2-D echocardiogram done May 29, 2019, no improvement of EF from echo done in February 2019. Had a single chamber ICD implanted using Biotronik device with inability to sense the atrium and since then paced the ventricle and successful DFT testing. Status post implantation of Biotronik single chamber ICD with serial number [id number] done on June 27, 2019 Continue to monitor Hypertension, reporting orthostatic hypotension. Has been using Lasix as needed. Will require more aggressive dose of diuresis Hyperlipidemia, Continue to monitor Family history of coronary artery disease Tobaccoism, educated on smoking cessation Mild bilateral carotid stenosis, ultrasound done in February 2010. Continue to monitor RLE claudication pain, PHAM was done on March 03 2021-minute was normal bilateral ly, 1.13 bilaterally, TBI on the right 0.86, on the left 0.72. 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 Still an active smoker, currently established and receiving treatment with Dr. Katz Supervisory-Addendum Brief Supervisory Addendum Participated in pt care: history, MDM, physical Personally performed: exam, history, MDM Care discussed with: EMILIANA Results interpretation: Verified all documentation Notes: Patient was seen and evaluated with Lita, examination performed, management plan was discussed, agree with the current scribed note, I made few changes to the note using Italic font Patient was seen at bedside sitting comfortably Stress test did not change compared to 2020, fixed defect at the apex and inferior wall with ejection fraction 31% Okay for discharge and continue maximizing medical therapy LITA SCHRADER PA-C Sep 09, 2023 08:28 FRANKLIN FLORES MD Sep 09, 2023 12:31
[2023-09-09 08:55] VITALS: BP 138/53
[2023-09-09] MEDS: MORPHINE 100 MG PO SCH (09:18)
[2023-09-09] MEDS: AMOXICILLIN/Clavulanate 875 MG TABLET PO SCH (09:18)
[2023-09-09] MEDS: CLOPIDOGREL 75 MG TABLET PO SCH (09:19)
[2023-09-09] MEDS: ISOSORBIDE MONONITRATE 30 MG TABLET PO SCH (09:19)
[2023-09-09] MEDS: PANTOPRAZOLE 40 MG TABLET PO SCH (09:19)
[2023-09-09] MEDS: ASPIRIN enteric coated 81MG TABLET PO SCH (09:19)
[2023-09-09] MEDS: NICOTINE 14 MG PATCH TD SCH (09:19)
[2023-09-09] MEDS: NICOTINE PATCH REMOVAL TP SCH (09:22)
[2023-09-09 12:00] VITALS: BP 120/76
--- NOTE | 2023-09-09 12:29 | Cardiology Stress Test Report ---
Stress Test Report Date of Procedure/Referring: Date of Procedure: Sep 09, 2023 PCP Katherin Myers MD Admitting Physician Admitting Physician: Fani Lino MD Attending Physician: Arlene Young MD Baseline Blood Pressure: Blood Pressure Systolic: 120 Blood Pressure Diastolic: 76 Baseline Vitals Vital Signs Date Time Temp Pulse Resp B/P (MAP) Pulse Ox O2 Delivery O2 Flow Rate FiO2 09/05/23 19:54 37.1 84 26 131/42 (71) 97 Nasal Cannula 2.00 Baseline EKG: Baseline EKG: NSR Summary After explaining the procedure to the patient, he signed a consent and then brought to the stress nuclear laboratory. Patient received 0.4 mg Lexiscan for stress test, ECG, heart rate and blood pressure were monitored continuously. Resting and stress dose of radio tracer were injected, imaging was acquired and reviewed in short axis, horizontal long axis and vertical long axis views. TID: 0.97 SSS: 28 SDS: 0 EF: 31 Patient tolerated Lexiscan well Fixed defect involving the apex and inferior wall, no change compared to the previous study Dilated left ventricle with akinesia of the apex hypokinesia of the inferior wall, ejection fraction 31% Copy Copies To 1: KATHERIN MYERS MD, BASHAR J MD Sep 09, 2023 12:29
[2023-09-09] MEDS: SACUBITRIL/VALSARTAN 24/26 MG TABLET PO SCH (12:56)
[2023-09-09] MEDS: morphine IMMEDIATE RELEASE 15 MG TABLET PO PRN (13:07)
[2023-09-09] MEDS ORDERED: AMOX1TAB12 PO (13:10)
[2023-09-09] MEDS ORDERED: PANT40TA52 PO (13:10)
[2023-09-09 13:54] VITALS: BP 120/76
== END 2023-09-09 13:50 | disposition home or self-care (01) | DRG 193 ==
LOC: EDUNIT# 19:48 → ER FS 19:49 → CSD 23:21
PROVIDERS: ADMIT Family Medicine; ATTEND Internal Medicine
DX: J18.9 Pneumonia, unspecified organism (principal); I21.A1 Myocardial infarction type 2; I50.23 Acute on chronic systolic (congestive) heart failure; J96.11 Chronic respiratory failure with hypoxia; C79.51 Secondary malignant neoplasm of bone; C34.90 Malignant neoplasm of unspecified part of unspecified bronchus or lung; I42.9 Cardiomyopathy, unspecified; J43.9 Emphysema, unspecified; G89.3 Neoplasm related pain (acute) (chronic); Z66 Do not resuscitate; I95.1 Orthostatic hypotension; I11.0 Hypertensive heart disease with heart failure; F17.210 Nicotine dependence, cigarettes, uncomplicated; I25.10 Atherosclerotic heart disease of native coronary artery without angina pectoris; E78.00 Pure hypercholesterolemia, unspecified; E03.9 Hypothyroidism, unspecified; F41.9 Anxiety disorder, unspecified; I65.23 Occlusion and stenosis of bilateral carotid arteries; I73.9 Peripheral vascular disease, unspecified; Z95.5 Presence of coronary angioplasty implant and graft; Z95.810 Presence of automatic (implantable) cardiac defibrillator; Z79.899 Other long term (current) drug therapy; Z79.82 Long term (current) use of aspirin; Z79.52 Long term (current) use of systemic steroids; Z88.1 Allergy status to other antibiotic agents
CPT/HCPCS: 36415; 71045; 78452; 80053; 83605; 83735; 84484; 85025; 86141; 87040; 87081; 87449; 93005; 93017; 93041; 93306; 94640; 94760; 96361; 96365; 96375

== ENCOUNTER 2023-09-23 08:45 | Outpatient (RCR) | payer MEDICARE ==
[~2023-09-23 08:45] MED LIST changes: +AMOX1TAB12 PO; +HEParin (CENTRAL IV FLUSH) 500 UNIT/5 ML SYR IV PRN; +MORP100T47 PO; +NIVOLUMAB 480 MG in NS (IVPB) 100 ML 100 ML IV SCH; +NS IV 500 ML 500 ML IV SCH; +NS IV SCH; +PANT40TA52 PO; +ZOLEDRONIC ACID IV SCH
[2023-09-23 09:16] LABS: BASOPHILS # (AUTO) 0.1 10^3/uL (0.0-0.1); BASOPHILS % (AUTO) 1 % (0-10); EOSINOPHILS # (AUTO) 0.3 10^3/uL (0.0-0.3); EOSINOPHILS % (AUTO) 3 % (0-10); HEMATOCRIT 37 % (40-54); HEMOGLOBIN 11.6 g/dL (13.3-17.7); LYMPHOCYTES # (AUTO) 1.8 10^3/uL (1.0-4.0); LYMPHOCYTES % (AUTO) 18 % (12-44); MEAN CORPUSCULAR HEMOGLOBIN 29 pg (25-34); MEAN CORPUSCULAR HGB CONC 31 g/dL (32-36); MEAN CORPUSCULAR VOLUME 93 fL (80-99); MEAN PLATELET VOLUME 9.9 fL (9.0-12.2); MONOCYTES # (AUTO) 0.7 10^3/uL (0.0-1.0); MONOCYTES % (AUTO) 7 % (0-12); NEUTROPHILS % (AUTO) 71 % (42-75); PLATELET COUNT 322 10^3/uL (130-400); WHITE BLOOD COUNT 9.9 10^3/uL (4.3-11.0)
[2023-09-23 09:36] LABS: ALBUMIN 3.7 GM/DL (3.2-4.5); BILIRUBIN,TOTAL 0.2 MG/DL (0.1-1.0); CALCIUM 8.8 MG/DL (8.5-10.1); CREATININE SERUM 0.92 MG/DL (0.60-1.30); POTASSIUM 3.9 MMOL/L (3.6-5.0); TOTAL PROTEIN 6.4 GM/DL (6.4-8.2)
== END 2023-09-30 09:08 | disposition home or self-care (01) ==
LOC: ONC 08:45
PROVIDERS: ATTEND Internal Medicine Hematology & Oncology
DX: C34.91 Malignant neoplasm of unspecified part of right bronchus or lung (principal); C79.51 Secondary malignant neoplasm of bone; J44.9 Chronic obstructive pulmonary disease, unspecified; I25.10 Atherosclerotic heart disease of native coronary artery without angina pectoris; J96.10 Chronic respiratory failure, unspecified whether with hypoxia or hypercapnia; I50.9 Heart failure, unspecified; Z72.0 Tobacco use
CPT/HCPCS: 80053; 84443; 85025

== ENCOUNTER → 2023-10-06 | Outpatient (CLI) | payer MEDICARE ==
[~2023-10-06] MED LIST changes: -HEParin (CENTRAL IV FLUSH) 500 UNIT/5 ML SYR IV PRN; +HOLD METFORMIN - RECEIVED CONTRAST 20 ML VIAL IV SCH; +IOHEXOL 350 MG/ML 100 ML (OMNIPAQUE 350) VIAL IV ONE; -NIVOLUMAB 480 MG in NS (IVPB) 100 ML 100 ML IV SCH; +NS 100 ML (IVPB) BAG IV ONE; -NS IV 500 ML 500 ML IV SCH; -NS IV SCH; -ZOLEDRONIC ACID IV SCH
--- NOTE | 2023-10-06 14:32 | Diagnostic Imaging Report ---
PROCEDURE: CT chest with contrast only. TECHNIQUE: Multiple contiguous axial images were obtained through the chest after administration of intravenous contrast. Auto Exposure Controls were utilized during the CT exam to meet ALARA standards for radiation dose reduction. Date: October 06, 2023. Indication: 73-year-old male, history of lung cancer on chemotherapy. Comparisons: CT chest abdomen pelvis August 09, 2023. Findings: There is a nodular airspace consolidation in the right upper lobe on axial image 57 measuring 5.1 x 1.7 cm in axial extent which is unchanged since August 09, 2023. There is nodular masslike consolidation in the right lower lobe with associated opacification within the bronchi measuring approximately 4.2 x 2.7 cm in axial extent as measured on axial image 101. This is essentially unchanged in size since August 09, 2023 and measured 4.1 x 2.6 cm using the same technique for measurement. There are additional linear opacities in the right lower lobe, right middle lobe, and right upper lobe likely relating to scarring and/or atelectasis. There are upper lobe predominant findings of emphysema. There is pleural parenchymal scarring in the lung apex on the left. There is no identified left-sided pulmonary nodule or lung mass. The heart is enlarged. There is no identified pericardial effusion. There are coronary artery calcifications and additional areas of atherosclerotic disease. There are some internal calcifications within the right lower lobe mass like consolidation. There is a partially calcified right hilar lymph node on axial image 75 measuring 8 mm in short axis. There is also a partially calcified subcentimeter short axis subcarinal lymph node. There is no axillary lymph node meeting CT size criteria for adenopathy. There are vascular calcifications adjacent to both kidneys. There is a duodenal diverticulum near the duodenal insertion of the common bile duct. There is a mildly displaced right posterior seventh rib fracture. There is a lytic lesion of the left posterior fourth rib. These findings also present on the prior CT and without significant interval change. There is a healed prior fracture deformity of the right fourth rib. There is a 5 mm sclerotic lesion of the T3 vertebral body on sagittal image 81. There is a 3 mm sclerotic focus in the T6 vertebral body. There is a sclerotic lesion in T7 measuring 9 mm in size as well as subcentimeter sclerotic foci at the levels of T8 and T11. These are all unchanged since August 09, 2023. Impression: 1. Stable nodular masslike consolidation with opacification of right lower lobe bronchi since August 09, 2023. 2. Stable nodular consolidation in the right lung apex. 3. Redemonstrated findings of emphysema. 4. Lucent and sclerotic bone lesions as above without interval change since August 09, 2023 which may relate to a bone metastasis. Dictated by: Dictated on workstation # [id number]
== END ==
LOC: RAD 13:02
PROVIDERS: ATTEND Internal Medicine Hematology & Oncology
DX: C34.90 Malignant neoplasm of unspecified part of unspecified bronchus or lung (principal); M89.9 Disorder of bone, unspecified
CPT/HCPCS: 71260